=== PATIENT | female | born 1935 | race Caucasian/White ===

== ENCOUNTER 2017-09-28 11:15 | Emergency (ER) | payer MEDICARE, BC ==
--- NOTE | 2017-09-28 11:40 | ED ---
Extremity Problem HPI <Davie Taylor - Last Filed: 09/28/17 13:23> - General Source: patient, RN notes reviewed, old records reviewed Mode of arrival: wheelchair Limitations: no limitations <NabilCyndie - Last Filed: 09/28/17 21:47> - General Chief complaint: Extremity Problem,Nontraumatic Stated complaint: rt leg pain Time Seen by Provider: 09/28/17 11:24 - History of Present Illness Initial comments: This is a 1-year-old female presents emergency department today with chief complaint of right hip pain. Patient reports that she's been having increased pain over the past 4 days of ambulation. She reports no pain with passive range of motion. She denies any falls or trauma that she is aware of. Patient states that she's ever had any issues with her hips. Patient states that she has had no urinary symptoms. Denies any other symptoms including abdominal pain shortness of breath or chest pain. (Cyndie Ferrer) - Related Data Home Medications Medication Instructions Recorded Confirmed Albuterol Sulfate [Accuneb] 2.5 mg INHALATION TID 12/01/13 12/23/13 Albuterol Sulfate [Proair Hfa] 2 puff INHALATION TID 12/01/13 12/23/13 Arformoterol Tartrate [Brovana] 15 mcg INHALATION BID 12/01/13 12/23/13 Aspirin 325 mg PO DAILY 12/01/13 12/23/13 Carvedilol 25 mg PO BID 12/01/13 12/23/13 Cholecalciferol [Vitamin D3] 2,000 unit PO DAILY 12/01/13 12/23/13 Enalapril Maleate [Vasotec] 10 mg PO BID 12/01/13 12/23/13 Ibandronate Sodium [Boniva] 150 mg PO QMONTH 12/01/13 12/23/13 Insuln Asp Prt/Insulin Aspart 20 unit SQ AC-SUPPER 12/01/13 12/23/13 [NovoLOG MIX 70-30 VIAL] Insuln Asp Prt/Insulin Aspart 28 unit SQ AC-BRKFST 12/01/13 12/23/13 [NovoLOG MIX 70-30 VIAL] Isosorbide Mononitrate [Imdur] 30 mg PO DAILY 12/01/13 12/23/13 Lansoprazole [Prevacid] 30 mg PO DAILY 12/01/13 12/23/13 Nitroglycerin Sl Tabs [Nitrostat] 0.4 mg SUBLINGUAL Q5M PRN 12/01/13 12/23/13 Pravastatin Sodium [Pravachol] 80 mg PO HS 12/01/13 12/23/13 amLODIPine [Norvasc] 5 mg PO BID 12/01/13 12/23/13 hydrALAZINE HCL [Apresoline] 50 mg PO TID 12/01/13 12/23/13 Previous Rx's Medication Instructions Recorded Budesonide [Pulmicort] 1 mg INHALATION RT-BID #60 nebu 12/07/13 Montelukast [Singulair] 10 mg PO HS #30 tab 12/07/13 Acetaminophen-Codeine 300-30mg 1 tab PO Q4H PRN 3 Days #18 tablet 09/28/17 [Tylenol w/codeine #3] Ibuprofen 600 mg PO TID #20 tablet 09/28/17 Nitrofurantoin Monohyd/M-Cryst 100 mg PO Q12HR #14 cap 09/28/17 [Macrobid] Allergies Allergy/AdvReac Type Severity Reaction Status Date / Time No Known Allergies Allergy Verified 09/28/17 11:20 Review of Systems ROS Other: All systems not noted in ROS Statement are negative. <Davie Taylor - Last Filed: 09/28/17 13:23> ROS Other: All systems not noted in ROS Statement are negative. <Cyndie Ferrer - Last Filed: 09/28/17 21:47> ROS Statement: Those systems with pertinent positive or pertinent negative responses have been documented in the HPI. Past Medical History Past Medical History: COPD, Diabetes Mellitus, GERD/Reflux, Hyperlipidemia, Hypertension, Myocardial Infarction ([place]), Pneumonia Additional Past Medical History / Comment(s): ANEURYSM SPLENIC ARTERY,NONTOXIC MULTINODULAR GOITER PER MEDICAL HX FROM DR AGUILAR OFFICE,PSORISIS, POLYNEUROPATHY Last Myocardial Infarction Date:: 2005 History of Any Multi-Drug Resistant Organisms: None Reported Past Surgical History: Cholecystectomy, Heart Catheterization With Stent Past Anesthesia/Blood Transfusion Reactions: No Reported Reaction Date of Last Stent Placement:: 2005? Past Psychological History: No Psychological Hx Reported Smoking Status: Former smoker Past Alcohol Use History: None Reported Past Drug Use History: None Reported - Past Family History Father Family Medical History: COPD Additional Family Medical History / Comment(s): DAD IN HIS 60'S Mother Family Medical History: Cancer Additional Family Medical History / Comment(s): MOM IN HER EARLY 70'S <Cyndie Ferrer - Last Filed: 09/28/17 21:47> General Exam <Davie Taylor - Last Filed: 09/28/17 13:23> Limitations: no limitations General appearance: alert, in no apparent distress Head exam: Present: atraumatic, normocephalic, normal inspection Eye exam: Present: normal appearance, PERRL, EOMI. Absent: scleral icterus, conjunctival injection, periorbital swelling ENT exam: Present: normal exam, mucous membranes moist Neck exam: Present: normal inspection. Absent: tenderness, meningismus, lymphadenopathy Respiratory exam: Present: normal lung sounds bilaterally, other (Patient has some labored breathing on exertion. She reports this is chronic. No acute changes.). Absent: respiratory distress, wheezes, rales, rhonchi, stridor Cardiovascular Exam: Present: regular rate, normal rhythm, normal heart sounds. Absent: systolic murmur, diastolic murmur, rubs, gallop, clicks GI/Abdominal exam: Present: soft, normal bowel sounds. Absent: distended, tenderness, guarding, rebound, rigid Extremities exam: Present: normal inspection, full ROM, normal capillary refill. Absent: tenderness, pedal edema, joint swelling, calf tenderness Right Hip exam: Present: normal inspection, full ROM, tenderness (over IT band ) Upper Leg exam: Present: normal inspection, full ROM Knee exam: Present: normal inspection Back exam: Present: normal inspection Neurological exam: Present: alert, oriented X3, CN II-XII intact Psychiatric exam: Present: normal affect, normal mood Skin exam: Present: warm, dry, intact, normal color. Absent: rash <Cyndie Ferrer - Last Filed: 09/28/17 21:47> - General Exam Comments Initial Comments: 81-year-old female. Alert and oriented. No significant distress. (Cyndie Ferrer) Course <Davie Taylor - Last Filed: 09/28/17 13:23> <Cyndie Ferrer - Last Filed: 09/28/17 21:47> Vital Signs 09/28/17 09/28/17 11:19 13:31 Temperature 98.0 F 98.1 F Pulse Rate 75 71 Respiratory 20 16 Rate Blood Pressure 167/72 160/78 O2 Sat by Pulse 99 98 Oximetry - Reevaluation(s) Reevaluation #1: 09/28/17 13:23 I personally saw and examined the patient and reviewed and agree with the PAs findings including all diagnostic interpretations and treatment plans is written was otherwise stated I did discuss the findings with the patient family members she is in agreement that she does want to go home she'll follow-up with orthopedics. (Davie Taylor) Medical Decision Making <Davie Taylor - Last Filed: 09/28/17 13:23> - Radiology Data Radiology results: report reviewed <Cyndie Ferrer - Last Filed: 09/28/17 21:47> - Medical Decision Making PAtient is a 81 year old female with CC of right hip pain, worse with ambulation for 4 days. Patient has full ROM passively, pain with walking. Patient has no fall or trauma. Normal sensation and pulse of the right foot and leg. PAtient has tenderness over R hip and IT band. Patient urinalysis is evidence of UTI. Culture obtained. Will start on antibiotics. Xray of hip shows no fracutre, evidence of mild or moderate arthritic changes. Patient informed of results.Will DC with short course of pain medication. REturn parameters discussed. (Cyndie Ferrer) - Lab Data Lab Results 09/28/17 Range/Units 12:36 Urine Color Yellow Urine Appearance Cloudy H (Clear) Urine pH 5.5 (5.0-8.0) Ur Specific [place] 1.017 (1.001-1.035) Urine Protein Trace H (Negative) Urine Glucose (UA) 3+ H (Negative) Urine Ketones Negative (Negative) Urine Blood Negative (Negative) Urine Nitrite Positive H (Negative) Urine Bilirubin Negative (Negative) Urine Urobilinogen <2.0 (<2.0) mg/dL Ur Leukocyte Esterase Moderate H (Negative) Urine WBC 27 H (0-5) /hpf Ur Squamous Epith Cells 8 H (0-4) /hpf Urine Bacteria Occasional H (None) /hpf Urine Mucus Rare H (None) /hpf - Radiology Data No acute osseous lesion. Evidence of degenerative changes within the right hip. (Cyndie Ferrer) Disposition <Davie Taylor - Last Filed: 09/28/17 13:23> Is patient prescribed a controlled substance at d/c from ED?: Yes If prescribed controlled substance>3 days was MAPS reviewed?: Prescribed <3 Days If opioid is for acute pain is fill amount 7 days or less?: Yes If Rx opioid, was Start Talking consent form obtained?: Yes Time of Disposition: 13:13 <Cyndie Ferrer - Last Filed: 09/28/17 21:47> Clinical Impression: Arthritis of right hip, UTI (urinary tract infection) Disposition: HOME SELF-CARE Condition: Good Instructions: Arthritis (ED), Urinary Traction Infection in Older Adults (ED) Additional Instructions: Patient advised to follow-up with primary care physician. Take antibiotics and use the pain medicine and anti-inflammatory medicine as prescribed. Patient should return to the emergency department if any alarming signs or symptoms occur. Prescriptions: Acetaminophen-Codeine 300-30mg [Tylenol w/codeine #3] 1 tab PO Q4H PRN 3 Days # 18 tablet PRN Reason: Pain Ibuprofen 600 mg PO TID #20 tablet Nitrofurantoin Monohyd/M-Cryst [Macrobid] 100 mg PO Q12HR #14 cap Referrals: Dewayne Aguilar DO [Primary Care Provider] - 1-2 days Mark Siegel MD [Medical Doctor] - 1-2 days
--- NOTE | 2017-09-28 12:32 | XR ---
EXAMINATION TYPE: XR Hip RT and AP Pelvis , 3 VIEWS DATE OF EXAM ORDERED: 09/28/2017 HISTORY: Pain. COMPARISON: None. FINDINGS: Osseous structures about the pelvis are unremarkable. No fracture is seen. There are mild degenerative changes in the right hip. There is vascular calcification present. There are phleboliths within the pelvis. IMPRESSION: 1. NO ACUTE OSSEOUS LESION. 2. DEGENERATIVE CHANGE.
[2017-09-28 12:50] LABS: Appearance,Urine Cloudy (Clear); Bacteria,Urine Occasional /hpf; Bilirubin,Urine Negative (Negative); Blood,Urine Negative (Negative); Color,Urine Yellow; Glucose,Urine (UA) 3+ (Negative); Ketones,Urine Negative (Negative); Leukocyte Esterase,Urine Moderate (Negative); Mucus,Urine Rare /hpf; Nitrite,Urine Positive (Negative); PH, Urine 5.5 (5.0-8.0); Protein,Urine Trace (Negative); Specific Gravity,Urine 1.017 (1.001-1.035); Squamous Epithelial Cell,Urine 8 /hpf (0-4); Urobilinogen,Urine <2.0 mg/dL (<2.0); WBC,Urine 27 /hpf (0-5)
[2017-09-28] MEDS ORDERED: ACET/COD 300 MG/30 MG STARTER PACK 6 TAB BTL PO STA (13:13)
[2017-09-28] MEDS ORDERED: NITROFURANTOIN MONOHYD/M-CRYST 100 MG CAP PO STA (13:13)
[2017-09-28 13:32] VITALS: BP 160/78; PULSE 71; RESP 16; TEMP 98.1
== END 2017-09-28 13:31 | disposition home or self-care (01) ==
LOC: EC 11:15
DX: M16.11 Unilateral primary osteoarthritis, right hip (principal); N39.0 Urinary tract infection, site not specified; J44.9 Chronic obstructive pulmonary disease, unspecified; E11.42 Type 2 diabetes mellitus with diabetic polyneuropathy; K21.9 Gastro-esophageal reflux disease without esophagitis; E78.5 Hyperlipidemia, unspecified; I10 Essential (primary) hypertension; I25.2 Old myocardial infarction; Z95.5 Presence of coronary angioplasty implant and graft; Z87.891 Personal history of nicotine dependence; Z79.82 Long term (current) use of aspirin; Z79.4 Long term (current) use of insulin; Z79.899 Other long term (current) drug therapy
CPT/HCPCS: 73502; 81001; 99284

== ENCOUNTER 2017-09-29 14:35 | Inpatient (IN) | payer MEDICARE, BC ==
[2017-09-29] MEDS ORDERED: KETOROLAC 30 MG/ML 1 ML VIAL IVP STA (15:04)
--- NOTE | 2017-09-29 15:12 | ED ---
General Adult HPI - General Chief complaint: Recheck/Abnormal Lab/Rx Stated complaint: trouble walking Time Seen by Provider: 09/29/17 14:55 Source: patient, family, RN notes reviewed, old records reviewed Mode of arrival: wheelchair Limitations: no limitations - History of Present Illness Initial comments: This 82-year-old female with a history of multiple medical problems who was seen here yesterday with complaints of right-sided hip and lower quadrant abdominal pain who is back today with increased pain she states 9/10 severity she states it hurts she cannot describe it any further she states she is unable walk because of the pain at this time. She denies any focal deficits however. No nausea vomiting dysuria hematuria no other symptoms reported at this time. Per family member she is unable relate and able to care for herself. - Related Data Home Medications Medication Instructions Recorded Confirmed Albuterol Sulfate [Accuneb] 2.5 mg INHALATION TID 12/01/13 12/23/13 Albuterol Sulfate [Proair Hfa] 2 puff INHALATION TID 12/01/13 12/23/13 Arformoterol Tartrate [Brovana] 15 mcg INHALATION BID 12/01/13 12/23/13 Aspirin 325 mg PO DAILY 12/01/13 12/23/13 Carvedilol 25 mg PO BID 12/01/13 12/23/13 Cholecalciferol [Vitamin D3] 2,000 unit PO DAILY 12/01/13 12/23/13 Enalapril Maleate [Vasotec] 10 mg PO BID 12/01/13 12/23/13 Ibandronate Sodium [Boniva] 150 mg PO QMONTH 12/01/13 12/23/13 Insuln Asp Prt/Insulin Aspart 20 unit SQ AC-SUPPER 12/01/13 12/23/13 [NovoLOG MIX 70-30 VIAL] Insuln Asp Prt/Insulin Aspart 28 unit SQ AC-BRKFST 12/01/13 12/23/13 [NovoLOG MIX 70-30 VIAL] Isosorbide Mononitrate [Imdur] 30 mg PO DAILY 12/01/13 12/23/13 Lansoprazole [Prevacid] 30 mg PO DAILY 12/01/13 12/23/13 Nitroglycerin Sl Tabs [Nitrostat] 0.4 mg SUBLINGUAL Q5M PRN 12/01/13 12/23/13 Pravastatin Sodium [Pravachol] 80 mg PO HS 12/01/13 12/23/13 amLODIPine [Norvasc] 5 mg PO BID 12/01/13 12/23/13 hydrALAZINE HCL [Apresoline] 50 mg PO TID 12/01/13 12/23/13 Previous Rx's Medication Instructions Recorded Budesonide [Pulmicort] 1 mg INHALATION RT-BID #60 nebu 12/07/13 Montelukast [Singulair] 10 mg PO HS #30 tab 12/07/13 Acetaminophen-Codeine 300-30mg 1 tab PO Q4H PRN 3 Days #18 tablet 09/28/17 [Tylenol w/codeine #3] Ibuprofen 600 mg PO TID #20 tablet 09/28/17 Nitrofurantoin Monohyd/M-Cryst 100 mg PO Q12HR #14 cap 09/28/17 [Macrobid] Allergies Allergy/AdvReac Type Severity Reaction Status Date / Time No Known Allergies Allergy Verified 09/29/17 14:46 Review of Systems ROS Statement: Those systems with pertinent positive or pertinent negative responses have been documented in the HPI. ROS Other: All systems not noted in ROS Statement are negative. Past Medical History Past Medical History: COPD, Diabetes Mellitus, GERD/Reflux, Hyperlipidemia, Hypertension, Myocardial Infarction ([place]), Pneumonia Additional Past Medical History / Comment(s): ANEURYSM SPLENIC ARTERY,NONTOXIC MULTINODULAR GOITER PER MEDICAL HX FROM DR AGUILAR OFFICE,PSORISIS, POLYNEUROPATHY Last Myocardial Infarction Date:: 2005 History of Any Multi-Drug Resistant Organisms: None Reported Past Surgical History: Cholecystectomy, Heart Catheterization With Stent Past Anesthesia/Blood Transfusion Reactions: No Reported Reaction Date of Last Stent Placement:: 2005? Past Psychological History: No Psychological Hx Reported Smoking Status: Former smoker Past Alcohol Use History: None Reported Past Drug Use History: None Reported - Past Family History Father Family Medical History: COPD Additional Family Medical History / Comment(s): DAD IN HIS 60'S Mother Family Medical History: Cancer Additional Family Medical History / Comment(s): MOM IN HER EARLY 70'S General Exam - General Exam Comments Initial Comments: This is a well-developed well-nourished awake alert oriented 3 female Limitations: no limitations General appearance: alert, anxious, in distress Head exam: Present: atraumatic, normocephalic, normal inspection Eye exam: Present: normal appearance, PERRL, EOMI. Absent: scleral icterus, conjunctival injection, periorbital swelling ENT exam: Present: normal exam, mucous membranes moist Neck exam: Present: normal inspection. Absent: tenderness, meningismus, lymphadenopathy Respiratory exam: Present: normal lung sounds bilaterally. Absent: respiratory distress, wheezes, rales, rhonchi, stridor Cardiovascular Exam: Present: regular rate, normal rhythm, normal heart sounds. Absent: systolic murmur, diastolic murmur, rubs, gallop, clicks GI/Abdominal exam: Present: soft, normal bowel sounds, other (Obese abdomen). Absent: distended, tenderness, guarding, rebound, rigid Rectal exam: Present: deferred Extremities exam: Present: normal inspection, full ROM, normal capillary refill Back exam: Present: tenderness, other (Right SI tenderness palpation some mild right paraspinous tenderness palpation upper gluteal tenderness palpation.). Absent: full ROM, CVA tenderness (R), CVA tenderness (L) Neurological exam: Present: alert, oriented X3, CN II-XII intact Psychiatric exam: Present: normal affect, normal mood Skin exam: Present: warm, dry, intact, normal color. Absent: rash Course Vital Signs 09/29/17 14:46 Temperature 97.6 F Pulse Rate 68 Respiratory 18 Rate Blood Pressure 160/62 O2 Sat by Pulse 95 Oximetry EKG Findings - EKG Results: EKG: interpreted by ERMD, sinus rhythm (Sinus rhythm rate 66. Interval 150 to QRS 82 QT since QTC 412/431 st-t wave changes are seen.) Medical Decision Making - Medical Decision Making The patient was seen by Dr. Murrieta in the emergency department and will be admitted for inpatient evaluation of intractable back pain and failure to thrive additionally she had hypoglycemia renal insufficiency and mildly elevated troponin. - Lab Data Result diagrams: 09/29/17 15:30 09/29/17 15:30 Lab Results 09/29/17 09/29/17 09/29/17 Range/Units 15:27 15:30 15:30 WBC 11.4 H (3.8-10.6) k/uL RBC 4.38 (3.80-5.40) m/uL Hgb 11.9 (11.4-16.0) gm/dL Hct 37.8 (34.0-46.0) % MCV 86.2 (80.0-100.0) fL MCH 27.1 (25.0-35.0) pg MCHC 31.4 (31.0-37.0) g/dL RDW 14.5 (11.5-15.5) % Plt Count 231 (150-450) k/uL Neutrophils % 84 % Lymphocytes % 9 % Monocytes % 4 % Eosinophils % 2 % Basophils % 0 % Neutrophils # 9.6 H (1.3-7.7) k/uL Lymphocytes # 1.1 (1.0-4.8) k/uL Monocytes # 0.4 (0-1.0) k/uL Eosinophils # 0.2 (0-0.7) k/uL Basophils # 0.0 (0-0.2) k/uL Hypochromasia Slight Sodium (137-145) mmol/L Potassium (3.5-5.1) mmol/L Chloride (98-107) mmol/L Carbon Dioxide (22-30) mmol/L Anion Gap mmol/L BUN (7-17) mg/dL Creatinine (0.52-1.04) mg/dL Est GFR (CKD-EPI)AfAm (>60 ml/min/1.73 sqM) Est GFR (CKD-EPI)NonAf (>60 ml/min/1.73 sqM) Glucose (74-99) mg/dL POC Glucose (mg/dL) 46 L (75-99) mg/dL POC Glu Spindle Tester ID Watt, Yaneli Calcium (8.4-10.2) mg/dL Magnesium (1.6-2.3) mg/dL Total Bilirubin (0.2-1.3) mg/dL AST (14-36) U/L ALT (9-52) U/L Alkaline Phosphatase (38-126) U/L Total Creatine Kinase 124 (30-135) U/L CK-MB (CK-2) 2.4 (0.0-2.4) ng/mL CK-MB (CK-2) Rel Index 1.9 Troponin I 0.054 H* (0.000-0.034) ng/mL Total Protein (6.3-8.2) g/dL Albumin (3.5-5.0) g/dL Amylase (30-110) U/L Lipase (23-300) U/L 09/29/17 09/29/17 09/29/17 Range/Units 15:30 15:46 16:15 WBC (3.8-10.6) k/uL RBC (3.80-5.40) m/uL Hgb (11.4-16.0) gm/dL Hct (34.0-46.0) % MCV (80.0-100.0) fL MCH (25.0-35.0) pg MCHC (31.0-37.0) g/dL RDW (11.5-15.5) % Plt Count (150-450) k/uL Neutrophils % % Lymphocytes % % Monocytes % % Eosinophils % % Basophils % % Neutrophils # (1.3-7.7) k/uL Lymphocytes # (1.0-4.8) k/uL Monocytes # (0-1.0) k/uL Eosinophils # (0-0.7) k/uL Basophils # (0-0.2) k/uL Hypochromasia Sodium 141 (137-145) mmol/L Potassium 6.1 H (3.5-5.1) mmol/L Chloride 109 H (98-107) mmol/L Carbon Dioxide 21 L (22-30) mmol/L Anion Gap 11 mmol/L BUN 37 H (7-17) mg/dL Creatinine 1.26 H (0.52-1.04) mg/dL Est GFR (CKD-EPI)AfAm 46 (>60 ml/min/1.73 sqM) Est GFR (CKD-EPI)NonAf 40 (>60 ml/min/1.73 sqM) Glucose 42 L* (74-99) mg/dL POC Glucose (mg/dL) 47 L 154 H (75-99) mg/dL POC Glu Spindle Tester AUREA WattJorgeYaneli Yaneli Villarreal Calcium 8.9 (8.4-10.2) mg/dL Magnesium 1.8 (1.6-2.3) mg/dL Total Bilirubin 0.4 (0.2-1.3) mg/dL AST 27 (14-36) U/L ALT 25 (9-52) U/L Alkaline Phosphatase 48 (38-126) U/L Total Creatine Kinase (30-135) U/L CK-MB (CK-2) (0.0-2.4) ng/mL CK-MB (CK-2) Rel Index Troponin I (0.000-0.034) ng/mL Total Protein 6.6 (6.3-8.2) g/dL Albumin 4.1 (3.5-5.0) g/dL Amylase 73 (30-110) U/L Lipase 60 (23-300) U/L - Radiology Data Radiology results: image reviewed Disposition Clinical Impression: Intractable back pain, Hypoglycemia, Renal insufficiency syndrome, Elevated troponin, Failure to thrive Disposition: [facility] Condition: Stable Referrals: Dewayne Aguilar DO [Primary Care Provider] - 1-2 days
[2017-09-29 15:28] LABS: Glucose,Whole Blood 46 mg/dL (75-99)
[2017-09-29 15:41] LABS: Basophils % (A) 0 %; Eosinophils # (A) 0.2 k/uL (0-0.7); Eosinophils % (A) 2 %; HCT 37.8 % (34.0-46.0); HGB 11.9 gm/dL (11.4-16.0); Hypochromasia Slight; Lymphocytes # (A) 1.1 k/uL (1.0-4.8); Lymphocytes % (A) 9 %; MCH 27.1 pg (25.0-35.0); MCHC 31.4 g/dL (31.0-37.0); MCV 86.2 fL (80.0-100.0); Monocytes # (A) 0.4 k/uL (0-1.0); Monocytes % (A) 4 %; Neutrophils # (A) 9.6 k/uL (1.3-7.7); Neutrophils % (A) 84 %; Platelet Count 231 k/uL (150-450); RBC 4.38 m/uL (3.80-5.40); RDW 14.5 % (11.5-15.5); WBC 11.4 k/uL (3.8-10.6)
[2017-09-29] MEDS ORDERED: DEXTROSE 50%-WATER 50 ML SYRINGE IVP STA (15:48)
[2017-09-29 15:53] LABS: Albumin 4.1 g/dL (3.5-5.0); Calcium 8.9 mg/dL (8.4-10.2); Magnesium 1.8 mg/dL (1.6-2.3); Potassium 6.1 mmol/L (3.5-5.1); Total Bilirubin 0.4 mg/dL (0.2-1.3); Total Protein 6.6 g/dL (6.3-8.2)
[2017-09-29 15:58] LABS: Glucose,Whole Blood 47 mg/dL (75-99)
[2017-09-29 16:10] LABS: Creatine Kinase MB 2.4 ng/mL (0.0-2.4)
[2017-09-29 16:13] LABS: Troponin I 0.054 ng/mL (0.000-0.034)
[2017-09-29 16:19] LABS: Glucose,Whole Blood 154 mg/dL (75-99)
[2017-09-29] MEDS ORDERED: IOPAMIDOL-300 CONTRAST 30 ML VIAL (ORAL USE) PO PRN (16:21)
[2017-09-29] MEDS ORDERED: ALPRAZolam 0.25 MG TAB PO PRN (16:23)
[2017-09-29] MEDS ORDERED: NALOXONE 0.4 MG/ML 1 ML VIAL IV PRN (16:50)
[2017-09-29] MEDS ORDERED: fentaNYL (PF) 50 MCG/ML 2 ML AMP IVP STA (16:55)
[2017-09-29] MEDS ORDERED: NITROGLYCERIN SL TABS 0.4 MG TAB SUBLINGUAL PRN (16:58)
[2017-09-29] MEDS ORDERED: NON-FORMULARY DRUG (Ibandronate Sodium [Boniva] 150 MG) PO SCH (17:00)
--- NOTE | 2017-09-29 17:08 | XR ---
EXAMINATION TYPE: XR pelvis AP view DATE OF EXAM: 09/29/2017 CLINICAL HISTORY: Pelvic and right hip pain. TECHNIQUE: AP view of the pelvis is obtained. COMPARISON: 09/29/2017 radiographs. FINDINGS: Interval development of right femoral neck fracture with superior displacement and medial impaction. Remaining osseous structures are unchanged. Fluid was present within low pelvis. Limited evaluation o f bowel is unremarkable. IMPRESSION: Interval development of superiorly displaced and impacted right femoral neck fracture.
--- NOTE | 2017-09-29 17:09 | XR ---
EXAMINATION TYPE: XR lumbosacral spine min 4V DATE OF EXAM: 09/29/2017 CLINICAL HISTORY: Fall, low back pain TECHNIQUE: Frontal, lateral, and oblique images of the lumbar spine are obtained. COMPARISON: FINDINGS: There are 5 lumbar type vertebral bodies identified. Normal alignment. Multilevel disc spa ce height narrowing is present. Vertebral body heights are maintained. Multilevel facet hypertrophy a nd anterior osteophytosis is evident. Calcification is noted of the abdominal aorta. The oblique imag es appear within normal limits. The overlying soft tissue appears unremarkable. IMPRESSION: No acute fracture or dislocation is seen in the lumbar spine.
[2017-09-29] MEDS ORDERED: ONDANSETRON 4 MG/2 ML VIAL IVP STA (17:38)
[2017-09-29] MEDS: SODIUM CHLORIDE 0.9% 1,000 ML IV SCH (17:43)
--- NOTE | 2017-09-29 18:42 | HP ---
HISTORY AND PHYSICAL CHIEF COMPLAINTS: Difficulty walking and as well as hypoglycemia and right hip pain. HISTORY OF PRESENT ILLNESS: This 82-year-old woman with a past medical history of multiple medical problems including history of COPD, diabetes, GERD, hypertension, hyperlipidemia, history of myocardial infarction, history of splenic artery aneurysm, being followed by Dr. Aguilar in the outpatient setting, was complaining of right hip pain for the last couple of days. Patient unable to walk. The pain was radiating from the back to the hip according to her. The patient came to [facility] Emergency Room yesterday and patient was evaluated and discharged but because of lack of improvement, the patient came back and being admitted for further evaluation. Of note, the blood sugar was also found to be 41 and 36 at this time. There is no history of fever, rigors or chills. No history of headache, loss of consciousness, seizures. PAST MEDICAL HISTORY: COPD, diabetes, GERD, hypertension, hyperlipidemia, myocardial infarction, pneumonia. MEDICATIONS: Home medications are: 1. Apresoline 50 mg p.o. b.i.d. 2. Norvasc 5 mg p.o. b.i.d. 3. Pravachol 80 mg daily. 4. Nitrostat 0.4 mg sublingual p.r.n. 5. Macrobid 100 mg b.i.d. 6. Singular 10 mg q.h.s. 7. Prevacid 30 mg. 8. Imdur 30 mg. 9. NovoLog 28 units subcu breakfast, 10 units supper. 10.Ibuprofen 600 mg t.i.d. 11.Boniva 50 mg monthly. 12.Vasotec 10 mg p.o. b.i.d. 13.Vitamin D3 2000 daily. 14.Coreg 25 mg p.o. b.i.d. 15.Pulmicort 1 mg b.i.d. 16.Aspirin 320 mg daily. 17.Brovana 15 b.i.d. 18.ProAir 2 puffs t.i.d. 20.Tylenol #3 1 tablet q.4h p.r.n. ALLERGIES: None. FAMILY HISTORY: History of COPD in the family. SOCIAL HISTORY: Previous history of smoking. Occasional alcohol intake. REVIEW OF SYSTEMS: ENT: No diminished vision. No diminished hearing. CARDIOVASCULAR: No angina. RESPIRATORY: As mentioned earlier. GI: No nausea or vomiting. : No dysuria. CENTRAL NERVOUS SYSTEM: No numbness or weakness. ALLERGY/IMMUNOLOGY: No asthma or hayfever. MUSCULOSKELETAL as mentioned earlier. HEMATOLOGY/ONCOLOGY: No history of anemia. ENDOCRINE: As mentioned earlier. CONSTITUTIONAL: As mentioned earlier. DERMATOLOGY: Negative. RHEUMATOLOGY: Negative. PSYCHIATRIC: As mentioned earlier. PHYSICAL EXAMINATION: GENERAL: Alert, and oriented times three. VITAL SIGNS: Pulse 68, blood pressure 160/62, respiration 18, temperature 97.6, pulse ox 94% on room air. HEENT: Conjunctivae normal. Oral mucosa moist. NECK is no jugular venous distention. No carotid bruit. No lymph node enlargement. CARDIOVASCULAR: S1, S2 muffled. RESPIRATIONS: Breath sounds diminished in the bases. A few scattered rhonchi. No crackles. ABDOMEN: Soft. Minimal diffuse tenderness in the right lower quadrant. Movements of the right hip also painful. LEGS: No edema and no swelling. NERVOUS SYSTEM: Higher functions as mentioned earlier. Moves all four extremities. No focal motor or sensory deficits. LYMPHATICS: No lymph nodes palpable in the neck, axillae or groin. SKIN: No ulcer, rashes or bleeding. LABS: WBC 11.4, hemoglobin 11.9 potassium 6.1, creatinine 1.26, glucose 42 and 47, 46. ASSESSMENT: 1. Right hip pain and right lower quadrant abdominal pain for evaluation. 2. Severe hypoglycemia with diabetes type 2 uncontrolled. 3. Hyperkalemia. 4. Chronic kidney disease stage 3. 5. History of chronic obstructive pulmonary disease. 6. Diabetes mellitus type 2. 7. Gastroesophageal reflux disease. 8. Hypertension. 9. Hyperlipidemia. 10.History of myocardial infarction. 11.History of splenic artery aneurysm. 12.History of nontoxic multinodular goiter on medical treatment. 13.History of polyneuropathy. 14.History of cholecystectomy. 15.History of coronary artery disease/stent. 16.Remote history of nicotine dependence. RECOMMENDATION AND DISCUSSION: In this 82-year-old woman who presented with multiple complex medical issues, we will monitor the patient closely. Continue the current medications, management and symptomatic treatment. We will recommend to hold the insulin. Symptomatic treatment provided and monitor blood sugars closely. I would also recommend a CT scan of the abdomen and pelvis also. Orthopedic evaluation with Dr. West will also be obtained. Prognosis guarded because of multiple complex medical issues. Further recommendations to follow. A copy of dictation is being forwarded to Dr. Aguilar who is the primary care physician. See orders for details. MMODL / IJN: [id number] / ANASTASIA
[2017-09-29 19:13] LABS: Glucose,Whole Blood 64 mg/dL (75-99)
[2017-09-29 19:17] LABS: Glucose,Whole Blood 63 mg/dL (75-99)
--- NOTE | 2017-09-29 19:23 | CT ---
EXAMINATION TYPE: CT abdomen pelvis wo con DATE OF EXAM: 09/29/2017 HISTORY: Right groin pain. CT DLP: 1248.7 mGycm. Automated Exposure Control for Dose Reduction was Utilized. TECHNIQUE: CT scan of the abdomen and pelvis is performed without oral or IV contrast. COMPARISON: NONE FINDINGS: Within the limitations of a non-contrast study, the following observations are made. LUNG BASES: No significant abnormality is appreciated. LIVER/GB: No significant abnormality is appreciated. PANCREAS: No significant abnormality is seen. SPLEEN: No significant abnormality is seen. ADRENALS: Fat containing right adrenal lesion is evident. A 1.5 cm left adrenal lesion with Hounsfiel d units less than 10 most consistent with a benign adenoma. KIDNEYS: Kidneys are slightly atrophic but otherwise unremarkable. BOWEL: No significant abnormality is seen. Normal appendix. GENITAL ORGANS: No gross abnormality seen. LYMPH NODES: No greater than 1cm abdominal or pelvic lymph nodes are appreciated. OSSEOUS STRUCTURES: No significant abnormality is seen. Grade 1 anterolisthesis of L5 on S1. Comminut ed right femoral neck fracture is evident with superior migration and impaction. The femoral head rem ains in normal alignment with the acetabulum. No additional pelvic fractures are evident. The sacroil iac joints are unremarkable. OTHER: Diffuse calcification of the abdominal aorta. IMPRESSION: 1. Comminuted, displaced and impacted right femoral neck fracture as described above. 2. No additional acute findings.
[2017-09-29 19:44] LABS: Glucose,Whole Blood 70 mg/dL (75-99)
--- NOTE | 2017-09-29 19:53 | CT ---
EXAMINATION TYPE: CT hip RT wo con DATE OF EXAM: 09/29/2017 COMPARISON: CT abdomen and pelvis earlier the same day. HISTORY: Right groin pain. CT DLP: 1248.7 mGycm Automated exposure control for dose reduction was used. FINDINGS: Comminuted right femoral neck fracture is evident with superior displacement and impaction. The femor al head remains in normal alignment with the acetabulum. No additional pelvic fractures are evident. The sacroiliac joints are unremarkable. Further evaluation of the abdomen and pelvis is better described on the concurrently performed CT of pelvis of the same day. IMPRESSION: COMMINUTED, SUPERIORLY DISPLACED AND IMPACTED RIGHT FEMORAL NECK FRACTURE.
[2017-09-29] MEDS: hydrALAZINE HCL 50 MG TAB PO SCH (20:21)
[2017-09-29] MEDS: HEPARIN SODIUM,PORCINE 5,000 UNIT/ML 1 ML VIAL SQ SCH (20:21)
[2017-09-29] MEDS: IBUPROFEN 600 MG TAB PO SCH (20:21)
[2017-09-29] MEDS: amLODIPine 5 MG TAB PO SCH (20:21)
[2017-09-29] MEDS: MELATONIN 3 MG TABLET PO SCH (20:21)
[2017-09-29] MEDS: MONTELUKAST 10 MG TAB PO SCH (20:21)
[2017-09-29] MEDS: HYDROcodone/APAP 5-325MG 1 EACH TAB PO PRN (20:22)
[2017-09-29] MEDS: PRAVASTATIN SODIUM 80 MG TAB PO SCH (20:23)
[2017-09-29] MEDS: ALBUTEROL NEBULIZED 2.5 MG/3 ML INHALATION SCH (20:25)
[2017-09-29] MEDS: BUDESONIDE 1 MG/2 ML NEBU INHALATION SCH (20:25)
[2017-09-29] MEDS: FORMOTEROL FUMARATE 20 MCG/2 ML NEBU INHALATION SCH (20:36)
[2017-09-29 20:59] LABS: Glucose,Whole Blood 74 mg/dL (75-99)
[2017-09-29] MEDS ORDERED: NITROFURANTOIN MONOHYD/M-CRYST 100 MG CAP PO SCH (21:00)
[2017-09-29] MEDS: INSULN ASP PRT/INSULIN ASPART 100 UNIT/ML 10 ML VIAL SQ SCH (22:13)
[2017-09-29] MEDS: CARVEDILOL 12.5 MG TAB PO SCH (22:13)
[2017-09-30] MEDS: HYDROcodone/APAP 5-325MG 1 EACH TAB PO PRN (02:24)
[2017-09-30 04:17] LABS: Glucose,Whole Blood 125 mg/dL (75-99)
[2017-09-30 04:42] LABS: Appearance,Urine Clear (Clear); Bilirubin,Urine Negative (Negative); Blood,Urine Negative (Negative); Color,Urine Yellow; Glucose,Urine (UA) Negative (Negative); Ketones,Urine Negative (Negative); Leukocyte Esterase,Urine Negative (Negative); Nitrite,Urine Negative (Negative); Protein,Urine Trace (Negative); Specific Gravity,Urine 1.016 (1.001-1.035); Urobilinogen,Urine <2.0 mg/dL (<2.0)
[2017-09-30 05:49] LABS: Glucose,Whole Blood 119 mg/dL (75-99)
[2017-09-30] MEDS: INSULN ASP PRT/INSULIN ASPART 100 UNIT/ML 10 ML VIAL SQ SCH ×2 (06:38→18:10)
[2017-09-30] MEDS: PANTOPRAZOLE 40 MG TABLET PO SCH (06:40)
[2017-09-30] MEDS: CARVEDILOL 12.5 MG TAB PO SCH ×2 (06:40→17:43)
[2017-09-30] MEDS: SODIUM CHLORIDE 0.9% 1,000 ML IV SCH ×2 (06:46→09:42)
[2017-09-30 07:15] LABS: Basophils % (A) 0 %; Eosinophils # (A) 0.2 k/uL (0-0.7); Eosinophils % (A) 3 %; HCT 34.1 % (34.0-46.0); HGB 10.4 gm/dL (11.4-16.0); Hypochromasia Moderate; Lymphocytes # (A) 0.7 k/uL (1.0-4.8); Lymphocytes % (A) 10 %; MCH 27.2 pg (25.0-35.0); MCHC 30.6 g/dL (31.0-37.0); MCV 88.8 fL (80.0-100.0); Mean Platelet Volume 7.7; Monocytes # (A) 0.5 k/uL (0-1.0); Monocytes % (A) 6 %; Neutrophils # (A) 5.6 k/uL (1.3-7.7); Neutrophils % (A) 79 %; Platelet Count 181 k/uL (150-450); RBC 3.85 m/uL (3.80-5.40); RDW 14.3 % (11.5-15.5); WBC 7.1 k/uL (3.8-10.6)
[2017-09-30 07:24] LABS: Calcium 8.6 mg/dL (8.4-10.2)
[2017-09-30] MEDS ORDERED: HYDROmorphone 1 MG/ML 1 ML SYRINGE IVP PRN (07:52)
[2017-09-30] MEDS: HEPARIN SODIUM,PORCINE 5,000 UNIT/ML 1 ML VIAL SQ SCH ×2 (07:58→20:54)
[2017-09-30] MEDS: HYDROmorphone 1 MG/ML 1 ML SYRINGE IVP PRN ×3 (07:59→22:42)
[2017-09-30] MEDS: FORMOTEROL FUMARATE 20 MCG/2 ML NEBU INHALATION SCH ×2 (08:09→20:18)
[2017-09-30] MEDS: BUDESONIDE 1 MG/2 ML NEBU INHALATION SCH ×2 (08:09→20:18)
[2017-09-30] MEDS: ALBUTEROL NEBULIZED 2.5 MG/3 ML INHALATION SCH ×3 (08:09→20:18)
[2017-09-30] MEDS: ONDANSETRON 4 MG/2 ML VIAL IVP PRN (08:38)
[2017-09-30] MEDS ORDERED: NON-FORMULARY DRUG (Lansoprazole [Prevacid] 30 MG) PO SCH (09:00)
[2017-09-30] MEDS ORDERED: LISINOPRIL 20 MG TAB PO SCH (09:00)
--- NOTE | 2017-09-30 09:16 | P.CNOR ---
History of Present Illness - [facility] Consult date: 09/30/17 Requesting physician: Alexsander Murrieta Consult reason: fracture (Right comminuted superiorly displaced impacted right femoral neck fracture) History of present illness: Patient is a very pleasant 82-year-old female who is seen and examined at the bedside for further evaluation for a right hip pain. She started to experience some hip pain this past without injury. Her pain became debilitating on 09/28/2017, and she presented to the emergency department for further evaluation. Imaging was taken at that time it was negative for fracture. She was discharged home. She returned to the emergency department yesterday, 09/29/2017, after the pain became even more debilitating and she was unable to ambulate. She was seen and examined by Dr. Murrieta in the emergency department as well. Multiple imaging modalities were taking in the emergency department which showed evidence of superior displaced and impacted right femoral neck fracture. She was admitted to medicine with consultation placed with orthopedics. She is remain nonweightbearing and on bed rest. She did eat breakfast this morning and finished breakfast at approximate 7:40 AM. Patient states she does have a history of heart attack a couple years ago. At the time of her admission she did have slightly elevated troponin levels at 0.054 and 0.051. Consultation has been placed with cardiology for medical clearance. We are currently waiting for medical clearance by medicine. Patient states she does have COPD and is currently on a breathing treatment. Patient denies any other significant difficulties or injuries. She did not sustain an accident to her right hip. She also has some difficulty with hypoglycemia due to uncontrolled type 2 diabetes. Her glucose levels have been better controlled on hospital. Past Medical History Past Medical History: COPD, Diabetes Mellitus, GERD/Reflux, Hyperlipidemia, Hypertension, Myocardial Infarction (AR), Pneumonia Additional Past Medical History / Comment(s): aneurysm splenic artery, nontoxic multinodular goiter per medical history from Dr. Aguilar office, psoriasis, polyneuropathy Last Myocardial Infarction Date:: 2005 History of Any Multi-Drug Resistant Organisms: None Reported Past Surgical History: Cholecystectomy, Heart Catheterization With Stent Past Anesthesia/Blood Transfusion Reactions: No Reported Reaction Date of Last Stent Placement:: 2005? Past Psychological History: No Psychological Hx Reported Smoking Status: Former smoker Past Alcohol Use History: None Reported Additional Past Alcohol Use History / Comment(s): STARTED SMOKING AT AGE 15 SMOKED LESS THAN 1 PPD QUIT IN 2005, HAS AN RARE DRINK NO DRUG HX. Past Drug Use History: None Reported - Past Family History Father Family Medical History: COPD Additional Family Medical History / Comment(s): DAD IN HIS 60'S Mother Family Medical History: Cancer Additional Family Medical History / Comment(s): MOM IN HER EARLY 70'S Medications and Allergies Home Medications Medication Instructions Recorded Confirmed Type Carvedilol 25 mg PO BID 12/01/13 09/29/17 History Cholecalciferol [Vitamin D3] 2,000 unit PO DAILY 12/01/13 09/29/17 History Enalapril Maleate [Vasotec] 10 mg PO BID 12/01/13 09/29/17 History Ibandronate Sodium [Boniva] 150 mg PO QMONTH 12/01/13 09/29/17 History Insuln Asp Prt/Insulin Aspart 20 unit SQ AC-SUPPER 12/01/13 09/29/17 History [NovoLOG MIX 70-30 VIAL] Insuln Asp Prt/Insulin Aspart 28 unit SQ AC-BRKFST 12/01/13 09/29/17 History [NovoLOG MIX 70-30 VIAL] Isosorbide Mononitrate [Imdur] 30 mg PO DAILY 12/01/13 09/29/17 History Lansoprazole [Prevacid] 30 mg PO DAILY 12/01/13 09/29/17 History Nitroglycerin Sl Tabs [Nitrostat] 0.4 mg SUBLINGUAL Q5M PRN 12/01/13 09/29/17 History Pravastatin Sodium [Pravachol] 80 mg PO HS 12/01/13 09/29/17 History amLODIPine [Norvasc] 5 mg PO BID 12/01/13 09/29/17 History hydrALAZINE HCL [Apresoline] 50 mg PO TID 12/01/13 09/29/17 History Acetaminophen-Codeine 300-30mg 1 tab PO Q4H PRN 3 Days #18 tablet 09/28/1709/29 Rx [Tylenol w/codeine #3] Ibuprofen 600 mg PO TID #20 tablet 09/28/17 09/29/17 Rx Nitrofurantoin Monohyd/M-Cryst 100 mg PO Q12HR #14 cap 09/28/17 09/29/17 Rx [Macrobid] Albuterol Nebulized [Ventolin 2.5 mg INHALATION RT-Q4H PRN 09/29/17 09/29/17 History Nebulized] Aspirin EC [Ecotrin Low Dose] 81 mg PO DAILY 09/29/17 09/29/17 History Hydrochlorothiazide [Hydrodiuril] 25 mg PO DAILY 09/29/17 09/29/17 History Ipratropium Jennings [Atrovent Hfa] 2 puff INHALATION RT-QID PRN 09/29/17 History buPROPion HCL [Wellbutrin SR] 150 mg PO BID 09/29/17 09/29/17 History Allergies Allergy/AdvReac Type Severity Reaction Status Date / Time No Known Allergies Allergy Verified 09/29/17 17:25 Physical Examination Physical exam: Patient is awake, alert, and oriented 3 Vital signs stable Good chest excursion with deep inspiration and expiration; currently on breathing treatment Abdomen soft nontender Right lower extremity is shortened and internally rotated Pain with palpation of the right hip Significant pain with internal and external rotation of the right hip No pain with internal and external rotation of the left hip Neurovascularly intact bilateral lower extremities Dorsiflexion, plantarflexion, and extensor hallucis longus positive sustained bilaterally Calves are soft and supple; No signs or symptoms of DVT; No calf pain Results Pertinent studies: CT the right hip without contrast taken on 09/29/2017: Comminuted superiorly displaced and impacted right femoral neck fracture X-ray of the pelvis taken on 09/29/2017 and compared to x-rays taken on 2017: Interval development of superior displaced and impacted right femoral neck fracture CT of the abdomen and pelvis without contrast taken on 09/29/2017: Comminuted displaced and impacted right femoral neck fracture; no additional acute findings - Labs Labs: Abnormal Lab Results - Last 24 Hours (Table) 09/29/17 09/29/17 09/29/17 Range/Units 15:27 15:30 15:30 WBC 11.4 H (3.8-10.6) k/uL Hgb (11.4-16.0) gm/dL MCHC (31.0-37.0) g/dL Neutrophils # 9.6 H (1.3-7.7) k/uL Lymphocytes # (1.0-4.8) k/uL Potassium (3.5-5.1) mmol/L Chloride (98-107) mmol/L Carbon Dioxide (22-30) mmol/L BUN (7-17) mg/dL Creatinine (0.52-1.04) mg/dL Glucose (74-99) mg/dL POC Glucose (mg/dL) 46 L (75-99) mg/dL Troponin I 0.054 H* (0.000-0.034) ng/mL Urine Protein (Negative) 09/29/17 09/29/17 09/29/17 Range/Units 15:30 15:46 16:15 WBC (3.8-10.6) k/uL Hgb (11.4-16.0) gm/dL MCHC (31.0-37.0) g/dL Neutrophils # (1.3-7.7) k/uL Lymphocytes # (1.0-4.8) k/uL Potassium 6.1 H (3.5-5.1) mmol/L Chloride 109 H (98-107) mmol/L Carbon Dioxide 21 L (22-30) mmol/L BUN 37 H (7-17) mg/dL Creatinine 1.26 H (0.52-1.04) mg/dL Glucose 42 L* (74-99) mg/dL POC Glucose (mg/dL) 47 L 154 H (75-99) mg/dL Troponin I (0.000-0.034) ng/mL Urine Protein (Negative) 09/29/17 09/29/17 09/29/17 Range/Units 18:52 19:16 19:33 WBC (3.8-10.6) k/uL Hgb (11.4-16.0) gm/dL MCHC (31.0-37.0) g/dL Neutrophils # (1.3-7.7) k/uL Lymphocytes # (1.0-4.8) k/uL Potassium (3.5-5.1) mmol/L Chloride (98-107) mmol/L Carbon Dioxide (22-30) mmol/L BUN (7-17) mg/dL Creatinine (0.52-1.04) mg/dL Glucose (74-99) mg/dL POC Glucose (mg/dL) 64 L 63 L 70 L (75-99) mg/dL Troponin I (0.000-0.034) ng/mL Urine Protein (Negative) 09/29/17 09/30/17 09/30/17 Range/Units 20:57 03:57 04:20 WBC (3.8-10.6) k/uL Hgb (11.4-16.0) gm/dL MCHC (31.0-37.0) g/dL Neutrophils # (1.3-7.7) k/uL Lymphocytes # (1.0-4.8) k/uL Potassium (3.5-5.1) mmol/L Chloride (98-107) mmol/L Carbon Dioxide (22-30) mmol/L BUN (7-17) mg/dL Creatinine (0.52-1.04) mg/dL Glucose (74-99) mg/dL POC Glucose (mg/dL) 74 L 125 H (75-99) mg/dL Troponin I (0.000-0.034) ng/mL Urine Protein Trace H (Negative) 09/30/17 09/30/17 09/30/17 Range/Units 05:47 06:38 06:38 WBC (3.8-10.6) k/uL Hgb 10.4 L (11.4-16.0) gm/dL MCHC 30.6 L (31.0-37.0) g/dL Neutrophils # (1.3-7.7) k/uL Lymphocytes # 0.7 L (1.0-4.8) k/uL Potassium 6.0 H (3.5-5.1) mmol/L Chloride (98-107) mmol/L Carbon Dioxide (22-30) mmol/L BUN 39 H (7-17) mg/dL Creatinine 1.53 H (0.52-1.04) mg/dL Glucose 129 H (74-99) mg/dL POC Glucose (mg/dL) 119 H (75-99) mg/dL Troponin I (0.000-0.034) ng/mL Urine Protein (Negative) 09/30/17 Range/Units 06:38 WBC (3.8-10.6) k/uL Hgb (11.4-16.0) gm/dL MCHC (31.0-37.0) g/dL Neutrophils # (1.3-7.7) k/uL Lymphocytes # (1.0-4.8) k/uL Potassium (3.5-5.1) mmol/L Chloride (98-107) mmol/L Carbon Dioxide (22-30) mmol/L BUN (7-17) mg/dL Creatinine (0.52-1.04) mg/dL Glucose (74-99) mg/dL POC Glucose (mg/dL) (75-99) mg/dL Troponin I 0.051 H* (0.000-0.034) ng/mL Urine Protein (Negative) H & H 09/29/17 09/30/17 Range/Units 15:30 06:38 Hgb 11.9 10.4 L (11.4-16.0) gm/dL Hct 37.8 34.1 (34.0-46.0) % Result Diagrams: 09/30/17 06:38 09/30/17 06:38 Assessment and Plan Assessment: Assessment: Right comminuted superiorly displaced and impacted right femoral neck fracture Right hip pain Inability to ambulate History of previous heart attack with current elevated troponin levels Significant medical history including severe hypoglycemia with type 2 diabetes uncontrolled, chronic kidney disease stage III, COPD, and hyperkalemia (1) Displaced fracture of right femoral neck Current Visit: Yes Status: Acute Code(s): S72.001A - FRACTURE OF UNSP PART OF NECK OF RIGHT FEMUR, INIT SNOMED Code(s): 8197952 (2) Right hip pain Current Visit: Yes Status: Acute Code(s): M25.551 - PAIN IN RIGHT HIP SNOMED Code(s): 48131454 (3) Inability to ambulate due to hip Current Visit: Yes Status: Acute Code(s): R26.2 - DIFFICULTY IN WALKING, NOT ELSEWHERE CLASSIFIED SNOMED Code(s): 156130489 (4) Elevated troponin Current Visit: Yes Status: Acute Code(s): R74.8 - ABNORMAL LEVELS OF OTHER SERUM ENZYMES SNOMED Code(s): 364439014 Plan: Plan: 1. Patient has had worsening right hip pain since . Imaging did not show evidence of fracture on Saturday. After further exacerbation of right hip pain and inability to ambulate, she presented to the emergency department again yesterday, 09/29/2017, at which time she was found to have a comminuted superiorly displaced impacted right femoral neck fracture. She was admitted to medicine with consultation to orthopedic services for further treatment and evaluation. Given her fracture, the most definitive care is for her to undergo surgical intervention to give her the best opportunity to recovery from her fracture and for her to be able to ambulate on the right lower extremity. The proposed surgical intervention is an ORIF right hip hemiarthroplasty. We will currently plan for surgical intervention this afternoon, 09/30/2017. Patient ate breakfast this morning but is currently nothing by mouth status. Her currently waiting for clearance by medicine. Consultation has been placed for cardiology for clearance prior to surgical intervention. She is able to be cleared by both medicine and cardiology today we will plan for surgical interventions afternoon to be performed by Dr. Siegel. She will continue on bed rest. She will remain nonweightbearing on the right lower extremity. We will plan for placement of Wing catheter. Treatment has been discussed with her family as well. 2. Patient currently waiting for consultation with cardiology for medical clearance 3. We will continue follow patient closely Time with Patient: Less than 30
[2017-09-30] MEDS: IBUPROFEN 600 MG TAB PO SCH (09:40)
[2017-09-30] MEDS ORDERED: SODIUM POLYSTYRENE SULFONATE 30 GM/120 ML BOTTLE RECTAL STA (11:29)
[2017-09-30] MEDS ORDERED: DEXTROSE 50%-WATER 50 ML SYRINGE IVP STA ×2 (11:31→14:01)
[2017-09-30] MEDS ORDERED: INSULIN REGULAR 100 UNIT/ML VIAL IV ONE ×2 (11:31→14:00)
[2017-09-30] MEDS ORDERED: SODIUM BICARB 8.4% 50 ML SYR (1 MEQ/ML) IV ONE ×2 (11:31→14:00)
--- NOTE | 2017-09-30 11:47 | P.CRDCN ---
History of Present Illness Consult date: 09/30/17 Requesting physician: Alexsander Murrieta Reason for Consult (text): Surgical clearance Chief complaint: Right hip fracture History of present illness: This is an 82-year-old female who follows with Dr. Brennen Caputo in the office. She has a known history of hypertension, diabetes, hyperlipidemia, COPD with prior history of smoking, coronary artery disease with prior stenting of the proximal circumflex in 2005 subsequent to that she did undergo a cardiac catheterization in 2010 which revealed a 50% mid LAD, 50% proximal circumflex, 20% mid RCA. Last echo in the office was performed in November 2016 which revealed an ejection fraction of 50% with mild inferobasal hypokinesis EF, mild increase in velocity across the aortic valve without significant stenosis. Most recent Bessy scan was performed in November 2016 which revealed an anterior fixed defect probable soft tissue attenuation. Her home medications include Apresoline 50 mg 3 times a day, well. Trend 150 twice a day, Norvasc 5 twice a day, Pravachol 80 mg daily, Macrobid 100 mg twice a day, Prevacid 30 daily, Imdur 30 daily, ibuprofen 3 times a day, Boniva, Hydrea diarrheal 25 daily, Vasotec 10 twice a day, Coreg 25 mg by mouth twice a day, and a baby aspirin. According To the patient, she's been taking Aleve at home because she has been experiencing significant pain in her right hip and right leg. She denies having any fall that she recalls, she states that she may have ran into something but does not even remember doing that. Because of this pain she presented to the emergency room. X-ray of the lumbar sacral spine was performed on admission which did not reveal acute fracture or dislocation of the lumbar spine. Pelvis x-ray revealed interval development of superiorly displaced and impacted right femoral neck fracture. CT of the abdomen and pelvis revealed comminuted displaced and impacted right femoral neck fracture. Hip CT confirmed this also. EKG shows a normal sinus rhythm with no acute changes. Blood pressure on arrival 160/60, heart rate in the 60s to 70s, 95% on room air. Blood pressure this morning 136/62 with a heart rate in the 70s, 93% on 2 L of oxygen. White blood cell count 11.4 on admission, 7.1 this morning, hemoglobin 11.9, 10.4 this morning, platelet count 181. Sodium 138, potassium 6.0, BUN 39, creatinine 1.5, magnesium 1.8. Troponin 0.05, 0.05. At the time of my examination this morning, patient does complain of discomfort in her hip area, she denies any chest pain this morning, and states that she has not experienced any recent angina. Past Medical History Past Medical History: COPD, Diabetes Mellitus, GERD/Reflux, Hyperlipidemia, Hypertension, Myocardial Infarction (DE), Pneumonia Additional Past Medical History / Comment(s): aneurysm splenic artery, nontoxic multinodular goiter per medical history from Dr. Aguilar office, psoriasis, polyneuropathy Last Myocardial Infarction Date:: 2005 History of Any Multi-Drug Resistant Organisms: None Reported Past Surgical History: Cholecystectomy, Heart Catheterization With Stent Past Anesthesia/Blood Transfusion Reactions: No Reported Reaction Date of Last Stent Placement:: 2005? Past Psychological History: No Psychological Hx Reported Smoking Status: Former smoker Past Alcohol Use History: None Reported Additional Past Alcohol Use History / Comment(s): STARTED SMOKING AT AGE 15 SMOKED LESS THAN 1 PPD QUIT IN 2005, HAS AN RARE DRINK NO DRUG HX. Past Drug Use History: None Reported - Past Family History Father Family Medical History: COPD Additional Family Medical History / Comment(s): DAD IN HIS 60'S Mother Family Medical History: Cancer Additional Family Medical History / Comment(s): MOM IN HER EARLY 70'S Medications and Allergies Home Medications Medication Instructions Recorded Confirmed Type Carvedilol 25 mg PO BID 12/01/13 09/29/17 History Cholecalciferol [Vitamin D3] 2,000 unit PO DAILY 12/01/13 09/29/17 History Enalapril Maleate [Vasotec] 10 mg PO BID 12/01/13 09/29/17 History Ibandronate Sodium [Boniva] 150 mg PO QMONTH 12/01/13 09/29/17 History Insuln Asp Prt/Insulin Aspart 20 unit SQ AC-SUPPER 12/01/13 09/29/17 History [NovoLOG MIX 70-30 VIAL] Insuln Asp Prt/Insulin Aspart 28 unit SQ AC-BRKFST 12/01/13 09/29/17 History [NovoLOG MIX 70-30 VIAL] Isosorbide Mononitrate [Imdur] 30 mg PO DAILY 12/01/13 09/29/17 History Lansoprazole [Prevacid] 30 mg PO DAILY 12/01/13 09/29/17 History Nitroglycerin Sl Tabs [Nitrostat] 0.4 mg SUBLINGUAL Q5M PRN 12/01/13 09/29/17 History Pravastatin Sodium [Pravachol] 80 mg PO HS 12/01/13 09/29/17 History amLODIPine [Norvasc] 5 mg PO BID 12/01/13 09/29/17 History hydrALAZINE HCL [Apresoline] 50 mg PO TID 12/01/13 09/29/17 History Acetaminophen-Codeine 300-30mg 1 tab PO Q4H PRN 3 Days #18 tablet 09/28/1709/29 Rx [Tylenol w/codeine #3] Ibuprofen 600 mg PO TID #20 tablet 09/28/17 09/29/17 Rx Nitrofurantoin Monohyd/M-Cryst 100 mg PO Q12HR #14 cap 09/28/17 09/29/17 Rx [Macrobid] Albuterol Nebulized [Ventolin 2.5 mg INHALATION RT-Q4H PRN 09/29/17 09/29/17 History Nebulized] Aspirin EC [Ecotrin Low Dose] 81 mg PO DAILY 09/29/17 09/29/17 History Hydrochlorothiazide [Hydrodiuril] 25 mg PO DAILY 09/29/17 09/29/17 History Ipratropium [place] [Atrovent Hfa] 2 puff INHALATION RT-QID PRN 09/29/17 History buPROPion HCL [Wellbutrin SR] 150 mg PO BID 09/29/17 09/29/17 History Allergies Allergy/AdvReac Type Severity Reaction Status Date / Time No Known Allergies Allergy Verified 09/29/17 17:25 Physical Exam Vitals: Vital Signs Temp Pulse Pulse Resp BP BP Pulse Ox 09/30/17 08:23 72 09/30/17 08:22 72 09/30/17 08:13 68 09/30/17 08:00 97.6 F 68 16 137/62 93 L 09/30/17 03:53 67 18 145/50 98 09/30/17 00:00 75 18 132/75 98 09/29/17 20:41 73 09/29/17 20:37 73 09/29/17 20:28 72 09/29/17 20:00 97.1 F L 71 18 149/70 96 09/29/17 18:33 97.3 F L 71 18 151/66 97 09/29/17 17:27 97.1 F L 71 18 149/70 96 09/29/17 16:52 63 18 191/90 94 L 09/29/17 14:46 97.6 F 68 18 160/62 95 Intake and Output 09/29/17 09/30/17 09/30/17 22:59 06:59 14:59 Intake Total 450 Output Total 1100 Balance -650 Intake: Oral 450 Output: Urine 1100 Straight 550 Other: # Voids 1 Weight 99.7 kg 108.5 kg PHYSICAL EXAMINATION: GENERAL: 82-year-old female in no acute distress at the time of my examination. HEENT: Head is atraumatic, normocephalic. Pupils equal, round. Sclera anicteric. Conjunctiva are clear. Mucous membranes of the mouth are moist. Neck is supple. There is no elevated jugular venous pressure.No Carotid bruit is heard. HEART EXAMINATION: Heart S1 and S2 systolic ejection murmur is heard CHEST EXAMINATION: Lungs reveal decreased air exchange throughout. ABDOMEN: Obese, mildly distended , nontender. Bowel sounds are heard. No organomegaly noted. EXTREMITIES: 2+ peripheral pulses with no evidence of peripheral edema and no calf tenderness noted. Significant discomfort in the right hip and right leg area NEUROLOGIC patient is awake, alert and oriented X3. . Results 09/30/17 06:38 09/30/17 06:38 Cardiac Enzymes 09/29/17 09/29/17 09/30/17 Range/Units 15:30 15:30 06:38 AST 27 (14-36) U/L CK-MB (CK-2) 2.4 (0.0-2.4) ng/mL Troponin I 0.054 H* 0.051 H* (0.000-0.034) ng/mL CBC 09/29/17 09/30/17 Range/Units 15:30 06:38 WBC 11.4 H 7.1 (3.8-10.6) k/uL RBC 4.38 3.85 (3.80-5.40) m/uL Hgb 11.9 10.4 L (11.4-16.0) gm/dL Hct 37.8 34.1 (34.0-46.0) % Plt Count 231 181 (150-450) k/uL Comprehensive Metabolic Panel 09/29/17 09/30/17 Range/Units 15:30 06:38 Sodium 141 138 (137-145) mmol/L Potassium 6.1 H 6.0 H (3.5-5.1) mmol/L Chloride 109 H 107 (98-107) mmol/L Carbon Dioxide 21 L 26 (22-30) mmol/L BUN 37 H 39 H (7-17) mg/dL Creatinine 1.26 H 1.53 H (0.52-1.04) mg/dL Glucose 42 L* 129 H (74-99) mg/dL Calcium 8.9 8.6 (8.4-10.2) mg/dL AST 27 (14-36) U/L ALT 25 (9-52) U/L Alkaline Phosphatase 48 (38-126) U/L Total Protein 6.6 (6.3-8.2) g/dL Albumin 4.1 (3.5-5.0) g/dL Current Medications Generic Name Dose Route Start Last Admin Trade Name Freq PRN Reason Stop Dose Admin Hydrocodone Bitart/Acetaminophen 1 each 09/29/17 16:23 09/30/17 02:24 [place] 5-325 PO 1 each Q6HR PRN Administration moderate Pain Albuterol Sulfate 2.5 mg 09/29/17 20:00 09/30/17 08:09 Ventolin Nebulized INHALATION 2.5 mg RT-TID NUHA Administration Alprazolam 0.25 mg 09/29/17 16:23 Xanax PO TID PRN Anxiety Amlodipine Besylate 5 mg 09/29/17 21:00 09/29/17 20:21 Norvasc PO 5 mg BID NUHA Administration Budesonide 1 mg 09/29/17 20:00 09/30/17 08:09 Pulmicort INHALATION 1 mg RT-BID NUHA Administration Carvedilol 25 mg 09/29/17 17:30 09/30/17 06:40 Coreg PO 25 mg AC-BID NUHA Administration Formoterol Fumarate 20 mcg 09/29/17 20:00 09/30/17 08:09 Perforomist INHALATION 20 mcg RT-BID NUHA Administration Heparin Sodium (Porcine) 5,000 unit 09/29/17 21:00 09/30/17 07:58 Heparin SQ 5,000 unit Q12HR NUHA Administration Hydralazine HCl 50 mg 09/29/17 22:00 09/29/17 20:21 Apresoline PO 50 mg TID NUHA Administration Hydromorphone HCl 0.5 mg 09/30/17 07:52 Dilaudid IVP Q3HR PRN Pain Scale 1 to 5 Hydromorphone HCl 1 mg 09/30/17 07:52 09/30/17 07:59 Dilaudid IVP 1 mg Q3HR PRN Administration Pain Scale 6 to 10 Sodium Chloride 1,000 mls @ 80 mls/hr 09/29/17 17:00 09/30/17 09:42 Saline 0.9% IV 80 mls/hr .[id number] NUHA Administration Ibuprofen 600 mg 09/29/17 22:00 09/30/17 09:40 Motrin PO Not Given TID [facility] Insulin Aspart 28 unit 09/30/17 07:30 09/30/17 06:38 Novolog Mix 70-30 Vial SQ Not Given AC-BRKFST [facility] Insulin Aspart 20 unit 09/29/17 17:30 09/29/17 22:13 Novolog Mix 70-30 Vial SQ Not Given AC-SUPPER [facility] Iopamidol 30 ml 09/29/17 16:21 Isovue-300 30 Ml (For Oral Use) PO 09/30/17 16:[address] Scan Isosorbide Mononitrate 30 mg 09/30/17 09:00 Imdur PO DAILY [facility] Lisinopril 40 mg 09/30/17 09:00 Zestril PO DAILY [facility] Melatonin 3 mg 09/29/17 21:00 09/29/17 20:21 Melatonin PO 3 mg HS NUHA Administration Montelukast Sodium 10 mg 09/29/17 21:00 09/29/17 20:21 Singulair PO 10 mg HS NUHA Administration Naloxone HCl 0.2 mg 09/29/17 16:50 Narcan IV Q2M PRN Opioid Reversal Nitroglycerin 0.4 mg 09/29/17 16:58 Nitrostat SUBLINGUAL Q5M PRN Chest Pain Ondansetron HCl 4 mg 09/30/17 08:34 09/30/17 08:38 Zofran IVP 4 mg Q6HR PRN Administration Nausea And Vomiting Pantoprazole Sodium 40 mg 09/30/17 07:30 09/30/17 06:40 Protonix PO 40 mg AC-BRKFST NUHA Administration Pravastatin Sodium 80 mg 09/29/17 21:00 09/29/17 20:23 Pravachol PO Not Given HS NUHA Intake and Output 09/29/17 09/30/17 09/30/17 22:59 06:59 14:59 Intake Total 450 Output Total 1100 Balance -650 Intake: Oral 450 Output: Urine 1100 Straight 550 Other: # Voids 1 Weight 99.7 kg 108.5 kg 09/30/17 06:38 09/30/17 06:38 EKG Interpretations (text) EKG shows a normal sinus rhythm with no acute changes. Assessment and Plan Plan: Assessment and plan #1 right femoral fracture, scheduled for surgery at 3 PM today. #2 History of coronary artery disease with prior non-Q-wave DE in 2003, patient underwent circumflex stenting in 2005, cardiac catheterization performed in 2010 revealed 50% mid LAD, 50% proximal circumflex, 20% mid RCA, medical therapy advised at that time, patient did have a Lexiscan stress test performed in November of last year which was negative for any reversible ischemia. #3 diabetes #4 hypertension #5 hyperlipidemia #6 advanced COPD with home O2 use #7 abn troponin #8 hyperkalemia Plan Will obtain an echocardiogram with Doppler study. Patient has had no recent angina or chest discomfort according to her. Hold Vasotec. Repeat K+. Continue her current medications including Coreg. We will continue to follow. Further recommendations to follow. DNP note has been reviewed, I agree with a documented findings and plan of care. Patient was seen and examined.
[2017-09-30] MEDS: amLODIPine 5 MG TAB PO SCH ×2 (12:10→20:54)
[2017-09-30] MEDS: hydrALAZINE HCL 50 MG TAB PO SCH ×3 (12:10→20:55)
[2017-09-30] MEDS: ISOSORBIDE MONONITRATE ER 30 MG TAB.ER.24H PO SCH (12:10)
[2017-09-30] MEDS: DEXTROSE 5% IN WATER 1,000 ML IV SCH (12:10)
[2017-09-30 12:18] LABS: Glucose,Whole Blood 174 mg/dL (75-99)
--- NOTE | 2017-09-30 12:19 | P.PN ---
Progress Note - Text This is an addendum to the dictated cardiology consultation. The patient presents with a fracture of her the right femur she scheduled to undergo surgical intervention. She has a known history of CAD, followed by Dr. Caputo, has underwent stenting in 2005 and her repeat cardiac catheterization in 2010 showed moderate CAD. Her last MPI in November 2016 showed no evidence of ischemia. The patient has chronic dyspnea on exertion and she uses oxygen at night. She has a history of diabetes, hypertension and hyperlipidemia. She denies any chest pain or change in her breathing. She is unaware of the fracture happened. She has not fallen or remembers a clear injury. Her EKG shows no acute ST segment changes but she had minimal troponin elevation of unclear etiology. It could be related to hypoxia since she uses oxygen at night. There is no evidence to suggest acute coronary syndrome. Her renal functions are abnormal and could have been worse with the nonsteroidal. Her echocardiogram showed a normal systolic function. The patient has an increased risk for surgical intervention but no prohibitive risk. We will continue present therapy, reevaluate her potassium. Continues to beta elisabeth. Thank you for this consult we will follow with you.
[2017-09-30 12:20] LABS: Hemoglobin A1C 6.6 % (4.0-6.0)
[2017-09-30] MEDS ORDERED: SODIUM POLYSTYRENE SULFONATE 15 GM/60 ML BOTTLE PO STA (13:12)
[2017-09-30 14:36] LABS: Glucose,Whole Blood 190 mg/dL (75-99)
[2017-09-30] MEDS ORDERED: IPRATROPIUM 0.5 MG/2.5 ML NEBU INHALATION PRN (14:58)
--- NOTE | 2017-09-30 16:16 | PN ---
PROGRESS NOTE DATE OF SERVICE: 09/30/2017 This 82-year-old woman who was admitted with right hip pain and right lower quadrant abdominal pain had initially x-rays were negative, but subsequently patient had a CT scan of the hip and as well as abdomen which showed comminuted superiorly displaced impacted right femoral neck fracture. The orthopedic surgery evaluated the patient and planning surgery today. Of note the patient also had hypokalemic with a potassium 6 creatinine 1.53. Troponins were found to be 0.51. Cardiology evaluation is also sought and 2D echo showed normal ejection fraction. The patient is currently stable and insulin glucose regimen and Kayexalate has been given. The patient is being closely monitored. The lisinopril has been stopped. PAST MEDICAL HISTORY: Reviewed. REVIEW OF SYSTEM: Cardiac: As mentioned earlier. Respiratory as mentioned earlier. Gastrointestinal: As mentioned earlier. : No dysuria. Central nervous system: No numbness, weakness. CURRENT MEDICATIONS ARE: Reviewed and include: 1. Talmo 5 mg q.6h p.r.n. 2. Ventolin 2.5 t.i.d. 3. Xanax 0.25 t.i.d. 4. Norvasc 5 mg b.i.d. 5. Pulmicort 1 mg b.i.d. 6. Coreg 25 mg b.i.d. 7. Perforomist 20 mcg b.i.d. 8. Heparin 5000 subcu b.i.d. 9. Apresoline 50 mcg p.o. t.i.d. 10.Dilaudid 0.5 q.3h p.r.n. 11.NovoLog mix 70/30, 20 units subcu a.c. supper and 20 units subcu a.c. breakfast. 12.Imdur 30 mg p.o. daily. 13.Melatonin 3 mg q.h.s. 14.Singular 10 mg p.o. daily. 15.Narcan. 16.Zofran. 17.Protonix 40 mg daily. 18.Pravachol. PHYSICAL EXAM: Patient is alert, oriented x3. Pulse 67, blood pressure 140/62, respirations 16, temperature 98.1, pulse ox 94% on room air. HEENT is conjunctivae normal. Oral mucosa moist. Neck is no jugular venous distention. No carotid bruit. No lymph node enlargement. Cardiovascular is S1-S2, no S3, no S4. RESPIRATORY: Breath sounds diminished in the bases. Scattered rhonchi. No crackles. ABDOMEN: Soft, nontender. Legs status post right hip fracture. NERVOUS SYSTEM: Higher functions as mentioned earlier. Moves all four extremities. No focal motor or sensory deficits. Lymphatics: No lymph nodes palpable in the neck , axillae or groin. Skin: No ulcer, rash or bleeding. LAB STUDIES: WBC 7.2, hemoglobin 10.4, potassium 6, creatinine is 1.33. ASSESSMENT: 1. Right hip pain and comminuted superior displaced impacted right femoral neck fracture. 2. Severe hypoglycemia and diabetes mellitus type 2, uncontrolled on admission. 3. Hyperkalemia. 4. Troponin 0.051 indeterminate. 5. Chronic kidney disease stage 3. 6. History of chronic obstructive pulmonary disease. 7. Diabetes type 2. 8. Gastroesophageal reflux disease. 9. Hypertension. 10.Hyperlipidemia. 11.History of myocardial infarction. 12.History of splenic artery aneurysm. 13.History of nontoxic multinodular goiter on medical treatment. 14.History of polyneuropathy. 15.History of cholecystectomy. 16.History of coronary artery disease/stent. 17.Remote history of nicotine dependence. RECOMMENDATIONS AND DISCUSSION: Recommend to continue current medications, management and symptomatic treatment. Insulin, glucose regimen, specimen repeated. The patient is currently medically stable and cleared for surgery. Some extra risk because of the multiple complex medical issues as detailed below. Otherwise I would also recommend nephrology consultation also. Patient has been seen by Cardiology. We will closely followed with Orthopedic Surgery. Further recommendations to follow. MMODL / IJN: [id number] / ANASTASIA
--- NOTE | 2017-09-30 16:52 | ECHOF ---
Referral Reason:pre op eval MEASUREMENTS -------- HEIGHT: 154.9 cm WEIGHT: 108.4 kg BP: IVSd: 1.3 cm (0.6 - 1.1) LVIDd: 4.4 cm (3.9 - 5.3) LVPWd: 1.0 cm (0.6 - 1.1) IVSs: 2.4 cm LVIDs: 2.0 cm LVPWs: 1.9 cm Ao Diam: 2.9 cm (2.0 - 3.7) AV Cusp: 1.3 cm (1.5 - 2.6) LA Diam: 4.6 cm (2.7 - 3.8) MV EXCURSION: 14.837 mm (> 18.000) MV EF SLOPE: 145 mm/s (70 - 150) EPSS: 0.5 cm MV E Pérez: 0.77 m/s MV DecT: 260 ms MV A Pérez: 0.81 m/s MV E/A Ratio: 0.96 AV maxP.86 mmHg AV meanP.33 mmHg RAP: 5.00 mmHg RVSP: 30.33 mmHg FINDINGS -------- Sinus rhythm. This was a technically difficult study with suboptimal apical views. No Apicals due to skin tears. The left ventricular size is normal. There is moderate concentric left ventricular hypertrophy. O verall left ventricular systolic function is normal with, an EF between 55 - 60 %. The right ventricle is normal in size. The left atrium is normal in size. The right atrium is normal in size. Aortic valve is trileaflet and is mildly thickened. There is mild aortic stenosis present. Peak/m deyvi gradient across the Aortic Valve is 24.86mmHg / 13.33mmHg. The mitral valve leaflets are mildly thickened. Mild mitral regurgitation is present. Mild tricuspid regurgitation present. The right ventricular systolic pressure, as measured by Doppl er, is 30.33mmHg. Pulmonic valve appears structurally normal. The aortic root size is normal. Normal inferior vena cava with normal inspiratory collapse consistent with estimated right atrial pre ssure of 5 mmHg. The pericardium is normal. CONCLUSIONS -------- 1. Sinus rhythm. 2. This was a technically difficult study with suboptimal apical views. 3. No Apicals due to skin tears. 4. The left ventricular size is normal. 5. There is moderate concentric left ventricular hypertrophy. 6. Overall left ventricular systolic function is normal with, an EF between 55 - 60 %. 7. The right ventricle is normal in size. 8. The left atrium is normal in size. 9. The right atrium is normal in size. 10. Aortic valve is trileaflet and is mildly thickened. 11. There is mild aortic stenosis present. 12. Peak/mean gradient across the Aortic Valve is 24.86mmHg / 13.33mmHg. 13. The mitral valve leaflets are mildly thickened. 14. Mild mitral regurgitation is present. 15. Mild tricuspid regurgitation present. 16. The right ventricular systolic pressure, as measured by Doppler, is 30.33mmHg. 17. Pulmonic valve appears structurally normal. 18. The aortic root size is normal. 19. Normal inferior vena cava with normal inspiratory collapse consistent with estimated right atrial pressure of 5 mmHg. 20. The pericardium is normal. BUTTON PUNCHER: Rahel Trammell RDCS
[2017-09-30 17:12] LABS: Glucose,Whole Blood 151 mg/dL (75-99)
[2017-09-30 20:52] LABS: Glucose,Whole Blood 254 mg/dL (75-99)
[2017-09-30] MEDS: PRAVASTATIN SODIUM 80 MG TAB PO SCH (20:54)
[2017-09-30] MEDS: MELATONIN 3 MG TABLET PO SCH (20:55)
[2017-09-30] MEDS: MONTELUKAST 10 MG TAB PO SCH (20:55)
[2017-09-30] MEDS: INSULIN ASPART 100 UNIT/ML 1 ML 10 ML VIAL SQ SCH (22:43)
[2017-10-01] MEDS: DEXTROSE 5% IN WATER 1,000 ML IV SCH ×2 (02:00→13:24)
[2017-10-01] MEDS: HYDROmorphone 1 MG/ML 1 ML SYRINGE IVP PRN (04:15)
[2017-10-01 06:02] LABS: Glucose,Whole Blood 184 mg/dL (75-99)
[2017-10-01] MEDS: INSULN ASP PRT/INSULIN ASPART 100 UNIT/ML 10 ML VIAL SQ SCH ×2 (06:19→17:47)
[2017-10-01 06:31] LABS: Basophils % (A) 0 %; Eosinophils # (A) 0.2 k/uL (0-0.7); Eosinophils % (A) 3 %; HCT 31.2 % (34.0-46.0); HGB 9.4 gm/dL (11.4-16.0); Hypochromasia Moderate; Lymphocytes # (A) 0.8 k/uL (1.0-4.8); Lymphocytes % (A) 15 %; MCH 26.5 pg (25.0-35.0); MCHC 30.1 g/dL (31.0-37.0); Mean Platelet Volume 8.6; Monocytes # (A) 0.4 k/uL (0-1.0); Monocytes % (A) 7 %; Neutrophils # (A) 4.1 k/uL (1.3-7.7); Neutrophils % (A) 74 %; Platelet Count 144 k/uL (150-450); RBC 3.54 m/uL (3.80-5.40); RDW 14.5 % (11.5-15.5); WBC 5.6 k/uL (3.8-10.6)
[2017-10-01 07:03] LABS: Calcium 8.1 mg/dL (8.4-10.2); Potassium 5.2 mmol/L (3.5-5.1)
[2017-10-01] MEDS: FORMOTEROL FUMARATE 20 MCG/2 ML NEBU INHALATION SCH ×2 (07:07→20:23)
[2017-10-01] MEDS: ALBUTEROL NEBULIZED 2.5 MG/3 ML INHALATION SCH ×2 (07:07→13:23)
[2017-10-01] MEDS: BUDESONIDE 1 MG/2 ML NEBU INHALATION SCH ×2 (07:07→20:23)
[2017-10-01] MEDS ORDERED: INSULIN ASPART 100 UNIT/ML 1 ML 10 ML VIAL SQ SCH (07:30)
[2017-10-01] MEDS: SODIUM CHLORIDE 0.9% 1,000 ML IV SCH (08:28)
[2017-10-01] MEDS: INSULIN ASPART 100 UNIT/ML 1 ML 10 ML VIAL SQ SCH ×4 (08:28→22:56)
[2017-10-01] MEDS: HEPARIN SODIUM,PORCINE 5,000 UNIT/ML 1 ML VIAL SQ SCH ×2 (08:32→20:13)
[2017-10-01] MEDS: hydrALAZINE HCL 50 MG TAB PO SCH ×3 (08:33→22:56)
[2017-10-01] MEDS: PANTOPRAZOLE 40 MG TABLET PO SCH (08:33)
[2017-10-01] MEDS: amLODIPine 5 MG TAB PO SCH ×2 (08:33→20:13)
[2017-10-01] MEDS: CARVEDILOL 12.5 MG TAB PO SCH ×2 (08:33→17:46)
[2017-10-01] MEDS: ISOSORBIDE MONONITRATE ER 30 MG TAB.ER.24H PO SCH (08:33)
[2017-10-01] MEDS: HYDROcodone/APAP 5-325MG 1 EACH TAB PO PRN ×3 (08:36→22:56)
--- NOTE | 2017-10-01 09:32 | PN ---
PROGRESS NOTE Mrs. Thomas is an 82-year-old female who presented with a fracture of her right hip. She was scheduled to undergo surgery yesterday but was postponed because of elevation of her potassium. She is complaining of back and hip discomfort today. She denies any chest pain. Her breathing has been stable. No dizziness. No palpitation. No nausea. She underwent an echocardiogram with Doppler that revealed a preserved left ventricular size systolic function with mild aortic stenosis and mild mitral and tricuspid regurgitation. She continues to be at this time on amlodipine 5 mg twice a day, Coreg 25 mg twice a day, insulin, isosorbide mononitrate 30 mg daily, pravastatin 80 mg daily. PHYSICAL EXAMINATION: Blood pressure 128/60 with the heart rate in the 80s. LUNGS: Clear. HEART: Regular rate and rhythm, S1, S2. No S3 with systolic ejection murmur. No diastolic murmur. No rub. ABDOMEN: Soft, nontender. EXTREMITIES: No significant edema. LAB DATA: Lab data revealed BUN and creatinine 34 and 1.5. Potassium 5.2. Hemoglobin of 9.4. IMPRESSION: 1. Fracture of the right hip is scheduled for surgery. 2. Hyperkalemia, improved, probably worsened by the nonsteroidal and SOURAV inhibitor. 3. History of coronary artery disease. 4. History of chronic obstructive lung disease. 5. Hyperlipidemia. 6. Diabetes mellitus. RECOMMENDATION: From the cardiac standpoint, she is stable to proceed with surgical intervention as planned. We will continue to follow her renal function and adjust her antihypertensive regimen as needed. MMODL / IJN: [id number] /
[2017-10-01] MEDS ORDERED: FUROSEMIDE 10 MG/ML 2 ML VIAL ONE (09:36)
[2017-10-01] MEDS: FUROSEMIDE 10 MG/ML 2 ML VIAL IV ONE ×2 (09:40→09:43)
[2017-10-01] MEDS ORDERED: IV FLUID CONTINUATION 1,000 ML IV ONE (09:50)
--- NOTE | 2017-10-01 09:52 | P.NPCON ---
History of Present Illness - Reason for Consult acute renal failure, hyperkalemia - History of Present Illness Reason for consultation: Acute kidney injury and hyperkalemia History of present illness: Patient is a 82-year-old female seated in consultation for acute kidney injury and hyperkalemia. Patient's creatinine on admission was 1.26 and was up to 1.53 yesterday. It is 1.50 today. She was also noted to be hyperkalemic on admission with a potassium level of 6.1 which was medically treated. Potassium level is now stable near 5.2. Her blood sugar this morning was 179. She is currently maintained on D5W at 80 mL an hour. Patient presented to the hospital with abdominal and hip pain. She is noted to have a comminuted displaced and impacted right femoral neck fracture. She scheduled to go to the operating room today. Her echocardiogram was normal. She denies vomiting or diarrhea. She does admit to taking Aleve at night daily. She was also on lisinopril which has been discontinued. She has a long-standing history of insulin-dependent diabetes mellitus. She is a Wing catheter in place and has good urine output. Her blood pressures have been on the higher side. No fever or chills. She is not acidotic. Vital signs are stable. General: The patient appeared well nourished and normally developed. HEENT: Head exam is unremarkable. Neck is without jugular venous distension. LUNGS: Lungs are clear to auscultation and percussion. Breath sounds decreased. HEART: Rate and Rhythm are regular. First and second heart sounds normal. No murmurs, rubs or gallops. ABDOMEN: Abdominal exam reveals normal bowel sounds. Non-tender and non- distended. No evidence of peritonitis. EXTREMITITES: No clubbing, cyanosis, or edema. Past Medical History Past Medical History: COPD, Diabetes Mellitus, GERD/Reflux, Hyperlipidemia, Hypertension, Myocardial Infarction (NH), Pneumonia Additional Past Medical History / Comment(s): aneurysm splenic artery, nontoxic multinodular goiter per medical history from Dr. Aguilar office, psoriasis, polyneuropathy Last Myocardial Infarction Date:: 2005 History of Any Multi-Drug Resistant Organisms: None Reported Past Surgical History: Cholecystectomy, Heart Catheterization With Stent Past Anesthesia/Blood Transfusion Reactions: No Reported Reaction Date of Last Stent Placement:: 2005? Past Psychological History: No Psychological Hx Reported Smoking Status: Former smoker Past Alcohol Use History: None Reported Additional Past Alcohol Use History / Comment(s): STARTED SMOKING AT AGE 15 SMOKED LESS THAN 1 PPD QUIT IN 2005, HAS AN RARE DRINK NO DRUG HX. Past Drug Use History: None Reported - Past Family History Father Family Medical History: COPD Additional Family Medical History / Comment(s): DAD IN HIS 60'S Mother Family Medical History: Cancer Additional Family Medical History / Comment(s): MOM IN HER EARLY 70'S Medications and Allergies Home Medications Medication Instructions Recorded Confirmed Type Carvedilol 25 mg PO BID 12/01/13 09/29/17 History Cholecalciferol [Vitamin D3] 2,000 unit PO DAILY 12/01/13 09/29/17 History Enalapril Maleate [Vasotec] 10 mg PO BID 12/01/13 09/29/17 History Ibandronate Sodium [Boniva] 150 mg PO QMONTH 12/01/13 09/29/17 History Insuln Asp Prt/Insulin Aspart 20 unit SQ AC-SUPPER 12/01/13 09/29/17 History [NovoLOG MIX 70-30 VIAL] Insuln Asp Prt/Insulin Aspart 28 unit SQ AC-BRKFST 12/01/13 09/29/17 History [NovoLOG MIX 70-30 VIAL] Isosorbide Mononitrate [Imdur] 30 mg PO DAILY 12/01/13 09/29/17 History Lansoprazole [Prevacid] 30 mg PO DAILY 12/01/13 09/29/17 History Nitroglycerin Sl Tabs [Nitrostat] 0.4 mg SUBLINGUAL Q5M PRN 12/01/13 09/29/17 History Pravastatin Sodium [Pravachol] 80 mg PO HS 12/01/13 09/29/17 History amLODIPine [Norvasc] 5 mg PO BID 12/01/13 09/29/17 History hydrALAZINE HCL [Apresoline] 50 mg PO TID 12/01/13 09/29/17 History Acetaminophen-Codeine 300-30mg 1 tab PO Q4H PRN 3 Days #18 tablet 09/28/1709/29 Rx [Tylenol w/codeine #3] Ibuprofen 600 mg PO TID #20 tablet 09/28/17 09/29/17 Rx Nitrofurantoin Monohyd/M-Cryst 100 mg PO Q12HR #14 cap 09/28/17 09/29/17 Rx [Macrobid] Albuterol Nebulized [Ventolin 2.5 mg INHALATION RT-Q4H PRN 09/29/17 09/29/17 History Nebulized] Aspirin EC [Ecotrin Low Dose] 81 mg PO DAILY 09/29/17 09/29/17 History Hydrochlorothiazide [Hydrodiuril] 25 mg PO DAILY 09/29/17 09/29/17 History Ipratropium [place] [Atrovent Hfa] 2 puff INHALATION RT-QID PRN 09/29/17 History buPROPion HCL [Wellbutrin SR] 150 mg PO BID 09/29/17 09/29/17 History Allergies Allergy/AdvReac Type Severity Reaction Status Date / Time No Known Allergies Allergy Verified 09/29/17 17:25 Physical Exam Vitals: Vital Signs Temp Pulse Pulse Resp BP Pulse Ox 10/01/17 07:27 78 16 10/01/17 07:17 77 16 10/01/17 07:07 78 16 100 10/01/17 04:26 99.0 F 79 20 187/70 96 09/30/17 23:30 98.5 F 86 18 128/62 94 L 09/30/17 20:45 99.0 F 73 18 156/87 95 09/30/17 20:43 76 09/30/17 20:31 76 09/30/17 20:30 76 09/30/17 20:21 74 96 09/30/17 16:30 96.7 F L 63 16 138/57 96 09/30/17 13:27 76 09/30/17 13:23 68 09/30/17 13:14 98.1 F 67 16 143/61 94 L 09/30/17 12:00 98.1 F 67 16 143/61 94 L Intake and Output 09/30/17 10/01/17 10/01/17 22:59 06:59 14:59 Intake Total 80 Output Total 900 Balance 80 -900 Intake: Intake, IV Titration 80 Amount Dextrose 5% in Water 1, 80 000 ml @ 80 mls/hr IV . [id number] [facility] Rx#:[id number] Oral 0 Output: Urine 900 Other: Voiding Method Indwelling Catheter Indwelling Catheter Weight 103.5 kg Results - Lab Results Most recent lab results Calcium 8.1 mg/dL (8.4-10.2) L 10/01/17 05:50 Magnesium 1.8 mg/dL (1.6-2.3) 09/29/17 15:30 10/01/17 05:50 10/01/17 07:46 Assessment and Plan Plan: Assessment: 1. Nonoliguric acute kidney injury mostly prerenal secondary to nonsteroidals and SOURAV inhibitor. Creatinine peaked at 1.53 this admission and is 1.5 today. No evidence of hydronephrosis noted on CAT scan. 2. Chronic kidney disease stage III with baseline creatinine in the range of 1.1-1.4 since 2013. Etiology is diabetic kidney disease. She is noted to have trace proteinuria on urinalysis. 3. Insulin-dependent diabetes mellitus. 4. Hyperkalemia secondary to nonsteroidals and SOURAV inhibitor. Improved with medical management. Hyperglycemia also a contributor factor. 5. Hypertension with chronic disease. Blood pressures on the higher side. 6. Right femoral neck fracture scheduled for surgical repair today. Plan: 20 mg IV Lasix once now. Discontinue D5W as it will lead to hyponatremia. I will start her on D5 0.9 saline at 60 mL an hour for maintenance fluids. Tight blood sugar control. Avoid nephrotoxic agents. Low potassium diet. Repeat electrolytes in the morning. Cleared for orthopedic surgery from nephrology standpoint. Thank you for the consultation. I will continue to follow the patient with you during her hospital stay.
[2017-10-01] MEDS ORDERED: INSULIN ASPART 100 UNIT/ML 1 ML 10 ML VIAL SQ ONE (10:15)
[2017-10-01] MEDS: ONDANSETRON 4 MG/2 ML VIAL IVP PRN (10:17)
[2017-10-01 10:39] LABS: Glucose,Whole Blood 230 mg/dL (75-99)
[2017-10-01] MEDS ORDERED: MIDAZOLAM 2 MG/2 ML VIAL ONE (10:45)
[2017-10-01] MEDS ORDERED: diphenhydrAMINE 50 MG/ML 1 ML VIAL ONE (10:45)
[2017-10-01] MEDS ORDERED: fentaNYL (PF) 50 MCG/ML 2 ML AMP ONE (10:45)
[2017-10-01] MEDS ORDERED: ePHEDrine SULFATE/0.9% NACL/PF 50 MG/5 ML SYRINGE IV ONE (10:45)
[2017-10-01] MEDS ORDERED: ceFAZolin 3,000 MG in SODIUM CHLORIDE 0.9% IRRIGATIO 3,000 ML IRRIGATION ONE (11:24)
[2017-10-01] MEDS ORDERED: LACTATED RINGERS 1,000 ML IV ONE (11:28)
[2017-10-01] MEDS ORDERED: hydrOXYzine PAMOATE 25 MG CAP PO PRN (12:25)
[2017-10-01] MEDS ORDERED: TEMAZEPAM 15 MG CAP PO PRN (12:25)
[2017-10-01] MEDS ORDERED: HYDROcodone/APAP 5-325MG 1 EACH TAB PO PRN (12:28)
--- NOTE | 2017-10-01 12:59 | XR ---
EXAMINATION TYPE: XR Hip Limited RT DATE OF EXAM: 10/01/2017 COMPARISON: NONE HISTORY: Postop right hip TECHNIQUE: One view submitted. FINDINGS: There is a prosthetic hip in near anatomic alignment. There is soft tissue edema and emphysema. Vasc ular calcifications noted. IMPRESSION: 1. Postoperative change. Appears in near-anatomic alignment.
[2017-10-01] MEDS: DEXTROSE 5%-0.9% NACL 1,000 ML IV SCH (13:42)
--- NOTE | 2017-10-01 14:50 | PN ---
PROGRESS NOTE DATE OF SERVICE: 10/01/2017. This 82-year-old woman who was admitted with right hip fracture, underwent right hip hemiarthroplasty by Dr. Crawford. The possibility that patient has some minimal saturation at 84 pulse ox. There is no history of fever, rigors, chills. PAST MEDICAL HISTORY: Reviewed. REVIEW OF SYSTEMS: CARDIOVASCULAR: As mentioned. RESPIRATORY: As mentioned. GI: No nausea. : No dysuria. NERVOUS SYSTEM: As mentioned earlier. CURRENT MEDICATIONS: Reviewed and include: 1. [place] 5 mg q.8h p.r.n. 2. DuoNeb q.i.d. and p.r.n. 3. Xanax 0.5 t.i.d. 4. Norvasc 5 mg p.o. b.i.d. 5. Pulmicort 1 mg b.i.d. 6. Coreg 25 mg p.o. b.i.d. 7. Kefzol 2 g IV q.8h. 8. Perforomist. 9. Heparin 5000 subcu b.i.d. 10.Apresoline. 11.Insulin. 12.Atrovent. 13.Milk of Magnesia. 14.Narcan. 15.Protonix. 16.Senokot. 17.Restoril. PHYSICAL EXAMINATION: Alert and oriented x3. Pulse is 74, blood pressure 160/59, respiration 18, temperature normal. Pulse ox 84% on room air. HEENT: Conjunctivae normal. Oral mucosa moist. NECK: No jugular venous distention. No carotid bruit. No lymph node enlargement. CARDIOVASCULAR: S1, S2. RESPIRATORY: Breath sounds diminished in the bases. A few scattered rhonchi. No crackles. ABDOMEN: Soft, nontender, obese. LEGS: Status post right hip surgery. NERVOUS SYSTEM: No focal deficits. LABS: WBC 5.2, hemoglobin 9.4, sodium 130, potassium 3.2, creatinine is 1.5, glucose is 230. ASSESSMENT: 1. Right hip fracture status post hemiarthroplasty on the right. 2. Severe hypoglycemia, diabetes type 2, uncontrolled on admission. 3. Hypoxia, possibly secondary to atelectasis. 4. Hyperkalemia on admission. 5. Troponin 0.05 indeterminate. 6. Chronic kidney disease stage III. 7. History of chronic obstructive pulmonary disease. 8. Diabetes mellitus type 2. 9. Gastroesophageal reflux disease. 10.Hypertension. 11.Hyperlipidemia. 12.History of myocardial infarction. 13.History of splenic artery aneurysm. 14.History of nontoxic multinodular goiter on medical treatment. 15.History of polyneuropathy. 16.History of cholecystectomy. 17.History of coronary artery disease and stent. 18.Remote history of nicotine dependence. RECOMMENDATIONS AND DISCUSSION: I recommend to continue current management and symptomatic treatment. Recommend incentive spirometry. Adjust the bronchodilators otherwise ensure oxygen, incentive spirometry. Repeat labs. Multiple consultants are following the patient closely including Nephrology. Will closely followed with Orthopedic Surgery. DVT prophylaxis. PT, OT evaluation as well as ECF rehab. Further recommendations to follow. MMODL / IJN: [id number] /
[2017-10-01] MEDS: ceFAZolin IN SWFI 2 GM/20 ML SYRINGE IVP SCH ×2 (15:17→22:59)
[2017-10-01] MEDS: IPRATROPIUM-ALBUTEROL 3 ML NEB INHALATION SCH ×2 (15:47→20:25)
[2017-10-01 16:34] LABS: Glucose,Whole Blood 269 mg/dL (75-99)
[2017-10-01] MEDS: MONTELUKAST 10 MG TAB PO SCH (20:13)
[2017-10-01] MEDS: MELATONIN 3 MG TABLET PO SCH (20:13)
[2017-10-01] MEDS: PRAVASTATIN SODIUM 80 MG TAB PO SCH (20:13)
[2017-10-01] MEDS: SENNOSIDES-DOCUSATE SODIUM 1 EACH TAB PO SCH (20:13)
[2017-10-01 22:52] LABS: Glucose,Whole Blood 200 mg/dL (75-99)
[2017-10-02 00:36] LABS: Glucose,Whole Blood 126 mg/dL (75-99)
[2017-10-02 02:12] LABS: Glucose,Whole Blood 125 mg/dL (75-99)
[2017-10-02 06:00] LABS: Glucose,Whole Blood 198 mg/dL (75-99)
[2017-10-02] MEDS: CARVEDILOL 12.5 MG TAB PO SCH ×2 (06:33→17:50)
[2017-10-02] MEDS: PANTOPRAZOLE 40 MG TABLET PO SCH (06:33)
[2017-10-02] MEDS: DEXTROSE 5%-0.9% NACL 1,000 ML IV SCH (06:33)
[2017-10-02] MEDS: INSULIN ASPART 100 UNIT/ML 1 ML 10 ML VIAL SQ SCH ×4 (06:33→22:20)
[2017-10-02 06:54] LABS: Basophils % (A) 0 %; Eosinophils # (A) 0.1 k/uL (0-0.7); Eosinophils % (A) 1 %; HCT 28.7 % (34.0-46.0); HGB 8.7 gm/dL (11.4-16.0); Lymphocytes # (A) 0.6 k/uL (1.0-4.8); Lymphocytes % (A) 9 %; MCH 26.1 pg (25.0-35.0); MCHC 30.4 g/dL (31.0-37.0); Mean Platelet Volume 8.7; Monocytes # (A) 0.3 k/uL (0-1.0); Monocytes % (A) 5 %; Neutrophils # (A) 5.4 k/uL (1.3-7.7); Neutrophils % (A) 84 %; Platelet Count 130 k/uL (150-450); RBC 3.33 m/uL (3.80-5.40); RDW 14.5 % (11.5-15.5); WBC 6.4 k/uL (3.8-10.6)
[2017-10-02] MEDS: INSULN ASP PRT/INSULIN ASPART 100 UNIT/ML 10 ML VIAL SQ SCH ×2 (07:17→17:51)
[2017-10-02 07:31] LABS: Potassium 4.8 mmol/L (3.5-5.1)
--- NOTE | 2017-10-02 08:23 | P.PN ---
Subjective Progress Note Date: 10/02/17 Principal diagnosis: Right hip hemiarthroplasty This is an 82 year-old female post right hip hemiarthroplasty. This is post-op day 1. The patient was evaluated at the bedside today. The patient denies nausea, vomiting, abdominal pain, shortness of breath, and chest pain this morning. She states her pain is controlled at this time. The patient has not been up with physical therapy. Objective - Vital Signs Vital signs: Vital Signs Temp 98.9 F 10/02/17 07:37 Pulse 85 10/02/17 07:37 Resp 18 10/02/17 07:37 BP 141/67 10/02/17 07:37 Pulse Ox 94 L 10/02/17 07:37 Intake & Output 10/01/17 10/02/17 10/02/17 18:59 06:59 18:59 Intake Total 2591 420 Output Total 400 1300 Balance 2191 -880 Weight 103.5 kg 100.5 kg Intake: IV 1751 420 Dextrose 5%-0.9% NaCl 1, 420 000 ml @ 60 mls/hr IV . [id number] [facility] Rx#:[id number] Intake, IV Titration 600 Amount Dextrose 5% in Water 1, 240 000 ml @ 80 mls/hr IV . [id number] [facility] Rx#:[id number] Dextrose 5%-0.9% NaCl 1, 360 000 ml @ 60 mls/hr IV . [id number] [facility] Rx#:[id number] Oral 240 Output: Urine 250 1300 Uretheral (Wing) 900 Estimated Blood Loss 150 Other: Voiding Method Indwelling Catheter Indwelling Catheter - Exam The patient does not appear in acute distress. Alert and orientated x3. Dressing is clean dry and intact. Incision appears fine with no erythema or active drainage. Calf is soft and nontender. Good foot and ankle motion without difficulty. Sensation and circulatory status is intact. - Labs CBC & Chem 7: 10/02/17 06:34 10/02/17 06:34 Labs: Abnormal Lab Results - Last 24 Hours (Table) 10/01/17 10/01/17 10/01/17 Range/Units 07:46 10:01 16:26 RBC (3.80-5.40) m/uL Hgb (11.4-16.0) gm/dL Hct (34.0-46.0) % MCHC (31.0-37.0) g/dL Plt Count (150-450) k/uL Lymphocytes # (1.0-4.8) k/uL Sodium (137-145) mmol/L Potassium 5.2 H (3.5-5.1) mmol/L BUN (7-17) mg/dL Creatinine (0.52-1.04) mg/dL Glucose (74-99) mg/dL POC Glucose (mg/dL) 230 H 269 H (75-99) mg/dL Calcium (8.4-10.2) mg/dL 10/01/17 10/02/17 10/02/17 Range/Units 21:05 00:35 01:52 RBC (3.80-5.40) m/uL Hgb (11.4-16.0) gm/dL Hct (34.0-46.0) % MCHC (31.0-37.0) g/dL Plt Count (150-450) k/uL Lymphocytes # (1.0-4.8) k/uL Sodium (137-145) mmol/L Potassium (3.5-5.1) mmol/L BUN (7-17) mg/dL Creatinine (0.52-1.04) mg/dL Glucose (74-99) mg/dL POC Glucose (mg/dL) 200 H 126 H 125 H (75-99) mg/dL Calcium (8.4-10.2) mg/dL 10/02/17 10/02/17 10/02/17 Range/Units 05:58 06:34 06:34 RBC 3.33 L (3.80-5.40) m/uL Hgb 8.7 L (11.4-16.0) gm/dL Hct 28.7 L (34.0-46.0) % MCHC 30.4 L (31.0-37.0) g/dL Plt Count 130 L (150-450) k/uL Lymphocytes # 0.6 L (1.0-4.8) k/uL Sodium 135 L (137-145) mmol/L Potassium (3.5-5.1) mmol/L BUN 22 H (7-17) mg/dL Creatinine 1.17 H (0.52-1.04) mg/dL Glucose 170 H (74-99) mg/dL POC Glucose (mg/dL) 198 H (75-99) mg/dL Calcium 8.0 L (8.4-10.2) mg/dL Assessment and Plan (1) Status post hip hemiarthroplasty Current Visit: Yes Status: Acute Code(s): Z96.649 - PRESENCE OF UNSPECIFIED ARTIFICIAL HIP JOINT SNOMED Code(s): 564153894 (2) Displaced fracture of right femoral neck Current Visit: Yes Status: Acute Code(s): S72.001A - FRACTURE OF UNSP PART OF NECK OF RIGHT FEMUR, INIT SNOMED Code(s): 7610859 Plan: 1. Continue pain control 2. Anticoagulation per internal medicine 3. Start physical therapy and ambulation 4. Anticipate discharge to skilled rehab when orthopedically and medically stable
[2017-10-02] MEDS: ISOSORBIDE MONONITRATE ER 30 MG TAB.ER.24H PO SCH (08:52)
[2017-10-02] MEDS: amLODIPine 5 MG TAB PO SCH ×2 (08:52→22:20)
[2017-10-02] MEDS: hydrALAZINE HCL 50 MG TAB PO SCH ×3 (08:52→22:55)
[2017-10-02] MEDS: HEPARIN SODIUM,PORCINE 5,000 UNIT/ML 1 ML VIAL SQ SCH ×2 (08:52→20:57)
[2017-10-02] MEDS: FORMOTEROL FUMARATE 20 MCG/2 ML NEBU INHALATION SCH ×2 (08:59→20:08)
[2017-10-02] MEDS: IPRATROPIUM-ALBUTEROL 3 ML NEB INHALATION SCH ×4 (08:59→20:08)
[2017-10-02] MEDS: BUDESONIDE 1 MG/2 ML NEBU INHALATION SCH ×2 (08:59→20:08)
--- NOTE | 2017-10-02 10:42 | CDI ---
Last Revision, February 2017 Documentation Clarification Form Date: 10/02/2017 10:30:00 AM From: Keysha JonesDAVID, CCDS Admit Date: 09/29/2017 4:50:00 PM Patient Name: Keysha Thomas Visit Number: [id number] Discharge Date: ATTENTION: The Clinical Documentation Specialists (CDI) and [facility] Coding Staff appreciate your assistance in clarifying documentation. Please respond to the clarification below the line at the bottom and electronically sign. The CDI & [facility] Coding staff will review the response and follow-up if needed. Please note: Queries are made part of the Legal Health Record. If you have any questions, please contact the author of this message via ITS. Dr. Oj Goel: 82 yo female, admitted with a right femoral fracture, status post hemiarthroplasty. Per the Cardiology Consult on 09/30: "advanced COPD with home O2 use." Also known former smoker. History/Risk Factors: Advanced COPD, former smoker, CAD with stent, DM, Hypertension, Hyperlipidemia. Clinical Indicators: Vital signs: R 18, PO 95 RA, 94 2Lnc on admission Lung/Breathing assessment: SOB Treatment: O2 2-3Lnc, Incentive spirometry postop, INH: Performist, Pulmicort, Albuterol. Singulair. In your professional opinion, can you please clarify if the patient is also being treated for one of the following conditions? Chronic Respiratory Failure (ruled in or out) If ruled in: o Hypoxic o Hypercapnic Other Diagnosis, please specify Unable to determine Please continue to document in your progress notes and discharge summary in order to capture severity of illness and risk of mortality. Include clinical findings that support your diagnosis. MTDD
[2017-10-02 11:46] LABS: Glucose,Whole Blood 137 mg/dL (75-99)
--- NOTE | 2017-10-02 12:08 | P.PN ---
Subjective Patient is seen in follow-up for acute kidney injury on chronic kidney disease. Patient has chronic kidney disease stage III with baseline creatinine in the range of 1-1.4. Her creatinine today is down to 1.17. She underwent right hip hemiarthroplasty on October 01. Currently resting in bed. Denies chest pain or shortness of breath. She is nonoliguric. Vital signs are stable. General: The patient appeared well nourished and normally developed. HEENT: Head exam is unremarkable. Neck is without jugular venous distension. LUNGS: Lungs are clear to auscultation and percussion. Breath sounds decreased. HEART: Rate and Rhythm are regular. First and second heart sounds normal. No murmurs, rubs or gallops. ABDOMEN: Abdominal exam reveals normal bowel sounds. Non-tender and non- distended. No evidence of peritonitis. EXTREMITITES: No clubbing, cyanosis, or edema. Objective - Vital Signs Vital signs: Vital Signs Temp 98.5 F 10/02/17 12:00 Pulse 80 10/02/17 12:00 Resp 18 10/02/17 12:00 BP 133/59 10/02/17 12:00 Pulse Ox 93 L 10/02/17 12:00 Intake & Output 10/01/17 10/02/17 10/02/17 18:59 06:59 18:59 Intake Total 2591 420 360 Output Total 400 1300 Balance 2191 -880 360 Weight 103.5 kg 100.5 kg Intake: IV 1751 420 Dextrose 5%-0.9% NaCl 1, 420 000 ml @ 60 mls/hr IV . [id number] [facility] Rx#:[id number] Intake, IV Titration 600 Amount Dextrose 5% in Water 1, 240 000 ml @ 80 mls/hr IV . [id number] [facility] Rx#:[id number] Dextrose 5%-0.9% NaCl 1, 360 000 ml @ 60 mls/hr IV . [id number] [facility] Rx#:[id number] Oral 240 360 Output: Urine 250 1300 Uretheral (Wing) 900 Estimated Blood Loss 150 Other: Voiding Method Indwelling Catheter Indwelling Catheter - Labs CBC & Chem 7: 10/02/17 06:34 10/02/17 06:34 Labs: Abnormal Lab Results - Last 24 Hours (Table) 10/01/17 10/01/17 10/02/17 Range/Units 16:26 21:05 00:35 RBC (3.80-5.40) m/uL Hgb (11.4-16.0) gm/dL Hct (34.0-46.0) % MCHC (31.0-37.0) g/dL Plt Count (150-450) k/uL Lymphocytes # (1.0-4.8) k/uL Sodium (137-145) mmol/L BUN (7-17) mg/dL Creatinine (0.52-1.04) mg/dL Glucose (74-99) mg/dL POC Glucose (mg/dL) 269 H 200 H 126 H (75-99) mg/dL Calcium (8.4-10.2) mg/dL 10/02/17 10/02/17 10/02/17 Range/Units 01:52 05:58 06:34 RBC 3.33 L (3.80-5.40) m/uL Hgb 8.7 L (11.4-16.0) gm/dL Hct 28.7 L (34.0-46.0) % MCHC 30.4 L (31.0-37.0) g/dL Plt Count 130 L (150-450) k/uL Lymphocytes # 0.6 L (1.0-4.8) k/uL Sodium (137-145) mmol/L BUN (7-17) mg/dL Creatinine (0.52-1.04) mg/dL Glucose (74-99) mg/dL POC Glucose (mg/dL) 125 H 198 H (75-99) mg/dL Calcium (8.4-10.2) mg/dL 10/02/17 10/02/17 Range/Units 06:34 11:42 RBC (3.80-5.40) m/uL Hgb (11.4-16.0) gm/dL Hct (34.0-46.0) % MCHC (31.0-37.0) g/dL Plt Count (150-450) k/uL Lymphocytes # (1.0-4.8) k/uL Sodium 135 L (137-145) mmol/L BUN 22 H (7-17) mg/dL Creatinine 1.17 H (0.52-1.04) mg/dL Glucose 170 H (74-99) mg/dL POC Glucose (mg/dL) 137 H (75-99) mg/dL Calcium 8.0 L (8.4-10.2) mg/dL Assessment and Plan Plan: Assessment: 1. Nonoliguric acute kidney injury mostly prerenal secondary to nonsteroidals and SOURAV inhibitor. Creatinine peaked at 1.53 this admission and is 1.17 today. No evidence of hydronephrosis noted on CAT scan. Urinalysis reveals trace proteinuria. 2. Chronic kidney disease stage III with baseline creatinine in the range of 1.1-1.4 since 2013. Etiology is diabetic kidney disease. She is noted to have trace proteinuria on urinalysis. 3. Insulin-dependent diabetes mellitus. 4. Hyperkalemia secondary to nonsteroidals and SOURAV inhibitor. Improved with medical management. 5. Hypertension with chronic disease. Controlled. 6. Right femoral neck fracture status post right hip hemiarthroplasty on October 01. Plan: Hep-Lock IV fluids. Encouraged oral intake. Type blood sugar control. Avoid nephrotoxic agents. Repeat electrolytes in the morning.
--- NOTE | 2017-10-02 14:23 | XR ---
EXAMINATION TYPE: XR chest 1V portable DATE OF EXAM: 10/02/2017 COMPARISON: 01/05/2016 HISTORY: Shortness of breath TECHNIQUE: Single frontal view of the chest is obtained. FINDINGS: Interstitial pattern seen with cardiomegaly and atherosclerotic change aorta. Diffuse oste openia, arthropathy of the shoulders and degenerative change of the spine. Subsegmental linear change s at the left lung base. No evidence of pneumothorax. Biapical pleural thickening. IMPRESSION: 1. Interstitial pattern may been the basis of interstitial chronic lung disease. Mild superimposed pn eumonitis or congestion not excluded. Correlate clinically.
--- NOTE | 2017-10-02 14:26 | P.PN ---
Subjective Progress Note Date: 10/02/17 Progress note being dictated for Amando. This is an 82-year-old female status post right hip hemiarthroplasty, hypoxia, acute on chronic renal failure and multiple other medical issues. Echo reports preserved LV function. Patient reports wears oxygen at night at home. Patient had developed hypoxia, hyperkalemia, elevated troponins and transferred up to telemetry unit. Evaluated by cardiology with recommendations noted. Telemetry reporting sinus rhythm. Intermittent mild confusion, attempting to cut chicken with a spoon. Passing flatus, no bowel movement. Pain currently controlled. Denies headache, focal deficits, blurred vision. Denies chest pain, palpitations or increasing shortness of breath. Renal function improving, down to 1.17. Blood sugars better controlled. Objective - Vital Signs Vital signs: Vital Signs Temp 98.5 F 10/02/17 12:00 Pulse 89 10/02/17 13:54 Resp 16 10/02/17 13:54 BP 133/59 10/02/17 12:00 Pulse Ox 93 L 10/02/17 12:00 Intake & Output 10/01/17 10/02/17 10/02/17 18:59 06:59 18:59 Intake Total 2591 420 360 Output Total 400 1300 Balance 2191 -880 360 Weight 103.5 kg 100.5 kg Intake: IV 1751 420 Dextrose 5%-0.9% NaCl 1, 420 000 ml @ 60 mls/hr IV . [id number] [facility] Rx#:[id number] Intake, IV Titration 600 Amount Dextrose 5% in Water 1, 240 000 ml @ 80 mls/hr IV . [id number] [facility] Rx#:[id number] Dextrose 5%-0.9% NaCl 1, 360 000 ml @ 60 mls/hr IV . [id number] [facility] Rx#:[id number] Oral 240 360 Output: Urine 250 1300 Uretheral (Wing) 900 Estimated Blood Loss 150 Other: Voiding Method Indwelling Catheter Indwelling Catheter - Exam PHYSICAL EXAM: VITAL SIGNS: As above GENERAL: Sitting up in bed, no acute distress HEENT: Conjunctivae normal. eyes normal. Oral mucosa moist. NECK: No JVD. No thyroid enlargement. No LNs CARDIOVASCULAR: S1, S2 muffled. Positive systolic murmur RESPIRATION: Breath sounds diminished in the bases. Occasional scattered rhonchi, no crackles. ABDOMEN: Soft, nontender . No guarding. no masses palpable. Bowel sounds heard. LEGS: Status post right hip surgery PSYCHIATRY: Alert and oriented -3, mood and affect normal. NERVOUS SYSTEM: Cranial N 2-12 grossly normal. Diffuse weakness. No focal deficits. - Labs CBC & Chem 7: 10/02/17 06:34 10/02/17 06:34 Labs: Abnormal Lab Results - Last 24 Hours (Table) 10/01/17 10/01/17 10/02/17 Range/Units 16:26 21:05 00:35 RBC (3.80-5.40) m/uL Hgb (11.4-16.0) gm/dL Hct (34.0-46.0) % MCHC (31.0-37.0) g/dL Plt Count (150-450) k/uL Lymphocytes # (1.0-4.8) k/uL Sodium (137-145) mmol/L BUN (7-17) mg/dL Creatinine (0.52-1.04) mg/dL Glucose (74-99) mg/dL POC Glucose (mg/dL) 269 H 200 H 126 H (75-99) mg/dL Calcium (8.4-10.2) mg/dL 10/02/17 10/02/17 10/02/17 Range/Units 01:52 05:58 06:34 RBC 3.33 L (3.80-5.40) m/uL Hgb 8.7 L (11.4-16.0) gm/dL Hct 28.7 L (34.0-46.0) % MCHC 30.4 L (31.0-37.0) g/dL Plt Count 130 L (150-450) k/uL Lymphocytes # 0.6 L (1.0-4.8) k/uL Sodium (137-145) mmol/L BUN (7-17) mg/dL Creatinine (0.52-1.04) mg/dL Glucose (74-99) mg/dL POC Glucose (mg/dL) 125 H 198 H (75-99) mg/dL Calcium (8.4-10.2) mg/dL 10/02/17 10/02/17 Range/Units 06:34 11:42 RBC (3.80-5.40) m/uL Hgb (11.4-16.0) gm/dL Hct (34.0-46.0) % MCHC (31.0-37.0) g/dL Plt Count (150-450) k/uL Lymphocytes # (1.0-4.8) k/uL Sodium 135 L (137-145) mmol/L BUN 22 H (7-17) mg/dL Creatinine 1.17 H (0.52-1.04) mg/dL Glucose 170 H (74-99) mg/dL POC Glucose (mg/dL) 137 H (75-99) mg/dL Calcium 8.0 L (8.4-10.2) mg/dL Assessment and Plan Assessment: 1. Right hip fracture, status post right hip arthroplasty 2. Severe hypoglycemia, diabetes mellitus type 2, uncontrolled on admission 3. Acute on chronic hypoxic respiratory failure, possibly secondary to atelectasis, chest x-ray ordered. Patient states she wears oxygen at night at home. 4. Hyperkalemia on admission, secondary to NSAIDs and SOURAV inhibitor, normalized. 5. Troponin 0.05 indeterminate 6. Acute on chronic kidney disease, stage III. Acute renal failure, prerenal secondary to NSAIDs and SOURAV inhibitor which have been discontinued. 7. Hypertension Plan: Continue on current medication regime ,monitoring and symptomatic treatment. Chest x-ray ordered, regarding hypoxia. Patient presented with mild confusion, suspect related to pain medications. We'll change pain medications to Ultram.IV fluids have been discontinued. Close monitoring of renal function with repeat labs ordered for a.m. close monitoring of Accu- Cheks. [facility] with remote [facility]metry. The impression and plan of care has been dictated as directed. : I performed a history and examination of this patient, discussed the same with the dictator. I agree with the dictator's note ,documented as a scribe. Any additional findings or plans will be noted.
--- NOTE | 2017-10-02 15:08 | P.PN ---
Subjective Progress Note Date: 10/02/17 This is an 82-year-old female who follows with Dr. Brennen Caputo in the office. She has a known history of hypertension, diabetes, hyperlipidemia, COPD with prior history of smoking, coronary artery disease with prior stenting of the proximal circumflex in 2005 subsequent to that she did undergo a cardiac catheterization in 2010 which revealed a 50% mid LAD, 50% proximal circumflex, 20% mid RCA. Last echo in the office was performed in November 2016 which revealed an ejection fraction of 50% with mild inferobasal hypokinesis EF, mild increase in velocity across the aortic valve without significant stenosis. Most recent Bessy scan was performed in November 2016 which revealed an anterior fixed defect probable soft tissue attenuation. Her home medications include Apresoline 50 mg 3 times a day, well. Trend 150 twice a day, Norvasc 5 twice a day, Pravachol 80 mg daily, Macrobid 100 mg twice a day, Prevacid 30 daily, Imdur 30 daily, ibuprofen 3 times a day, Boniva, Hydrea diarrheal 25 daily, Vasotec 10 twice a day, Coreg 25 mg by mouth twice a day, and a baby aspirin. According To the patient, she's been taking Aleve at home because she has been experiencing significant pain in her right hip and right leg. She denies having any fall that she recalls, she states that she may have ran into something but does not even remember doing that. Because of this pain she presented to the emergency room. X-ray of the lumbar sacral spine was performed on admission which did not reveal acute fracture or dislocation of the lumbar spine. Pelvis x-ray revealed interval development of superiorly displaced and impacted right femoral neck fracture. CT of the abdomen and pelvis revealed comminuted displaced and impacted right femoral neck fracture. Hip CT confirmed this also. EKG shows a normal sinus rhythm with no acute changes. Blood pressure on arrival 160/60, heart rate in the 60s to 70s, 95% on room air. Blood pressure this morning 136/62 with a heart rate in the 70s, 93% on 2 L of oxygen. White blood cell count 11.4 on admission, 7.1 this morning, hemoglobin 11.9, 10.4 this morning, platelet count 181. Sodium 138, potassium 6.0, BUN 39, creatinine 1.5, magnesium 1.8. Troponin 0.05, 0.05. At the time of my examination this morning, patient does complain of discomfort in her hip area, she denies any chest pain this morning, and states that she has not experienced any recent angina. 10/02/2017 Patient underwent right hip hemiarthroplasty. Seen and examined, extremely sleepy this morning. More awake in the afternoon. Pain is under adequate control. At pressure 132/60 with a heart rate in the 80s, 93% on 2 L of oxygen. White blood cell count 6.4, hemoglobin 8.7, platelet count 1:30. Sodium 135, potassium 4.8, BUN 22, creatinine 1.1. Echo cardiac gram with Doppler study was performed which revealed a normal left ventricular systolic function. Objective - Vital Signs Vital signs: Vital Signs Temp 98.5 F 10/02/17 12:00 Pulse 89 10/02/17 13:54 Resp 16 10/02/17 13:54 BP 133/59 10/02/17 12:00 Pulse Ox 93 L 10/02/17 12:00 Intake & Output 10/01/17 10/02/17 10/02/17 18:59 06:59 18:59 Intake Total 2591 420 900 Output Total 400 1300 Balance 2191 -880 900 Weight 103.5 kg 100.5 kg Intake: IV 1751 420 300 Dextrose 5%-0.9% NaCl 1, 420 300 000 ml @ 60 mls/hr IV . [id number] [facility] Rx#:[id number] Intake, IV Titration 600 Amount Dextrose 5% in Water 1, 240 000 ml @ 80 mls/hr IV . [id number] [facility] Rx#:[id number] Dextrose 5%-0.9% NaCl 1, 360 000 ml @ 60 mls/hr IV . [id number] [facility] Rx#:[id number] Oral 240 600 Output: Urine 250 1300 Uretheral (Wing) 900 Estimated Blood Loss 150 Other: Voiding Method Indwelling Catheter Indwelling Catheter - Exam PHYSICAL EXAMINATION: GENERAL: 82-year-old female in no acute distress at the time of my examination. HEENT: Head is atraumatic, normocephalic. Pupils equal, round. Sclera anicteric. Conjunctiva are clear. Mucous membranes of the mouth are moist. Neck is supple. There is no elevated jugular venous pressure.No Carotid bruit is heard. HEART EXAMINATION: Heart S1 and S2 systolic ejection murmur is heard CHEST EXAMINATION: Lungs reveal decreased air exchange throughout. ABDOMEN: Obese, mildly distended , nontender. Bowel sounds are heard. No organomegaly noted. EXTREMITIES: 2+ peripheral pulses with no evidence of peripheral edema and no calf tenderness noted. Significant discomfort in the right hip and right leg area NEUROLOGIC patient is awake, alert and oriented X3. . - Labs CBC & Chem 7: 10/02/17 06:34 10/02/17 06:34 Labs: Abnormal Lab Results - Last 24 Hours (Table) 10/01/17 10/01/17 10/02/17 Range/Units 16:26 21:05 00:35 RBC (3.80-5.40) m/uL Hgb (11.4-16.0) gm/dL Hct (34.0-46.0) % MCHC (31.0-37.0) g/dL Plt Count (150-450) k/uL Lymphocytes # (1.0-4.8) k/uL Sodium (137-145) mmol/L BUN (7-17) mg/dL Creatinine (0.52-1.04) mg/dL Glucose (74-99) mg/dL POC Glucose (mg/dL) 269 H 200 H 126 H (75-99) mg/dL Calcium (8.4-10.2) mg/dL 10/02/17 10/02/17 10/02/17 Range/Units 01:52 05:58 06:34 RBC 3.33 L (3.80-5.40) m/uL Hgb 8.7 L (11.4-16.0) gm/dL Hct 28.7 L (34.0-46.0) % MCHC 30.4 L (31.0-37.0) g/dL Plt Count 130 L (150-450) k/uL Lymphocytes # 0.6 L (1.0-4.8) k/uL Sodium (137-145) mmol/L BUN (7-17) mg/dL Creatinine (0.52-1.04) mg/dL Glucose (74-99) mg/dL POC Glucose (mg/dL) 125 H 198 H (75-99) mg/dL Calcium (8.4-10.2) mg/dL 10/02/17 10/02/17 Range/Units 06:34 11:42 RBC (3.80-5.40) m/uL Hgb (11.4-16.0) gm/dL Hct (34.0-46.0) % MCHC (31.0-37.0) g/dL Plt Count (150-450) k/uL Lymphocytes # (1.0-4.8) k/uL Sodium 135 L (137-145) mmol/L BUN 22 H (7-17) mg/dL Creatinine 1.17 H (0.52-1.04) mg/dL Glucose 170 H (74-99) mg/dL POC Glucose (mg/dL) 137 H (75-99) mg/dL Calcium 8.0 L (8.4-10.2) mg/dL Assessment and Plan Plan: Assessment and plan #1 right femoral fracture, scheduled for surgery at 3 PM today. #2 History of coronary artery disease with prior non-Q-wave WI in 2003, patient underwent circumflex stenting in 2005, cardiac catheterization performed in 2010 revealed 50% mid LAD, 50% proximal circumflex, 20% mid RCA, medical therapy advised at that time, patient did have a Lexiscan stress test performed in November of last year which was negative for any reversible ischemia. #3 diabetes #4 hypertension #5 hyperlipidemia #6 advanced COPD with home O2 use #7 abn troponin #8 hyperkalemia Plan Echocardiogram with Doppler study reveals normal left ventricular systolic function. Patient is hemodynamically stable. From cardiology's perspective, we 'll continue patient on her current medications. She may be transferred to the medical surgical unit from our perspective. DNP note has been reviewed, I agree with a documented findings and plan of care. Patient was seen and examined.
--- NOTE | 2017-10-02 16:00 | OP ---
OPERATIVE REPORT DATE OF SERVICE: 10/01/2017 SURGEON: Maury Crawford Do DIVISION SUPERINTENDENT: Kallie Anthony NP PREOPERATIVE DIAGNOSIS:: Comminuted femoral neck fracture of the right hip. POSTOPERATIVE DIAGNOSIS:: Comminuted femoral neck fracture of the right hip. OPERATION:: Right femoral head replacement arthroplasty. PROCEDURE: The patient is taken to the operative suite and placed in supine position. General inhalation anesthesia performed by the department of anesthesiology along with spinal anesthesia. She was placed in left lateral recumbent position, appropriately secured and padded on the operative table. A Betadine prep was carried out over the right hip and leg and sterile drapes were applied in the usual manner. A lateral incision was developed over the trochanter and extended distal and proximal for further surgical exposure. Subcutaneous tissue was incised and longitudinal incision is developed. A posterior cut is developed into the tensor fascia for further exposure. The gluteus medius is dissected along its attachment to the trochanter. With the leg slightly externally rotated, capsule was identified and excised anteriorly. A bone screw was utilized in securing the head and removing it in its entirety. Femoral head was measured 44 mm was in diameter. The proximal trochanter has been prepared by box chisel and shaped with a bone saw. A intramedullary guide was utilized in preparing the canal. Trochanteric reamer was utilized and prepared. The canal of the femur. Leg was elevated, broaching was utilized in preparation for further insertion of a proximally and remaining femoral neck is shaped with a shelving planer. The trial neck with a 0.75 trial femoral head and then placed into the trial femoral head and the hip was reduced. Excellent stability is present at this time. The trial components were selected for final components. With the provisionary components removed, the area was irrigated copiously with Pulsavac and antibiotic solution. The preparation then performed and components initiated and the size 12 Press-Fit stem is inserted into position now and impacted into cortical arc. The 0.75 stem placed into the femoral endo head and secured and impacted down to the femoral stem. The hip was reduced and examined for stability noted. The leg was then abducted and the gluteus medius was approximated along the vastus lateralis with closure #3 Vicryl. The tensor fascia jay was then reapproximated with the anterior and posterior and approximated with #3 Vicryl suture in running fashion. The tensor fascia jay was reinforced with #2 Quill suture in running fashion. The subcutaneous tissue was approximated from deep to superficial with 3-0 Vicryl suture. The skin was approximated with skin clips. Betadine, Adaptic and sterile pressure dressing was applied. Hip flexion and abduction with pillow splint and transferred to recovery room in satisfactory postop condition. GROSS PATHOLOGY: Comminuted superior neck fracture of the right femur. ESTIMATED BLOOD LOSS: 200 mL. The fracture was discussed with the family. The family and patient is well aware of this procedure and femoral head replacement in regards to the comminution of superior neck portion of the fracture. The family also noted comprehensive underlying treatment and will proceed with significant head replacement. They are aware of the risks of dislocation as well as other complications can occur with this procedure. MMODL / IJN: [id number] / MTDD
[2017-10-02 16:50] LABS: Glucose,Whole Blood 251 mg/dL (75-99)
[2017-10-02 18:09] LABS: Iron Saturation 4.19 (12.00-45.00)
[2017-10-02] MEDS: MONTELUKAST 10 MG TAB PO SCH (20:57)
[2017-10-02] MEDS: SENNOSIDES-DOCUSATE SODIUM 1 EACH TAB PO SCH (20:57)
[2017-10-02] MEDS: MELATONIN 3 MG TABLET PO SCH (20:57)
[2017-10-02 20:59] LABS: Glucose,Whole Blood 188 mg/dL (75-99)
[2017-10-02] MEDS: PRAVASTATIN SODIUM 80 MG TAB PO SCH (22:56)
[2017-10-02] MEDS: IPRATROPIUM-ALBUTEROL 3 ML NEB INHALATION PRN (23:42)
[2017-10-03] MEDS: ACETAMINOPHEN TAB 325 MG TAB PO PRN ×2 (01:13→21:12)
[2017-10-03] MEDS: cefTRIAXone IN SWFI 1,000 MG/10 ML SYRINGE IVP SCH (01:22)
[2017-10-03] MEDS: IPRATROPIUM-ALBUTEROL 3 ML NEB INHALATION PRN (04:46)
[2017-10-03 06:45] LABS: Glucose,Whole Blood 117 mg/dL (75-99)
[2017-10-03 07:00] LABS: Basophils % (A) 0 %; Eosinophils # (A) 0.1 k/uL (0-0.7); Eosinophils % (A) 2 %; HCT 25.6 % (34.0-46.0); HGB 7.9 gm/dL (11.4-16.0); Lymphocytes # (A) 0.8 k/uL (1.0-4.8); Lymphocytes % (A) 10 %; MCH 26.3 pg (25.0-35.0); MCV 84.9 fL (80.0-100.0); Mean Platelet Volume 8.1; Monocytes # (A) 0.4 k/uL (0-1.0); Monocytes % (A) 6 %; Neutrophils # (A) 5.9 k/uL (1.3-7.7); Neutrophils % (A) 80 %; Platelet Count 142 k/uL (150-450); RBC 3.01 m/uL (3.80-5.40); RDW 14.7 % (11.5-15.5); WBC 7.4 k/uL (3.8-10.6)
[2017-10-03 07:12] LABS: Calcium 7.9 mg/dL (8.4-10.2); Potassium 4.1 mmol/L (3.5-5.1)
[2017-10-03] MEDS: CARVEDILOL 12.5 MG TAB PO SCH ×2 (08:04→17:34)
[2017-10-03] MEDS: PANTOPRAZOLE 40 MG TABLET PO SCH (08:04)
[2017-10-03] MEDS: amLODIPine 5 MG TAB PO SCH ×2 (08:04→21:12)
[2017-10-03] MEDS: HEPARIN SODIUM,PORCINE 5,000 UNIT/ML 1 ML VIAL SQ SCH ×2 (08:04→21:11)
[2017-10-03] MEDS: hydrALAZINE HCL 50 MG TAB PO SCH ×3 (08:05→22:32)
[2017-10-03] MEDS: ISOSORBIDE MONONITRATE ER 30 MG TAB.ER.24H PO SCH (08:05)
[2017-10-03] MEDS: INSULIN ASPART 100 UNIT/ML 1 ML 10 ML VIAL SQ SCH ×4 (08:09→22:04)
[2017-10-03] MEDS: INSULN ASP PRT/INSULIN ASPART 100 UNIT/ML 10 ML VIAL SQ SCH ×2 (08:10→17:54)
--- NOTE | 2017-10-03 08:56 | P.PN ---
Subjective Progress Note Date: 10/03/17 Principal diagnosis: Right hip hemiarthroplasty This is an 82 year-old female post right hip hemiarthroplasty. This is post-op day 2. The patient was evaluated at the bedside today. The patient denies nausea, vomiting, abdominal pain, shortness of breath, and chest pain this morning. She states her pain is controlled at this time. The patient has been up with physical therapy and is a max assist. Objective - Vital Signs Vital signs: Vital Signs Temp 98.1 F 10/03/17 08:14 Pulse 96 10/03/17 08:14 Resp 20 10/03/17 08:14 BP 145/75 10/03/17 08:14 Pulse Ox 96 10/03/17 00:20 Intake & Output 10/02/17 10/03/17 10/03/17 18:59 06:59 18:59 Intake Total 1140 480 Output Total 850 Balance 1140 -370 Weight 104 kg Intake: IV 300 480 Dextrose 5%-0.9% NaCl 1, 300 480 000 ml @ 60 mls/hr IV . [id number] [facility] Rx#:[id number] Oral 840 Output: Urine 850 Other: Voiding Method Indwelling Catheter Indwelling Catheter Indwelling Catheter # Voids 1 - Exam The patient does not appear in acute distress. Alert and orientated x3. Dressing is clean dry and intact. Incision appears fine with no erythema or active drainage. Calf is soft and nontender. Good foot and ankle motion without difficulty. Sensation and circulatory status is intact. - Labs CBC & Chem 7: 10/03/17 06:22 10/03/17 06:22 Labs: Abnormal Lab Results - Last 24 Hours (Table) 10/02/17 10/02/17 10/02/17 Range/Units 06:34 11:42 16:22 RBC (3.80-5.40) m/uL Hgb (11.4-16.0) gm/dL Hct (34.0-46.0) % Plt Count (150-450) k/uL Lymphocytes # (1.0-4.8) k/uL Sodium (137-145) mmol/L BUN (7-17) mg/dL Creatinine (0.52-1.04) mg/dL Glucose (74-99) mg/dL POC Glucose (mg/dL) 137 H 251 H (75-99) mg/dL Calcium (8.4-10.2) mg/dL Iron 9 L (50-170) ug/dL TIBC 215 L (228-460) ug/dL Iron Saturation 4.19 L (12.00-45.00) 10/02/17 10/03/17 10/03/17 Range/Units 20:57 06:22 06:22 RBC 3.01 L (3.80-5.40) m/uL Hgb 7.9 L (11.4-16.0) gm/dL Hct 25.6 L (34.0-46.0) % Plt Count 142 L (150-450) k/uL Lymphocytes # 0.8 L (1.0-4.8) k/uL Sodium 135 L (137-145) mmol/L BUN 25 H (7-17) mg/dL Creatinine 1.22 H (0.52-1.04) mg/dL Glucose 102 H (74-99) mg/dL POC Glucose (mg/dL) 188 H (75-99) mg/dL Calcium 7.9 L (8.4-10.2) mg/dL Iron (50-170) ug/dL TIBC (228-460) ug/dL Iron Saturation (12.00-45.00) 10/03/17 Range/Units 06:42 RBC (3.80-5.40) m/uL Hgb (11.4-16.0) gm/dL Hct (34.0-46.0) % Plt Count (150-450) k/uL Lymphocytes # (1.0-4.8) k/uL Sodium (137-145) mmol/L BUN (7-17) mg/dL Creatinine (0.52-1.04) mg/dL Glucose (74-99) mg/dL POC Glucose (mg/dL) 117 H (75-99) mg/dL Calcium (8.4-10.2) mg/dL Iron (50-170) ug/dL TIBC (228-460) ug/dL Iron Saturation (12.00-45.00) Assessment and Plan (1) Status post hip hemiarthroplasty Current Visit: Yes Status: Acute Code(s): Z96.649 - PRESENCE OF UNSPECIFIED ARTIFICIAL HIP JOINT SNOMED Code(s): 746247410 (2) Displaced fracture of right femoral neck Current Visit: Yes Status: Acute Code(s): S72.001A - FRACTURE OF UNSP PART OF NECK OF RIGHT FEMUR, INIT SNOMED Code(s): 3236518 Plan: 1. Continue pain control 2. Anticoagulation per internal medicine 3. Continue physical therapy and ambulation 4. Anticipate discharge to skilled rehab in the next 1-2 days if medically stable.
[2017-10-03] MEDS: IPRATROPIUM-ALBUTEROL 3 ML NEB INHALATION SCH ×4 (09:13→21:15)
[2017-10-03] MEDS: BUDESONIDE 1 MG/2 ML NEBU INHALATION SCH ×2 (09:13→21:16)
[2017-10-03] MEDS: FORMOTEROL FUMARATE 20 MCG/2 ML NEBU INHALATION SCH ×2 (09:13→21:15)
--- NOTE | 2017-10-03 09:33 | P.PN ---
Subjective Patient is seen in follow-up for acute kidney injury on chronic kidney disease. Patient has chronic kidney disease stage III with baseline creatinine in the range of 1-1.4. Her creatinine today is relatively stable at 1.2 to. She underwent right hip hemiarthroplasty on October 01. Currently sitting up in chair. Denies chest pain or shortness of breath. She is nonoliguric. Vital signs are stable. General: The patient appeared well nourished and normally developed. HEENT: Head exam is unremarkable. Neck is without jugular venous distension. LUNGS: Lungs are clear to auscultation and percussion. Breath sounds decreased. HEART: Rate and Rhythm are regular. First and second heart sounds normal. No murmurs, rubs or gallops. ABDOMEN: Abdominal exam reveals normal bowel sounds. Non-tender and non- distended. No evidence of peritonitis. EXTREMITITES: No clubbing, cyanosis, or edema. Objective - Vital Signs Vital signs: Vital Signs Temp 98.1 F 10/03/17 08:14 Pulse 80 10/03/17 09:13 Resp 20 10/03/17 08:14 BP 145/75 10/03/17 08:14 Pulse Ox 96 10/03/17 00:20 Intake & Output 10/02/17 10/03/17 10/03/17 18:59 06:59 18:59 Intake Total 1140 480 Output Total 850 Balance 1140 -370 Weight 104 kg Intake: IV 300 480 Dextrose 5%-0.9% NaCl 1, 300 480 000 ml @ 60 mls/hr IV . [id number] [facility] Rx#:[id number] Oral 840 Output: Urine 850 Other: Voiding Method Indwelling Catheter Indwelling Catheter Indwelling Catheter # Voids 1 - Labs CBC & Chem 7: 10/03/17 06:22 10/03/17 06:22 Labs: Abnormal Lab Results - Last 24 Hours (Table) 10/02/17 10/02/17 10/02/17 Range/Units 06:34 11:42 16:22 RBC (3.80-5.40) m/uL Hgb (11.4-16.0) gm/dL Hct (34.0-46.0) % Plt Count (150-450) k/uL Lymphocytes # (1.0-4.8) k/uL Sodium (137-145) mmol/L BUN (7-17) mg/dL Creatinine (0.52-1.04) mg/dL Glucose (74-99) mg/dL POC Glucose (mg/dL) 137 H 251 H (75-99) mg/dL Calcium (8.4-10.2) mg/dL Iron 9 L (50-170) ug/dL TIBC 215 L (228-460) ug/dL Iron Saturation 4.19 L (12.00-45.00) 10/02/17 10/03/17 10/03/17 Range/Units 20:57 06:22 06:22 RBC 3.01 L (3.80-5.40) m/uL Hgb 7.9 L (11.4-16.0) gm/dL Hct 25.6 L (34.0-46.0) % Plt Count 142 L (150-450) k/uL Lymphocytes # 0.8 L (1.0-4.8) k/uL Sodium 135 L (137-145) mmol/L BUN 25 H (7-17) mg/dL Creatinine 1.22 H (0.52-1.04) mg/dL Glucose 102 H (74-99) mg/dL POC Glucose (mg/dL) 188 H (75-99) mg/dL Calcium 7.9 L (8.4-10.2) mg/dL Iron (50-170) ug/dL TIBC (228-460) ug/dL Iron Saturation (12.00-45.00) 10/03/17 Range/Units 06:42 RBC (3.80-5.40) m/uL Hgb (11.4-16.0) gm/dL Hct (34.0-46.0) % Plt Count (150-450) k/uL Lymphocytes # (1.0-4.8) k/uL Sodium (137-145) mmol/L BUN (7-17) mg/dL Creatinine (0.52-1.04) mg/dL Glucose (74-99) mg/dL POC Glucose (mg/dL) 117 H (75-99) mg/dL Calcium (8.4-10.2) mg/dL Iron (50-170) ug/dL TIBC (228-460) ug/dL Iron Saturation (12.00-45.00) Assessment and Plan Plan: Assessment: 1. Nonoliguric acute kidney injury mostly prerenal secondary to nonsteroidals and SOURAV inhibitor. Creatinine peaked at 1.53 this admission and is relatively stable at 1.2 to today. No evidence of hydronephrosis noted on CAT scan. Urinalysis reveals trace proteinuria. 2. Chronic kidney disease stage III with baseline creatinine in the range of 1.1-1.4 since 2014. Etiology is diabetic kidney disease. She is noted to have trace proteinuria on urinalysis. 3. Insulin-dependent diabetes mellitus. 4. Hyperkalemia secondary to nonsteroidals and SOURAV inhibitor. Improved with medical management. 5. Hypertension with chronic disease. Controlled. 6. Right femoral neck fracture status post right hip hemiarthroplasty on October 01. 7. Anemia. Severe iron deficiency noted. Plan: Remains off all IV fluids. Encouraged oral intake. Avoid nephrotoxic agents. Ferrlecit 125 mg IV daily for 2 days. First dose today. Repeat electrolytes in the morning. Plans for rehab upon discharge.
[2017-10-03] MEDS: SODIUM FERRIC GLUCONAT-SUCROSE 125 MG in SODIUM CHLORIDE 0.9% 100 ML IVPB SCH (10:19)
[2017-10-03 11:48] LABS: Glucose,Whole Blood 257 mg/dL (75-99)
--- NOTE | 2017-10-03 11:56 | P.CNPUL ---
History of Present Illness Consult date: 10/03/17 Reason for consult: COPD History of present illness: 82-year-old female patient who follows up with Dr. Grijalva on outpatient basis. I' m covering for Dr. Grijalva during this current hospitalization. The patient is known to have COPD and she utilizes a albuterol solution at home on an as- needed basis. She also wears oxygen at night during sleep at 2 L/m nasal cannula. No other maintenance inhalers. She is an ex-smoker. She was involved in a pneumonia back in 2013 and xanthomonas was cultured from her lungs. No recurrent exacerbations of her COPD or pneumonia since. A previous CAT scan of the chest did not reveal any interstitial lung disease. The patient is also known to have coronary artery disease with prior stenting of the circumflex vessel in 2005 and subsequent cardiac catheterization 2010 revealing 50% LAD lesion 50% circumflex lesion proximally and 20% mid RCA lesion. Her ejection fraction is around 50% without any significant valvular heart disease. The patient presented to the hospital because of difficulty in ambulation and walking. CAT scan of the abdomen and pelvis was done and showed comminuted displaced fracture of the right femoral neck and CAT scan of the hip confirmed the finding. Based on that the patient underwent an ORIF and currently she is postop. She is on 2 L of oxygen by nasal cannula. She is slightly bronchospastic and wheezy on today's evaluation she is using DuoNeb nebulized treatments around the clock. No signs of any fluid overload. The chest x-ray that was done on 10/02/2017 showed smaller lung volumes. Minimal pulmonary vessel congestion was seen and there is no airspace disease or pneumonias noted. The patient's white cell count is at 7.4. The patient's hemoglobin is 7.9. Renal function was impaired and the creatinine is improving and his creatinine is down to 1.2. Note that the patient presented to the hospital with a baseline creatinine of 1.2. Her highest creatinine was at 1.5. Review of Systems Constitutional: Reports fatigue, Reports weakness, Reports weight gain Eyes: denies blurred vision, denies bulging eye, denies decreased vision Ears: deny: decreased hearing, ear discharge, earache, tinnitus Ears, nose, mouth and throat: Reports as per HPI Cardiovascular: Reports dyspnea on exertion Respiratory: Reports dyspnea Gastrointestinal: Denies abdominal pain, Denies diarrhea, Denies nausea, Denies vomiting Genitourinary: Denies dysuria, Denies hematuria Musculoskeletal: Reports gait dysfunction, Denies myalgias Musculoskeletal: absent: ankle pain, ankle stiffness, ankle swelling Integumentary: Denies pruritus, Denies rash Neurological: Reports gait dysfunction Psychiatric: Denies anxiety, Denies depression Endocrine: Denies fatigue, Denies weight change Past Medical History Past Medical History: COPD, Diabetes Mellitus, GERD/Reflux, Hyperlipidemia, Hypertension, Myocardial Infarction ([place]), Pneumonia Additional Past Medical History / Comment(s): aneurysm splenic artery, nontoxic multinodular goiter per medical history from Dr. Aguilar office, psoriasis, polyneuropathy Last Myocardial Infarction Date:: 2005 History of Any Multi-Drug Resistant Organisms: None Reported Past Surgical History: Cholecystectomy, Heart Catheterization With Stent Past Anesthesia/Blood Transfusion Reactions: No Reported Reaction Date of Last Stent Placement:: 2005? Past Psychological History: No Psychological Hx Reported Smoking Status: Former smoker Past Alcohol Use History: None Reported Additional Past Alcohol Use History / Comment(s): STARTED SMOKING AT AGE 15 SMOKED LESS THAN 1 PPD QUIT IN 2005, HAS AN RARE DRINK NO DRUG HX. Past Drug Use History: None Reported - Past Family History Father Family Medical History: COPD Additional Family Medical History / Comment(s): DAD IN HIS 60'S Mother Family Medical History: Cancer Additional Family Medical History / Comment(s): MOM IN HER EARLY 70'S Medications and Allergies Home Medications Medication Instructions Recorded Confirmed Type Carvedilol 25 mg PO BID 12/01/13 09/29/17 History Cholecalciferol [Vitamin D3] 2,000 unit PO DAILY 12/01/13 09/29/17 History Enalapril Maleate [Vasotec] 10 mg PO BID 12/01/13 09/29/17 History Ibandronate Sodium [Boniva] 150 mg PO QMONTH 12/01/13 09/29/17 History Insuln Asp Prt/Insulin Aspart 20 unit SQ AC-SUPPER 12/01/13 09/29/17 History [NovoLOG MIX 70-30 VIAL] Insuln Asp Prt/Insulin Aspart 28 unit SQ AC-BRKFST 12/01/13 09/29/17 History [NovoLOG MIX 70-30 VIAL] Isosorbide Mononitrate [Imdur] 30 mg PO DAILY 12/01/13 09/29/17 History Lansoprazole [Prevacid] 30 mg PO DAILY 12/01/13 09/29/17 History Nitroglycerin Sl Tabs [Nitrostat] 0.4 mg SUBLINGUAL Q5M PRN 12/01/13 09/29/17 History Pravastatin Sodium [Pravachol] 80 mg PO HS 12/01/13 09/29/17 History amLODIPine [Norvasc] 5 mg PO BID 12/01/13 09/29/17 History hydrALAZINE HCL [Apresoline] 50 mg PO TID 12/01/13 09/29/17 History Acetaminophen-Codeine 300-30mg 1 tab PO Q4H PRN 3 Days #18 tablet 09/28/1709/29 Rx [Tylenol w/codeine #3] Ibuprofen 600 mg PO TID #20 tablet 09/28/17 09/29/17 Rx Nitrofurantoin Monohyd/M-Cryst 100 mg PO Q12HR #14 cap 09/28/17 09/29/17 Rx [Macrobid] Albuterol Nebulized [Ventolin 2.5 mg INHALATION RT-Q4H PRN 09/29/17 09/29/17 History Nebulized] Aspirin EC [Ecotrin Low Dose] 81 mg PO DAILY 09/29/17 09/29/17 History Hydrochlorothiazide [Hydrodiuril] 25 mg PO DAILY 09/29/17 09/29/17 History Ipratropium [place] [Atrovent Hfa] 2 puff INHALATION RT-QID PRN 09/29/17 History buPROPion HCL [Wellbutrin SR] 150 mg PO BID 09/29/17 09/29/17 History Allergies Allergy/AdvReac Type Severity Reaction Status Date / Time No Known Allergies Allergy Verified 09/29/17 17:25 Physical Exam Vitals: Vital Signs Temp Pulse Pulse Pulse Resp BP Pulse Ox 10/03/17 09:34 84 10/03/17 09:24 80 10/03/17 09:23 80 10/03/17 09:13 80 10/03/17 08:14 98.1 F 93 96 20 145/75 10/03/17 05:34 98.8 F 10/03/17 04:54 88 10/03/17 04:46 80 10/03/17 00:20 98.7 F 94 17 129/67 96 10/02/17 23:51 88 10/02/17 23:42 84 10/02/17 23:13 102.0 F H 94 20 146/62 96 10/02/17 21:40 98.0 F 10/02/17 21:07 22 10/02/17 20:51 99.9 F H 92 20 139/72 93 L 10/02/17 20:29 90 10/02/17 20:17 88 10/02/17 20:08 90 10/02/17 16:00 98.6 F 94 18 173/74 94 L 10/02/17 15:41 80 16 10/02/17 15:34 95 10/02/17 15:33 78 16 10/02/17 13:54 89 16 10/02/17 13:46 75 16 10/02/17 12:00 98.5 F 80 18 133/59 93 L Intake and Output 10/02/17 10/03/17 10/03/17 22:59 06:59 14:59 Intake Total 720 Output Total 850 Balance 720 -850 Intake: IV 480 Dextrose 5%-0.9% NaCl 1, 480 000 ml @ 60 mls/hr IV . [id number] [facility] Rx#:[id number] Oral 240 Output: Urine 850 Other: Voiding Method Indwelling Catheter Indwelling Catheter Indwelling Catheter # Voids 1 Weight 104 kg Gen. appearance the patient is calm comfortable likely distress. Head exam was generally normal. There was no scleral icterus or corneal arcus. Mucous membranes were moist. Neck was supple and without jugular venous distension, thyromegaly, or carotid bruits. Carotids were easily palpable bilaterally. There was no adenopathy. Lungs sounds are diminished and there is some few scattered expiratory wheezes heard throughout the lung [place] bilaterally. Few crackles can be appreciated also in the lung bases. Cardiac exam revealed the PMI to be normally situated and sized. The rhythm was regular and no extrasystoles were noted during several minutes of auscultation. The first and second heart sounds were normal and physiologic splitting of the second heart sound was noted. There were no murmurs, rubs, clicks, or gallops. Abdominal exam revealed normal bowel sounds. The abdomen was soft, non-tender, and without masses, organomegaly, or appreciable enlargement of the abdominal aorta. Examination of the extremities revealed easily palpable radial, femoral and pedal pulses. There was no cyanosis, clubbing or edema. The patient is post right hip surgery and surgical wound site is dry clean and intact. Examination of the skin revealed no evidence of significant rashes, suspicious appearing nevi or other concerning lesions. Psychiatric to the patient is awake and alert and appropriate mood and affect Neurologically the patient is alert and oriented 3 without any focal neurological deficit and the patient has diffused motor weakness. Results - Laboratory Findings CBC and BMP: 10/03/17 06:22 10/03/17 06:22 Abnormal lab findings: Abnormal Labs 09/29/17 09/29/17 09/29/17 15:27 15:30 15:30 WBC RBC Hgb Hct MCHC Plt Count Neutrophils # Lymphocytes # Sodium Potassium Chloride Carbon Dioxide BUN Creatinine Glucose POC Glucose (mg/dL) 46 L Hemoglobin A1c 6.6 H Calcium Iron TIBC Iron Saturation Troponin I 0.054 H* Urine Protein 09/29/17 09/29/17 09/29/17 15:30 15:30 15:46 WBC 11.4 H RBC Hgb Hct MCHC Plt Count Neutrophils # 9.6 H Lymphocytes # Sodium Potassium 6.1 H Chloride 109 H Carbon Dioxide 21 L BUN 37 H Creatinine 1.26 H Glucose 42 L* POC Glucose (mg/dL) 47 L Hemoglobin A1c Calcium Iron TIBC Iron Saturation Troponin I Urine Protein 09/29/17 09/29/17 09/29/17 16:15 18:52 19:16 WBC RBC Hgb Hct MCHC Plt Count Neutrophils # Lymphocytes # Sodium Potassium Chloride Carbon Dioxide BUN Creatinine Glucose POC Glucose (mg/dL) 154 H 64 L 63 L Hemoglobin A1c Calcium Iron TIBC Iron Saturation Troponin I Urine Protein 09/29/17 09/29/17 09/30/17 19:33 20:57 03:57 WBC RBC Hgb Hct MCHC Plt Count Neutrophils # Lymphocytes # Sodium Potassium Chloride Carbon Dioxide BUN Creatinine Glucose POC Glucose (mg/dL) 70 L 74 L 125 H Hemoglobin A1c Calcium Iron TIBC Iron Saturation Troponin I Urine Protein 09/30/17 09/30/17 09/30/17 04:20 05:47 06:38 WBC RBC Hgb 10.4 L Hct MCHC 30.6 L Plt Count Neutrophils # Lymphocytes # 0.7 L Sodium Potassium Chloride Carbon Dioxide BUN Creatinine Glucose POC Glucose (mg/dL) 119 H Hemoglobin A1c Calcium Iron TIBC Iron Saturation Troponin I Urine Protein Trace H 09/30/17 09/30/17 09/30/17 06:38 06:38 12:14 WBC RBC Hgb Hct MCHC Plt Count Neutrophils # Lymphocytes # Sodium Potassium 6.0 H Chloride Carbon Dioxide BUN 39 H Creatinine 1.53 H Glucose 129 H POC Glucose (mg/dL) 174 H Hemoglobin A1c Calcium Iron TIBC Iron Saturation Troponin I 0.051 H* Urine Protein 09/30/17 09/30/17 09/30/17 13:16 14:35 17:06 WBC RBC Hgb Hct MCHC Plt Count Neutrophils # Lymphocytes # Sodium Potassium 5.8 H Chloride Carbon Dioxide BUN Creatinine Glucose POC Glucose (mg/dL) 190 H 151 H Hemoglobin A1c Calcium Iron TIBC Iron Saturation Troponin I Urine Protein 09/30/17 10/01/17 10/01/17 20:51 05:50 05:50 WBC RBC 3.54 L Hgb 9.4 L Hct 31.2 L MCHC 30.1 L Plt Count 144 L Neutrophils # Lymphocytes # 0.8 L Sodium 135 L Potassium 5.2 H Chloride Carbon Dioxide BUN 34 H Creatinine 1.50 H Glucose 179 H POC Glucose (mg/dL) 254 H Hemoglobin A1c Calcium 8.1 L Iron TIBC Iron Saturation Troponin I Urine Protein 10/01/17 10/01/17 10/01/17 06:00 07:46 10:01 WBC RBC Hgb Hct MCHC Plt Count Neutrophils # Lymphocytes # Sodium Potassium 5.2 H Chloride Carbon Dioxide BUN Creatinine Glucose POC Glucose (mg/dL) 184 H 230 H Hemoglobin A1c Calcium Iron TIBC Iron Saturation Troponin I Urine Protein 10/01/17 10/01/17 10/02/17 16:26 21:05 00:35 WBC RBC Hgb Hct MCHC Plt Count Neutrophils # Lymphocytes # Sodium Potassium Chloride Carbon Dioxide BUN Creatinine Glucose POC Glucose (mg/dL) 269 H 200 H 126 H Hemoglobin A1c Calcium Iron TIBC Iron Saturation Troponin I Urine Protein 10/02/17 10/02/17 10/02/17 01:52 05:58 06:34 WBC RBC 3.33 L Hgb 8.7 L Hct 28.7 L MCHC 30.4 L Plt Count 130 L Neutrophils # Lymphocytes # 0.6 L Sodium Potassium Chloride Carbon Dioxide BUN Creatinine Glucose POC Glucose (mg/dL) 125 H 198 H Hemoglobin A1c Calcium Iron TIBC Iron Saturation Troponin I Urine Protein 10/02/17 10/02/17 10/02/17 06:34 06:34 11:42 WBC RBC Hgb Hct MCHC Plt Count Neutrophils # Lymphocytes # Sodium 135 L Potassium Chloride Carbon Dioxide BUN 22 H Creatinine 1.17 H Glucose 170 H POC Glucose (mg/dL) 137 H Hemoglobin A1c Calcium 8.0 L Iron 9 L TIBC 215 L Iron Saturation 4.19 L Troponin I Urine Protein 10/02/17 10/02/17 10/03/17 16:22 20:57 06:22 WBC RBC 3.01 L Hgb 7.9 L Hct 25.6 L MCHC Plt Count 142 L Neutrophils # Lymphocytes # 0.8 L Sodium Potassium Chloride Carbon Dioxide BUN Creatinine Glucose POC Glucose (mg/dL) 251 H 188 H Hemoglobin A1c Calcium Iron TIBC Iron Saturation Troponin I Urine Protein 10/03/17 10/03/17 10/03/17 06:22 06:42 11:46 WBC RBC Hgb Hct MCHC Plt Count Neutrophils # Lymphocytes # Sodium 135 L Potassium Chloride Carbon Dioxide BUN 25 H Creatinine 1.22 H Glucose 102 H POC Glucose (mg/dL) 117 H 257 H Hemoglobin A1c Calcium 7.9 L Iron TIBC Iron Saturation Troponin I Urine Protein - Diagnostic Findings Chest x-ray: image reviewed Assessment and Plan Plan: Assessment 1 right hip/femoral neck fracture and the patient is status post right hip arthroplasty. The patient was found to have a comminuted femoral neck fracture. Surgery was done on 10/01/2017 and the patient is postop day #2 2 COPD currently inactive and stable. 3 chronic hypoxic respiratory failure currently on 2 L about 2 by nasal cannula 4 coronary artery disease details discussed above 5 diabetes mellitus 6 hypertension 7 hyperlipidemia 8 previous history of smoking. 9 acute kidney injury improving and the creatinine is down to 1.2 10 anemia with a drop in hemoglobin down to 7.9. Patient presented initially to the hospital with a hemoglobin of 11.9. We'll continue monitoring the hemoglobin counts as the patient does not show any signs of hematoma or external bleeding. Plan Overall pulmonary status is stable. No evidence of interstitial lung disease. She has COPD. She follows up with Dr. Grijalva on outpatient basis. Continue oxygen therapy at 2 L to maintain a saturation above 90%. Put the patient on DuoNeb the right she minutes 4 times a day [id number]. Incentive spirometer. Monitor hemoglobin. DVT prophylaxis with subcu heparin. IV iron. Blood sugar control. Pain control. We'll see the patient on as-needed basis. 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
[2017-10-03] MEDS ORDERED: FUROSEMIDE 10 MG/ML 4 ML VIAL IV STA (14:59)
[2017-10-03] MEDS ORDERED: VANCOMYCIN IV PER PHARMACY 1 EACH MISC MISCELLANE PRN (16:57)
--- NOTE | 2017-10-03 17:15 | P.PN ---
Subjective Progress Note Date: 10/03/17 Progress note being dictated for Amando. This is an 82-year-old female status post right hip hemiarthroplasty, hypoxia, acute on chronic renal failure and multiple other medical issues. Echo reports preserved LV function. Patient reports wears oxygen at night at home. Patient had developed hypoxia, hyperkalemia, elevated troponins and transferred up to telemetry unit. Evaluated by cardiology with recommendations noted. Telemetry reporting sinus rhythm. Intermittent mild confusion, attempting to cut chicken with a spoon. Passing flatus, no bowel movement. Pain currently controlled. Denies headache, focal deficits, blurred vision. Denies chest pain, palpitations or increasing shortness of breath. Renal function improving, down to 1.17. Blood sugars better controlled. 10/03/2017 mild respiratory distress during the evening, respiratory rate 22-24 , desatted to high 80s, low 90s on 2 L nasal cannula. Currently maintaining O2 sats in the mid 90s on 3 L nasal cannula. T-max 102 , pancultured .UA and blood cultures pending .chest x-ray reporting interstitial pattern, possible interstitial chronic lung disease, mild superimposed pneumonitis/congestion. Maintained on nebulized bronchodilators. Evaluated by pulmonary with recommendations noted. Currently short of breath at rest and with conversing. Creatinine 1.22. Hemoglobin trending down, currently 7.9. Objective - Vital Signs Vital signs: Vital Signs Temp 98.1 F 10/03/17 14:44 Pulse 84 10/03/17 15:25 Resp 18 10/03/17 14:44 BP 126/61 10/03/17 14:44 Pulse Ox 95 10/03/17 14:44 Intake & Output 10/02/17 10/03/17 10/03/17 18:59 06:59 18:59 Intake Total 1140 480 100 Output Total 850 1400 Balance 1140 -370 -1300 Weight 104 kg Intake: IV 300 480 Dextrose 5%-0.9% NaCl 1, 300 480 000 ml @ 60 mls/hr IV . [id number] [facility] Rx#:[id number] Intake, IV Titration 100 Amount Sodium Ferric Gluconat- 100 Sucrose 125 mg In Sodium Chloride 0.9% 100 ml @ 100 mls/hr IVPB DAILY [facility] Rx#:[id number] Oral 840 Output: Urine 850 1400 Uretheral (Wing) 1200 Other: Voiding Method Indwelling Catheter Indwelling Catheter Indwelling Catheter # Voids 1 - Exam PHYSICAL EXAM: VITAL SIGNS: As above GENERAL: Sitting up in bed, respiratory effort increased HEENT: Conjunctivae normal. eyes normal. Oral mucosa moist. NECK: Unable to assess JVD. No thyroid enlargement. No LNs CARDIOVASCULAR: S1, S2 muffled. Positive systolic murmur RESPIRATION: Breath sounds diminished in the bases. Occasional scattered rhonchi, fine bibasilar crackles, occasional fine expiratory wheeze. ABDOMEN: Soft, nontender . No guarding. no masses palpable. Bowel sounds heard. LEGS: Status post right hip surgery PSYCHIATRY: Alert and oriented -3, mood and affect normal. NERVOUS SYSTEM: Cranial N 2-12 grossly normal. Diffuse weakness. No focal deficits. - Labs CBC & Chem 7: 10/03/17 06:22 10/03/17 06:22 Labs: Abnormal Lab Results - Last 24 Hours (Table) 10/02/17 10/02/17 10/02/17 Range/Units 06:34 16:22 20:57 RBC (3.80-5.40) m/uL Hgb (11.4-16.0) gm/dL Hct (34.0-46.0) % Plt Count (150-450) k/uL Lymphocytes # (1.0-4.8) k/uL Sodium (137-145) mmol/L BUN (7-17) mg/dL Creatinine (0.52-1.04) mg/dL Glucose (74-99) mg/dL POC Glucose (mg/dL) 251 H 188 H (75-99) mg/dL Calcium (8.4-10.2) mg/dL Iron 9 L (50-170) ug/dL TIBC 215 L (228-460) ug/dL Iron Saturation 4.19 L (12.00-45.00) 10/03/17 10/03/17 10/03/17 Range/Units 06:22 06:22 06:42 RBC 3.01 L (3.80-5.40) m/uL Hgb 7.9 L (11.4-16.0) gm/dL Hct 25.6 L (34.0-46.0) % Plt Count 142 L (150-450) k/uL Lymphocytes # 0.8 L (1.0-4.8) k/uL Sodium 135 L (137-145) mmol/L BUN 25 H (7-17) mg/dL Creatinine 1.22 H (0.52-1.04) mg/dL Glucose 102 H (74-99) mg/dL POC Glucose (mg/dL) 117 H (75-99) mg/dL Calcium 7.9 L (8.4-10.2) mg/dL Iron (50-170) ug/dL TIBC (228-460) ug/dL Iron Saturation (12.00-45.00) 10/03/17 Range/Units 11:46 RBC (3.80-5.40) m/uL Hgb (11.4-16.0) gm/dL Hct (34.0-46.0) % Plt Count (150-450) k/uL Lymphocytes # (1.0-4.8) k/uL Sodium (137-145) mmol/L BUN (7-17) mg/dL Creatinine (0.52-1.04) mg/dL Glucose (74-99) mg/dL POC Glucose (mg/dL) 257 H (75-99) mg/dL Calcium (8.4-10.2) mg/dL Iron (50-170) ug/dL TIBC (228-460) ug/dL Iron Saturation (12.00-45.00) Microbiology - Last 24 Hours (Table) 10/03/17 01:50 Urine Culture - Preliminary Urine,Catheterized Assessment and Plan Assessment: 1. Right hip fracture, status post right hip arthroplasty 2. Severe hypoglycemia, diabetes mellitus type 2, uncontrolled on admission 3. Acute on chronic hypoxic respiratory failure, possibly secondary to atelectasis, possible pneumonitis, possible pulmonary edema. Patient states she wears oxygen at night at home. 4. Hyperkalemia on admission, secondary to NSAIDs and SOURAV inhibitor, normalized. 5. Troponin 0.05 indeterminate 6. Acute on chronic kidney disease, stage III. Acute renal failure, prerenal secondary to NSAIDs and SOURAV inhibitor which have been discontinued. 7. Hypertension 8. Anemia, postop. Plan: Continue on current medication regime ,monitoring and symptomatic treatment. Lasix 40 IV push 1 stat, lactic acid ordered. cx pending.Aggressive pulmonary toileting with incentive spirometer reinforced. Close monitoring of hemoglobin and renal function with repeat labs ordered for a.m. The impression and plan of care has been dictated as directed. : I performed a history and examination of this patient, discussed the same with the dictator. I agree with the dictator's note ,documented as a scribe. Any additional findings or plans will be noted.
[2017-10-03] MEDS ORDERED: VANCOMYCIN 1,750 MG in SODIUM CHLORIDE 0.9% 500 ML IVPB ONE ×3 (17:30→21:45)
[2017-10-03 17:33] LABS: Appearance,Urine Clear (Clear); Bilirubin,Urine Negative (Negative); Blood,Urine Negative (Negative); Color,Urine Light Yellow; Glucose,Urine (UA) Trace (Negative); Ketones,Urine Negative (Negative); Leukocyte Esterase,Urine Negative (Negative); Nitrite,Urine Negative (Negative); Protein,Urine Negative (Negative); Specific Gravity,Urine 1.005 (1.001-1.035); Urobilinogen,Urine <2.0 mg/dL (<2.0)
[2017-10-03] MEDS: PIPERACILLIN-TAZOBACTAM 3.375 GM in DEXTROSE/WATER 1 50ML.BAG IVPB SCH (17:34)
[2017-10-03 17:35] LABS: Glucose,Whole Blood 328 mg/dL (75-99)
[2017-10-03] MEDS: PRAVASTATIN SODIUM 80 MG TAB PO SCH (21:12)
[2017-10-03] MEDS: MELATONIN 3 MG TABLET PO SCH (21:13)
[2017-10-03] MEDS: SENNOSIDES-DOCUSATE SODIUM 1 EACH TAB PO SCH (21:14)
[2017-10-03] MEDS: MONTELUKAST 10 MG TAB PO SCH (21:14)
[2017-10-03 21:57] LABS: Glucose,Whole Blood 182 mg/dL (75-99)
[2017-10-03] MEDS ORDERED: VANCOMYCIN 1,750 MG in SODIUM CHLORIDE 0.9% 500 ML IVPB SCH (22:00)
[2017-10-04] MEDS: cefTRIAXone IN SWFI 1,000 MG/10 ML SYRINGE IVP SCH (01:25)
[2017-10-04] MEDS: PIPERACILLIN-TAZOBACTAM 3.375 GM in DEXTROSE/WATER 1 50ML.BAG IVPB SCH ×3 (01:36→10:36)
[2017-10-04] MEDS: ONDANSETRON 4 MG/2 ML VIAL IVP PRN (03:00)
[2017-10-04 07:04] LABS: Glucose,Whole Blood 203 mg/dL (75-99)
[2017-10-04 07:06] LABS: Basophils % (A) 0 %; Eosinophils % (A) 0 %; HCT 28.6 % (34.0-46.0); HGB 8.9 gm/dL (11.4-16.0); Lymphocytes # (A) 0.5 k/uL (1.0-4.8); Lymphocytes % (A) 6 %; MCH 26.7 pg (25.0-35.0); MCHC 31.2 g/dL (31.0-37.0); MCV 85.7 fL (80.0-100.0); Mean Platelet Volume 7.9; Monocytes # (A) 0.4 k/uL (0-1.0); Monocytes % (A) 5 %; Neutrophils # (A) 6.6 k/uL (1.3-7.7); Neutrophils % (A) 87 %; Platelet Count 161 k/uL (150-450); RBC 3.33 m/uL (3.80-5.40); RDW 14.6 % (11.5-15.5); WBC 7.6 k/uL (3.8-10.6)
[2017-10-04 07:19] LABS: Calcium 7.9 mg/dL (8.4-10.2); Potassium 4.2 mmol/L (3.5-5.1)
[2017-10-04] MEDS: CARVEDILOL 12.5 MG TAB PO SCH ×2 (07:52→17:32)
[2017-10-04] MEDS: INSULIN ASPART 100 UNIT/ML 1 ML 10 ML VIAL SQ SCH ×4 (07:52→21:28)
[2017-10-04] MEDS: PANTOPRAZOLE 40 MG TABLET PO SCH (07:53)
[2017-10-04] MEDS: INSULN ASP PRT/INSULIN ASPART 100 UNIT/ML 10 ML VIAL SQ SCH ×2 (07:53→17:33)
[2017-10-04] MEDS: FORMOTEROL FUMARATE 20 MCG/2 ML NEBU INHALATION SCH ×2 (08:53→20:07)
[2017-10-04] MEDS: BUDESONIDE 1 MG/2 ML NEBU INHALATION SCH ×2 (08:53→20:08)
[2017-10-04] MEDS: IPRATROPIUM-ALBUTEROL 3 ML NEB INHALATION SCH ×4 (08:54→20:07)
--- NOTE | 2017-10-04 09:03 | P.CONS ---
History of Present Illness - Reason for Consult Consult date: 10/04/17 Temperature - History of Present Illness This is an 82-year-old female patient who came into the hospital with difficulty ambulating and found to have a comminuted displaced fracture of the right femoral neck and went for ORIF on October [address] Crawford. On October 02 she on recorded temperature of 102 and otherwise has been afebrile since admission. Initial WBC 11.4 on 09/29 and has an within normal limits since. She was given a dose of IV Lasix on October 03. She was seen by Dr. Ross and as well with no signs of acute heart failure or COPD exacerbation. Yesterday, Wing catheter was replaced because she was incontinent of urine and received Lasix. He has had 2 urinalysis done that show trace protein and otherwise clear and no signs of infection. Patient had one episode of vomiting yesterday and has been constipated and this has been resolved as of yesterday. She denies any nausea or vomiting at this time and no abdominal pain. She denies any worsening shortness of breath and has a chronic cough and is on home O2 for chronic hypoxic respiratory failure secondary to COPD. Patient denies feeling feverish or chilled. Patient is found to have blistering on the upper inner thighs and posterior right thigh and around the wound on the right hip. Orthopedics has noted slight increase in drainage from the wound from yesterday. She has been seen and treated by nephrology for acute kidney injury with hyperkalemia currently with a normal potassium and creatinine of 1.35. She received iron infusion for hemoglobin of 7.9. Patient was also seen by cardiology for surgical clearance. Patient has some mild memory difficulties which apparently is her baseline. Patient has 2 blood cultures showing no growth after 24 hours in the urine culture in progress. Review of Systems All systems: negative Constitutional: Denies anorexia, Denies chills, Denies fatigue, Denies fever, Denies lethargy, Denies malaise, Denies poor appetite, Denies sweats Eyes: denies blurred vision, denies pain Ears, nose, mouth and throat: Denies dental pain, Denies headache, Denies mouth pain, Denies sore throat Cardiovascular: Reports dyspnea on exertion, Reports shortness of breath, Denies chest pain, Denies edema, Denies leg edema, Denies lightheadedness, Denies syncope Respiratory: Reports cough, Reports dyspnea, Reports home oxygen, Reports wheezing, Denies pain on inspiration Gastrointestinal: Reports nausea, Reports vomiting, Denies abdominal pain, Denies constipation, Denies diarrhea Genitourinary: Denies dysuria, Denies hematuria Musculoskeletal: Denies myalgias Musculoskeletal: right: knee pain Integumentary: Reports boils, Reports wounds, Denies pruritus, Denies rash Neurological: Denies numbness, Denies weakness Psychiatric: Denies anxiety, Denies depression Endocrine: Denies fatigue, Denies weight change Past Medical History Past Medical History: COPD, Diabetes Mellitus, GERD/Reflux, Hyperlipidemia, Hypertension, Myocardial Infarction (DC), Pneumonia Additional Past Medical History / Comment(s): aneurysm splenic artery, nontoxic multinodular goiter per medical history from Dr. Aguilar office, psoriasis, polyneuropathy Last Myocardial Infarction Date:: 2005 History of Any Multi-Drug Resistant Organisms: None Reported Past Surgical History: Cholecystectomy, Heart Catheterization With Stent Past Anesthesia/Blood Transfusion Reactions: No Reported Reaction Date of Last Stent Placement:: 2005? Past Psychological History: No Psychological Hx Reported Smoking Status: Former smoker Past Alcohol Use History: None Reported Additional Past Alcohol Use History / Comment(s): STARTED SMOKING AT AGE 15 SMOKED LESS THAN 1 PPD QUIT IN 2005, HAS AN RARE DRINK NO DRUG HX. patient has been living alone with family members nearby and assist as needed. Past Drug Use History: None Reported - Past Family History Father Family Medical History: COPD Additional Family Medical History / Comment(s): DAD IN HIS 60'S Mother Family Medical History: Cancer Additional Family Medical History / Comment(s): MOM IN HER EARLY 70'S Medications and Allergies Home Medications Medication Instructions Recorded Confirmed Type Carvedilol 25 mg PO BID 12/01/13 09/29/17 History Cholecalciferol [Vitamin D3] 2,000 unit PO DAILY 12/01/13 09/29/17 History Enalapril Maleate [Vasotec] 10 mg PO BID 12/01/13 09/29/17 History Ibandronate Sodium [Boniva] 150 mg PO QMONTH 12/01/13 09/29/17 History Insuln Asp Prt/Insulin Aspart 20 unit SQ AC-SUPPER 12/01/13 09/29/17 History [NovoLOG MIX 70-30 VIAL] Insuln Asp Prt/Insulin Aspart 28 unit SQ AC-BRKFST 12/01/13 09/29/17 History [NovoLOG MIX 70-30 VIAL] Isosorbide Mononitrate [Imdur] 30 mg PO DAILY 12/01/13 09/29/17 History Lansoprazole [Prevacid] 30 mg PO DAILY 12/01/13 09/29/17 History Nitroglycerin Sl Tabs [Nitrostat] 0.4 mg SUBLINGUAL Q5M PRN 12/01/13 09/29/17 History Pravastatin Sodium [Pravachol] 80 mg PO HS 12/01/13 09/29/17 History amLODIPine [Norvasc] 5 mg PO BID 12/01/13 09/29/17 History hydrALAZINE HCL [Apresoline] 50 mg PO TID 12/01/13 09/29/17 History Acetaminophen-Codeine 300-30mg 1 tab PO Q4H PRN 3 Days #18 tablet 09/28/1709/29 Rx [Tylenol w/codeine #3] Ibuprofen 600 mg PO TID #20 tablet 09/28/17 09/29/17 Rx Nitrofurantoin Monohyd/M-Cryst 100 mg PO Q12HR #14 cap 09/28/17 09/29/17 Rx [Macrobid] Albuterol Nebulized [Ventolin 2.5 mg INHALATION RT-Q4H PRN 09/29/17 09/29/17 History Nebulized] Aspirin EC [Ecotrin Low Dose] 81 mg PO DAILY 09/29/17 09/29/17 History Hydrochlorothiazide [Hydrodiuril] 25 mg PO DAILY 09/29/17 09/29/17 History Ipratropium [place] [Atrovent Hfa] 2 puff INHALATION RT-QID PRN 09/29/17 History buPROPion HCL [Wellbutrin SR] 150 mg PO BID 09/29/17 09/29/17 History Allergies Allergy/AdvReac Type Severity Reaction Status Date / Time No Known Allergies Allergy Verified 09/29/17 17:25 Physical Exam Vitals: Vital Signs Temp Pulse Pulse Pulse Resp BP Pulse Ox 10/04/17 00:32 98.7 F 87 20 143/76 96 10/03/17 21:32 82 10/03/17 21:26 82 10/03/17 21:19 80 10/03/17 21:00 99.3 F 95 24 145/74 93 L 10/03/17 15:25 84 10/03/17 15:14 80 10/03/17 14:44 98.1 F 97 18 126/61 95 10/03/17 12:08 77 10/03/17 11:59 76 10/03/17 09:34 84 10/03/17 09:24 80 10/03/17 09:23 80 10/03/17 09:13 80 Intake and Output 10/03/17 10/04/17 10/04/17 22:59 06:59 14:59 Intake Total 360 Output Total 800 1650 Balance -800 -1650 360 Intake: Oral 360 Output: Urine 800 1650 Uretheral (Wing) 600 Other: Voiding Method Indwelling Catheter Indwelling Catheter Weight 113 kg Gen: This is an 82-year-old morbidly obese female. She is sitting up in bed and noted to have mild accessory muscle usage with wheezing. HEENT: Head is atraumatic, normocephalic. Pupils equal, round. Sclerae is anicteric. NECK: Supple. No JVD. No lymphadenopathy. No thyromegaly. LUNGS: Good inspiratory and expiratory wheezing. Mild intercostal retractions. HEART: Regular rate and rhythm. Systolic murmur. ABDOMEN: Morbidly obese. Soft. Bowel sounds are present. No masses. No tenderness. Wing catheter draining clear patric urine. EXTREMITIES: Trace right pedal edema. Dorsalis pedis is +2 bilaterally. Surgical wound to the right hip have edges well approximated. No significant erythema. There is blistering noted at the proximal wound and into the left buttocks upper posterior thigh and bilateral inner thighs. NEUROLOGICAL: Patient is awake, alert and oriented x3. Cranial nerves 2 through 12 are grossly intact. Results Results: Laboratory Results WBC 7.6 k/uL (3.8-10.6) 10/04/17 06:36 RBC 3.33 m/uL (3.80-5.40) L 10/04/17 06:36 Hgb 8.9 gm/dL (11.4-16.0) L 10/04/17 06:36 Hct 28.6 % (34.0-46.0) L 10/04/17 06:36 MCV 85.7 fL (80.0-100.0) 10/04/17 06:36 MCH 26.7 pg (25.0-35.0) 10/04/17 06:36 MCHC 31.2 g/dL (31.0-37.0) 10/04/17 06:36 RDW 14.6 % (11.5-15.5) 10/04/17 06:36 Plt Count 161 k/uL (150-450) 10/04/17 06:36 Neutrophils % 87 % 10/04/17 06:36 Lymphocytes % 6 % 10/04/17 06:36 Monocytes % 5 % 10/04/17 06:36 Eosinophils % 0 % 10/04/17 06:36 Basophils % 0 % 10/04/17 06:36 Neutrophils # 6.6 k/uL (1.3-7.7) 10/04/17 06:36 Lymphocytes # 0.5 k/uL (1.0-4.8) L 10/04/17 06:36 Monocytes # 0.4 k/uL (0-1.0) 10/04/17 06:36 Eosinophils # 0.0 k/uL (0-0.7) 10/04/17 06:36 Basophils # 0.0 k/uL (0-0.2) 10/04/17 06:36 Hypochromasia Moderate 10/01/17 05:50 Sodium 138 mmol/L (137-145) 10/04/17 06:36 Potassium 4.2 mmol/L (3.5-5.1) 10/04/17 06:36 Chloride 100 mmol/L (98-107) 10/04/17 06:36 Carbon Dioxide 29 mmol/L (22-30) 10/04/17 06:36 Anion Gap 9 mmol/L 10/04/17 06:36 BUN 32 mg/dL (7-17) H 10/04/17 06:36 Creatinine 1.35 mg/dL (0.52-1.04) H 10/04/17 06:36 Est GFR (CKD-EPI)AfAm 42 (>60 ml/min/1.73 sqM) 10/04/17 06:36 Est GFR (CKD-EPI)NonAf 37 (>60 ml/min/1.73 sqM) 10/04/17 06:36 Glucose 195 mg/dL (74-99) H 10/04/17 06:36 POC Glucose (mg/dL) 203 mg/dL (75-99) H 10/04/17 06:54 POC Glu Office Automation Clerk ID Rahel Drew 10/04/17 06:[address] Glu mg/dL 143 09/29/17 15:30 Hemoglobin A1c 6.6 % (4.0-6.0) H 09/29/17 15:30 Plasma Lactic Acid Satinder 0.9 mmol/L (0.7-2.0) 10/03/17 16:35 Calcium 7.9 mg/dL (8.4-10.2) L 10/04/17 06:36 Magnesium 1.8 mg/dL (1.6-2.3) 09/29/17 15:30 Iron 9 ug/dL (50-170) L 10/02/17 06:34 TIBC 215 ug/dL (228-460) L 10/02/17 06:34 Iron Saturation 4.19 (12.00-45.00) L 10/02/17 06:34 Ferritin 153.8 ng/mL (10.0-291.0) 10/02/17 06:34 Total Bilirubin 0.4 mg/dL (0.2-1.3) 09/29/17 15:30 AST 27 U/L (14-36) 09/29/17 15:30 ALT 25 U/L (9-52) 09/29/17 15:30 Alkaline Phosphatase 48 U/L (38-126) 09/29/17 15:30 Total Creatine Kinase 124 U/L (30-135) 09/29/17 15:30 CK-MB (CK-2) 2.4 ng/mL (0.0-2.4) 09/29/17 15:30 CK-MB (CK-2) Rel Index 1.9 09/29/17 15:30 Troponin I 0.051 ng/mL (0.000-0.034) H* 09/30/17 06:38 NT-Pro-B Natriuret Pep 2930 pg/mL 10/03/17 06:22 Total Protein 6.6 g/dL (6.3-8.2) 09/29/17 15:30 Albumin 4.1 g/dL (3.5-5.0) 09/29/17 15:30 Amylase 73 U/L (30-110) 09/29/17 15:30 Lipase 60 U/L (23-300) 09/29/17 15:30 Urine Color Light Yellow 10/03/17 17:20 Urine Appearance Clear (Clear) 10/03/17 17:20 Urine pH 5.0 (5.0-8.0) 10/03/17 17:20 Ur Specific Golden 1.005 (1.001-1.035) 10/03/17 17:20 Urine Protein Negative (Negative) 10/03/17 17:20 Urine Glucose (UA) Trace (Negative) H 10/03/17 17:20 Urine Ketones Negative (Negative) 10/03/17 17:20 Urine Blood Negative (Negative) 10/03/17 17:20 Urine Nitrite Negative (Negative) 10/03/17 17:20 Urine Bilirubin Negative (Negative) 10/03/17 17:20 Urine Urobilinogen <2.0 mg/dL (<2.0) 10/03/17 17:20 Ur Leukocyte Esterase Negative (Negative) 10/03/17 17:20 Blood Type O Positive 10/01/17 10:00 Blood Type Recheck No 10/01/17 10:00 Antibody Screen NEGATIVE 10/01/17 10:00 Spec Expiration Date 10/04/2017229910/01/17 10:00 CBC & Chem 7: 10/04/17 06:36 10/04/17 06:36 Labs: Abnormal Lab Results - Last 24 Hours (Table) 10/03/17 10/03/17 10/03/17 Range/Units 11:46 17:20 17:33 RBC (3.80-5.40) m/uL Hgb (11.4-16.0) gm/dL Hct (34.0-46.0) % Lymphocytes # (1.0-4.8) k/uL BUN (7-17) mg/dL Creatinine (0.52-1.04) mg/dL Glucose (74-99) mg/dL POC Glucose (mg/dL) 257 H 328 H (75-99) mg/dL Calcium (8.4-10.2) mg/dL Urine Glucose (UA) Trace H (Negative) 10/03/17 10/04/17 10/04/17 Range/Units 21:55 06:36 06:36 RBC 3.33 L (3.80-5.40) m/uL Hgb 8.9 L (11.4-16.0) gm/dL Hct 28.6 L (34.0-46.0) % Lymphocytes # 0.5 L (1.0-4.8) k/uL BUN 32 H (7-17) mg/dL Creatinine 1.35 H (0.52-1.04) mg/dL Glucose 195 H (74-99) mg/dL POC Glucose (mg/dL) 182 H (75-99) mg/dL Calcium 7.9 L (8.4-10.2) mg/dL Urine Glucose (UA) (Negative) 10/04/17 Range/Units 06:54 RBC (3.80-5.40) m/uL Hgb (11.4-16.0) gm/dL Hct (34.0-46.0) % Lymphocytes # (1.0-4.8) k/uL BUN (7-17) mg/dL Creatinine (0.52-1.04) mg/dL Glucose (74-99) mg/dL POC Glucose (mg/dL) 203 H (75-99) mg/dL Calcium (8.4-10.2) mg/dL Urine Glucose (UA) (Negative) Microbiology - Last 24 Hours (Table) 10/02/17 23:59 Blood Culture - Preliminary Blood No Growth after 24 hours 10/03/17 00:22 Blood Culture - Preliminary Blood No Growth after 24 hours 10/03/17 01:50 Urine Culture - Preliminary Urine,Catheterized Assessment and Plan Plan: This is an 82-year-old female found to have a comminuted displaced fracture of the right femoral neck status post ORIF on October 02. She did have one documented fever on October 02. There is concern for wound blistering and triamcinolone cream ordered twice daily. Patient is currently on Rocephin, Zosyn and vancomycin which will be discontinued as there are no signs of infection. Blood cultures are showing no growth. There is no sign of urinary tract infection or pneumonia. Continue supportive care. Further recommendations as patient progresses. The above dictated assessment and findings were discussed with Dr. Andrade. The impression and plan of care have been directed as dictated. Halle Mauro nurse practitioner acting as scribe for Dr. Andrade.
--- NOTE | 2017-10-04 09:11 | P.PN ---
Subjective Progress Note Date: 10/04/17 Principal diagnosis: Right hip hemiarthroplasty This is an 82 year-old female post right hip hemiarthroplasty. This is post-op day 3. The patient was evaluated at the bedside today. The patient denies nausea, vomiting, abdominal pain, shortness of breath, and chest pain this morning. She states her pain is controlled at this time. The patient has been up with physical therapy and is a max assist. The patient did develop fevers yesterday evening and Dr. Andrade was consulted for further evaluation. She has remained afebrile overnight and this morning. The source of the fevers are unknown at this time. Objective - Vital Signs Vital signs: Vital Signs Temp 98.7 F 10/04/17 00:32 Pulse 87 10/04/17 09:10 Resp 20 10/04/17 00:32 BP 143/76 10/04/17 00:32 Pulse Ox 97 10/04/17 08:54 Intake & Output 10/03/17 10/04/17 10/04/17 18:59 06:59 18:59 Intake Total 100 360 Output Total 1400 1650 Balance -1300 -1650 360 Weight 113 kg Intake: Intake, IV Titration 100 Amount Sodium Ferric Gluconat- 100 Sucrose 125 mg In Sodium Chloride 0.9% 100 ml @ 100 mls/hr IVPB DAILY [facility] Rx#:[id number] Oral 360 Output: Urine 1400 1650 Uretheral (Wing) 1200 Other: Voiding Method Indwelling Catheter Indwelling Catheter - Exam The patient does not appear in acute distress. Alert and orientated x3. Dressing is intact. It appears to be an increase in serosanguineous drainage from the incision. Incision appears fine with no erythema or active drainage. There are blisters on the posterior thigh and medial thigh possibly due to a reaction to the tape. Calf is soft and nontender. Good foot and ankle motion without difficulty. Sensation and circulatory status is intact. - Labs CBC & Chem 7: 10/04/17 06:36 10/04/17 06:36 Labs: Abnormal Lab Results - Last 24 Hours (Table) 10/03/17 10/03/17 10/03/17 Range/Units 11:46 17:20 17:33 RBC (3.80-5.40) m/uL Hgb (11.4-16.0) gm/dL Hct (34.0-46.0) % Lymphocytes # (1.0-4.8) k/uL BUN (7-17) mg/dL Creatinine (0.52-1.04) mg/dL Glucose (74-99) mg/dL POC Glucose (mg/dL) 257 H 328 H (75-99) mg/dL Calcium (8.4-10.2) mg/dL Urine Glucose (UA) Trace H (Negative) 10/03/17 10/04/17 10/04/17 Range/Units 21:55 06:36 06:36 RBC 3.33 L (3.80-5.40) m/uL Hgb 8.9 L (11.4-16.0) gm/dL Hct 28.6 L (34.0-46.0) % Lymphocytes # 0.5 L (1.0-4.8) k/uL BUN 32 H (7-17) mg/dL Creatinine 1.35 H (0.52-1.04) mg/dL Glucose 195 H (74-99) mg/dL POC Glucose (mg/dL) 182 H (75-99) mg/dL Calcium 7.9 L (8.4-10.2) mg/dL Urine Glucose (UA) (Negative) 10/04/17 Range/Units 06:54 RBC (3.80-5.40) m/uL Hgb (11.4-16.0) gm/dL Hct (34.0-46.0) % Lymphocytes # (1.0-4.8) k/uL BUN (7-17) mg/dL Creatinine (0.52-1.04) mg/dL Glucose (74-99) mg/dL POC Glucose (mg/dL) 203 H (75-99) mg/dL Calcium (8.4-10.2) mg/dL Urine Glucose (UA) (Negative) Microbiology - Last 24 Hours (Table) 10/02/17 23:59 Blood Culture - Preliminary Blood No Growth after 24 hours 10/03/17 00:22 Blood Culture - Preliminary Blood No Growth after 24 hours 10/03/17 01:50 Urine Culture - Preliminary Urine,Catheterized Assessment and Plan (1) Status post hip hemiarthroplasty Current Visit: Yes Status: Acute Code(s): Z96.649 - PRESENCE OF UNSPECIFIED ARTIFICIAL HIP JOINT SNOMED Code(s): 336155473 (2) Displaced fracture of right femoral neck Current Visit: Yes Status: Acute Code(s): S72.001A - FRACTURE OF UNSP PART OF NECK OF RIGHT FEMUR, INIT SNOMED Code(s): 5443994 Plan: 1. Continue pain control 2. Anticoagulation per internal medicine 3. Continue physical therapy and ambulation 4. Continue to follow with internal medicine and infectious disease regarding the fevers. 5. Anticipate discharge to skilled rehab likely early next week
[2017-10-04] MEDS: SODIUM FERRIC GLUCONAT-SUCROSE 125 MG in SODIUM CHLORIDE 0.9% 100 ML IVPB SCH (09:23)
[2017-10-04] MEDS: ISOSORBIDE MONONITRATE ER 30 MG TAB.ER.24H PO SCH (09:23)
[2017-10-04] MEDS: HEPARIN SODIUM,PORCINE 5,000 UNIT/ML 1 ML VIAL SQ SCH ×2 (09:23→21:27)
[2017-10-04] MEDS: amLODIPine 5 MG TAB PO SCH ×2 (09:23→21:27)
[2017-10-04] MEDS: hydrALAZINE HCL 50 MG TAB PO SCH ×3 (09:23→23:02)
[2017-10-04 11:43] LABS: Glucose,Whole Blood 155 mg/dL (75-99)
[2017-10-04] MEDS: TRIAMCINOLONE 0.1% CREAM 80 GM TUBE TOPICAL SCH ×2 (12:16→21:28)
--- NOTE | 2017-10-04 13:48 | P.CON ---
Consult Note - . Consult date: 10/04/17 Assessment/Plan:: This is an 82-year-old female patient who came into the hospital with difficulty ambulating and found to have a comminuted displaced fracture of the right femoral neck and went for ORIF on October [address] Crawford. On October 02 she on recorded temperature of 102 and otherwise has been afebrile since admission. Initial WBC 11.4 on 09/29 and has an within normal limits since. She was given a dose of IV Lasix on October 03. She was seen by Dr. Ross and as well with no signs of acute heart failure or COPD exacerbation. Yesterday, Wing catheter was replaced because she was incontinent of urine and received Lasix. He has had 2 urinalysis done that show trace protein and otherwise clear and no signs of infection. Patient had one episode of vomiting yesterday and has been constipated and this has been resolved as of yesterday. She denies any nausea or vomiting at this time and no abdominal pain. She denies any worsening shortness of breath and has a chronic cough and is on home O2 for chronic hypoxic respiratory failure secondary to COPD. Patient denies feeling feverish or chilled. Patient is found to have blistering on the upper inner thighs and posterior right thigh and around the wound on the right hip. Orthopedics has noted slight increase in drainage from the wound from yesterday. She has been seen and treated by nephrology for acute kidney injury with hyperkalemia currently with a normal potassium and creatinine of 1.35. She received iron infusion for hemoglobin of 7.9. Patient was also seen by cardiology for surgical clearance. Patient has some mild memory difficulties which apparently is her baseline. Patient has 2 blood cultures showing no growth after 24 hours in the urine culture in progress. Please see the consult note as dictated by nurse practitioner Aquiles Halle Mauro. Pleasant elderly woman who relates that she suffered a fall in her home many months ago. Since that time she's been doing relatively well and does not recall any new acute trauma before the sudden onset of the severe pain to her right hip and then the inability to bear weight. Is noted she was on evidence of the fracture and is now been taken the operating room for the ORIF. She's now developed the multiple clear blisters on the skin. She's not having fevers chills rigors or sweats. It appears that the blisters are a cutaneous reaction possibly from the skin prep that is utilizes an antiseptic and possibly from adhesives utilized for the time of surgery. It this and we've asked nursing staff to gently remove topical chemical that's been left on her skin. Topical steroid is to be placed on the blister areas. A wound culture is been obtained. The patient was placed on multiple antibiotics that are all discontinued at this time and that this area does not appear to be infected. It appears to be more of a contact phenomenon. If culture does direct we then could consider some further antibiotic therapy with strongly doubt any infection at this time. I agree with the evaluation, assessment and plan as dictated by nurse practitioner Mrs. Halle Mauro.
--- NOTE | 2017-10-04 14:25 | XR ---
EXAMINATION TYPE: XR chest 1V DATE OF EXAM: 10/04/2017 COMPARISON: 10/02/2017 HISTORY: Shortness of breath TECHNIQUE: Single frontal view of the chest is obtained. FINDINGS: Subsegmental changes at the left lung base. Coarsened interstitium is stable. Mild cardiom egaly. Hypertrophic and degenerative change of the spine with scoliotic curvature. Atherosclerotic ch kd of aorta. No pneumothorax. Arthropathy of the shoulders. IMPRESSION: 1. Interstitial pattern appears improved suggestive of reducing interstitial process such as venous c ongestion or pneumonitis. 2. Left basilar subsegmental changes are seen which are stable may been the basis of atelectasis or e richy infiltrate.
[2017-10-04] MEDS ORDERED: FUROSEMIDE 10 MG/ML 4 ML VIAL IV STA (14:40)
--- NOTE | 2017-10-04 14:40 | P.PN ---
Subjective 82-year-old female status post right hip hemiarthroplasty, hypoxia, acute on chronic renal failure and multiple other medical issues. Echo reports preserved LV function. Patient reports wears oxygen at night at home. Patient had developed hypoxia, hyperkalemia, elevated troponins and transferred up to telemetry unit. Evaluated by cardiology with recommendations noted. Telemetry reporting sinus rhythm. Intermittent mild confusion, attempting to cut chicken with a spoon. Passing flatus, no bowel movement. Pain currently controlled. Denies headache, focal deficits, blurred vision. Denies chest pain, palpitations or increasing shortness of breath. Renal function improving, down to 1.17. Blood sugars better controlled. 10/03/2017 mild respiratory distress during the evening, respiratory rate 22-24 , desatted to high 80s, low 90s on 2 L nasal cannula. Currently maintaining O2 sats in the mid 90s on 3 L nasal cannula. T-max 102 , pancultured .UA and blood cultures pending .chest x-ray reporting interstitial pattern, possible interstitial chronic lung disease, mild superimposed pneumonitis/congestion. Maintained on nebulized bronchodilators. Evaluated by pulmonary with recommendations noted. Currently short of breath at rest and with conversing. Creatinine 1.22. Hemoglobin trending down, currently 7.9. 10/04/2017 Patient respiratory status improved compared to yesterday patient is much less short of breath today, I consulted infectious disease because of fever no other source of infection is evident but does have blisters near the buttock and thigh area because of which infectious disease continued on Rocephin other antibiotics were discontinued is no other significant source of infection was evident. Patient's chest x-ray findings did improve after Lasix. I'll consult Dr. Durant equals her case hardener. On exam patient has significant expiratory wheezes patient will be started on oral steroid. Objective - Vital Signs Vital signs: Vital Signs Temp 98.7 F 10/04/17 07:45 Pulse 82 10/04/17 12:13 Resp 16 10/04/17 07:45 BP 156/84 10/04/17 07:45 Pulse Ox 97 10/04/17 08:54 Intake & Output 10/03/17 10/04/17 10/04/17 18:59 06:59 18:59 Intake Total 100 760 Output Total 1400 1650 350 Balance -1300 -1650 410 Weight 113 kg Intake: Intake, IV Titration 100 100 Amount Sodium Ferric Gluconat- 100 100 Sucrose 125 mg In Sodium Chloride 0.9% 100 ml @ 100 mls/hr IVPB DAILY [facility] Rx#:[id number] Oral 660 Output: Urine 1400 1650 350 Uretheral (Wing) 1200 350 Other: Voiding Method Indwelling Catheter Indwelling Catheter Indwelling Catheter - Exam PHYSICAL EXAMINATION: GENERAL: The patient is alert and oriented x3, still appears to be in mild respiratory distress. Well developed, well nourished. HEENT: Pupils are round and equally reacting to light. EOMI. No scleral icterus. No conjunctival pallor. Normocephalic, atraumatic. No pharyngeal erythema. No thyromegaly. CARDIOVASCULAR: S1 and S2 present. No murmurs, rubs, or gallops. PULMONARY: Significant expiratory wheezing ABDOMEN: Soft, nontender, nondistended, normoactive bowel sounds. No palpable organomegaly. MUSCULOSKELETAL: No joint swelling or deformity. EXTREMITIES: No cyanosis, clubbing, or pedal edema. NEUROLOGICAL: Gross neurological examination did not reveal any focal deficits. SKIN: No rashes. Blisters as mentioned above - Labs CBC & Chem 7: 10/04/17 06:36 10/04/17 06:36 Labs: Abnormal Lab Results - Last 24 Hours (Table) 10/03/17 10/03/17 10/03/17 Range/Units 17:20 17:33 21:55 RBC (3.80-5.40) m/uL Hgb (11.4-16.0) gm/dL Hct (34.0-46.0) % Lymphocytes # (1.0-4.8) k/uL BUN (7-17) mg/dL Creatinine (0.52-1.04) mg/dL Glucose (74-99) mg/dL POC Glucose (mg/dL) 328 H 182 H (75-99) mg/dL Calcium (8.4-10.2) mg/dL Urine Glucose (UA) Trace H (Negative) 10/04/17 10/04/17 10/04/17 Range/Units 06:36 06:36 06:54 RBC 3.33 L (3.80-5.40) m/uL Hgb 8.9 L (11.4-16.0) gm/dL Hct 28.6 L (34.0-46.0) % Lymphocytes # 0.5 L (1.0-4.8) k/uL BUN 32 H (7-17) mg/dL Creatinine 1.35 H (0.52-1.04) mg/dL Glucose 195 H (74-99) mg/dL POC Glucose (mg/dL) 203 H (75-99) mg/dL Calcium 7.9 L (8.4-10.2) mg/dL Urine Glucose (UA) (Negative) 10/04/17 Range/Units 11:40 RBC (3.80-5.40) m/uL Hgb (11.4-16.0) gm/dL Hct (34.0-46.0) % Lymphocytes # (1.0-4.8) k/uL BUN (7-17) mg/dL Creatinine (0.52-1.04) mg/dL Glucose (74-99) mg/dL POC Glucose (mg/dL) 155 H (75-99) mg/dL Calcium (8.4-10.2) mg/dL Urine Glucose (UA) (Negative) Microbiology - Last 24 Hours (Table) 10/03/17 01:50 Urine Culture - Final Urine,Catheterized 10/02/17 23:59 Blood Culture - Preliminary Blood No Growth after 24 hours 10/03/17 00:22 Blood Culture - Preliminary Blood No Growth after 24 hours Assessment and Plan Plan: -Acute hypoxemia hypoxic respiratory failure: Etiology is unclear improved with IV Lasix had normal ejection fraction patient will also be treated for COPD exacerbation probably has multifactorial shortness of breath. Pulmonary was consulted as mentioned above -Fever no clear source of infection except for blistering for which patient is on Rocephin to treat skin organisms -Right hip fracture status post hip arthroplasty -Chronic kidney disease stage III hold off on and this aids SOURAV inhibitors. -Hypertension -. Anemia, stable hemoglobin now
[2017-10-04] MEDS: predniSONE 20 MG TAB PO SCH (14:47)
[2017-10-04 16:53] LABS: Glucose,Whole Blood 127 mg/dL (75-99)
--- NOTE | 2017-10-04 18:44 | PN ---
PROGRESS NOTE Patient is seen for followup for acute kidney injury. Serum creatinine had peaked to about 1.5 mg/dL on 10/01. Since then it has it did go down to 1.2 and today it is at 1.35. Patient has an indwelling Wing catheter. 24-hour urine output was about 3 L. Overall, patient states she is doing fairly well. She is status post right hip hemiarthroplasty. Patient has had fever. She was volume overloaded and received a dose of Lasix. Currently patient is receiving IV iron. EXAMINATION: Blood pressure is 154/64, heart rate 78 per minute. She is afebrile. HEART: S1, S2. LUNGS: Decreased breath sounds at bases. Abdomen is soft, obese. Lower extremities show edema 2+ bilaterally. WHEELCHAIR VAN DRIVER is grossly intact. LAB: Show sodium 138, potassium 4.2, BUN 32, serum creatinine 1.3. Hemoglobin 8.9 g/dL. ASSESSMENT: 1. Acute kidney injury, acute tubular necrosis, currently nonoliguric with indwelling Wing catheters. Serum creatinine is slightly higher than yesterday. Will continue to maintain off of IV fluids. The patient did receive 1 dose of Lasix this morning. We will continue to monitor the volume status. She is not significantly short of breath currently. 2. Hyperkalemia associated with acute kidney injury, nonsteroidal anti-inflammatory drugs and angiotensin-converting enzyme inhibitors, currently improved. 3. Right femoral neck fracture, status post right hip hemiarthroplasty on October 01. 4. Anemia with severe iron deficiency, receiving IV iron. 5. 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 PLAN: Encourage increased oral intake, particularly protein. Continue to avoid nephrotoxic agents. Repeat labs in a.m. MMODL / IJN: [id number] /
[2017-10-04 20:50] LABS: Glucose,Whole Blood 99 mg/dL (75-99)
[2017-10-04] MEDS: SENNOSIDES-DOCUSATE SODIUM 1 EACH TAB PO SCH (21:27)
[2017-10-04] MEDS: MONTELUKAST 10 MG TAB PO SCH (21:28)
[2017-10-04] MEDS: PRAVASTATIN SODIUM 80 MG TAB PO SCH (21:28)
[2017-10-04] MEDS: MELATONIN 3 MG TABLET PO SCH (21:28)
[2017-10-04] MEDS ORDERED: VANCOMYCIN 1,750 MG in SODIUM CHLORIDE 0.9% 500 ML IVPB ONE (22:00)
[2017-10-05 07:01] LABS: Glucose,Whole Blood 220 mg/dL (75-99)
[2017-10-05] MEDS: IPRATROPIUM-ALBUTEROL 3 ML NEB INHALATION SCH ×4 (08:15→20:51)
[2017-10-05] MEDS: BUDESONIDE 1 MG/2 ML NEBU INHALATION SCH ×2 (08:15→20:51)
[2017-10-05] MEDS: FORMOTEROL FUMARATE 20 MCG/2 ML NEBU INHALATION SCH ×2 (08:15→20:51)
[2017-10-05] MEDS: HEPARIN SODIUM,PORCINE 5,000 UNIT/ML 1 ML VIAL SQ SCH ×2 (09:02→20:46)
[2017-10-05] MEDS: ISOSORBIDE MONONITRATE ER 30 MG TAB.ER.24H PO SCH (09:03)
[2017-10-05] MEDS: CARVEDILOL 12.5 MG TAB PO SCH ×2 (09:03→17:10)
[2017-10-05] MEDS: amLODIPine 5 MG TAB PO SCH ×2 (09:03→20:46)
[2017-10-05] MEDS: PANTOPRAZOLE 40 MG TABLET PO SCH (09:03)
[2017-10-05] MEDS: predniSONE 20 MG TAB PO SCH (09:03)
[2017-10-05] MEDS: hydrALAZINE HCL 50 MG TAB PO SCH ×3 (09:03→20:46)
[2017-10-05] MEDS: INSULN ASP PRT/INSULIN ASPART 100 UNIT/ML 10 ML VIAL SQ SCH ×2 (09:04→17:11)
[2017-10-05] MEDS: INSULIN ASPART 100 UNIT/ML 1 ML 10 ML VIAL SQ SCH ×4 (09:04→20:46)
--- NOTE | 2017-10-05 09:10 | P.PN ---
Subjective Progress Note Date: 10/05/17 This is an 82-year-old female who is status post right hip hemiarthroplasty. This is postoperative day #4. The patient is seen and evaluated at bedside today. Patient states that her pain is under control and she has been up and out of the bed with physical therapy. Patient denies any new complaints today. Patient has remained afebrile. Patient denies any fever/chills, numbness, weakness, tingling, abdominal pain, shortness of breath or chest pain. Objective - Vital Signs Vital signs: Vital Signs Temp 98.3 F 10/05/17 00:58 Pulse 88 10/05/17 08:35 Resp 16 10/05/17 00:58 BP 150/79 10/05/17 00:58 Pulse Ox 93 L 10/05/17 00:58 Intake & Output 10/04/17 10/05/17 10/05/17 18:59 06:59 18:59 Intake Total 760 700 180 Output Total 850 1125 Balance -90 -425 180 Intake: Intake, IV Titration 100 Amount Sodium Ferric Gluconat- 100 Sucrose 125 mg In Sodium Chloride 0.9% 100 ml @ 100 mls/hr IVPB DAILY [facility] Rx#:[id number] Oral 660 700 180 Output: Urine 850 1125 Uretheral (Wing) 350 Other: Voiding Method Indwelling Catheter Indwelling Catheter - Exam Vital signs are stable. Patient is in no acute distress and is alert and oriented 3. Calf is soft and nontender to palpation. Dressing is clean, dry, and intact. Patient has full foot and ankle motion without pain or difficulty. Neurovascular status and circulatory status are intact. - Labs CBC & Chem 7: 10/04/17 06:36 10/04/17 06:36 Labs: Abnormal Lab Results - Last 24 Hours (Table) 10/04/17 10/04/17 10/05/17 Range/Units 11:40 16:43 06:58 POC Glucose (mg/dL) 155 H 127 H 220 H (75-99) mg/dL Microbiology - Last 24 Hours (Table) 10/02/17 23:59 Blood Culture - Preliminary Blood No Growth after 48 hours 10/03/17 00:22 Blood Culture - Preliminary Blood No Growth after 48 hours 10/04/17 10:14 Gram Stain - Preliminary Leg - Right Wound Culture - Preliminary 10/03/17 01:50 Urine Culture - Final Urine,Catheterized Assessment and Plan (1) Displaced fracture of right femoral neck Current Visit: Yes Status: Acute Code(s): S72.001A - FRACTURE OF UNSP PART OF NECK OF RIGHT FEMUR, INIT SNOMED Code(s): 7887804 (2) Status post hip hemiarthroplasty Current Visit: Yes Status: Acute Code(s): Z96.649 - PRESENCE OF UNSPECIFIED ARTIFICIAL HIP JOINT SNOMED Code(s): 893627284 Plan: Continue routine postop care. Continue hip precautions with abductor pillow. Continue antocoagulation. Weightbearing as tolerated with a walker Daily dressing changes. Preliminary wound cultures are negative. Patient is afebrile and well- appearing. Likely discharge to rehab Saturday.
[2017-10-05] MEDS: SODIUM FERRIC GLUCONAT-SUCROSE 125 MG in SODIUM CHLORIDE 0.9% 100 ML IVPB SCH (09:20)
[2017-10-05] MEDS: TRIAMCINOLONE 0.1% CREAM 80 GM TUBE TOPICAL SCH ×2 (09:21→20:48)
[2017-10-05 11:40] LABS: Glucose,Whole Blood 230 mg/dL (75-99)
[2017-10-05 12:26] LABS: Calcium 7.8 mg/dL (8.4-10.2)
--- NOTE | 2017-10-05 13:15 | PN ---
PROGRESS NOTE DATE OF SERVICE: October 05, 2017. She has been hemodynamically stable. She complains of mild shortness of breath. She has no chest pain. On physical examination, respiratory rate is 16, pulse rate of 78, temperature 97.7, blood pressure 149/69, O2 saturation on 2.5 L by nasal cannula is 97%. HEENT is unremarkable. Chest reveals occasional wheeze. Cardiovascular system is S1, S2. Abdomen is soft. There is no pedal edema. LABS: Reviewed. MEDICATIONS: Medications were reviewed. IMPRESSION: At this time: 1. Displaced fracture of the right femoral neck, status post right hip hemiarthroplasty. 2. Occasional wheeze, which may be due to atelectatic change. 3. Hypertension. 4. Bronchospasm. Continue bronchodilators, Singulair, prednisone, start to taper this. GI and DVT prophylaxis. Increase her activity level. MMODL / IJN: [id number] /
--- NOTE | 2017-10-05 13:31 | P.PN ---
Subjective 82-year-old female status post right hip hemiarthroplasty, hypoxia, acute on chronic renal failure and multiple other medical issues. Echo reports preserved LV function. Patient reports wears oxygen at night at home. Patient had developed hypoxia, hyperkalemia, elevated troponins and transferred up to telemetry unit. Evaluated by cardiology with recommendations noted. Telemetry reporting sinus rhythm. Intermittent mild confusion, attempting to cut chicken with a spoon. Passing flatus, no bowel movement. Pain currently controlled. Denies headache, focal deficits, blurred vision. Denies chest pain, palpitations or increasing shortness of breath. Renal function improving, down to 1.17. Blood sugars better controlled. 10/03/2017 mild respiratory distress during the evening, respiratory rate 22-24 , desatted to high 80s, low 90s on 2 L nasal cannula. Currently maintaining O2 sats in the mid 90s on 3 L nasal cannula. T-max 102 , pancultured .UA and blood cultures pending .chest x-ray reporting interstitial pattern, possible interstitial chronic lung disease, mild superimposed pneumonitis/congestion. Maintained on nebulized bronchodilators. Evaluated by pulmonary with recommendations noted. Currently short of breath at rest and with conversing. Creatinine 1.22. Hemoglobin trending down, currently 7.9. 10/04/2017 Patient respiratory status improved compared to yesterday patient is much less short of breath today, I consulted infectious disease because of fever no other source of infection is evident but does have blisters near the buttock and thigh area because of which infectious disease continued on Rocephin other antibiotics were discontinued is no other significant source of infection was evident. Patient's chest x-ray findings did improve after Lasix. I'll consult Dr. Durant equals her junior graphic designer. On exam patient has significant expiratory wheezes patient will be started on oral steroid. 10/05/2017 Patient's respiratory status significantly improved with IV Lasix. Nephrology is following the patient. Patient has significant improvement in her wheezing as well although still wheezing patient will be continued on oral steroid. Objective - Vital Signs Vital signs: Vital Signs Temp 97.7 F 10/05/17 08:00 Pulse 84 10/05/17 12:08 Resp 16 10/05/17 08:00 BP 148/69 10/05/17 08:00 Pulse Ox 97 10/05/17 08:00 Intake & Output 10/04/17 10/05/17 10/05/17 18:59 06:59 18:59 Intake Total 760 700 180 Output Total 850 1125 Balance -90 -425 180 Intake: Intake, IV Titration 100 Amount Sodium Ferric Gluconat- 100 Sucrose 125 mg In Sodium Chloride 0.9% 100 ml @ 100 mls/hr IVPB DAILY [facility] Rx#:[id number] Oral 660 700 180 Output: Urine 850 1125 Uretheral (Wing) 350 Other: Voiding Method Indwelling Catheter Indwelling Catheter Indwelling Catheter - Exam PHYSICAL EXAMINATION: GENERAL: The patient is alert and oriented x3, still appears to be in mild respiratory distress. Well developed, well nourished. HEENT: Pupils are round and equally reacting to light. EOMI. No scleral icterus. No conjunctival pallor. Normocephalic, atraumatic. No pharyngeal erythema. No thyromegaly. CARDIOVASCULAR: S1 and S2 present. No murmurs, rubs, or gallops. PULMONARY: Significant expiratory wheezing ABDOMEN: Soft, nontender, nondistended, normoactive bowel sounds. No palpable organomegaly. MUSCULOSKELETAL: No joint swelling or deformity. EXTREMITIES: No cyanosis, clubbing, or pedal edema. NEUROLOGICAL: Gross neurological examination did not reveal any focal deficits. SKIN: No rashes. Blisters as mentioned above - Labs CBC & Chem 7: 10/04/17 06:36 10/05/17 11:39 Labs: Abnormal Lab Results - Last 24 Hours (Table) 10/04/17 10/05/17 10/05/17 Range/Units 16:43 06:58 11:28 Chloride (98-107) mmol/L Carbon Dioxide (22-30) mmol/L BUN (7-17) mg/dL Creatinine (0.52-1.04) mg/dL Glucose (74-99) mg/dL POC Glucose (mg/dL) 127 H 220 H 230 H (75-99) mg/dL Calcium (8.4-10.2) mg/dL 10/05/17 Range/Units 11:39 Chloride 97 L (98-107) mmol/L Carbon Dioxide 33 H (22-30) mmol/L BUN 44 H (7-17) mg/dL Creatinine 1.40 H (0.52-1.04) mg/dL Glucose 221 H (74-99) mg/dL POC Glucose (mg/dL) (75-99) mg/dL Calcium 7.8 L (8.4-10.2) mg/dL Microbiology - Last 24 Hours (Table) 10/04/17 10:14 Gram Stain - Preliminary Leg - Right Wound Culture - Preliminary 10/02/17 23:59 Blood Culture - Preliminary Blood No Growth after 48 hours 10/03/17 00:22 Blood Culture - Preliminary Blood No Growth after 48 hours 10/03/17 01:50 Urine Culture - Final Urine,Catheterized Assessment and Plan Plan: -Acute hypoxemia hypoxic respiratory failure: Probably a combination of heart failure exacerbation chronic diastolic dysfunction with acute exacerbation along with COPD exacerbation improved with Lasix leave the decision of her diuretics to nephrology. We'll repeat developed lites today and tomorrow. Patient will be continued on systemic steroids and pulmonary will evaluate the patient as well -Fever no clear source of infection except for blistering for which patient is on Rocephin to treat skin organisms, patient is afebrile for more than 48 hours -Right hip fracture status post hip arthroplasty -Chronic kidney disease stage III hold off on and this aids SOURAV inhibitors. -Hypertension -. Anemia, stable hemoglobin now
[2017-10-05] MEDS: ONDANSETRON 4 MG/2 ML VIAL IVP PRN (15:36)
[2017-10-05 16:54] LABS: Glucose,Whole Blood 127 mg/dL (75-99)
[2017-10-05] MEDS: traMADol 50 MG TAB PO PRN (17:13)
[2017-10-05 20:22] LABS: Glucose,Whole Blood 221 mg/dL (75-99)
[2017-10-05] MEDS: MELATONIN 3 MG TABLET PO SCH (20:46)
[2017-10-05] MEDS: MONTELUKAST 10 MG TAB PO SCH (20:46)
[2017-10-05] MEDS: SENNOSIDES-DOCUSATE SODIUM 1 EACH TAB PO SCH (20:46)
[2017-10-05] MEDS: PRAVASTATIN SODIUM 80 MG TAB PO SCH (20:51)
--- NOTE | 2017-10-05 23:03 | PN ---
PROGRESS NOTE Patient was seen this morning for followup for acute kidney injury. Patient states she feels well. She denies any significant complaints. The patient states she feels better than yesterday. She has an indwelling Wing catheter and has had good urine output, 24 hour urine output was about 3 L. EXAMINATION: Blood pressure is 177/96. This morning her blood pressure was 148/69. HEART: S1, S2. LUNGS: Bilateral breath sounds are heard. Abdomen is soft, nontender. Lower extremities show edema 1+ bilaterally. FIXED INCOME DIRECTOR is grossly intact. LABS: Show sodium 137, potassium 4.0, BUN 44, serum creatinine 1.4. ASSESSMENT: 1. Acute kidney injury, currently nonoliguric. Serum creatinine is a little bit higher at 1.4, previously it was at 1.22 days ago. The patient's urine output is good. We will continue to maintain her without Lasix for now. Patient is not on any IV fluids. 2. Iron deficiency, maintained on IV iron. 3. Hypertension. Blood pressure is high at this time; however, this morning her blood pressure was controlled. She is maintained on Norvasc and Coreg along with hydralazine. If her blood pressure remains elevated, we can increase the hydralazine. 4. Status post right hip hemiarthroplasty. 5. Chronic kidney disease, stage 3, secondary to diabetic kidney disease with baseline creatinine about 1.1-1.4. PLAN: No changes from Nephrology standpoint. Continue to encourage increased oral intake. MMODL / IJN: [id number] /
[2017-10-06] MEDS: traMADol 50 MG TAB PO PRN (02:53)
[2017-10-06] MEDS: IPRATROPIUM-ALBUTEROL 3 ML NEB INHALATION PRN (02:59)
[2017-10-06] MEDS ORDERED: FUROSEMIDE 10 MG/ML 4 ML VIAL IV STA (04:32)
[2017-10-06] MEDS: ONDANSETRON 4 MG/2 ML VIAL IVP PRN (05:50)
[2017-10-06 07:01] LABS: Glucose,Whole Blood 190 mg/dL (75-99)
--- NOTE | 2017-10-06 07:01 | XR ---
EXAMINATION TYPE: XR chest 1V portable DATE OF EXAM: 10/06/2017 COMPARISON: 10/04/2017 HISTORY: Short of breath TECHNIQUE: Single frontal view of the chest is obtained. FINDINGS: There is some infiltrate in the left lower lung field. There is no heart failure. I see no definite pleural effusion. There are chest leads. IMPRESSION: Infiltrate in the left lower lung field is unchanged compared to last exam. No heart cinthia lure seen. There is probably some stable pleural reaction at the lateral right lung base.
--- NOTE | 2017-10-06 07:03 | XR ---
EXAMINATION TYPE: XR abdomen 1V DATE OF EXAM: 10/06/2017 COMPARISON: NONE HISTORY: Nausea and vomiting TECHNIQUE: 2 views. FINDINGS: There is a dilated gas-filled stomach. There is air and fecal material down to the rectum. I see no sign of pneumoperitoneum. There is right hip prosthesis. There are no pathologic calcifications over the kidneys. IMPRESSION: Dilated stomach consistent with gastroparesis. No free air. Pleural reaction noted at bot h lung bases with infiltrate in the lateral left lower lobe.
[2017-10-06 07:17] LABS: Basophils % (A) 0 %; Eosinophils # (A) 0.1 k/uL (0-0.7); Eosinophils % (A) 2 %; HCT 31.5 % (34.0-46.0); HGB 9.7 gm/dL (11.4-16.0); Hypochromasia Slight; Lymphocytes # (A) 0.5 k/uL (1.0-4.8); Lymphocytes % (A) 6 %; MCH 26.8 pg (25.0-35.0); MCV 86.4 fL (80.0-100.0); Mean Platelet Volume 7.5; Monocytes # (A) 0.3 k/uL (0-1.0); Monocytes % (A) 3 %; Neutrophils # (A) 7.7 k/uL (1.3-7.7); Neutrophils % (A) 87 %; Platelet Count 290 k/uL (150-450); RBC 3.64 m/uL (3.80-5.40); RDW 14.4 % (11.5-15.5); WBC 8.8 k/uL (3.8-10.6)
[2017-10-06 07:34] LABS: Calcium 8.2 mg/dL (8.4-10.2)
[2017-10-06 07:51] LABS: Potassium 4.4 mmol/L (3.5-5.1)
[2017-10-06] MEDS: BUDESONIDE 1 MG/2 ML NEBU INHALATION SCH ×2 (08:26→19:41)
[2017-10-06] MEDS: FORMOTEROL FUMARATE 20 MCG/2 ML NEBU INHALATION SCH ×2 (08:26→19:41)
[2017-10-06] MEDS: IPRATROPIUM-ALBUTEROL 3 ML NEB INHALATION SCH ×4 (08:26→19:41)
[2017-10-06] MEDS: predniSONE 20 MG TAB PO SCH (09:00)
[2017-10-06] MEDS: CARVEDILOL 12.5 MG TAB PO SCH ×2 (09:00→17:32)
[2017-10-06] MEDS: INSULN ASP PRT/INSULIN ASPART 100 UNIT/ML 10 ML VIAL SQ SCH ×2 (09:00→18:37)
[2017-10-06] MEDS: hydrALAZINE HCL 50 MG TAB PO SCH ×3 (09:00→23:07)
[2017-10-06] MEDS: ISOSORBIDE MONONITRATE ER 30 MG TAB.ER.24H PO SCH (09:00)
[2017-10-06] MEDS: HEPARIN SODIUM,PORCINE 5,000 UNIT/ML 1 ML VIAL SQ SCH ×2 (09:01→21:02)
[2017-10-06] MEDS: amLODIPine 5 MG TAB PO SCH ×2 (09:01→21:02)
[2017-10-06] MEDS: PANTOPRAZOLE 40 MG/10 ML VIAL IVP SCH (09:01)
--- NOTE | 2017-10-06 09:48 | P.PN ---
Subjective Progress Note Date: 10/06/17 This is an 82-year-old female who is status post right hip hemiarthroplasty. This is postoperative day #6. The patient is seen and evaluated at bedside today. Patient states that her pain is under control and she has been up and out of the bed with physical therapy. Patient denies any new complaints today. Patient denies any fever/chills, numbness, weakness, tingling, abdominal pain, shortness of breath or chest pain. Objective - Vital Signs Vital signs: Vital Signs Temp 98.1 F 10/06/17 00:53 Pulse 96 10/06/17 08:47 Resp 22 10/06/17 04:37 BP 174/86 10/06/17 04:37 Pulse Ox 90 L 10/06/17 04:37 Intake & Output 10/05/17 10/06/17 10/06/17 18:59 06:59 18:59 Intake Total 917 300 0 Output Total 2650 Balance 917 -2350 0 Intake: Intake, IV Titration 100 Amount Sodium Ferric Gluconat- 100 Sucrose 125 mg In Sodium Chloride 0.9% 100 ml @ 100 mls/hr IVPB DAILY [facility] Rx#:[id number] Oral 817 300 0 Output: Urine 1450 Uretheral (Wing) 1450 Emesis 1200 Other: Voiding Method Indwelling Catheter Indwelling Catheter - Exam Vital signs are stable. Patient is in no acute distress and is alert and oriented 3. Calf is soft and nontender to palpation. Dressing is clean, dry, and intact. Patient has full foot and ankle motion without pain or difficulty. Neurovascular status and circulatory status are intact. - Labs CBC & Chem 7: 10/06/17 07:08 10/06/17 07:08 Labs: Abnormal Lab Results - Last 24 Hours (Table) 10/05/17 10/05/17 10/05/17 Range/Units 11:28 11:39 16:52 RBC (3.80-5.40) m/uL Hgb (11.4-16.0) gm/dL Hct (34.0-46.0) % Lymphocytes # (1.0-4.8) k/uL Chloride 97 L (98-107) mmol/L Carbon Dioxide 33 H (22-30) mmol/L BUN 44 H (7-17) mg/dL Creatinine 1.40 H (0.52-1.04) mg/dL Glucose 221 H (74-99) mg/dL POC Glucose (mg/dL) 230 H 127 H (75-99) mg/dL Calcium 7.8 L (8.4-10.2) mg/dL 10/05/17 10/06/17 10/06/17 Range/Units 20:10 06:58 07:08 RBC (3.80-5.40) m/uL Hgb (11.4-16.0) gm/dL Hct (34.0-46.0) % Lymphocytes # (1.0-4.8) k/uL Chloride (98-107) mmol/L Carbon Dioxide 33 H (22-30) mmol/L BUN 41 H (7-17) mg/dL Creatinine 1.08 H (0.52-1.04) mg/dL Glucose 168 H (74-99) mg/dL POC Glucose (mg/dL) 221 H 190 H (75-99) mg/dL Calcium 8.2 L (8.4-10.2) mg/dL 10/06/17 Range/Units 07:08 RBC 3.64 L (3.80-5.40) m/uL Hgb 9.7 L (11.4-16.0) gm/dL Hct 31.5 L (34.0-46.0) % Lymphocytes # 0.5 L (1.0-4.8) k/uL Chloride (98-107) mmol/L Carbon Dioxide (22-30) mmol/L BUN (7-17) mg/dL Creatinine (0.52-1.04) mg/dL Glucose (74-99) mg/dL POC Glucose (mg/dL) (75-99) mg/dL Calcium (8.4-10.2) mg/dL Microbiology - Last 24 Hours (Table) 10/02/17 23:59 Blood Culture - Preliminary Blood No Growth after 72 hours 10/03/17 00:22 Blood Culture - Preliminary Blood No Growth after 72 hours 10/04/17 10:14 Gram Stain - Preliminary Leg - Right Wound Culture - Preliminary Assessment and Plan (1) Displaced fracture of right femoral neck Current Visit: Yes Status: Acute Code(s): S72.001A - FRACTURE OF UNSP PART OF NECK OF RIGHT FEMUR, INIT SNOMED Code(s): 6695394 (2) Status post hip hemiarthroplasty Current Visit: Yes Status: Acute Code(s): Z96.649 - PRESENCE OF UNSPECIFIED ARTIFICIAL HIP JOINT SNOMED Code(s): 580447022 Plan: Continue routine postop care. Continue hip precautions with abductor pillow. Continue antocoagulation. Weightbearing as tolerated with a walker. Daily dressing changes. Preliminary wound cultures are negative. Patient is afebrile and well- appearing. Appreciate input from medicine. Likely discharge to rehab when medically able.
[2017-10-06] MEDS ORDERED: FUROSEMIDE 10 MG/ML 2 ML VIAL IV STA (10:20)
[2017-10-06] MEDS: SODIUM FERRIC GLUCONAT-SUCROSE 125 MG in SODIUM CHLORIDE 0.9% 100 ML IVPB SCH (10:21)
[2017-10-06] MEDS: INSULIN ASPART 100 UNIT/ML 1 ML 10 ML VIAL SQ SCH ×4 (10:57→21:04)
[2017-10-06] MEDS: BISACODYL 10 MG SUPP RECTAL SCH (11:11)
[2017-10-06] MEDS: MAGNESIUM HYDROXIDE 2,400 MG/10 ML CUP PO PRN (11:25)
[2017-10-06 11:34] LABS: Glucose,Whole Blood 155 mg/dL (75-99)
--- NOTE | 2017-10-06 12:38 | P.PN ---
Subjective 82-year-old female status post right hip hemiarthroplasty, hypoxia, acute on chronic renal failure and multiple other medical issues. Echo reports preserved LV function. Patient reports wears oxygen at night at home. Patient had developed hypoxia, hyperkalemia, elevated troponins and transferred up to telemetry unit. Evaluated by cardiology with recommendations noted. Telemetry reporting sinus rhythm. Intermittent mild confusion, attempting to cut chicken with a spoon. Passing flatus, no bowel movement. Pain currently controlled. Denies headache, focal deficits, blurred vision. Denies chest pain, palpitations or increasing shortness of breath. Renal function improving, down to 1.17. Blood sugars better controlled. 10/03/2017 mild respiratory distress during the evening, respiratory rate 22-24 , desatted to high 80s, low 90s on 2 L nasal cannula. Currently maintaining O2 sats in the mid 90s on 3 L nasal cannula. T-max 102 , pancultured .UA and blood cultures pending .chest x-ray reporting interstitial pattern, possible interstitial chronic lung disease, mild superimposed pneumonitis/congestion. Maintained on nebulized bronchodilators. Evaluated by pulmonary with recommendations noted. Currently short of breath at rest and with conversing. Creatinine 1.22. Hemoglobin trending down, currently 7.9. 10/04/2017 Patient respiratory status improved compared to yesterday patient is much less short of breath today, I consulted infectious disease because of fever no other source of infection is evident but does have blisters near the buttock and thigh area because of which infectious disease continued on Rocephin other antibiotics were discontinued is no other significant source of infection was evident. Patient's chest x-ray findings did improve after Lasix. 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 On exam patient has significant expiratory wheezes patient will be started on oral steroid. 10/05/2017 Patient's respiratory status significantly improved with IV Lasix. Nephrology is following the patient. Patient has significant improvement in her wheezing as well although still wheezing patient will be continued on oral steroid. 10/06/2017 Patient respiratory status improved patient creatinine improved. Patient is quite a bit constipated with the distended abdomen patient had nausea vomiting yesterday which improved now will use bowel regimen she doesn't improve will use Dulcolax suppository if she doesn't move her bowel patient will need an WI at that time discussed with the nursing staff patient respiratory status improved quite a bit her wheezing improved quite a bit. - Constitutional: Denied any fatigue denied any fever. Cardio vascular: denied any chest pain, palpitations Gastrointestinal as mentioned above Pulmonary: Denied any shortness of breath cough Neurologic denied any new focal deficits Objective - Vital Signs Vital signs: Vital Signs Temp 97.8 F 10/06/17 08:00 Pulse 92 10/06/17 11:46 Resp 16 10/06/17 08:00 BP 147/62 10/06/17 08:00 Pulse Ox 95 10/06/17 08:00 Intake & Output 10/05/17 10/06/17 10/06/17 18:59 06:59 18:59 Intake Total 917 300 0 Output Total 2650 1000 Balance 917 -2350 -1000 Intake: Intake, IV Titration 100 Amount Sodium Ferric Gluconat- 100 Sucrose 125 mg In Sodium Chloride 0.9% 100 ml @ 100 mls/hr IVPB DAILY ON LICENSE OF [facility] Rx#:[id number] Oral 817 300 0 Output: Urine 1450 1000 Uretheral (Wing) 1450 Emesis 1200 Other: Voiding Method Indwelling Catheter Indwelling Catheter - Exam PHYSICAL EXAMINATION: GENERAL: The patient is alert and oriented x3, still appears to be in mild respiratory distress. Well developed, well nourished. HEENT: Pupils are round and equally reacting to light. EOMI. No scleral icterus. No conjunctival pallor. Normocephalic, atraumatic. No pharyngeal erythema. No thyromegaly. CARDIOVASCULAR: S1 and S2 present. No murmurs, rubs, or gallops. PULMONARY: Significant expiratory wheezing ABDOMEN: Distended tympanic MUSCULOSKELETAL: No joint swelling or deformity. EXTREMITIES: No cyanosis, clubbing, or pedal edema. NEUROLOGICAL: Gross neurological examination did not reveal any focal deficits. SKIN: No rashes. Blisters as mentioned above - Labs CBC & Chem 7: 10/06/17 07:08 10/06/17 07:08 Labs: Abnormal Lab Results - Last 24 Hours (Table) 10/05/17 10/05/17 10/06/17 Range/Units 16:52 20:10 06:58 RBC (3.80-5.40) m/uL Hgb (11.4-16.0) gm/dL Hct (34.0-46.0) % Lymphocytes # (1.0-4.8) k/uL Carbon Dioxide (22-30) mmol/L BUN (7-17) mg/dL Creatinine (0.52-1.04) mg/dL Glucose (74-99) mg/dL POC Glucose (mg/dL) 127 H 221 H 190 H (75-99) mg/dL Calcium (8.4-10.2) mg/dL 10/06/17 10/06/17 10/06/17 Range/Units 07:08 07:08 11:28 RBC 3.64 L (3.80-5.40) m/uL Hgb 9.7 L (11.4-16.0) gm/dL Hct 31.5 L (34.0-46.0) % Lymphocytes # 0.5 L (1.0-4.8) k/uL Carbon Dioxide 33 H (22-30) mmol/L BUN 41 H (7-17) mg/dL Creatinine 1.08 H (0.52-1.04) mg/dL Glucose 168 H (74-99) mg/dL POC Glucose (mg/dL) 155 H (75-99) mg/dL Calcium 8.2 L (8.4-10.2) mg/dL Microbiology - Last 24 Hours (Table) 10/02/17 23:59 Blood Culture - Preliminary Blood No Growth after 72 hours 10/03/17 00:22 Blood Culture - Preliminary Blood No Growth after 72 hours 10/04/17 10:14 Gram Stain - Preliminary Leg - Right Wound Culture - Preliminary Assessment and Plan Plan: -Acute hypoxemia hypoxic respiratory failure: Probably a combination of heart failure exacerbation chronic diastolic dysfunction with acute exacerbation along with COPD exacerbation improved with Lasix leave the decision of her diuretics to nephrology. A she is on oral steroids with improvement in her respiratory status. Patient's creatinine did improve with diuretic therapy patient may have chronic diastolic dysfunction with acute exacerbation. -Acute renal failure: Prerenal azotemia secondary to possibly heart failure improved with diuretic therapy -Severe constipation and abdominal distention: Secondary to opiates further management as mentioned above -Fever no clear source of infection except for blistering for which patient is on Rocephin to treat skin organisms, patient is afebrile presently -Right hip fracture status post hip arthroplasty -Chronic kidney disease stage 2 hold off on and this aids SOURAV inhibitors. -Hypertension -. Anemia, stable hemoglobin now
[2017-10-06] MEDS: TRIAMCINOLONE 0.1% CREAM 80 GM TUBE TOPICAL SCH ×2 (12:53→21:15)
--- NOTE | 2017-10-06 15:01 | PN ---
PROGRESS NOTE Patient is seen for followup for acute kidney injury. She is currently lying in bed. The patient had a lot of vomiting yesterday. She states she is feeling slightly better. She continues with indwelling Wing catheter with good urine output of about 2.6 L over 24 hours. A lot of stool was noted on an abdominal x-ray. PHYSICAL EXAMINATION: Blood pressure was 144/82, heart rate 77 per minute. Patient is afebrile. Examination of the heart S1, S2. Examination of the lungs bilateral breath sounds are heard. Decreased breath sounds at bases. Abdomen is soft, distended, nontender. Examination of lower extremity shows edema 1+ bilaterally. LABS: Sodium 138, potassium 4.4, BUN 41, serum creatinine 1.0, hemoglobin 9.7 g/dL. ASSESSMENT: 1. Acute kidney injury, acute tubular necrosis, currently improved. 2. Mild hypervolemia. Will give 1 dose of IV Lasix. 3. Constipation. 4. Status post right hip hemiarthroplasty. PLAN: Lasix IV x1. Repeat labs in a.m. MMODL / IJN: [id number] /
--- NOTE | 2017-10-06 15:07 | P.PN ---
Subjective Progress Note Date: 10/06/17 Principal diagnosis: Left lower lobe pneumonia, acute exacerbation of CHF likely acute on chronic diastolic heart failure, right-sided hip fracture, severe COPD, chronic hypoxic respiratory failure 10/06/2017, patient seen and evaluated examined today she is still short of breath has intermittent wheezing, patient did receive 40 mg of IV furosemide and number almost a liter urine output was noted, patient again received 20 mg of Lasix this morning. Chest x-ray performed earlier today reviewed and compared with the prior x-ray noted to have left lower lobe infiltrate along with interstitial edema and a small right sided pleural effusion cannot be excluded, urine culture is negative blood culture 2 both negative wound culture results are pending so far no growth has been isolated, white cell count is normal patient remains afebrile, BUN/creatinine is slightly up but overall remains in stable range some evidence of prerenal azotemia has been noted. 82-year-old female status post right hip hemiarthroplasty, hypoxia, acute on chronic renal failure and multiple other medical issues. Echo reports preserved LV function. Patient reports wears oxygen at night at home. Patient had developed hypoxia, hyperkalemia, elevated troponins and transferred up to telemetry unit. Evaluated by cardiology with recommendations noted. Telemetry reporting sinus rhythm. Intermittent mild confusion, attempting to cut chicken with a spoon. Passing flatus, no bowel movement. Pain currently controlled. Denies headache, focal deficits, blurred vision. Denies chest pain, palpitations or increasing shortness of breath. Renal function improving, down to 1.17. Blood sugars better controlled. Objective - Vital Signs Vital signs: Vital Signs Temp 97.9 F 10/06/17 14:10 Pulse 77 10/06/17 14:10 Resp 16 10/06/17 14:10 BP 144/82 10/06/17 14:10 Pulse Ox 94 L 10/06/17 14:10 Intake & Output 10/05/17 10/06/17 10/06/17 18:59 06:59 18:59 Intake Total 917 300 0 Output Total 2650 1000 Balance 917 -2350 -1000 Intake: Intake, IV Titration 100 Amount Sodium Ferric Gluconat- 100 Sucrose 125 mg In Sodium Chloride 0.9% 100 ml @ 100 mls/hr IVPB DAILY [facility] Rx#:[id number] Oral 817 300 0 Output: Urine 1450 1000 Uretheral (Wing) 1450 Emesis 1200 Other: Voiding Method Indwelling Catheter Indwelling Catheter - Exam PHYSICAL EXAMINATION: GENERAL: The patient is alert and oriented x3, still appears to be in mild respiratory distress. Well developed, well nourished. HEENT: Pupils are round and equally reacting to light. EOMI. No scleral icterus. No conjunctival pallor. Normocephalic, atraumatic. No pharyngeal erythema. No thyromegaly. CARDIOVASCULAR: S1 and S2 present. No murmurs, rubs, or gallops. PULMONARY: Significant expiratory wheezing, bilateral basal crackles ABDOMEN: Distended tympanic MUSCULOSKELETAL: No joint swelling or deformity. EXTREMITIES: No cyanosis, clubbing, trace bilateral pedal edema. NEUROLOGICAL: Gross neurological examination did not reveal any focal deficits. SKIN: No rashes. Blisters as mentioned above - Labs CBC & Chem 7: 10/06/17 07:08 10/06/17 07:08 Labs: Abnormal Lab Results - Last 24 Hours (Table) 10/05/17 10/05/17 10/06/17 Range/Units 16:52 20:10 06:58 RBC (3.80-5.40) m/uL Hgb (11.4-16.0) gm/dL Hct (34.0-46.0) % Lymphocytes # (1.0-4.8) k/uL Carbon Dioxide (22-30) mmol/L BUN (7-17) mg/dL Creatinine (0.52-1.04) mg/dL Glucose (74-99) mg/dL POC Glucose (mg/dL) 127 H 221 H 190 H (75-99) mg/dL Calcium (8.4-10.2) mg/dL 10/06/17 10/06/17 10/06/17 Range/Units 07:08 07:08 11:28 RBC 3.64 L (3.80-5.40) m/uL Hgb 9.7 L (11.4-16.0) gm/dL Hct 31.5 L (34.0-46.0) % Lymphocytes # 0.5 L (1.0-4.8) k/uL Carbon Dioxide 33 H (22-30) mmol/L BUN 41 H (7-17) mg/dL Creatinine 1.08 H (0.52-1.04) mg/dL Glucose 168 H (74-99) mg/dL POC Glucose (mg/dL) 155 H (75-99) mg/dL Calcium 8.2 L (8.4-10.2) mg/dL Microbiology - Last 24 Hours (Table) 10/02/17 23:59 Blood Culture - Preliminary Blood No Growth after 72 hours 10/03/17 00:22 Blood Culture - Preliminary Blood No Growth after 72 hours Assessment and Plan Assessment: Left lower lobe subsegmental atelectasis without pneumonia Acute diastolic heart failure related to volume and fluid overload Acute on chronic hypoxic respirator failure multifactorial related to baseline COPD as well as component of fluid overload Chronic kidney disease stage II will monitor observe renal functions closely with IV furosemide Right hip fracture status post the total hip arthroplasty Morbid obesity Plan: Agree with gentle diuresis Deep breathing exercise incentive spirometry Monitor patient off of antibiotics Monitor renal functions closely Increase activity as tolerated If patient remains stable can be moved out to extended care facility for more definitive intervention like physical therapy and rehab We'll continue to follow this patient outpatient setting Time with Patient: Greater than 30
[2017-10-06 17:18] LABS: Glucose,Whole Blood 58 mg/dL (75-99)
[2017-10-06 17:48] LABS: Glucose,Whole Blood 67 mg/dL (75-99)
[2017-10-06 17:56] LABS: Glucose,Whole Blood 77 mg/dL (75-99)
[2017-10-06 20:53] LABS: Glucose,Whole Blood 252 mg/dL (75-99)
[2017-10-06] MEDS: SENNOSIDES-DOCUSATE SODIUM 1 EACH TAB PO SCH (21:03)
[2017-10-06] MEDS: PRAVASTATIN SODIUM 80 MG TAB PO SCH (21:03)
[2017-10-06] MEDS: MONTELUKAST 10 MG TAB PO SCH (21:03)
[2017-10-06] MEDS: MELATONIN 3 MG TABLET PO SCH (21:14)
[2017-10-07] MEDS: ONDANSETRON 4 MG/2 ML VIAL IVP PRN (05:50)
[2017-10-07 07:22] LABS: Glucose,Whole Blood 219 mg/dL (75-99)
[2017-10-07] MEDS: FORMOTEROL FUMARATE 20 MCG/2 ML NEBU INHALATION SCH ×2 (07:41→20:58)
[2017-10-07] MEDS: IPRATROPIUM-ALBUTEROL 3 ML NEB INHALATION SCH ×4 (07:41→20:58)
[2017-10-07] MEDS: BUDESONIDE 1 MG/2 ML NEBU INHALATION SCH ×2 (07:42→20:58)
[2017-10-07] MEDS: INSULIN ASPART 100 UNIT/ML 1 ML 10 ML VIAL SQ SCH ×4 (07:44→21:43)
[2017-10-07] MEDS: CARVEDILOL 12.5 MG TAB PO SCH ×2 (07:44→17:15)
[2017-10-07] MEDS: MAGNESIUM HYDROXIDE 2,400 MG/10 ML CUP PO PRN (07:44)
[2017-10-07] MEDS: INSULN ASP PRT/INSULIN ASPART 100 UNIT/ML 10 ML VIAL SQ SCH ×2 (07:44→17:15)
[2017-10-07 07:48] LABS: HCT 31.3 % (34.0-46.0); HGB 9.9 gm/dL (11.4-16.0); Hypochromasia Slight; MCH 27.1 pg (25.0-35.0); MCHC 31.8 g/dL (31.0-37.0); MCV 85.3 fL (80.0-100.0); Mean Platelet Volume 7.2; Platelet Count 301 k/uL (150-450); RBC 3.67 m/uL (3.80-5.40); RDW 14.3 % (11.5-15.5); WBC 9.2 k/uL (3.8-10.6)
[2017-10-07 08:01] LABS: Calcium 8.1 mg/dL (8.4-10.2); Potassium 4.6 mmol/L (3.5-5.1)
[2017-10-07] MEDS: ISOSORBIDE MONONITRATE ER 30 MG TAB.ER.24H PO SCH (09:38)
[2017-10-07] MEDS: PANTOPRAZOLE 40 MG/10 ML VIAL IVP SCH (09:38)
[2017-10-07] MEDS: predniSONE 20 MG TAB PO SCH (09:38)
[2017-10-07] MEDS: hydrALAZINE HCL 50 MG TAB PO SCH ×3 (09:38→21:42)
[2017-10-07] MEDS: HEPARIN SODIUM,PORCINE 5,000 UNIT/ML 1 ML VIAL SQ SCH ×2 (09:38→21:42)
[2017-10-07] MEDS: BISACODYL 10 MG SUPP RECTAL SCH (09:38)
[2017-10-07] MEDS: amLODIPine 5 MG TAB PO SCH ×2 (09:38→21:42)
--- NOTE | 2017-10-07 09:41 | P.PN ---
Subjective Progress Note Date: 10/07/17 Principal diagnosis: Right hip hemiarthroplasty This is an 82 year-old female post right hip hemiarthroplasty. This is post-op day 6. The patient was evaluated at the bedside today. The patient complains of nausea, abdominal pain, shortness of breath, and chest pain this morning. She needs to have a bowel movement and has been given multiple stool softeners and enemas. She states her pain is controlled at this time. The patient has been up with physical therapy and is a max assist. She has remained afebrile. Objective - Vital Signs Vital signs: Vital Signs Temp 98.6 F 10/07/17 07:15 Pulse 80 10/07/17 08:01 Resp 18 10/07/17 07:52 BP 169/66 10/07/17 07:15 Pulse Ox 96 10/07/17 07:42 Intake & Output 10/06/17 10/07/17 10/07/17 18:59 06:59 18:59 Intake Total 250 Output Total 1000 Balance -750 Weight 108.4 kg Intake: Oral 250 Output: Urine 1000 Other: Voiding Method Indwelling Catheter Indwelling Catheter # Voids 900 450 # Bowel Movements 1 - Exam The patient does not appear in acute distress. Alert and orientated x3. Dressing is intact. It appears to be some serosanguineous drainage from the distal end of the incision. Incision appears fine with no erythema or active drainage. There are blisters on the posterior thigh and medial thigh possibly due to a reaction to the tape. Calf is soft and nontender. Good foot and ankle motion without difficulty. Sensation and circulatory status is intact. - Labs CBC & Chem 7: 10/07/17 06:59 10/07/17 06:59 Labs: Abnormal Lab Results - Last 24 Hours (Table) 10/06/17 10/06/17 10/06/17 Range/Units 11:28 17:14 17:38 RBC (3.80-5.40) m/uL Hgb (11.4-16.0) gm/dL Hct (34.0-46.0) % Sodium (137-145) mmol/L Chloride (98-107) mmol/L Carbon Dioxide (22-30) mmol/L BUN (7-17) mg/dL Creatinine (0.52-1.04) mg/dL Glucose (74-99) mg/dL POC Glucose (mg/dL) 155 H 58 L 67 L (75-99) mg/dL Calcium (8.4-10.2) mg/dL 10/06/17 10/07/17 10/07/17 Range/Units 20:51 06:46 06:59 RBC 3.67 L (3.80-5.40) m/uL Hgb 9.9 L (11.4-16.0) gm/dL Hct 31.3 L (34.0-46.0) % Sodium (137-145) mmol/L Chloride (98-107) mmol/L Carbon Dioxide (22-30) mmol/L BUN (7-17) mg/dL Creatinine (0.52-1.04) mg/dL Glucose (74-99) mg/dL POC Glucose (mg/dL) 252 H 219 H (75-99) mg/dL Calcium (8.4-10.2) mg/dL 10/07/17 Range/Units 06:59 RBC (3.80-5.40) m/uL Hgb (11.4-16.0) gm/dL Hct (34.0-46.0) % Sodium 135 L (137-145) mmol/L Chloride 90 L (98-107) mmol/L Carbon Dioxide 35 H (22-30) mmol/L BUN 45 H (7-17) mg/dL Creatinine 1.13 H (0.52-1.04) mg/dL Glucose 219 H (74-99) mg/dL POC Glucose (mg/dL) (75-99) mg/dL Calcium 8.1 L (8.4-10.2) mg/dL Microbiology - Last 24 Hours (Table) 10/02/17 23:59 Blood Culture - Preliminary Blood No Growth after 96 hours 10/03/17 00:22 Blood Culture - Preliminary Blood No Growth after 96 hours 10/04/17 10:14 Gram Stain - Final Leg - Right Wound Culture - Final Assessment and Plan (1) Status post hip hemiarthroplasty Current Visit: Yes Status: Acute Code(s): Z96.649 - PRESENCE OF UNSPECIFIED ARTIFICIAL HIP JOINT SNOMED Code(s): 865608052 (2) Displaced fracture of right femoral neck Current Visit: Yes Status: Acute Code(s): S72.001A - FRACTURE OF UNSP PART OF NECK OF RIGHT FEMUR, INIT SNOMED Code(s): 6328138 Plan: 1. Continue pain control 2. Anticoagulation per internal medicine 3. Continue physical therapy and ambulation 4. Continue to follow with internal medicine regarding the shortness of breath and constipation. 5. Anticipate discharge to skilled rehab in the next 1-2 days depending on her medical course.
[2017-10-07] MEDS ORDERED: LACTULOSE 20 GM/30 ML CUP PO PRN (09:49)
[2017-10-07] MEDS: TRIAMCINOLONE 0.1% CREAM 80 GM TUBE TOPICAL SCH ×2 (09:50→21:42)
[2017-10-07 11:16] LABS: Glucose,Whole Blood 218 mg/dL (75-99)
--- NOTE | 2017-10-07 12:14 | PN ---
PROGRESS NOTE DATE OF SERVICE: 10/07/2017 This 82-year-old woman who was admitted with right hip hemiarthroplasty, also had acute hypoxic hypercarbic respiratory failure. Patient has renal failure and multiple other medical issues. Patient also complains of constipation also. The most recent chest x- ray done yesterday showed some bilateral infiltrates, left more than the right. PT, OT is also evaluating the patient for possible rehab as well. The patient also has severe hypoglycemia during the admission also. The patient is being closely monitored at this time. PAST MEDICAL HISTORY: Reviewed. REVIEW OF SYSTEMS: CARDIOVASCULAR: As mentioned. RESPIRATORY: As mentioned earlier. GI: As mentioned. : No dysuria. NERVOUS SYSTEM: No numbness or weakness. CURRENT MEDICATIONS: Reviewed and include: 1. Tylenol 650 q.6h p.r.n. 2. DuoNeb q.i.d. and p.r.n. 3. Norvasc 5 mg b.i.d. 4. Dulcolax 10 mg p.r.n. 5. Pulmicort 1 mg b.i.d. 6. Coreg 25 mg p.o. b.i.d. 7. Perforomist b.i.d. 8. Heparin 5000 subcu b.i.d. 9. Apresoline 1 mg daily. 10.Novolin 70/30 20 units and 18 units. 11.NovoLog scale. 12.Imdur 30 mg daily. 13.Cephulac 30 mg q.4. 14.Milk of Magnesia. 15.Melatonin 3 mg q.h.s. 16.Singulair 10 mg q.h.s. 17.Narcan p.r.n. 18.Nitrostat. 19.Zofran. 20.Protonix. 21.Pravachol. 22.Prednisone. 23.Ultram. 24.Kenalog. PHYSICAL EXAM: The patient is alert, oriented x3. Pulse 80, blood pressure 166/66, respirations 16, temperature 98.2, pulse ox 91% on 3 L. HEENT: Conjunctivae normal. Oral mucosa moist. NECK: No jugular venous distention. No carotid bruit. No lymph node enlargement. CARDIOVASCULAR: S1, S2. No S3, no S4. RESPIRATORY: Breath sounds diminished in the bases. Bilateral scattered rhonchi and crackles. Expiratory wheezing also present. ABDOMEN: Soft, obese, mild diffuse discomfort on palpation. No guarding. No rigidity. No mass palpable. LEGS: No edema. NERVOUS SYSTEM: No focal deficits. LABS: WBC 9, hemoglobin 10.9, sodium 135, creatinine 1.3, glucose is 219. ASSESSMENT: 1. Status post hemiarthroplasty for right hip fracture. 2. Acute hypoxic respiratory failure, possibly combination of congestive heart failure acute exacerbation with acute on chronic diastolic dysfunction, as well as chronic obstructive pulmonary disease acute exacerbation. 3. Acute renal failure. 4. Severe constipation and abdomen distention. 5. Chronic kidney disease stage III. 6. Hypertension. 7. Hypoglycemia with uncontrolled diabetes type 2. 8. Hyperkalemia on admission. 9. Troponin 0.05 indeterminate. 10.History of chronic obstructive pulmonary disease. 11.Gastroesophageal reflux disease. 12.Hypertension. 13.Hyperlipidemia. 14.History of myocardial infarction. 15.History of splenic artery aneurysm. 16.History of nontoxic multinodular goiter, medical treatment. 17.History of polyneuropathy. 18.History of cholecystectomy. 19.Constipation. 20.History of coronary artery disease, stent. 21.Remote history of nicotine dependence. RECOMMENDATION AND DISCUSSION: I recommend to continue current medications, continue to monitor. Symptomatic treatment. Otherwise, we will follow the patient closely with multiple consultants. Continue the bronchodilators. Monitor fluid and electrolyte balance closely. Guarded prognosis because of multiple complex medical issues. Further recommendations to follow. MMKATEL / RAKANN: [id number] /
[2017-10-07 16:58] LABS: Glucose,Whole Blood 214 mg/dL (75-99)
--- NOTE | 2017-10-07 18:57 | P.PN ---
Subjective Progress Note Date: 10/07/17 Principal diagnosis: Left lower lobe pneumonia, acute exacerbation of CHF likely acute on chronic diastolic heart failure, right-sided hip fracture, severe COPD, chronic hypoxic respiratory failure 10/07/2017, patient seen eval reexamined during the rounds clinically patient has been doing well still short of breath on activity and exertion is still congested patient has been diuresing very well no obvious distress present patient is being treated with gentle diuresis as well as broad-spectrum antibiotics. The wound culture and urine culture as well as blood culture all of them has been negative Ammann last chest x-ray performed revealed left lower lobe infiltrate overall not much change some pleural reaction on the right base cannot be excluded, and labs reviewed medications reviewed 10/06/2017, patient seen and evaluated examined today she is still short of breath has intermittent wheezing, patient did receive 40 mg of IV furosemide and number almost a liter urine output was noted, patient again received 20 mg of Lasix this morning. Chest x-ray performed earlier today reviewed and compared with the prior x-ray noted to have left lower lobe infiltrate along with interstitial edema and a small right sided pleural effusion cannot be excluded, urine culture is negative blood culture 2 both negative wound culture results are pending so far no growth has been isolated, white cell count is normal patient remains afebrile, BUN/creatinine is slightly up but overall remains in stable range some evidence of prerenal azotemia has been noted. 82-year-old female status post right hip hemiarthroplasty, hypoxia, acute on chronic renal failure and multiple other medical issues. Echo reports preserved LV function. Patient reports wears oxygen at night at home. Patient had developed hypoxia, hyperkalemia, elevated troponins and transferred up to telemetry unit. Evaluated by cardiology with recommendations noted. Telemetry reporting sinus rhythm. Intermittent mild confusion, attempting to cut chicken with a spoon. Passing flatus, no bowel movement. Pain currently controlled. Denies headache, focal deficits, blurred vision. Denies chest pain, palpitations or increasing shortness of breath. Renal function improving, down to 1.17. Blood sugars better controlled. Objective - Vital Signs Vital signs: Vital Signs Temp 98 F 10/07/17 14:07 Pulse 65 10/07/17 14:07 Resp 16 10/07/17 14:07 BP 118/50 10/07/17 14:07 Pulse Ox 97 10/07/17 14:07 Intake & Output 10/06/17 10/07/17 10/07/17 18:59 06:59 18:59 Intake Total 250 300 Output Total 1000 800 Balance -750 -500 Weight 108.4 kg 108.4 kg Intake: Oral 250 300 Output: Urine 1000 800 Other: Voiding Method Indwelling Catheter Indwelling Catheter Indwelling Catheter # Voids 900 450 # Bowel Movements 1 - Exam PHYSICAL EXAMINATION: GENERAL: The patient is alert and oriented x3, still appears to be in mild respiratory distress. Well developed, well nourished. HEENT: Pupils are round and equally reacting to light. EOMI. No scleral icterus. No conjunctival pallor. Normocephalic, atraumatic. No pharyngeal erythema. No thyromegaly. CARDIOVASCULAR: S1 and S2 present. No murmurs, rubs, or gallops. PULMONARY: Significant expiratory wheezing, bilateral basal crackles, however overall exam improved compared to yesterday ABDOMEN: Distended tympanic MUSCULOSKELETAL: No joint swelling or deformity. EXTREMITIES: No cyanosis, clubbing, trace bilateral pedal edema. NEUROLOGICAL: Gross neurological examination did not reveal any focal deficits. SKIN: No rashes. Blisters as mentioned above - Labs CBC & Chem 7: 10/07/17 06:59 10/07/17 06:59 Labs: Abnormal Lab Results - Last 24 Hours (Table) 10/06/17 10/07/17 10/07/17 Range/Units 20:51 06:46 06:59 RBC 3.67 L (3.80-5.40) m/uL Hgb 9.9 L (11.4-16.0) gm/dL Hct 31.3 L (34.0-46.0) % Sodium (137-145) mmol/L Chloride (98-107) mmol/L Carbon Dioxide (22-30) mmol/L BUN (7-17) mg/dL Creatinine (0.52-1.04) mg/dL Glucose (74-99) mg/dL POC Glucose (mg/dL) 252 H 219 H (75-99) mg/dL Calcium (8.4-10.2) mg/dL 10/07/17 10/07/17 10/07/17 Range/Units 06:59 11:13 16:46 RBC (3.80-5.40) m/uL Hgb (11.4-16.0) gm/dL Hct (34.0-46.0) % Sodium 135 L (137-145) mmol/L Chloride 90 L (98-107) mmol/L Carbon Dioxide 35 H (22-30) mmol/L BUN 45 H (7-17) mg/dL Creatinine 1.13 H (0.52-1.04) mg/dL Glucose 219 H (74-99) mg/dL POC Glucose (mg/dL) 218 H 214 H (75-99) mg/dL Calcium 8.1 L (8.4-10.2) mg/dL Microbiology - Last 24 Hours (Table) 10/02/17 23:59 Blood Culture - Preliminary Blood No Growth after 96 hours 10/03/17 00:22 Blood Culture - Preliminary Blood No Growth after 96 hours 10/04/17 10:14 Gram Stain - Final Leg - Right Wound Culture - Final Assessment and Plan Assessment: Left lower lobe subsegmental atelectasis doubt pneumonia as white cell count has been normal patient remains afebrile Acute diastolic heart failure related to volume and fluid overload Acute on chronic hypoxic respirator failure multifactorial related to baseline COPD as well as component of fluid overload Chronic kidney disease stage II will monitor observe renal functions closely with IV furosemide Right hip fracture status post the total hip arthroplasty Morbid obesity Plan: Agree with gentle diuresis Deep breathing exercise incentive spirometry Monitor patient off of antibiotics Monitor renal functions closely Increase activity as tolerated If patient remains stable can be moved out to extended care facility for more definitive intervention like physical therapy and rehab We'll continue to follow this patient outpatient setting DVT prophylaxis as per orthopedics protocol Time with Patient: Greater than 30
--- NOTE | 2017-10-07 20:11 | P.PN ---
Subjective Progress Note Date: 10/07/17 This is an 82-year-old female patient who came into the hospital with difficulty ambulating and found to have a comminuted displaced fracture of the right femoral neck and went for ORIF on October [address] Crawford. On October 02 she on recorded temperature of 102 and otherwise has been afebrile since admission. Initial WBC 11.4 on 09/29 and has an within normal limits since. She was given a dose of IV Lasix on October 03. She was seen by Dr. Ross and as well with no signs of acute heart failure or COPD exacerbation. Yesterday, Wing catheter was replaced because she was incontinent of urine and received Lasix. He has had 2 urinalysis done that show trace protein and otherwise clear and no signs of infection. Patient had one episode of vomiting yesterday and has been constipated and this has been resolved as of yesterday. She denies any nausea or vomiting at this time and no abdominal pain. She denies any worsening shortness of breath and has a chronic cough and is on home O2 for chronic hypoxic respiratory failure secondary to COPD. Patient denies feeling feverish or chilled. Patient is found to have blistering on the upper inner thighs and posterior right thigh and around the wound on the right hip. Orthopedics has noted slight increase in drainage from the wound from yesterday. She has been seen and treated by nephrology for acute kidney injury with hyperkalemia currently with a normal potassium and creatinine of 1.35. She received iron infusion for hemoglobin of 7.9. Patient was also seen by cardiology for surgical clearance. Patient has some mild memory difficulties which apparently is her baseline. Patient has 2 blood cultures showing no growth after 24 hours in the urine culture in progress. 10/07/2017 reveals a patient is feeling somewhat better. She is unaware of any discomfort that she have the blisters on her legs. Denies fevers or chills but is still very weak she's a 2 person assist. Objective - Vital Signs Vital signs: Vital Signs Temp 98 F 10/07/17 14:07 Pulse 65 10/07/17 14:07 Resp 16 10/07/17 14:07 BP 118/50 10/07/17 14:07 Pulse Ox 97 10/07/17 14:07 Intake & Output 10/07/17 10/07/17 10/08/17 06:59 18:59 06:59 Intake Total 300 Output Total 800 Balance -500 Weight 108.4 kg 108.4 kg Intake: Oral 300 Output: Urine 800 Other: Voiding Method Indwelling Catheter Indwelling Catheter # Voids 450 # Bowel Movements 1 - Exam Gen: This is an 82-year-old morbidly obese female. She is sitting up in bed and noted to have mild accessory muscle usage with wheezing. HEENT: Head is atraumatic, normocephalic. Pupils equal, round. Sclerae is anicteric. NECK: Supple. No JVD. No lymphadenopathy. No thyromegaly. LUNGS: Good inspiratory and expiratory wheezing. Mild intercostal retractions. HEART: Regular rate and rhythm. Systolic murmur. ABDOMEN: Morbidly obese. Soft. Bowel sounds are present. No masses. No tenderness. Wing catheter draining clear patric urine. EXTREMITIES: Trace right pedal edema. Dorsalis pedis is +2 bilaterally. Surgical wound to the right hip have edges well approximated. No significant erythema. The blisters to the right leg and left leg have all generally healed over with no severe erythema or drainage. They're not tender. NEUROLOGICAL: Patient is awake, alert and oriented x3 - Labs CBC & Chem 7: 10/07/17 06:59 10/07/17 06:59 Labs: Abnormal Lab Results - Last 24 Hours (Table) 10/06/17 10/07/17 10/07/17 Range/Units 20:51 06:46 06:59 RBC 3.67 L (3.80-5.40) m/uL Hgb 9.9 L (11.4-16.0) gm/dL Hct 31.3 L (34.0-46.0) % Sodium (137-145) mmol/L Chloride (98-107) mmol/L Carbon Dioxide (22-30) mmol/L BUN (7-17) mg/dL Creatinine (0.52-1.04) mg/dL Glucose (74-99) mg/dL POC Glucose (mg/dL) 252 H 219 H (75-99) mg/dL Calcium (8.4-10.2) mg/dL 10/07/17 10/07/17 10/07/17 Range/Units 06:59 11:13 16:46 RBC (3.80-5.40) m/uL Hgb (11.4-16.0) gm/dL Hct (34.0-46.0) % Sodium 135 L (137-145) mmol/L Chloride 90 L (98-107) mmol/L Carbon Dioxide 35 H (22-30) mmol/L BUN 45 H (7-17) mg/dL Creatinine 1.13 H (0.52-1.04) mg/dL Glucose 219 H (74-99) mg/dL POC Glucose (mg/dL) 218 H 214 H (75-99) mg/dL Calcium 8.1 L (8.4-10.2) mg/dL Microbiology - Last 24 Hours (Table) 10/02/17 23:59 Blood Culture - Preliminary Blood No Growth after 96 hours 10/03/17 00:22 Blood Culture - Preliminary Blood No Growth after 96 hours Laboratory Results WBC 9.2 k/uL (3.8-10.6) 10/07/17 06:59 RBC 3.67 m/uL (3.80-5.40) L 10/07/17 06:59 Hgb 9.9 gm/dL (11.4-16.0) L 10/07/17 06:59 Hct 31.3 % (34.0-46.0) L 10/07/17 06:59 MCV 85.3 fL (80.0-100.0) 10/07/17 06:59 MCH 27.1 pg (25.0-35.0) 10/07/17 06:59 MCHC 31.8 g/dL (31.0-37.0) 10/07/17 06:59 RDW 14.3 % (11.5-15.5) 10/07/17 06:59 Plt Count 301 k/uL (150-450) 10/07/17 06:59 Neutrophils % 87 % 10/06/17 07:08 Lymphocytes % 6 % 10/06/17 07:08 Monocytes % 3 % 10/06/17 07:08 Eosinophils % 2 % 10/06/17 07:08 Basophils % 0 % 10/06/17 07:08 Neutrophils # 7.7 k/uL (1.3-7.7) 10/06/17 07:08 Lymphocytes # 0.5 k/uL (1.0-4.8) L 10/06/17 07:08 Monocytes # 0.3 k/uL (0-1.0) 10/06/17 07:08 Eosinophils # 0.1 k/uL (0-0.7) 10/06/17 07:08 Basophils # 0.0 k/uL (0-0.2) 10/06/17 07:08 Hypochromasia Slight 10/07/17 06:59 Sodium 135 mmol/L (137-145) L 10/07/17 06:59 Potassium 4.6 mmol/L (3.5-5.1) 10/07/17 06:59 Chloride 90 mmol/L (98-107) L 10/07/17 06:59 Carbon Dioxide 35 mmol/L (22-30) H 10/07/17 06:59 Anion Gap 10 mmol/L 10/07/17 06:59 BUN 45 mg/dL (7-17) H 10/07/17 06:59 Creatinine 1.13 mg/dL (0.52-1.04) H 10/07/17 06:59 Est GFR (CKD-EPI)AfAm 52 (>60 ml/min/1.73 sqM) 10/07/17 06:59 Est GFR (CKD-EPI)NonAf 46 (>60 ml/min/1.73 sqM) 10/07/17 06:59 Glucose 219 mg/dL (74-99) H 10/07/17 06:59 POC Glucose (mg/dL) 214 mg/dL (75-99) H 10/07/17 16:46 POC Glu Medicaid Analyst ID 10/07/17 16:[address] Glu mg/dL 143 09/29/17 15:30 Hemoglobin A1c 6.6 % (4.0-6.0) H 09/29/17 15:30 Plasma Lactic Acid [place] 0.9 mmol/L (0.7-2.0) 10/03/17 16:35 Calcium 8.1 mg/dL (8.4-10.2) L 10/07/17 06:59 Magnesium 2.0 mg/dL (1.6-2.3) 10/06/17 07:08 Iron 9 ug/dL (50-170) L 10/02/17 06:34 TIBC 215 ug/dL (228-460) L 10/02/17 06:34 Iron Saturation 4.19 (12.00-45.00) L 10/02/17 06:34 Ferritin 153.8 ng/mL (10.0-291.0) 10/02/17 06:34 Total Bilirubin 0.4 mg/dL (0.2-1.3) 09/29/17 15:30 AST 27 U/L (14-36) 09/29/17 15:30 ALT 25 U/L (9-52) 09/29/17 15:30 Alkaline Phosphatase 48 U/L (38-126) 09/29/17 15:30 Total Creatine Kinase 124 U/L (30-135) 09/29/17 15:30 CK-MB (CK-2) 2.4 ng/mL (0.0-2.4) 09/29/17 15:30 CK-MB (CK-2) Rel Index 1.9 09/29/17 15:30 Troponin I 0.051 ng/mL (0.000-0.034) H* 09/30/17 06:38 NT-Pro-B Natriuret Pep 2930 pg/mL 10/03/17 06:22 Total Protein 6.6 g/dL (6.3-8.2) 09/29/17 15:30 Albumin 4.1 g/dL (3.5-5.0) 09/29/17 15:30 Amylase 73 U/L (30-110) 09/29/17 15:30 Lipase 60 U/L (23-300) 09/29/17 15:30 Urine Color Light Yellow 10/03/17 17:20 Urine Appearance Clear (Clear) 10/03/17 17:20 Urine pH 5.0 (5.0-8.0) 10/03/17 17:20 Ur Specific [place] 1.005 (1.001-1.035) 10/03/17 17:20 Urine Protein Negative (Negative) 10/03/17 17:20 Urine Glucose (UA) Trace (Negative) H 10/03/17 17:20 Urine Ketones Negative (Negative) 10/03/17 17:20 Urine Blood Negative (Negative) 10/03/17 17:20 Urine Nitrite Negative (Negative) 10/03/17 17:20 Urine Bilirubin Negative (Negative) 10/03/17 17:20 Urine Urobilinogen <2.0 mg/dL (<2.0) 10/03/17 17:20 Ur Leukocyte Esterase Negative (Negative) 10/03/17 17:20 Random Vancomycin 6.2 ug/mL 10/05/17 11:39 Blood Type O Positive 10/01/17 10:00 Blood Type Recheck No 10/01/17 10:00 Antibody Screen NEGATIVE 10/01/17 10:00 Spec Expiration Date 10/04/2017 - 2300 10/01/17 10:00 Microbiology 10/02/17 23:59 Blood Blood Culture - Preliminary No Growth after 96 hours 10/03/17 00:22 Blood Blood Culture - Preliminary No Growth after 96 hours 10/04/17 10:14 Leg - Right Gram Stain - Final 10/04/17 10:14 Leg - Right Wound Culture - Final 10/03/17 01:50 Urine,Catheterized Urine Culture - Final Assessment and Plan (1) Displaced fracture of right femoral neck Current Visit: Yes Status: Acute Code(s): S72.001A - FRACTURE OF UNSP PART OF NECK OF RIGHT FEMUR, INIT SNOMED Code(s): 6958914 (2) Blister of leg without infection Narrative/Plan: 82-year-old female as noted presents to Hospital because of the fracture to her right leg is continued to have great difficulties with her recovery. She is a 2 person assist due to the pain and inability to utilize the right leg. Fortunately the significant blistering that occurred to her right leg and a bit to the left leg has now almost completely resolved. The blisters have unroofed and there is healing tissue. The rest of any erythema crepitance or fluctuance they're nontender. The patient is completely unaware of the blisters. This appears have been in contact process possibly from a combination of tape and the skin preparation for surgery. No further blisters have occurred in the old blisters have completely healed. They're not infected required no antibiotic therapy and just good local skin care. Lesions are seen and the staff is working on a rehab plan. Current Visit: Yes Status: Acute Code(s): S80.829A - BLISTER (NONTHERMAL), UNSPECIFIED LOWER LEG, INIT ENCNTR SNOMED Code(s): 93626772
[2017-10-07 20:47] LABS: Glucose,Whole Blood 286 mg/dL (75-99)
[2017-10-07] MEDS: SENNOSIDES-DOCUSATE SODIUM 1 EACH TAB PO SCH (21:36)
[2017-10-07] MEDS: PRAVASTATIN SODIUM 80 MG TAB PO SCH (21:42)
[2017-10-07] MEDS: MONTELUKAST 10 MG TAB PO SCH (21:42)
[2017-10-07] MEDS: MELATONIN 3 MG TABLET PO SCH (21:42)
[2017-10-08 06:51] LABS: Glucose,Whole Blood 120 mg/dL (75-99)
[2017-10-08 07:10] LABS: Basophils % (A) 0 %; Eosinophils % (A) 0 %; HGB 9.7 gm/dL (11.4-16.0); Lymphocytes % (A) 12 %; MCH 26.6 pg (25.0-35.0); MCHC 31.4 g/dL (31.0-37.0); MCV 84.7 fL (80.0-100.0); Mean Platelet Volume 7.5; Monocytes # (A) 0.4 k/uL (0-1.0); Monocytes % (A) 5 %; Neutrophils # (A) 7.1 k/uL (1.3-7.7); Neutrophils % (A) 82 %; Platelet Count 306 k/uL (150-450); RBC 3.66 m/uL (3.80-5.40); RDW 14.4 % (11.5-15.5); WBC 8.8 k/uL (3.8-10.6)
[2017-10-08 07:27] LABS: Calcium 8.3 mg/dL (8.4-10.2); Potassium 4.3 mmol/L (3.5-5.1)
[2017-10-08] MEDS: CARVEDILOL 12.5 MG TAB PO SCH ×2 (07:41→17:59)
[2017-10-08] MEDS: INSULN ASP PRT/INSULIN ASPART 100 UNIT/ML 10 ML VIAL SQ SCH ×2 (07:41→17:59)
[2017-10-08] MEDS: INSULIN ASPART 100 UNIT/ML 1 ML 10 ML VIAL SQ SCH ×4 (07:42→20:53)
[2017-10-08] MEDS: IPRATROPIUM-ALBUTEROL 3 ML NEB INHALATION SCH ×4 (08:44→19:48)
[2017-10-08] MEDS: BUDESONIDE 1 MG/2 ML NEBU INHALATION SCH ×2 (08:44→19:47)
[2017-10-08] MEDS: FORMOTEROL FUMARATE 20 MCG/2 ML NEBU INHALATION SCH ×2 (08:44→20:02)
[2017-10-08] MEDS: ISOSORBIDE MONONITRATE ER 30 MG TAB.ER.24H PO SCH (09:17)
[2017-10-08] MEDS: amLODIPine 5 MG TAB PO SCH ×2 (09:17→20:53)
[2017-10-08] MEDS: hydrALAZINE HCL 50 MG TAB PO SCH ×3 (09:17→20:53)
[2017-10-08] MEDS: HEPARIN SODIUM,PORCINE 5,000 UNIT/ML 1 ML VIAL SQ SCH ×2 (09:17→20:53)
[2017-10-08] MEDS: PANTOPRAZOLE 40 MG/10 ML VIAL IVP SCH (09:18)
[2017-10-08] MEDS: BISACODYL 10 MG SUPP RECTAL SCH (09:18)
[2017-10-08] MEDS: predniSONE 20 MG TAB PO SCH (09:18)
[2017-10-08] MEDS: TRIAMCINOLONE 0.1% CREAM 80 GM TUBE TOPICAL SCH ×2 (09:18→23:34)
--- NOTE | 2017-10-08 10:54 | P.PN ---
Subjective Progress Note Date: 10/08/17 Principal diagnosis: Right hip hemiarthroplasty This is an 82 year-old female post right hip hemiarthroplasty. This is post-op day 7. The patient was evaluated in the recliner chair at the bedside today. The patient denies nausea, abdominal pain, shortness of breath, and chest pain this morning. She did have 2 large bowel movement yesterday and states she feels much better today. She states her pain is controlled at this time. The patient has been up with physical therapy and is a max assist. She has remained afebrile. Objective - Vital Signs Vital signs: Vital Signs Temp 97.9 F 10/08/17 01:00 Pulse 80 10/08/17 09:09 Resp 16 10/08/17 04:00 BP 144/68 10/08/17 01:00 Pulse Ox 94 L 10/08/17 01:00 Intake & Output 10/07/17 10/08/17 10/08/17 18:59 06:59 18:59 Intake Total 300 300 Output Total 800 600 Balance -500 -300 Weight 108.4 kg 99.5 kg Intake: Oral 300 300 Output: Urine 800 600 Other: Voiding Method Indwelling Catheter Indwelling Catheter Indwelling Catheter # Bowel Movements 1 - Exam The patient does not appear in acute distress. Alert and orientated x3. Dressing is intact. It appears to be some serosanguineous drainage from the distal end of the incision. Incision appears fine with no erythema or active drainage. There are healing blisters on the posterior thigh and medial thigh possibly due to a reaction to the tape. Calf is soft and nontender. Good foot and ankle motion without difficulty. Sensation and circulatory status is intact. - Labs CBC & Chem 7: 10/08/17 06:31 10/08/17 06:31 Labs: Abnormal Lab Results - Last 24 Hours (Table) 10/07/17 10/07/17 10/07/17 Range/Units 11:13 16:46 20:45 RBC (3.80-5.40) m/uL Hgb (11.4-16.0) gm/dL Hct (34.0-46.0) % Sodium (137-145) mmol/L Chloride (98-107) mmol/L Carbon Dioxide (22-30) mmol/L BUN (7-17) mg/dL Creatinine (0.52-1.04) mg/dL Glucose (74-99) mg/dL POC Glucose (mg/dL) 218 H 214 H 286 H (75-99) mg/dL Calcium (8.4-10.2) mg/dL 10/08/17 10/08/17 10/08/17 Range/Units 06:31 06:31 06:49 RBC 3.66 L (3.80-5.40) m/uL Hgb 9.7 L (11.4-16.0) gm/dL Hct 31.0 L (34.0-46.0) % Sodium 134 L (137-145) mmol/L Chloride 92 L (98-107) mmol/L Carbon Dioxide 33 H (22-30) mmol/L BUN 51 H (7-17) mg/dL Creatinine 1.29 H (0.52-1.04) mg/dL Glucose 100 H (74-99) mg/dL POC Glucose (mg/dL) 120 H (75-99) mg/dL Calcium 8.3 L (8.4-10.2) mg/dL Microbiology - Last 24 Hours (Table) 10/02/17 23:59 Blood Culture - Preliminary Blood No Growth after 120 hours 10/03/17 00:22 Blood Culture - Preliminary Blood No Growth after 120 hours Assessment and Plan (1) Status post hip hemiarthroplasty Current Visit: Yes Status: Acute Code(s): Z96.649 - PRESENCE OF UNSPECIFIED ARTIFICIAL HIP JOINT SNOMED Code(s): 520420707 (2) Displaced fracture of right femoral neck Current Visit: Yes Status: Acute Code(s): S72.001A - FRACTURE OF UNSP PART OF NECK OF RIGHT FEMUR, INIT SNOMED Code(s): 8622940 Plan: 1. Continue pain control 2. Anticoagulation per internal medicine 3. Continue physical therapy and ambulation 4. Continue to follow with internal medicine regarding her multiple medical issues. 5. Anticipate discharge to skilled rehab tomorrow depending on her medical course.
[2017-10-08 11:03] LABS: Glucose,Whole Blood 131 mg/dL (75-99)
--- NOTE | 2017-10-08 12:48 | PN ---
PROGRESS NOTE DATE OF SERVICE: 10/08/2017 This 82-year-old woman who was admitted after right hip hemiarthroplasty, also had multiple other medical problems including respiratory problems. The patient is slated to go to ECF rehab. No chest pain or palpitation. No fever. PHYSICAL EXAMINATION: On exam, alert and oriented x3. The pulse is 67, blood pressure 144/68, respirations 16, temperature 97.9, pulse ox 94% on 2 L. HEENT: Conjunctivae normal. Oral mucosa moist. NECK: No jugular venous distention. No carotid bruit. No lymph node enlargement. CARDIOVASCULAR: S1 and S2 muffled. RESPIRATORY: Bilateral scattered rhonchi and expiratory wheezing. ABDOMEN: Soft, nontender. No mass palpable. LEGS: Status post hip arthroplasty NERVOUS SYSTEM: No focal deficits. LABS: WBC 8.8, hemoglobin 9.7. Sodium 134. Creatinine is 1.29. ASSESSMENT: 1. Status post right hip fracture and hemiarthroplasty. 2. Acute hypoxic respiratory failure, possibly combination of congestive heart failure acute exacerbation, acute on chronic diastolic dysfunction as well as chronic obstructive pulmonary disease acute exacerbation. 3. Acute renal failure. 4. Severe constipation, abdominal distention. 5. Chronic kidney disease stage III. 6. Hypertension. 7. Hypoglycemia with uncontrolled diabetes mellitus type 2. 8. Hyperkalemia, on admission. 9. Troponin 0.05 indeterminate. 10.History of chronic obstructive pulmonary disease. 11.Gastroesophageal reflux disease. 12.Hypertension. 13.Hyperlipidemia. 14.History of myocardial infarction. 15.History of splenic artery aneurysm. 16.History of nontoxic multinodular goiter, medical treatment. 17.History of polyneuropathy. 18.History of cholecystectomy. 19.History of constipation. 20.History of coronary artery disease, stent. 21.Remote history of nicotine dependence. RECOMMENDATIONS AND DISCUSSION: Continue current medications and symptomatic treatment. Otherwise optimize the bronchodilator treatment. Continue the rest of medications including cardiac medications. PT, OT evaluation, possible ECF rehab. Prognosis guarded because of multiple complex medical issues. Further recommendations to follow. MMODL / IJN: [id number] /
[2017-10-08] MEDS: methylPREDNISolone SOD SUCCI 40 MG/ML 1 ML VIAL IV SCH ×2 (17:00→23:44)
[2017-10-08 17:40] LABS: Glucose,Whole Blood 388 mg/dL (75-99)
--- NOTE | 2017-10-08 19:31 | P.PN ---
Subjective Progress Note Date: 10/08/17 Principal diagnosis: Left lower lobe pneumonia, acute exacerbation of CHF likely acute on chronic diastolic heart failure, right-sided hip fracture, severe COPD, chronic hypoxic respiratory failure 10/08/2017, patient seen eval examined during the rounds clinically overall remains stable but slightly more short of breath today audible wheezing are present she does have cough congestion and dry and nonproductive will DC the oral prednisone start patient on IV Solu-Medrol 10/07/2017, patient seen eval reexamined during the rounds clinically patient has been doing well still short of breath on activity and exertion is still congested patient has been diuresing very well no obvious distress present patient is being treated with gentle diuresis as well as broad-spectrum antibiotics. The wound culture and urine culture as well as blood culture all of them has been negative Ammann last chest x-ray performed revealed left lower lobe infiltrate overall not much change some pleural reaction on the right base cannot be excluded, and labs reviewed medications reviewed 10/06/2017, patient seen and evaluated examined today she is still short of breath has intermittent wheezing, patient did receive 40 mg of IV furosemide and number almost a liter urine output was noted, patient again received 20 mg of Lasix this morning. Chest x-ray performed earlier today reviewed and compared with the prior x-ray noted to have left lower lobe infiltrate along with interstitial edema and a small right sided pleural effusion cannot be excluded, urine culture is negative blood culture 2 both negative wound culture results are pending so far no growth has been isolated, white cell count is normal patient remains afebrile, BUN/creatinine is slightly up but overall remains in stable range some evidence of prerenal azotemia has been noted. 82-year-old female status post right hip hemiarthroplasty, hypoxia, acute on chronic renal failure and multiple other medical issues. Echo reports preserved LV function. Patient reports wears oxygen at night at home. Patient had developed hypoxia, hyperkalemia, elevated troponins and transferred up to telemetry unit. Evaluated by cardiology with recommendations noted. Telemetry reporting sinus rhythm. Intermittent mild confusion, attempting to cut chicken with a spoon. Passing flatus, no bowel movement. Pain currently controlled. Denies headache, focal deficits, blurred vision. Denies chest pain, palpitations or increasing shortness of breath. Renal function improving, down to 1.17. Blood sugars better controlled. Objective - Vital Signs Vital signs: Vital Signs Temp 98.4 F 10/08/17 14:52 Pulse 82 10/08/17 16:31 Resp 16 10/08/17 14:52 BP 116/66 10/08/17 14:52 Pulse Ox 91 L 10/08/17 14:52 Intake & Output 10/08/17 10/08/17 10/09/17 06:59 18:59 06:59 Intake Total 300 300 Output Total 600 Balance -300 300 Weight 99.5 kg Intake: Oral 300 300 Output: Urine 600 Other: Voiding Method Indwelling Catheter Indwelling Catheter # Bowel Movements 1 - Exam PHYSICAL EXAMINATION: GENERAL: The patient is alert and oriented x3, still appears to be in mild respiratory distress. Well developed, well nourished. HEENT: Pupils are round and equally reacting to light. EOMI. No scleral icterus. No conjunctival pallor. Normocephalic, atraumatic. No pharyngeal erythema. No thyromegaly. CARDIOVASCULAR: S1 and S2 present. No murmurs, rubs, or gallops. PULMONARY: Significant expiratory wheezing, bilateral basal crackles, overall slightly worse in progress compared to yesterday ABDOMEN: Distended tympanic MUSCULOSKELETAL: No joint swelling or deformity. EXTREMITIES: No cyanosis, clubbing, trace bilateral pedal edema. NEUROLOGICAL: Gross neurological examination did not reveal any focal deficits. SKIN: No rashes. Blisters as mentioned above - Labs CBC & Chem 7: 10/08/17 06:31 10/08/17 06:31 Labs: Abnormal Lab Results - Last 24 Hours (Table) 10/07/17 10/08/17 10/08/17 Range/Units 20:45 06:31 06:31 RBC 3.66 L (3.80-5.40) m/uL Hgb 9.7 L (11.4-16.0) gm/dL Hct 31.0 L (34.0-46.0) % Sodium 134 L (137-145) mmol/L Chloride 92 L (98-107) mmol/L Carbon Dioxide 33 H (22-30) mmol/L BUN 51 H (7-17) mg/dL Creatinine 1.29 H (0.52-1.04) mg/dL Glucose 100 H (74-99) mg/dL POC Glucose (mg/dL) 286 H (75-99) mg/dL Calcium 8.3 L (8.4-10.2) mg/dL 10/08/17 10/08/17 10/08/17 Range/Units 06:49 11:02 17:38 RBC (3.80-5.40) m/uL Hgb (11.4-16.0) gm/dL Hct (34.0-46.0) % Sodium (137-145) mmol/L Chloride (98-107) mmol/L Carbon Dioxide (22-30) mmol/L BUN (7-17) mg/dL Creatinine (0.52-1.04) mg/dL Glucose (74-99) mg/dL POC Glucose (mg/dL) 120 H 131 H 388 H (75-99) mg/dL Calcium (8.4-10.2) mg/dL Microbiology - Last 24 Hours (Table) 10/02/17 23:59 Blood Culture - Preliminary Blood No Growth after 120 hours 10/03/17 00:22 Blood Culture - Preliminary Blood No Growth after 120 hours Assessment and Plan Assessment: Acute COPD exacerbation Left lower lobe subsegmental atelectasis doubt pneumonia as white cell count has been normal patient remains afebrile Acute diastolic heart failure related to volume and fluid overload Acute on chronic hypoxic respirator failure multifactorial related to baseline COPD as well as component of fluid overload Chronic kidney disease stage II will monitor observe renal functions closely with IV furosemide Right hip fracture status post the total hip arthroplasty Morbid obesity Plan: We'll DC the oral prednisone start patient on IV Solu-Medrol Agree with gentle diuresis Deep breathing exercise incentive spirometry Monitor patient off of antibiotics Monitor renal functions closely Increase activity as tolerated If patient remains stable can be moved out to extended care facility for more definitive intervention like physical therapy and rehab We'll continue to follow this patient outpatient setting DVT prophylaxis as per orthopedics protocol Time with Patient: Greater than 30
[2017-10-08 20:42] LABS: Glucose,Whole Blood 251 mg/dL (75-99)
[2017-10-08] MEDS: MELATONIN 3 MG TABLET PO SCH (20:53)
[2017-10-08] MEDS: MONTELUKAST 10 MG TAB PO SCH (20:53)
[2017-10-08] MEDS: PRAVASTATIN SODIUM 80 MG TAB PO SCH (20:54)
[2017-10-08] MEDS: SENNOSIDES-DOCUSATE SODIUM 1 EACH TAB PO SCH (20:54)
--- NOTE | 2017-10-08 23:12 | PN ---
PROGRESS NOTE Patient is seen for followup for acute kidney injury. Her renal function is improved. Creatinine was down to 1.08. She continues to have good urine output. The patient has an indwelling Wing catheter. Blood pressure is holding with systolic at about 116 mmHg. HEART: S1, S2. LUNGS: Bilateral breath sounds are heard. Abdomen is soft, obese, nontender, distended. Lower extremities show edema 1+ bilaterally. LABS: Labs show sodium 134, potassium 4.3, serum creatinine 1.29. Hemoglobin 9.7 g/dL. ASSESSMENT: 1. Acute kidney injury, nonoliguric, currently improving. Serum creatinine is at 1.29. The patient has an indwelling Wing catheter. She is not on any nephrotoxic agents. She is encouraged to maintain good oral intake. I will avoid any IV fluids. 2. Hypertension, currently controlled. 3. Status post right hip hemiarthroplasty. 4. Status post congestive heart failure exacerbation, currently improved. PLAN: Continue to avoid nephrotoxic agents. Encourage increased oral intake. MMODL / IJN: [id number] /
[2017-10-09 06:52] LABS: Glucose,Whole Blood 211 mg/dL (75-99)
[2017-10-09] MEDS: ONDANSETRON 4 MG/2 ML VIAL IVP PRN (07:08)
[2017-10-09 07:14] LABS: Basophils % (A) 0 %; Eosinophils % (A) 0 %; HCT 33.2 % (34.0-46.0); HGB 10.6 gm/dL (11.4-16.0); Lymphocytes # (A) 0.7 k/uL (1.0-4.8); Lymphocytes % (A) 6 %; MCH 27.1 pg (25.0-35.0); MCHC 31.9 g/dL (31.0-37.0); MCV 84.9 fL (80.0-100.0); Mean Platelet Volume 7.8; Monocytes # (A) 0.3 k/uL (0-1.0); Monocytes % (A) 2 %; Neutrophils # (A) 10.4 k/uL (1.3-7.7); Neutrophils % (A) 91 %; Platelet Count 355 k/uL (150-450); RDW 14.7 % (11.5-15.5); WBC 11.4 k/uL (3.8-10.6)
[2017-10-09 07:28] LABS: Calcium 8.8 mg/dL (8.4-10.2); Potassium 4.8 mmol/L (3.5-5.1)
[2017-10-09] MEDS: BUDESONIDE 1 MG/2 ML NEBU INHALATION SCH ×2 (08:12→19:33)
[2017-10-09] MEDS: FORMOTEROL FUMARATE 20 MCG/2 ML NEBU INHALATION SCH ×2 (08:12→19:33)
[2017-10-09] MEDS: IPRATROPIUM-ALBUTEROL 3 ML NEB INHALATION SCH ×4 (08:12→19:33)
--- NOTE | 2017-10-09 08:59 | P.PN ---
Subjective Progress Note Date: 10/09/17 Principal diagnosis: Right hip hemiarthroplasty This is an 82 year-old female post right hip hemiarthroplasty. This is post-op day 8. The patient was evaluated in the recliner chair at the bedside today. The patient denies nausea, abdominal pain, shortness of breath, and chest pain this morning. She states her pain is controlled at this time. The patient has been up with physical therapy and is a max assist. She has remained afebrile. Objective - Vital Signs Vital signs: Vital Signs Temp 98.4 F 10/09/17 07:15 Pulse 82 10/09/17 08:38 Resp 18 10/09/17 07:15 BP 168/67 10/09/17 07:15 Pulse Ox 94 L 10/09/17 07:15 Intake & Output 10/08/17 10/09/17 10/09/17 18:59 06:59 18:59 Intake Total 300 Output Total 1000 Balance 300 -1000 Weight 99.5 kg Intake: Oral 300 Output: Urine 1000 Other: Voiding Method Indwelling Catheter Indwelling Catheter Indwelling Catheter - Exam The patient does not appear in acute distress. Alert and orientated x3. Dressing is intact. It appears to be some serosanguineous drainage from the distal end of the incision. Incision appears fine with no erythema or active drainage. There are healing blisters on the posterior thigh and medial thigh possibly due to a reaction to the tape. Calf is soft and nontender. Good foot and ankle motion without difficulty. Sensation and circulatory status is intact. - Labs CBC & Chem 7: 10/09/17 06:25 10/09/17 06:25 Labs: Abnormal Lab Results - Last 24 Hours (Table) 10/08/17 10/08/17 10/08/17 Range/Units 11:02 17:38 20:35 WBC (3.8-10.6) k/uL Hgb (11.4-16.0) gm/dL Hct (34.0-46.0) % Neutrophils # (1.3-7.7) k/uL Lymphocytes # (1.0-4.8) k/uL Sodium (137-145) mmol/L Chloride (98-107) mmol/L Carbon Dioxide (22-30) mmol/L BUN (7-17) mg/dL Creatinine (0.52-1.04) mg/dL Glucose (74-99) mg/dL POC Glucose (mg/dL) 131 H 388 H 251 H (75-99) mg/dL 10/09/17 10/09/17 10/09/17 Range/Units 06:25 06:25 06:50 WBC 11.4 H (3.8-10.6) k/uL Hgb 10.6 L (11.4-16.0) gm/dL Hct 33.2 L (34.0-46.0) % Neutrophils # 10.4 H (1.3-7.7) k/uL Lymphocytes # 0.7 L (1.0-4.8) k/uL Sodium 136 L (137-145) mmol/L Chloride 93 L (98-107) mmol/L Carbon Dioxide 37 H (22-30) mmol/L BUN 47 H (7-17) mg/dL Creatinine 1.28 H (0.52-1.04) mg/dL Glucose 181 H (74-99) mg/dL POC Glucose (mg/dL) 211 H (75-99) mg/dL Microbiology - Last 24 Hours (Table) 10/02/17 23:59 Blood Culture - Final Blood No Growth after 144 hours 10/03/17 00:22 Blood Culture - Final Blood No Growth after 144 hours Assessment and Plan (1) Status post hip hemiarthroplasty Current Visit: Yes Status: Acute Code(s): Z96.649 - PRESENCE OF UNSPECIFIED ARTIFICIAL HIP JOINT SNOMED Code(s): 032749125 (2) Displaced fracture of right femoral neck Current Visit: Yes Status: Acute Code(s): S72.001A - FRACTURE OF UNSP PART OF NECK OF RIGHT FEMUR, INIT SNOMED Code(s): 8040546 Plan: 1. Continue pain control 2. Anticoagulation per internal medicine 3. Continue physical therapy and ambulation 4. Continue to follow with internal medicine regarding her multiple medical issues. 5. Anticipate discharge to skilled rehab today depending on her medical course.
[2017-10-09] MEDS: hydrALAZINE HCL 50 MG TAB PO SCH ×3 (09:36→20:58)
[2017-10-09] MEDS: CARVEDILOL 12.5 MG TAB PO SCH ×2 (09:36→19:16)
[2017-10-09] MEDS: amLODIPine 5 MG TAB PO SCH ×2 (09:36→20:58)
[2017-10-09] MEDS: ISOSORBIDE MONONITRATE ER 30 MG TAB.ER.24H PO SCH (09:37)
[2017-10-09] MEDS: methylPREDNISolone SOD SUCCI 40 MG/ML 1 ML VIAL IV SCH (09:37)
[2017-10-09] MEDS: HEPARIN SODIUM,PORCINE 5,000 UNIT/ML 1 ML VIAL SQ SCH ×2 (09:37→20:57)
[2017-10-09] MEDS: PANTOPRAZOLE 40 MG/10 ML VIAL IVP SCH (09:37)
[2017-10-09] MEDS: INSULN ASP PRT/INSULIN ASPART 100 UNIT/ML 10 ML VIAL SQ SCH ×2 (09:38→19:17)
[2017-10-09] MEDS: INSULIN ASPART 100 UNIT/ML 1 ML 10 ML VIAL SQ SCH ×4 (09:38→20:54)
[2017-10-09] MEDS: TRIAMCINOLONE 0.1% CREAM 80 GM TUBE TOPICAL SCH ×2 (09:56→20:59)
[2017-10-09 11:44] LABS: Glucose,Whole Blood 142 mg/dL (75-99)
--- NOTE | 2017-10-09 12:31 | PN ---
PROGRESS NOTE DATE OF SERVICE: 10/09/2017 This 82-year-old woman who was admitted after right hip fracture hemiarthroplasty, also had respiratory difficulty. The patient is not feeling well today. No chest pain or palpitation. No fever. PHYSICAL EXAM: On exam, alert and oriented x3. Pulse 82, blood pressure 168/67, respiration 18, temperature 98.4, pulse ox 94% on 3 L. HEENT: Conjunctivae normal. Oral mucosa moist. NECK: No jugular venous distention. No carotid bruit. No lymph node enlargement. CARDIOVASCULAR: S1 and S2 muffled. RESPIRATORY: Bilateral scattered rhonchi and crackles. ABDOMEN: Soft. LEGS: Status post surgery. NERVOUS SYSTEM: No focal deficits. LABS: WBC 11.4. Creatinine is 1.28. ASSESSMENT: 1. Status post right hip fracture and hemiarthroplasty. 2. Acute hypoxic respiratory failure, possibly combination of congestive heart failure acute exacerbation with acute on chronic diastolic dysfunction, as well as chronic obstructive pulmonary disease acute exacerbation. 3. Acute renal failure. 4. Severe constipation. Abdomen distention improving. 5. Chronic kidney disease stage III. 6. Hypertension. 7. Hypoglycemia with uncontrolled diabetes mellitus type 2. 8. Hyperkalemia on admission, improved. 9. Troponin 0.05 indeterminate. 10.History of chronic obstructive pulmonary disease. 11.Gastroesophageal reflux disease. 12.Hypertension. 13.Hyperlipidemia. 14.History of myocardial infarction. 15.History of splenic artery aneurysm. 16.History of nontoxic multinodular goiter, medical treatment. 17.History of polyneuropathy. 18.History of cholecystectomy. 19.History of constipation. 20.History of coronary artery disease, stent. 21.Remote history of nicotine dependence. RECOMMENDATIONS AND DISCUSSION: Recommend to continue current medications and symptomatic treatment. Otherwise at this time I recommend to continue with current medication, continue with symptomatic treatment. Add proton pump inhibitors. I will also recommend urine culture and blood culture. Repeat labs also tomorrow. MMODL / IJN: [id number] /
[2017-10-09] MEDS: BISACODYL 10 MG SUPP RECTAL SCH (12:32)
[2017-10-09 13:49] LABS: Appearance,Urine Clear (Clear); Bacteria,Urine Rare /hpf; Bilirubin,Urine Negative (Negative); Blood,Urine Moderate (Negative); Color,Urine Yellow; Glucose,Urine (UA) Negative (Negative); Ketones,Urine Negative (Negative); Leukocyte Esterase,Urine Large (Negative); Mucus,Urine Rare /hpf; Nitrite,Urine Negative (Negative); Protein,Urine Trace (Negative); RBC,Urine 22 /hpf (0-5); Specific Gravity,Urine 1.014 (1.001-1.035); Urobilinogen,Urine <2.0 mg/dL (<2.0); WBC,Urine 17 /hpf (0-5)
--- NOTE | 2017-10-09 15:17 | P.PN ---
Subjective Progress Note Date: 10/09/17 Principal diagnosis: Left lower lobe pneumonia, acute exacerbation of CHF likely acute on chronic diastolic heart failure, right-sided hip fracture, severe COPD, chronic hypoxic respiratory failure 10/09/2017, patient seen eval examined during the rounds clinically patient has been doing well awake and alert breathing comfortably cuff congestion or shortness of breath has significantly improved with IV steroids however she is complaining of mild anxiety likely related to steroid 10/08/2017, patient seen eval examined during the rounds clinically overall remains stable but slightly more short of breath today audible wheezing are present she does have cough congestion and dry and nonproductive will DC the oral prednisone start patient on IV Solu-Medrol 10/07/2017, patient seen eval reexamined during the rounds clinically patient has been doing well still short of breath on activity and exertion is still congested patient has been diuresing very well no obvious distress present patient is being treated with gentle diuresis as well as broad-spectrum antibiotics. The wound culture and urine culture as well as blood culture all of them has been negative Ammann last chest x-ray performed revealed left lower lobe infiltrate overall not much change some pleural reaction on the right base cannot be excluded, and labs reviewed medications reviewed 10/06/2017, patient seen and evaluated examined today she is still short of breath has intermittent wheezing, patient did receive 40 mg of IV furosemide and number almost a liter urine output was noted, patient again received 20 mg of Lasix this morning. Chest x-ray performed earlier today reviewed and compared with the prior x-ray noted to have left lower lobe infiltrate along with interstitial edema and a small right sided pleural effusion cannot be excluded, urine culture is negative blood culture 2 both negative wound culture results are pending so far no growth has been isolated, white cell count is normal patient remains afebrile, BUN/creatinine is slightly up but overall remains in stable range some evidence of prerenal azotemia has been noted. 82-year-old female status post right hip hemiarthroplasty, hypoxia, acute on chronic renal failure and multiple other medical issues. Echo reports preserved LV function. Patient reports wears oxygen at night at home. Patient had developed hypoxia, hyperkalemia, elevated troponins and transferred up to telemetry unit. Evaluated by cardiology with recommendations noted. Telemetry reporting sinus rhythm. Intermittent mild confusion, attempting to cut chicken with a spoon. Passing flatus, no bowel movement. Pain currently controlled. Denies headache, focal deficits, blurred vision. Denies chest pain, palpitations or increasing shortness of breath. Renal function improving, down to 1.17. Blood sugars better controlled. Objective - Vital Signs Vital signs: Vital Signs Temp 98.4 F 10/09/17 07:15 Pulse 82 10/09/17 08:38 Resp 18 10/09/17 07:15 BP 168/67 10/09/17 07:15 Pulse Ox 94 L 10/09/17 07:15 Intake & Output 10/08/17 10/09/17 10/09/17 18:59 06:59 18:59 Intake Total 300 100 Output Total 1000 650 Balance 300 -1000 -550 Weight 99.5 kg Intake: Oral 300 100 Output: Urine 1000 650 Other: Voiding Method Indwelling Catheter Indwelling Catheter Indwelling Catheter - Exam PHYSICAL EXAMINATION: GENERAL: The patient is alert and oriented x3, still appears to be in mild respiratory distress. Well developed, well nourished. HEENT: Pupils are round and equally reacting to light. EOMI. No scleral icterus. No conjunctival pallor. Normocephalic, atraumatic. No pharyngeal erythema. No thyromegaly. CARDIOVASCULAR: S1 and S2 present. No murmurs, rubs, or gallops. PULMONARY: Significant expiratory wheezing, bilateral basal crackles, overall slightly improved compared to yesterday ABDOMEN: Distended tympanic MUSCULOSKELETAL: No joint swelling or deformity. EXTREMITIES: No cyanosis, clubbing, trace bilateral pedal edema. NEUROLOGICAL: Gross neurological examination did not reveal any focal deficits. SKIN: No rashes. Blisters as mentioned above - Labs CBC & Chem 7: 10/09/17 06:25 10/09/17 06:25 Labs: Abnormal Lab Results - Last 24 Hours (Table) 10/08/17 10/08/17 10/09/17 Range/Units 17:38 20:35 06:25 WBC 11.4 H (3.8-10.6) k/uL Hgb 10.6 L (11.4-16.0) gm/dL Hct 33.2 L (34.0-46.0) % Neutrophils # 10.4 H (1.3-7.7) k/uL Lymphocytes # 0.7 L (1.0-4.8) k/uL Sodium (137-145) mmol/L Chloride (98-107) mmol/L Carbon Dioxide (22-30) mmol/L BUN (7-17) mg/dL Creatinine (0.52-1.04) mg/dL Glucose (74-99) mg/dL POC Glucose (mg/dL) 388 H 251 H (75-99) mg/dL Urine Protein (Negative) Urine Blood (Negative) Ur Leukocyte Esterase (Negative) Urine RBC (0-5) /hpf Urine WBC (0-5) /hpf Urine Bacteria (None) /hpf Urine Mucus (None) /hpf 10/09/17 10/09/17 10/09/17 Range/Units 06:25 06:50 11:42 WBC (3.8-10.6) k/uL Hgb (11.4-16.0) gm/dL Hct (34.0-46.0) % Neutrophils # (1.3-7.7) k/uL Lymphocytes # (1.0-4.8) k/uL Sodium 136 L (137-145) mmol/L Chloride 93 L (98-107) mmol/L Carbon Dioxide 37 H (22-30) mmol/L BUN 47 H (7-17) mg/dL Creatinine 1.28 H (0.52-1.04) mg/dL Glucose 181 H (74-99) mg/dL POC Glucose (mg/dL) 211 H 142 H (75-99) mg/dL Urine Protein (Negative) Urine Blood (Negative) Ur Leukocyte Esterase (Negative) Urine RBC (0-5) /hpf Urine WBC (0-5) /hpf Urine Bacteria (None) /hpf Urine Mucus (None) /hpf 10/09/17 Range/Units 13:25 WBC (3.8-10.6) k/uL Hgb (11.4-16.0) gm/dL Hct (34.0-46.0) % Neutrophils # (1.3-7.7) k/uL Lymphocytes # (1.0-4.8) k/uL Sodium (137-145) mmol/L Chloride (98-107) mmol/L Carbon Dioxide (22-30) mmol/L BUN (7-17) mg/dL Creatinine (0.52-1.04) mg/dL Glucose (74-99) mg/dL POC Glucose (mg/dL) (75-99) mg/dL Urine Protein Trace H (Negative) Urine Blood Moderate H (Negative) Ur Leukocyte Esterase Large H (Negative) Urine RBC 22 H (0-5) /hpf Urine WBC 17 H (0-5) /hpf Urine Bacteria Rare H (None) /hpf Urine Mucus Rare H (None) /hpf Microbiology - Last 24 Hours (Table) 10/02/17 23:59 Blood Culture - Final Blood No Growth after 144 hours 10/03/17 00:22 Blood Culture - Final Blood No Growth after 144 hours Assessment and Plan Assessment: Acute COPD exacerbation Left lower lobe subsegmental atelectasis doubt pneumonia as white cell count has been normal patient remains afebrile Acute diastolic heart failure related to volume and fluid overload Acute on chronic hypoxic respirator failure multifactorial related to baseline COPD as well as component of fluid overload Chronic kidney disease stage II will monitor observe renal functions closely with IV furosemide Right hip fracture status post the total hip arthroplasty Morbid obesity Plan: We'll DC the IV Solu-Medrol and start patient on oral prednisone Agree with gentle diuresis Deep breathing exercise incentive spirometry Monitor patient off of antibiotics Monitor renal functions closely Increase activity as tolerated If patient remains stable can be moved out to extended care facility for more definitive intervention like physical therapy and rehab We'll continue to follow this patient outpatient setting DVT prophylaxis as per orthopedics protocol Time with Patient: Greater than 30
[2017-10-09 17:02] LABS: Glucose,Whole Blood 158 mg/dL (75-99)
[2017-10-09] MEDS: methylPREDNISolone 4 MG TAB TAPER PO SCH (19:24)
[2017-10-09 19:42] LABS: Glucose,Whole Blood 196 mg/dL (75-99)
[2017-10-09] MEDS: MELATONIN 3 MG TABLET PO SCH (20:57)
[2017-10-09] MEDS: SENNOSIDES-DOCUSATE SODIUM 1 EACH TAB PO SCH (20:58)
[2017-10-09] MEDS: MONTELUKAST 10 MG TAB PO SCH (20:58)
[2017-10-09] MEDS: PRAVASTATIN SODIUM 80 MG TAB PO SCH (20:59)
[2017-10-09 23:35] LABS: Glucose,Whole Blood 38 mg/dL (75-99)
[2017-10-10 00:05] LABS: Glucose,Whole Blood 34 mg/dL (75-99)
[2017-10-10] MEDS ORDERED: DEXTROSE 50%-WATER 50 ML SYRINGE IVP STA (00:15)
[2017-10-10] MEDS ORDERED: DEXTROSE 50%-WATER 50 ML SYRINGE IVP ONE (00:19)
[2017-10-10 00:27] LABS: Glucose,Whole Blood 34 mg/dL (75-99)
[2017-10-10 00:27] LABS: Glucose,Whole Blood 133 mg/dL (75-99)
[2017-10-10 01:14] LABS: Glucose,Whole Blood 140 mg/dL (75-99)
[2017-10-10 02:26] LABS: Glucose,Whole Blood 115 mg/dL (75-99)
[2017-10-10 03:44] LABS: Glucose,Whole Blood 126 mg/dL (75-99)
[2017-10-10 04:51] LABS: Glucose,Whole Blood 117 mg/dL (75-99)
[2017-10-10 06:45] LABS: Basophils % (A) 0 %; Eosinophils # (A) 0.2 k/uL (0-0.7); Eosinophils % (A) 2 %; HGB 10.4 gm/dL (11.4-16.0); Lymphocytes % (A) 9 %; MCH 27.2 pg (25.0-35.0); MCHC 31.5 g/dL (31.0-37.0); MCV 86.4 fL (80.0-100.0); Mean Platelet Volume 7.2; Monocytes # (A) 0.6 k/uL (0-1.0); Monocytes % (A) 5 %; Neutrophils # (A) 9.1 k/uL (1.3-7.7); Neutrophils % (A) 84 %; Platelet Count 361 k/uL (150-450); RBC 3.83 m/uL (3.80-5.40); RDW 14.9 % (11.5-15.5); WBC 10.8 k/uL (3.8-10.6)
[2017-10-10 06:52] LABS: Calcium 8.5 mg/dL (8.4-10.2); Potassium 4.2 mmol/L (3.5-5.1)
[2017-10-10 07:02] LABS: Glucose,Whole Blood 125 mg/dL (75-99)
[2017-10-10] MEDS: BUDESONIDE 1 MG/2 ML NEBU INHALATION SCH (08:18)
[2017-10-10] MEDS: FORMOTEROL FUMARATE 20 MCG/2 ML NEBU INHALATION SCH (08:18)
[2017-10-10] MEDS: IPRATROPIUM-ALBUTEROL 3 ML NEB INHALATION SCH ×3 (08:18→15:20)
--- NOTE | 2017-10-10 09:06 | P.PN ---
Subjective Progress Note Date: 10/10/17 Principal diagnosis: Right hip hemiarthroplasty This is an 82 year-old female post right hip hemiarthroplasty. This is post-op day 9. The patient was evaluated in the recliner chair at the bedside today. The patient denies nausea, abdominal pain, shortness of breath, and chest pain this morning. She states her pain is controlled at this time. The patient has been up with physical therapy and is a max assist. She has remained afebrile. Her glucose did drop last night to the 30s but now her glucose is stable. Objective - Vital Signs Vital signs: Vital Signs Temp 97.8 F 10/10/17 07:10 Pulse 96 10/10/17 08:36 Resp 18 10/10/17 07:10 BP 159/79 10/10/17 07:10 Pulse Ox 87 L 10/10/17 08:21 Intake & Output 10/09/17 10/10/17 10/10/17 18:59 06:59 18:59 Intake Total 100 780 0 Output Total 650 680 Balance -550 100 0 Weight 111.5 kg Intake: Oral 100 780 0 Output: Urine 650 680 Other: Voiding Method Indwelling Catheter Indwelling Catheter # Voids 1 # Bowel Movements 1 1 - Exam The patient does not appear in acute distress. Alert and orientated x3. Dressing is intact. It appears to be some serosanguineous drainage from the distal end of the incision. Incision appears fine with no erythema or active drainage. There are healing blisters on the posterior thigh and medial thigh possibly due to a reaction to the tape. Calf is soft and nontender. Good foot and ankle motion without difficulty. Sensation and circulatory status is intact. - Labs CBC & Chem 7: 10/10/17 06:05 10/10/17 06:05 Labs: Abnormal Lab Results - Last 24 Hours (Table) 10/09/17 10/09/17 10/09/17 Range/Units 11:42 13:25 17:00 WBC (3.8-10.6) k/uL Hgb (11.4-16.0) gm/dL Hct (34.0-46.0) % Neutrophils # (1.3-7.7) k/uL Chloride (98-107) mmol/L Carbon Dioxide (22-30) mmol/L BUN (7-17) mg/dL Creatinine (0.52-1.04) mg/dL Glucose (74-99) mg/dL POC Glucose (mg/dL) 142 H 158 H (75-99) mg/dL Urine Protein Trace H (Negative) Urine Blood Moderate H (Negative) Ur Leukocyte Esterase Large H (Negative) Urine RBC 22 H (0-5) /hpf Urine WBC 17 H (0-5) /hpf Urine Bacteria Rare H (None) /hpf Urine Mucus Rare H (None) /hpf 10/09/17 10/09/17 10/10/17 Range/Units 19:39 23:33 00:02 WBC (3.8-10.6) k/uL Hgb (11.4-16.0) gm/dL Hct (34.0-46.0) % Neutrophils # (1.3-7.7) k/uL Chloride (98-107) mmol/L Carbon Dioxide (22-30) mmol/L BUN (7-17) mg/dL Creatinine (0.52-1.04) mg/dL Glucose (74-99) mg/dL POC Glucose (mg/dL) 196 H 38 L 34 L (75-99) mg/dL Urine Protein (Negative) Urine Blood (Negative) Ur Leukocyte Esterase (Negative) Urine RBC (0-5) /hpf Urine WBC (0-5) /hpf Urine Bacteria (None) /hpf Urine Mucus (None) /hpf 10/10/17 10/10/17 10/10/17 Range/Units 00:13 00:25 00:27 WBC (3.8-10.6) k/uL Hgb (11.4-16.0) gm/dL Hct (34.0-46.0) % Neutrophils # (1.3-7.7) k/uL Chloride (98-107) mmol/L Carbon Dioxide (22-30) mmol/L BUN (7-17) mg/dL Creatinine (0.52-1.04) mg/dL Glucose 123 H (74-99) mg/dL POC Glucose (mg/dL) 34 L 133 H (75-99) mg/dL Urine Protein (Negative) Urine Blood (Negative) Ur Leukocyte Esterase (Negative) Urine RBC (0-5) /hpf Urine WBC (0-5) /hpf Urine Bacteria (None) /hpf Urine Mucus (None) /hpf 10/10/17 10/10/17 10/10/17 Range/Units 01:02 02:14 03:41 WBC (3.8-10.6) k/uL Hgb (11.4-16.0) gm/dL Hct (34.0-46.0) % Neutrophils # (1.3-7.7) k/uL Chloride (98-107) mmol/L Carbon Dioxide (22-30) mmol/L BUN (7-17) mg/dL Creatinine (0.52-1.04) mg/dL Glucose (74-99) mg/dL POC Glucose (mg/dL) 140 H 115 H 126 H (75-99) mg/dL Urine Protein (Negative) Urine Blood (Negative) Ur Leukocyte Esterase (Negative) Urine RBC (0-5) /hpf Urine WBC (0-5) /hpf Urine Bacteria (None) /hpf Urine Mucus (None) /hpf 10/10/17 10/10/17 10/10/17 Range/Units 04:49 06:05 06:05 WBC 10.8 H (3.8-10.6) k/uL Hgb 10.4 L (11.4-16.0) gm/dL Hct 33.0 L (34.0-46.0) % Neutrophils # 9.1 H (1.3-7.7) k/uL Chloride 97 L (98-107) mmol/L Carbon Dioxide 37 H (22-30) mmol/L BUN 44 H (7-17) mg/dL Creatinine 1.22 H (0.52-1.04) mg/dL Glucose 111 H (74-99) mg/dL POC Glucose (mg/dL) 117 H (75-99) mg/dL Urine Protein (Negative) Urine Blood (Negative) Ur Leukocyte Esterase (Negative) Urine RBC (0-5) /hpf Urine WBC (0-5) /hpf Urine Bacteria (None) /hpf Urine Mucus (None) /hpf 10/10/17 Range/Units 06:55 WBC (3.8-10.6) k/uL Hgb (11.4-16.0) gm/dL Hct (34.0-46.0) % Neutrophils # (1.3-7.7) k/uL Chloride (98-107) mmol/L Carbon Dioxide (22-30) mmol/L BUN (7-17) mg/dL Creatinine (0.52-1.04) mg/dL Glucose (74-99) mg/dL POC Glucose (mg/dL) 125 H (75-99) mg/dL Urine Protein (Negative) Urine Blood (Negative) Ur Leukocyte Esterase (Negative) Urine RBC (0-5) /hpf Urine WBC (0-5) /hpf Urine Bacteria (None) /hpf Urine Mucus (None) /hpf Assessment and Plan (1) Status post hip hemiarthroplasty Current Visit: Yes Status: Acute Code(s): Z96.649 - PRESENCE OF UNSPECIFIED ARTIFICIAL HIP JOINT SNOMED Code(s): 959148301 (2) Displaced fracture of right femoral neck Current Visit: Yes Status: Acute Code(s): S72.001A - FRACTURE OF UNSP PART OF NECK OF RIGHT FEMUR, INIT SNOMED Code(s): 5838268 Plan: 1. Continue pain control 2. Anticoagulation per internal medicine 3. Continue physical therapy and ambulation 4. Continue to follow with internal medicine regarding her multiple medical issues. 5. Anticipate discharge to skilled rehab today depending on her medical course.
[2017-10-10] MEDS: hydrALAZINE HCL 50 MG TAB PO SCH ×2 (09:07→15:57)
[2017-10-10] MEDS: HEPARIN SODIUM,PORCINE 5,000 UNIT/ML 1 ML VIAL SQ SCH (09:08)
[2017-10-10] MEDS: amLODIPine 5 MG TAB PO SCH (09:08)
[2017-10-10] MEDS: ISOSORBIDE MONONITRATE ER 30 MG TAB.ER.24H PO SCH (09:08)
[2017-10-10] MEDS: CARVEDILOL 12.5 MG TAB PO SCH ×2 (09:08→17:00)
[2017-10-10] MEDS: PANTOPRAZOLE 40 MG/10 ML VIAL IVP SCH (09:08)
[2017-10-10] MEDS: BISACODYL 10 MG SUPP RECTAL SCH (09:09)
[2017-10-10] MEDS: TRIAMCINOLONE 0.1% CREAM 80 GM TUBE TOPICAL SCH (09:19)
[2017-10-10] MEDS: INSULIN ASPART 100 UNIT/ML 1 ML 10 ML VIAL SQ SCH ×3 (10:04→17:23)
[2017-10-10] MEDS: methylPREDNISolone 4 MG TAB TAPER PO SCH (10:10)
[2017-10-10] MEDS: INSULN ASP PRT/INSULIN ASPART 100 UNIT/ML 10 ML VIAL SQ SCH (10:10)
[2017-10-10 11:21] LABS: Glucose,Whole Blood 304 mg/dL (75-99)
[2017-10-10 11:39] VITALS: BMI 46.4
--- NOTE | 2017-10-10 11:56 | P.DS ---
Providers Date of admission: 09/29/17 16:50 Expected date of discharge: 10/10/17 Attending physician: Alexsander Murrieta Consults: 09/29/17 16:22 Consult Physician Routine Consulting Provider: Mark Siegel Consult Reason/Comments: rt hip pain Do you want consulting provider notified?: Yes 09/30/17 08:49 Consult Physician Urgent Consulting Provider: Bijan Harris Consult Reason/Comments: Surgical clearance; right hip fracture Do you want consulting provider notified?: Yes 09/30/17 14:58 Consult Physician Routine Consulting Provider: Rick Martin Consult Reason/Comments: high k Do you want consulting provider notified?: Yes 10/02/17 23:29 Consult Physician Routine Consulting Provider: Angel Grijalva Consult Reason/Comments: COPD Do you want consulting provider notified?: Yes, Notify in am 10/03/17 17:05 Consult Physician Routine Consulting Provider: Antonio Andrade Consult Reason/Comments: Temp Do you want consulting provider notified?: Yes Primary care physician: Dewayne Aguilar Hospital Course: Final Diagnoses: -Status post right hip fracture and arthroplasty -Acute hypoxemia hypoxic respiratory failure, possibly a combination of heart failure exacerbation chronic diastolic dysfunction with acute exacerbation along with acute COPD exacerbation. -Acute renal failure: Prerenal azotemia secondary to possibly heart failure improved with diuretic therapy -Severe constipation and abdominal distention: Secondary to opiates, improving -Chronic kidney disease stage 2 -Hypertension -. Anemia, stable hemoglobin -Hypoglycemia with uncontrolled Diabetes mellitus type 2, improving -Troponin 0.05 indeterminate Hospital course: This is an 82-year-old female admitted with right hip fracture , status post hemiarthroplasty, acute CHF and COPD exacerbation, acute renal failure, constipation and multiple other medical issues. Evaluated/treated by orthopedic surgery, infectious disease, nephrology, pulmonary and cardiology. Significant clinical improvement. Cleared by all consults for discharge. Patient is being discharged to [facility] in a stable condition with guarded prognosis. EXAMINATION: GENERAL: The patient is alert and oriented x3, no acute distress CARDIOVASCULAR: S1 and S2 present. No murmurs, rubs, or gallops. PULMONARY: Bilateral scattered ABDOMEN: Soft, nontender, positive bowel sounds EXTREMITIES: Status post surgery NEUROLOGICAL: Gross neurological examination did not reveal any focal deficits. The impression and plan of care has been dictated as directed. : I performed a history and examination of this patient, discussed the same with the dictator. I agree with the dictator's note ,documented as a scribe. Any additional findings or plans will be noted. Time taken: 35 minutes Patient Condition at Discharge: Stable Plan - Discharge Summary Discharge Rx Participant: No New Discharge Prescriptions: New Sennosides-Docusate Sodium [Senokot-S] 2 tab PO DAILY #30 tablet traMADol HCl [Ultram] 50 - 100 mg PO Q4-6H PRN #84 tab PRN Reason: Pain Acetaminophen Tab [Tylenol] 650 mg PO Q6HR PRN tab PRN Reason: Fever And/ Or Pain Bisacodyl [Dulcolax] 10 mg RECTAL DAILY supp Insuln Asp Prt/Insulin Aspart [NovoLOG MIX 70-30 VIAL] 18 unit SQ AC-SUPPER vial Ipratropium-Albuterol Nebulize [Duoneb 0.5 mg-3 mg/3 ml Soln] 3 ml INHALATION RT-QID ampul.neb Lactulose [Cephulac] 30 gm PO Q4HR PRN ml PRN Reason: Constipation methylPREDNISolone Dose Pack [Medrol Dose Pack] 24 mg PO DAILY tab Montelukast [Singulair] 10 mg PO HS tab Triamcinolone 0.1% Cream [Kenalog 0.1% Cream] 1 applic TOPICAL BID applic INSULIN LISPRO (HumaLOG) [humaLOG] 0 unit SQ ACHS #1 vial Continue Cholecalciferol [Vitamin D3] 2,000 unit PO DAILY Insuln Asp Prt/Insulin Aspart [NovoLOG MIX 70-30 VIAL] 28 unit SQ AC-BRKFST Pravastatin Sodium [Pravachol] 80 mg PO HS Nitroglycerin Sl Tabs [Nitrostat] 0.4 mg SUBLINGUAL Q5M PRN PRN Reason: Chest Pain Lansoprazole [Prevacid] 30 mg PO DAILY Isosorbide Mononitrate [Imdur] 30 mg PO DAILY hydrALAZINE HCL [Apresoline] 50 mg PO TID Carvedilol 25 mg PO BID Ibandronate Sodium [Boniva] 150 mg PO QMONTH amLODIPine [Norvasc] 5 mg PO BID Albuterol Nebulized [Ventolin Nebulized] 2.5 mg INHALATION RT-Q4H PRN PRN Reason: Shortness Of Breath Discontinued Insuln Asp Prt/Insulin Aspart [NovoLOG MIX 70-30 VIAL] 20 unit SQ AC-SUPPER Enalapril Maleate [Vasotec] 10 mg PO BID Acetaminophen-Codeine 300-30mg [Tylenol w/codeine #3] 1 tab PO Q4H PRN 3 Days #18 tablet PRN Reason: Pain Ibuprofen 600 mg PO TID #20 tablet Nitrofurantoin Monohyd/M-Cryst [Macrobid] 100 mg PO Q12HR #14 cap Ipratropium [place] [Atrovent Hfa] 2 puff INHALATION RT-QID PRN PRN Reason: Shortness Of Breath buPROPion HCL [Wellbutrin SR] 150 mg PO BID Hydrochlorothiazide [Hydrodiuril] 25 mg PO DAILY Aspirin EC [Ecotrin Low Dose] 81 mg PO DAILY Discharge Medication List Carvedilol 25 mg PO BID 12/01/13 [History] Cholecalciferol [Vitamin D3] 2,000 unit PO DAILY 12/01/13 [History] Ibandronate Sodium [Boniva] 150 mg PO QMONTH 12/01/13 [History] Insuln Asp Prt/Insulin Aspart [NovoLOG MIX 70-30 VIAL] 28 unit SQ AC-BRKFST [History] Isosorbide Mononitrate [Imdur] 30 mg PO DAILY 12/01/13 [History] Lansoprazole [Prevacid] 30 mg PO DAILY 12/01/13 [History] Nitroglycerin Sl Tabs [Nitrostat] 0.4 mg SUBLINGUAL Q5M PRN 12/01/13 [History] Pravastatin Sodium [Pravachol] 80 mg PO HS 12/01/13 [History] amLODIPine [Norvasc] 5 mg PO BID 12/01/13 [History] hydrALAZINE HCL [Apresoline] 50 mg PO TID 12/01/13 [History] Albuterol Nebulized [Ventolin Nebulized] 2.5 mg INHALATION RT-Q4H PRN 09/29/17 [ History] Sennosides-Docusate Sodium [Senokot-S] 2 tab PO DAILY #30 tablet 10/08/17 [Rx] traMADol HCl [Ultram] 50 - 100 mg PO Q4-6H PRN #84 tab 10/08/17 [Rx] Acetaminophen Tab [Tylenol] 650 mg PO Q6HR PRN tab 10/10/17 [Rx] Bisacodyl [Dulcolax] 10 mg RECTAL DAILY supp 10/10/17 [Rx] INSULIN LISPRO (HumaLOG) [humaLOG] 0 unit SQ ACHS #1 vial 10/10/17 [Rx] Insuln Asp Prt/Insulin Aspart [NovoLOG MIX 70-30 VIAL] 18 unit SQ AC-SUPPER vial 10/10/17 [Rx] Ipratropium-Albuterol Nebulize [Duoneb 0.5 mg-3 mg/3 ml Soln] 3 ml INHALATION RT -QID ampul.neb 10/10/17 [Rx] Lactulose [Cephulac] 30 gm PO Q4HR PRN ml 10/10/17 [Rx] Montelukast [Singulair] 10 mg PO HS tab 10/10/17 [Rx] Triamcinolone 0.1% Cream [Kenalog 0.1% Cream] 1 applic TOPICAL BID applic 10/10 [Rx] methylPREDNISolone Dose Pack [Medrol Dose Pack] 24 mg PO DAILY tab 10/10/17 [Rx ] Follow up Appointment(s)/Referral(s): [facility] [Provider Group] - 10/16/17 2:00 pm Andre Skinner MD [REFERRING] - 3 Days (while at [facility]) Maury Crawford DO [Doctor of Osteopathic Medicine] - 11/07/17 10:30 am Angel Grijalva MD [STAFF PHYSICIAN] - 10/18/17 11:15 am (At the [facility] office) Rick Martin DO [STAFF PHYSICIAN] - 1 Week (Office will call patient with follow-up appt.) Dewayne Aguilar DO [Primary Care Provider] - 1 Week (after dc from [facility]) Ambulatory/Diagnostic Orders: Miscellaneous Radiology Order [RAD.AMB] Time Frame: 3 Weeks, Location: None Selected Patient Instructions/Handouts: Hypoglycemia in a Person with Diabetes (DC), Anterior Hip Replacement (DC) Activity/Diet/Wound Care/Special Instructions: Felch Medi Toe-touch weightbearing with a walker Follow Hip precautions Use Abductor pillow as instructed May shower if no drainage from incision Keep incision clean and dry Call [facility] [phone] with questions or concerns CBC,bmp in 3 days Discharge Disposition: TRANSFER TO SNF/ECF
[2017-10-10 14:37] VITALS: BP 142/55; RESP 16; TEMP 98.8
[2017-10-10 15:33] VITALS: PULSE 80
[2017-10-10 17:04] LABS: Glucose,Whole Blood 258 mg/dL (75-99)
[2017-10-10] MEDS ORDERED: INSULN ASP PRT/INSULIN ASPART 100 UNIT/ML 10 ML VIAL SQ SCH (17:30)
--- NOTE | 2017-10-10 18:34 | P.PN ---
Subjective Progress Note Date: 10/10/17 Principal diagnosis: Left lower lobe pneumonia, acute exacerbation of CHF likely acute on chronic diastolic heart failure, right-sided hip fracture, severe COPD, chronic hypoxic respiratory failure 10/10/2017, patient seen eval examined during the rounds clinically patient has been doing well awake and alert breathing comfortably no obvious distress present hemodynamic status stable, patient is being planned for possible transfer extended care facility later on today would recommend to continue supplemental oxygen breathing treatment deep breathing sense incentive spirometry patient can finish Medrol Dosepak 10/09/2017, patient seen eval examined during the rounds clinically patient has been doing well awake and alert breathing comfortably cuff congestion or shortness of breath has significantly improved with IV steroids however she is complaining of mild anxiety likely related to steroid 10/08/2017, patient seen eval examined during the rounds clinically overall remains stable but slightly more short of breath today audible wheezing are present she does have cough congestion and dry and nonproductive will DC the oral prednisone start patient on IV Solu-Medrol 10/07/2017, patient seen eval reexamined during the rounds clinically patient has been doing well still short of breath on activity and exertion is still congested patient has been diuresing very well no obvious distress present patient is being treated with gentle diuresis as well as broad-spectrum antibiotics. The wound culture and urine culture as well as blood culture all of them has been negative Ammann last chest x-ray performed revealed left lower lobe infiltrate overall not much change some pleural reaction on the right base cannot be excluded, and labs reviewed medications reviewed 10/06/2017, patient seen and evaluated examined today she is still short of breath has intermittent wheezing, patient did receive 40 mg of IV furosemide and number almost a liter urine output was noted, patient again received 20 mg of Lasix this morning. Chest x-ray performed earlier today reviewed and compared with the prior x-ray noted to have left lower lobe infiltrate along with interstitial edema and a small right sided pleural effusion cannot be excluded, urine culture is negative blood culture 2 both negative wound culture results are pending so far no growth has been isolated, white cell count is normal patient remains afebrile, BUN/creatinine is slightly up but overall remains in stable range some evidence of prerenal azotemia has been noted. 82-year-old female status post right hip hemiarthroplasty, hypoxia, acute on chronic renal failure and multiple other medical issues. Echo reports preserved LV function. Patient reports wears oxygen at night at home. Patient had developed hypoxia, hyperkalemia, elevated troponins and transferred up to telemetry unit. Evaluated by cardiology with recommendations noted. Telemetry reporting sinus rhythm. Intermittent mild confusion, attempting to cut chicken with a spoon. Passing flatus, no bowel movement. Pain currently controlled. Denies headache, focal deficits, blurred vision. Denies chest pain, palpitations or increasing shortness of breath. Renal function improving, down to 1.17. Blood sugars better controlled. Objective - Vital Signs Vital signs: Vital Signs Temp 98.8 F 10/10/17 14:30 Pulse 80 10/10/17 15:33 Resp 16 10/10/17 14:30 BP 142/55 10/10/17 14:30 Pulse Ox 93 L 10/10/17 14:30 Intake & Output 10/09/17 10/10/17 10/10/17 18:59 06:59 18:59 Intake Total 100 780 690 Output Total 650 680 450 Balance -550 100 240 Weight 111.5 kg 111.5 kg Intake: Oral 100 780 690 Output: Urine 650 680 450 Uretheral (Wing) 450 Other: Voiding Method Indwelling Catheter Indwelling Catheter Indwelling Catheter # Voids 1 # Bowel Movements 1 1 - Exam PHYSICAL EXAMINATION: GENERAL: The patient is alert and oriented x3, still appears to be in mild respiratory distress. Well developed, well nourished. HEENT: Pupils are round and equally reacting to light. EOMI. No scleral icterus. No conjunctival pallor. Normocephalic, atraumatic. No pharyngeal erythema. No thyromegaly. CARDIOVASCULAR: S1 and S2 present. No murmurs, rubs, or gallops. PULMONARY: Significant expiratory wheezing, bilateral basal crackles, overall slightly improved compared to yesterday ABDOMEN: Distended tympanic MUSCULOSKELETAL: No joint swelling or deformity. EXTREMITIES: No cyanosis, clubbing, trace bilateral pedal edema. NEUROLOGICAL: Gross neurological examination did not reveal any focal deficits. SKIN: No rashes. Blisters as mentioned above - Labs CBC & Chem 7: 10/10/17 06:05 10/10/17 06:05 Labs: Abnormal Lab Results - Last 24 Hours (Table) 10/09/17 10/09/17 10/10/17 Range/Units 19:39 23:33 00:02 WBC (3.8-10.6) k/uL Hgb (11.4-16.0) gm/dL Hct (34.0-46.0) % Neutrophils # (1.3-7.7) k/uL Chloride (98-107) mmol/L Carbon Dioxide (22-30) mmol/L BUN (7-17) mg/dL Creatinine (0.52-1.04) mg/dL Glucose (74-99) mg/dL POC Glucose (mg/dL) 196 H 38 L 34 L (75-99) mg/dL 10/10/17 10/10/17 10/10/17 Range/Units 00:13 00:25 00:27 WBC (3.8-10.6) k/uL Hgb (11.4-16.0) gm/dL Hct (34.0-46.0) % Neutrophils # (1.3-7.7) k/uL Chloride (98-107) mmol/L Carbon Dioxide (22-30) mmol/L BUN (7-17) mg/dL Creatinine (0.52-1.04) mg/dL Glucose 123 H (74-99) mg/dL POC Glucose (mg/dL) 34 L 133 H (75-99) mg/dL 10/10/17 10/10/17 10/10/17 Range/Units 01:02 02:14 03:41 WBC (3.8-10.6) k/uL Hgb (11.4-16.0) gm/dL Hct (34.0-46.0) % Neutrophils # (1.3-7.7) k/uL Chloride (98-107) mmol/L Carbon Dioxide (22-30) mmol/L BUN (7-17) mg/dL Creatinine (0.52-1.04) mg/dL Glucose (74-99) mg/dL POC Glucose (mg/dL) 140 H 115 H 126 H (75-99) mg/dL 10/10/17 10/10/17 10/10/17 Range/Units 04:49 06:05 06:05 WBC 10.8 H (3.8-10.6) k/uL Hgb 10.4 L (11.4-16.0) gm/dL Hct 33.0 L (34.0-46.0) % Neutrophils # 9.1 H (1.3-7.7) k/uL Chloride 97 L (98-107) mmol/L Carbon Dioxide 37 H (22-30) mmol/L BUN 44 H (7-17) mg/dL Creatinine 1.22 H (0.52-1.04) mg/dL Glucose 111 H (74-99) mg/dL POC Glucose (mg/dL) 117 H (75-99) mg/dL 10/10/17 10/10/17 10/10/17 Range/Units 06:55 11:13 17:01 WBC (3.8-10.6) k/uL Hgb (11.4-16.0) gm/dL Hct (34.0-46.0) % Neutrophils # (1.3-7.7) k/uL Chloride (98-107) mmol/L Carbon Dioxide (22-30) mmol/L BUN (7-17) mg/dL Creatinine (0.52-1.04) mg/dL Glucose (74-99) mg/dL POC Glucose (mg/dL) 125 H 304 H 258 H (75-99) mg/dL Microbiology - Last 24 Hours (Table) 10/09/17 12:08 Blood Culture - Preliminary Blood No Growth after 24 hours Assessment and Plan Assessment: Acute COPD exacerbation Left lower lobe subsegmental atelectasis doubt pneumonia as white cell count has been normal patient remains afebrile Acute diastolic heart failure related to volume and fluid overload Acute on chronic hypoxic respirator failure multifactorial related to baseline COPD as well as component of fluid overload Chronic kidney disease stage II will monitor observe renal functions closely with IV furosemide Right hip fracture status post the total hip arthroplasty Morbid obesity Plan: Patient can finish tapering steroids at ECF Agree with gentle diuresis Deep breathing exercise incentive spirometry Monitor patient off of antibiotics Monitor renal functions closely Increase activity as tolerated If patient remains stable can be moved out to extended care facility for more definitive intervention like physical therapy and rehab We'll continue to follow this patient outpatient setting DVT prophylaxis as per orthopedics protocol Time with Patient: Greater than 30
--- NOTE | 2017-10-10 18:35 | PN ---
PROGRESS NOTE The patient is seen for followup for acute kidney injury. Renal function has improved significantly. The patient is off of IV fluids. She received Lasix on and off but recently has not received any diuretics. She will be most likely discharged today. PHYSICAL EXAMINATION: Blood pressure was 142/55, heart rate 74 per minute. She is afebrile. Examination of the heart: S1, S2. Examination of the lungs: Bilateral breath sounds are heard. Abdomen is soft, distended, nontender. Examination lower extremity shows improved edema. OUTDOOR STUDIES PROFESSOR exam is grossly intact. LAB: Show serum creatinine 1.2 today. Sodium 138, potassium 4.2, CO2 is 37. Hemoglobin 10.4 g/dL. ASSESSMENT: 1. Acute kidney injury, nonoliguric, mostly acute tubular necrosis, currently improved. 2. Volume overload, status post few doses of Lasix, currently improved. 3. Status post right hip hemiarthroplasty. 4. Left lower lobe atelectasis. 5. Fluid overload currently improved. 6. Acute on top of chronic congestive heart failure mainly diastolic, currently stable with no clinical evidence of heart failure. PLAN: Patient can be discharged from nephrology standpoint. Monitor for use of diuretics as outpatient depending on her volume status. MMODL / IJN: [id number] /
== END 2017-10-10 17:30 | DRG 469 ==
LOC: EC 14:35 → 6SEL 16:50 → 3SUR 10-02 20:51
PROVIDERS: ADMIT Hospitalist; ATTEND Hospitalist
PROC: 0SRR01A Replacement of Right Hip Joint, Femoral Surface with Metal Synthetic Substitute, Uncemented, Open Approach (ICD-10-PCS; principal; 2017-10-01 11:15)
DX: S72.001A Fracture of unspecified part of neck of right femur, initial encounter for closed fracture (principal); N17.0 Acute kidney failure with tubular necrosis; J96.21 Acute and chronic respiratory failure with hypoxia; I50.33 Acute on chronic diastolic (congestive) heart failure; Z68.42 Body mass index [BMI] 45.0-49.9, adult; J98.11 Atelectasis; J44.1 Chronic obstructive pulmonary disease with (acute) exacerbation; I13.0 Hypertensive heart and chronic kidney disease with heart failure and stage 1 through stage 4 chronic kidney disease, or unspecified chronic kidney disease; E11.22 Type 2 diabetes mellitus with diabetic chronic kidney disease; E11.42 Type 2 diabetes mellitus with diabetic polyneuropathy; E11.649 Type 2 diabetes mellitus with hypoglycemia without coma; E66.01 Morbid (severe) obesity due to excess calories; E87.5 Hyperkalemia; N18.3 Chronic kidney disease, stage 3 (moderate); I08.1 Rheumatic disorders of both mitral and tricuspid valves; R62.7 Adult failure to thrive; S80.829A Blister (nonthermal), unspecified lower leg, initial encounter; R32 Unspecified urinary incontinence; K59.00 Constipation, unspecified; I25.10 Atherosclerotic heart disease of native coronary artery without angina pectoris; D50.9 Iron deficiency anemia, unspecified; E04.2 Nontoxic multinodular goiter; E78.5 Hyperlipidemia, unspecified; I25.2 Old myocardial infarction; L40.9 Psoriasis, unspecified; T39.395A Adverse effect of other nonsteroidal anti-inflammatory drugs [NSAID], initial encounter; T46.4X5A Adverse effect of angiotensin-converting-enzyme inhibitors, initial encounter; K21.9 Gastro-esophageal reflux disease without esophagitis; Z99.81 Dependence on supplemental oxygen; Z71.3 Dietary counseling and surveillance; Z79.82 Long term (current) use of aspirin; Z79.4 Long term (current) use of insulin; Z79.1 Long term (current) use of non-steroidal anti-inflammatories (NSAID); Z79.899 Other long term (current) drug therapy; Z87.01 Personal history of pneumonia (recurrent); Z86.79 Personal history of other diseases of the circulatory system; Z87.891 Personal history of nicotine dependence; Z90.49 Acquired absence of other specified parts of digestive tract; Z95.5 Presence of coronary angioplasty implant and graft; Z82.5 Family history of asthma and other chronic lower respiratory diseases; Z80.9 Family history of malignant neoplasm, unspecified; F41.9 Anxiety disorder, unspecified; T38.0X5A Adverse effect of glucocorticoids and synthetic analogues, initial encounter; R26.2 Difficulty in walking, not elsewhere classified
CPT/HCPCS: 36415; 71045; 72110; 72170; 73501; 73502; 74018; 74176; 80048; 80053; 80202; 81001; 81003; 82150; 82550; 82553; 82728; 82947; 83036; 83540; 83550; 83605; 83690; 83735; 83880; 84132; 84484; 85025; 85027; 86850; 86900; 86901; 87040; 87070; 87086; 87205; 88305; 88311; 93005; 93306; 94640; 94760; 96374; 96375; 99284; 99285

== ENCOUNTER 2017-12-21 00:37 | Inpatient (IN) | payer MEDICARE, BC ==
[2017-12-21] MEDS ORDERED: IPRATROPIUM-ALBUTEROL 3 ML NEB INHALATION STA (00:45)
[2017-12-21] MEDS ORDERED: FUROSEMIDE 10 MG/ML 4 ML VIAL IV STA ×2 (00:45→18:37)
[2017-12-21] MEDS ORDERED: methylPREDNISolone SOD SUCCI 125 MG/2 ML VIAL IV STA (00:45)
--- NOTE | 2017-12-21 00:46 | ED ---
SOB HPI - General Stated Complaint: MAXIMO Time Seen by Provider: 12/21/17 00:45 - History of Present Illness Initial Comments: Keysha is an 82-year-old female with extensive past medical history presents the ED today in acute respiratory distress. Per EMS they were contacted by the patient's daughter reported the patient had an increased work of breathing. Patient has history of COPD and CHF. On initial evaluation the patient has 2 word dyspnea and is only able to answer yes no questions. Patient denies chest pain, palpitations, nausea, vomiting. Patient reports shortness of breath with minimal improvement with breathing treatments at home. Patient reports she has never been on BiPAP before. son arrived at bedside. She reports that she has been checking on her mom recently. She states that this evening her mom seemed to be having more trouble breathing and then became very sleepy but had increased work of breathing so she called 911 for evaluation. Her mother did have hip surgery approximately 6 weeks ago but has been participating in physical therapy begrudgingly. - Related Data Home Medications Medication Instructions Recorded Confirmed Carvedilol 25 mg PO BID 12/01/13 09/29/17 Cholecalciferol [Vitamin D3] 2,000 unit PO DAILY 12/01/13 09/29/17 Ibandronate Sodium [Boniva] 150 mg PO QMONTH 12/01/13 09/29/17 Insuln Asp Prt/Insulin Aspart 28 unit SQ AC-BRKFST 12/01/13 09/29/17 [NovoLOG MIX 70-30 VIAL] Isosorbide Mononitrate [Imdur] 30 mg PO DAILY 12/01/13 09/29/17 Lansoprazole [Prevacid] 30 mg PO DAILY 12/01/13 09/29/17 Nitroglycerin Sl Tabs [Nitrostat] 0.4 mg SUBLINGUAL Q5M PRN 12/01/13 09/29/17 Pravastatin Sodium [Pravachol] 80 mg PO HS 12/01/13 09/29/17 amLODIPine [Norvasc] 5 mg PO BID 12/01/13 09/29/17 hydrALAZINE HCL [Apresoline] 50 mg PO TID 12/01/13 09/29/17 Albuterol Nebulized [Ventolin 2.5 mg INHALATION RT-Q4H PRN 09/29/17 09/29/17 Nebulized] Previous Rx's Medication Instructions Recorded Sennosides-Docusate Sodium 2 tab PO DAILY #30 tablet 10/08/17 [Senokot-S] traMADol HCl [Ultram] 50 - 100 mg PO Q4-6H PRN #84 tab 10/08/17 Acetaminophen Tab [Tylenol] 650 mg PO Q6HR PRN tab 10/10/17 Bisacodyl [Dulcolax] 10 mg RECTAL DAILY supp 10/10/17 INSULIN LISPRO (HumaLOG) [humaLOG] 0 unit SQ ACHS #1 vial 10/10/17 Insuln Asp Prt/Insulin Aspart 18 unit SQ AC-SUPPER vial 10/10/17 [NovoLOG MIX 70-30 VIAL] Ipratropium-Albuterol Nebulize 3 ml INHALATION RT-QID ampul.neb 10/10/17 [Duoneb 0.5 mg-3 mg/3 ml Soln] Lactulose [Cephulac] 30 gm PO Q4HR PRN ml 10/10/17 Montelukast [Singulair] 10 mg PO HS tab 10/10/17 Triamcinolone 0.1% Cream [Kenalog 1 applic TOPICAL BID applic 10/10/17 0.1% Cream] methylPREDNISolone Dose Pack 24 mg PO DAILY tab 10/10/17 [Medrol Dose Pack] Allergies Allergy/AdvReac Type Severity Reaction Status Date / Time No Known Allergies Allergy Verified 09/29/17 17:25 Review of Systems ROS Statement: Those systems with pertinent positive or pertinent negative responses have been documented in the HPI. ROS Other: All systems not noted in ROS Statement are negative. Past Medical History Past Medical History: COPD, Diabetes Mellitus, GERD/Reflux, Hyperlipidemia, Hypertension, Myocardial Infarction ([place]), Pneumonia Additional Past Medical History / Comment(s): aneurysm splenic artery, nontoxic multinodular goiter per medical history from Dr. Aguilar office, psoriasis, polyneuropathy Last Myocardial Infarction Date:: 2005 History of Any Multi-Drug Resistant Organisms: None Reported Past Surgical History: Cholecystectomy, Heart Catheterization With Stent Past Anesthesia/Blood Transfusion Reactions: No Reported Reaction Date of Last Stent Placement:: 2005? Past Psychological History: No Psychological Hx Reported Smoking Status: Former smoker Past Alcohol Use History: None Reported Additional Past Alcohol Use History / Comment(s): STARTED SMOKING AT AGE 15 SMOKED LESS THAN 1 PPD QUIT IN 2005, HAS AN RARE DRINK NO DRUG HX. patient has been living alone with family members nearby and assist as needed. Past Drug Use History: None Reported - Past Family History Father Family Medical History: COPD Additional Family Medical History / Comment(s): DAD IN HIS 60'S Mother Family Medical History: Cancer Additional Family Medical History / Comment(s): MOM IN HER EARLY 70'S General Exam - General Exam Comments Initial Comments: Physical Exam GENERAL: Chronically ill-appearing obese female in respiratory distress HENT: Normocephalic, Atraumatic. EYES: PERRL, EOMI PULMONARY: Tachypneic, expiratory wheezing in all lung [place], crackles at the bases CARDIOVASCULAR: There is a regular rate and rhythm without any murmurs gallops or rubs. ABDOMEN: Soft and nontender with normal bowel sounds. SKIN: Skin changes on the bilateral lower [place] is consistent with chronic venous stasis : Deferred NEUROLOGIC: Patient is alert and oriented x3. Moving all extremities spontaneously MUSCULOSKELETAL: Normal extremities with adequate strength and full range of motion. No lower extremity swelling or edema. No calf tenderness. 2+ pitting edema of the bilateral lower extremities PSYCHIATRIC: Normal psychiatric evaluation. Limitations: no limitations Course Vital Signs 12/21/17 12/21/17 12/21/17 00:49 00:56 01:04 Pulse Rate 73 79 69 Respiratory 30 H 28 H 29 H Rate Blood Pressure 168/86 O2 Sat by Pulse 98 95 Oximetry 12/21/17 12/21/17 12/21/17 01:06 01:28 02:00 Pulse Rate 80 56 L Respiratory 22 30 H 15 Rate Blood Pressure 142/92 O2 Sat by Pulse 96 Oximetry 12/21/17 03:00 Pulse Rate 55 L Respiratory 17 Rate Blood Pressure 162/68 O2 Sat by Pulse 96 Oximetry Medical Decision Making - Medical Decision Making The patient was seen and evaluated immediately upon arrival to the emergency department. Patient is noted to be tachypneic and in moderate respiratory distress. Patient's oxygen saturation is in the mid 90s but she is on 8 L via nasal cannula. Patient has received one DuoNeb and 125 of Solu-Medrol in route to the hospital. Single view Chest x-ray suggestive of CHF, there is questionable pneumonia, however the patient does not have any productive cough, fevers, sputum production, leukocytosis or any other concerning symptoms for pneumonia Patient's tachypnea and work of breathing improved significantly with BiPAP At this time I suspect the patient's symptoms are multifactorial relating to COPD exacerbation as well as CHF exacerbation, will treat with Lasix for CHF, DuoNeb's or in the clock for COPD, oral steroids for COPD. And continue BiPAP throughout the night. We'll admit the patient to our selective unit for BiPAP use and consult pulmonology for evaluation. This plan was discussed with the patient and her family members at bedside. Patient and daughter are agreeable to this. When I discussed CODE STATUS the patient stated that she would not want to be resuscitated. She would not consent to CPR or intubation. She wouldn't consent to IV medications and BiPAP. She states that if her breathing worsens or her heart were to stop she would want to be made comfortable and not have resuscitative measures. Admission orders placed At the time of admission patient's work of breathing had improved significantly , she is tolerating the BiPAP well, oxygen saturations had improved as had her tachypnea. - Lab Data Result diagrams: 12/21/17 00:55 12/21/17 00:55 Lab Results 12/21/17 12/21/17 12/21/17 Range/Units 00:55 00:55 00:55 WBC 8.5 (3.8-10.6) k/uL RBC 3.49 L (3.80-5.40) m/uL Hgb 9.3 L (11.4-16.0) gm/dL Hct 31.8 L (34.0-46.0) % MCV 91.0 (80.0-100.0) fL MCH 26.5 (25.0-35.0) pg MCHC 29.1 L (31.0-37.0) g/dL RDW 16.1 H (11.5-15.5) % Plt Count 248 (150-450) k/uL Neutrophils % 84 % Lymphocytes % 12 % Monocytes % 3 % Eosinophils % 0 % Basophils % 0 % Neutrophils # 7.1 (1.3-7.7) k/uL Lymphocytes # 1.0 (1.0-4.8) k/uL Monocytes # 0.3 (0-1.0) k/uL Eosinophils # 0.0 (0-0.7) k/uL Basophils # 0.0 (0-0.2) k/uL Hypochromasia Marked Anisocytosis Slight PT (9.0-12.0) sec INR (<1.2) APTT (22.0-30.0) sec VBG pH (7.31-7.41) VBG pCO2 (37-51) mmHg VBG HCO3 (24-28) mmol/L Sodium 141 (137-145) mmol/L Potassium 5.4 H (3.5-5.1) mmol/L Chloride 103 (98-107) mmol/L Carbon Dioxide 32 H (22-30) mmol/L Anion Gap 6 mmol/L BUN 43 H (7-17) mg/dL Creatinine 1.00 (0.52-1.04) mg/dL Est GFR (CKD-EPI)AfAm 61 (>60 ml/min/1.73 sqM) Est GFR (CKD-EPI)NonAf 53 (>60 ml/min/1.73 sqM) Glucose 167 H (74-99) mg/dL Calcium 9.6 (8.4-10.2) mg/dL Magnesium 2.1 (1.6-2.3) mg/dL Total Bilirubin 0.3 (0.2-1.3) mg/dL AST 17 (14-36) U/L ALT 30 (9-52) U/L Alkaline Phosphatase 57 (38-126) U/L Total Creatine Kinase 43 (30-135) U/L CK-MB (CK-2) 2.8 H (0.0-2.4) ng/mL CK-MB (CK-2) Rel Index 6.5 Troponin I 0.016 (0.000-0.034) ng/mL NT-Pro-B Natriuret Pep pg/mL Total Protein 6.6 (6.3-8.2) g/dL Albumin 3.6 (3.5-5.0) g/dL 12/21/17 12/21/17 12/21/17 Range/Units 00:55 00:55 01:25 WBC (3.8-10.6) k/uL RBC (3.80-5.40) m/uL Hgb (11.4-16.0) gm/dL Hct (34.0-46.0) % MCV (80.0-100.0) fL MCH (25.0-35.0) pg MCHC (31.0-37.0) g/dL RDW (11.5-15.5) % Plt Count (150-450) k/uL Neutrophils % % Lymphocytes % % Monocytes % % Eosinophils % % Basophils % % Neutrophils # (1.3-7.7) k/uL Lymphocytes # (1.0-4.8) k/uL Monocytes # (0-1.0) k/uL Eosinophils # (0-0.7) k/uL Basophils # (0-0.2) k/uL Hypochromasia Anisocytosis PT 10.1 (9.0-12.0) sec INR 1.0 (<1.2) APTT 22.7 (22.0-30.0) sec VBG pH 7.40 (7.31-7.41) VBG pCO2 49 (37-51) mmHg VBG HCO3 30 H (24-28) mmol/L Sodium (137-145) mmol/L Potassium (3.5-5.1) mmol/L Chloride (98-107) mmol/L Carbon Dioxide (22-30) mmol/L Anion Gap mmol/L BUN (7-17) mg/dL Creatinine (0.52-1.04) mg/dL Est GFR (CKD-EPI)AfAm (>60 ml/min/1.73 sqM) Est GFR (CKD-EPI)NonAf (>60 ml/min/1.73 sqM) Glucose (74-99) mg/dL Calcium (8.4-10.2) mg/dL Magnesium (1.6-2.3) mg/dL Total Bilirubin (0.2-1.3) mg/dL AST (14-36) U/L ALT (9-52) U/L Alkaline Phosphatase (38-126) U/L Total Creatine Kinase (30-135) U/L CK-MB (CK-2) (0.0-2.4) ng/mL CK-MB (CK-2) Rel Index Troponin I (0.000-0.034) ng/mL NT-Pro-B Natriuret Pep 2770 pg/mL Total Protein (6.3-8.2) g/dL Albumin (3.5-5.0) g/dL - EKG Data EKG Comments: EKG obtained at 12:44 AM, rate is 77, rhythm is sinus with PVCs. There is significant respiratory artifact, normal intervals, KS 164, QRS 84, QTC is 436. There is no obvious ST elevations or depressions. I will repeat this EKG when the patient's respiratory distress improves. Repeat EKG obtained when the patient's breathing improved at 12:58 AM. Rate is 72, rhythm is sinus, there still are frequent PVCs. Normal intervals, KS 150, QRS 88, QTC 424. There are no acute ST elevations or depressions no evidence of acute ischemia or infarction. Critical Care Time Critical Care Time: Yes Total Critical Care Time: 30 Critical Care Time: Critical Care Critical care time was exclusive of separately billable procedures and treating other patients and teaching time. Critical care was necessary to treat or prevent imminent or life-threatening deterioration. Critical care was time spent personally by me on the following activities: development of treatment plan with patient or surrogate, discussions with consultants, discussions with primary provider, evaluation of patient's response to treatment, examination of patient, obtaining history from patient or surrogate, ordering and performing treatments and interventions, ordering and review of laboratory studies, ordering and review of radiographic studies, pulse oximetry, re-evaluation of patient's condition and review of old charts. Disposition Clinical Impression: Congestive heart failure, Acute pulmonary edema, Acute respiratory failure, Acute exacerbation of chronic obstructive airways disease Disposition: ADMITTED IP TO THIS HOSP Condition: Serious Is patient prescribed a controlled substance at d/c from ED?: No
--- NOTE | 2017-12-21 01:06 | XR ---
EXAMINATION TYPE: XR chest 1V portable DATE OF EXAM: 12/21/2017 COMPARISON: 10/06/2017 HISTORY: Difficulty breathing TECHNIQUE: Single frontal view of the chest is obtained. FINDINGS: There is some pulmonary edema. Heart is probably enlarged. There are chest leads. There is infiltrate in the right lower lobe. IMPRESSION: New pulmonary edema compared to last exam and consistent with acute heart failure. Right lower lobe pneumonia is possible. There is clearing of some infiltrate in the left lower lobe compar ed to old exam.
[2017-12-21 01:16] LABS: Anisocytosis Slight; Basophils % (A) 0 %; Eosinophils % (A) 0 %; HCT 31.8 % (34.0-46.0); HGB 9.3 gm/dL (11.4-16.0); Hypochromasia Marked; Lymphocytes % (A) 12 %; MCH 26.5 pg (25.0-35.0); MCHC 29.1 g/dL (31.0-37.0); Mean Platelet Volume 7.7; Monocytes # (A) 0.3 k/uL (0-1.0); Monocytes % (A) 3 %; Neutrophils # (A) 7.1 k/uL (1.3-7.7); Neutrophils % (A) 84 %; Platelet Count 248 k/uL (150-450); RBC 3.49 m/uL (3.80-5.40); RDW 16.1 % (11.5-15.5); WBC 8.5 k/uL (3.8-10.6)
[2017-12-21 01:21] LABS: Partial Thromboplastin Time 22.7 sec (22.0-30.0); Prothrombin Time 10.1 sec (9.0-12.0)
[2017-12-21 01:24] LABS: Albumin 3.6 g/dL (3.5-5.0); Calcium 9.6 mg/dL (8.4-10.2); Magnesium 2.1 mg/dL (1.6-2.3); Potassium 5.4 mmol/L (3.5-5.1); Total Bilirubin 0.3 mg/dL (0.2-1.3); Total Protein 6.6 g/dL (6.3-8.2)
[2017-12-21 01:40] LABS: VBG PH 7.4 (7.31-7.41)
[2017-12-21 02:02] LABS: Creatine Kinase MB 2.8 ng/mL (0.0-2.4); Troponin I 0.016 ng/mL (0.000-0.034)
[2017-12-21] MEDS ORDERED: ALPRAZolam 0.25 MG TAB PO STA ×3 (06:34→18:40)
[2017-12-21] MEDS: FUROSEMIDE 10 MG/ML 4 ML VIAL IV SCH ×3 (07:22→22:22)
[2017-12-21] MEDS: IPRATROPIUM-ALBUTEROL 3 ML NEB INHALATION PRN ×4 (07:28→19:07)
--- NOTE | 2017-12-21 07:44 | XR ---
EXAMINATION TYPE: XR chest 1V portable DATE OF EXAM: 12/21/2017 HISTORY: possible aspiration. REFERENCE: Previous study dated 12/21/2017. FINDINGS: The heart is enlarged. There is vascular congestion and pulmonary edema. This has worsened. There are small, bilateral effusions. IMPRESSION: WORSENING CHANGES OF CONGESTIVE HEART FAILURE.
[2017-12-21] MEDS: amLODIPine 5 MG TAB PO SCH ×2 (07:52→22:22)
[2017-12-21] MEDS: hydrALAZINE HCL 50 MG TAB PO SCH ×3 (07:52→22:21)
[2017-12-21] MEDS ORDERED: BUDESONIDE 0.5 MG/2 ML NEBU INHALATION SCH (08:00)
[2017-12-21 08:04] LABS: Glucose,Whole Blood 234 mg/dL (75-99)
[2017-12-21] MEDS ORDERED: ASPIRIN 325 MG TAB PO ONE (08:56)
--- NOTE | 2017-12-21 10:16 | P.CRDCN ---
History of Present Illness Consult date: 12/21/17 Chief complaint: Shortness of breath History of present illness: This is an 82-year-old female patient who sees Dr. LEONARDA Caputo in the office as an outpatient with a past medical history significant for coronary artery disease and prior coronary revascularization, congestive heart failure secondary to diastolic dysfunction, chronic obstructive pulmonary disease, the patient is on oxygen at night, as well as hypertension and dyslipidemia presented to the emergency room complaining of shortness of breath. The patient was in her usual state of health until yesterday when she started experiencing started experiencing a worsening dyspnea. Beside that she did have chest discomfort and very mild over the left side of the chest. The family noticed bilateral lower extremities edema. No dizziness or lightheadedness. And no syncope. The patient was brought to the emergency room where she was diagnosed was congestive heart failure and she was admitted for further evaluation. The patient stated that she was compliant with her diet as well as with her medication and she has been following a low-salt diet. The chest x-ray showed findings consistent with CHF. The BMP was elevated. The EKG showed sinus rhythm with diffuse nonspecific changes. The patient underwent an echocardiogram in September 2017 and that revealed normal LV function with evidence of hypertensive heart disease and mild aortic stenosis. On physical examination, the patient does have severe bilateral lower extremities edema, bilateral expiratory wheezing, and a systolic murmur at the right upper sternal border. Beside that she looks in mild respiratory distress. The patient was started on Lasix IV which we will continue. Continue monitor her kidney function and electrolytes. She is hypertensive and tachycardic and in view of her COPD I will start the patient on calcium channel elisabeth with Cardizem. We'll continue following up with her. Past Medical History Past Medical History: COPD, Diabetes Mellitus, GERD/Reflux, Hyperlipidemia, Hypertension, Myocardial Infarction ([place]), Pneumonia Additional Past Medical History / Comment(s): aneurysm splenic artery, nontoxic multinodular goiter per medical history from Dr. Aguilar office, psoriasis, polyneuropathy Last Myocardial Infarction Date:: 2005 History of Any Multi-Drug Resistant Organisms: None Reported Past Surgical History: Cholecystectomy, Heart Catheterization With Stent Past Anesthesia/Blood Transfusion Reactions: No Reported Reaction Date of Last Stent Placement:: 2005? Past Psychological History: No Psychological Hx Reported Smoking Status: Former smoker Past Alcohol Use History: None Reported Additional Past Alcohol Use History / Comment(s): STARTED SMOKING AT AGE 15 SMOKED LESS THAN 1 PPD QUIT IN 2005, HAS AN RARE DRINK NO DRUG HX. patient has been living alone with family members nearby and assist as needed. Past Drug Use History: None Reported - Past Family History Father Family Medical History: COPD Additional Family Medical History / Comment(s): DAD IN HIS 60'S Mother Family Medical History: Cancer Additional Family Medical History / Comment(s): MOM IN HER EARLY 70'S Medications and Allergies Home Medications Medication Instructions Recorded Confirmed Type Carvedilol 25 mg PO BID 12/01/13 12/21/17 History Cholecalciferol [Vitamin D3] 2,000 unit PO DAILY 12/01/13 12/21/17 History Ibandronate Sodium [Boniva] 150 mg PO QMONTH 12/01/13 12/21/17 History Insuln Asp Prt/Insulin Aspart 28 unit SQ AC-BRKFST 12/01/13 12/21/17 History [NovoLOG MIX 70-30 VIAL] Isosorbide Mononitrate [Imdur] 30 mg PO DAILY 12/01/13 12/21/17 History Lansoprazole [Prevacid] 30 mg PO DAILY 12/01/13 12/21/17 History Nitroglycerin Sl Tabs [Nitrostat] 0.4 mg SUBLINGUAL Q5M PRN 12/01/13 12/21/17 History Pravastatin Sodium [Pravachol] 80 mg PO HS 12/01/13 12/21/17 History amLODIPine [Norvasc] 5 mg PO BID 12/01/13 12/21/17 History hydrALAZINE HCL [Apresoline] 50 mg PO TID 12/01/13 12/21/17 History Albuterol Nebulized [Ventolin 2.5 mg INHALATION RT-Q4H PRN 09/29/17 12/21/17 History Nebulized] Sennosides-Docusate Sodium 2 tab PO DAILY #30 tablet 10/08/17 12/21/17 Rx [Senokot-S] traMADol HCl [Ultram] 50 - 100 mg PO Q4-6H PRN #84 tab 10/08/17 12/21/17 Rx Acetaminophen Tab [Tylenol] 650 mg PO Q6HR PRN tab 10/10/17 12/21/17 Rx Bisacodyl [Dulcolax] 10 mg RECTAL DAILY supp 10/10/17 12/21/17 Rx INSULIN LISPRO (HumaLOG) [humaLOG] 0 unit SQ ACHS #1 vial 10/10/17 12/21/17 Rx Insuln Asp Prt/Insulin Aspart 18 unit SQ AC-SUPPER vial 10/10/17 12/21/17 Rx [NovoLOG MIX 70-30 VIAL] Ipratropium-Albuterol Nebulize 3 ml INHALATION RT-QID ampul.neb 10/10/17 Rx [Duoneb 0.5 mg-3 mg/3 ml Soln] Lactulose [Cephulac] 30 gm PO Q4HR PRN ml 10/10/17 12/21/17 Rx Montelukast [Singulair] 10 mg PO HS tab 10/10/17 12/21/17 Rx Triamcinolone 0.1% Cream [Kenalog 1 applic TOPICAL BID applic 10/10/17 Rx 0.1% Cream] methylPREDNISolone Dose Pack 24 mg PO DAILY tab 10/10/17 12/21/17 Rx [Medrol Dose Pack] Allergies Allergy/AdvReac Type Severity Reaction Status Date / Time No Known Allergies Allergy Verified 09/29/17 17:25 Physical Exam Vitals: Vital Signs Temp Pulse Pulse Resp BP BP Pulse Ox 12/21/17 08:00 96.8 F L 101 H 24 188/81 98 12/21/17 07:51 94 12/21/17 07:29 82 12/21/17 04:00 70 20 137/62 97 12/21/17 03:00 55 L 17 162/68 96 12/21/17 02:46 82 97 12/21/17 02:00 56 L 15 142/92 96 12/21/17 01:28 30 H 12/21/17 01:06 80 22 12/21/17 01:04 69 29 H 95 12/21/17 00:56 79 28 H 12/21/17 00:49 73 30 H 168/86 98 Intake and Output 12/20/17 12/21/17 12/21/17 22:59 06:59 14:59 Intake Total 50 130 Output Total 200 Balance -150 130 Intake: Amount of Fluid Infused ( 50 ml) Oral 130 Output: Urine 200 Other: Voiding Method Incontinent Bedpan Diaper Incontinent # Voids 2 Weight 110.3 kg - Constitutional General appearance: mild distress - Respiratory Respiratory: bilateral: wheezing - Cardiovascular Rhythm: regular Heart sounds: normal: S1, S2 Abnormal Heart Sounds: systolic murmur Results 12/21/17 00:55 12/21/17 00:55 Cardiac Enzymes 12/21/17 12/21/17 12/21/17 Range/Units 00:55 00:55 06:38 AST 17 (14-36) U/L CK-MB (CK-2) 2.8 H (0.0-2.4) ng/mL Troponin I 0.016 0.022 (0.000-0.034) ng/mL Coagulation 12/21/17 Range/Units 00:55 PT 10.1 (9.0-12.0) sec APTT 22.7 (22.0-30.0) sec CBC 12/21/17 Range/Units 00:55 WBC 8.5 (3.8-10.6) k/uL RBC 3.49 L (3.80-5.40) m/uL Hgb 9.3 L (11.4-16.0) gm/dL Hct 31.8 L (34.0-46.0) % Plt Count 248 (150-450) k/uL Comprehensive Metabolic Panel 12/21/17 Range/Units 00:55 Sodium 141 (137-145) mmol/L Potassium 5.4 H (3.5-5.1) mmol/L Chloride 103 (98-107) mmol/L Carbon Dioxide 32 H (22-30) mmol/L BUN 43 H (7-17) mg/dL Creatinine 1.00 (0.52-1.04) mg/dL Glucose 167 H (74-99) mg/dL Calcium 9.6 (8.4-10.2) mg/dL AST 17 (14-36) U/L ALT 30 (9-52) U/L Alkaline Phosphatase 57 (38-126) U/L Total Protein 6.6 (6.3-8.2) g/dL Albumin 3.6 (3.5-5.0) g/dL Current Medications Generic Name Dose Route Start Last Admin Trade Name Freq PRN Reason Stop Dose Admin Albuterol/Ipratropium 3 ml 12/21/17 06:33 12/21/17 07:28 Duoneb 0.5 Mg-3 Mg/3 Ml Soln INHALATION 3 ml RT-Q4H PRN Administration Shortness Of Breath Or Wheezing Amlodipine Besylate 5 mg 12/21/17 09:00 12/21/17 07:52 Norvasc PO 5 mg BID NUHA Administration Aspirin 325 mg 12/22/17 09:00 Aspirin PO DAILY NUHA Budesonide 0.5 mg 12/21/17 08:00 12/21/17 07:28 Pulmicort INHALATION 0.5 mg RT-BID NUHA Administration Furosemide 40 mg 12/21/17 08:00 12/21/17 07:22 Lasix IV 40 mg Q8HR NUHA Administration Hydralazine HCl 50 mg 12/21/17 09:00 12/21/17 07:52 Apresoline PO 50 mg TID NUHA Administration Intake and Output 12/20/17 12/21/17 12/21/17 22:59 06:59 14:59 Intake Total 50 130 Output Total 200 Balance -150 130 Intake: Amount of Fluid Infused ( 50 ml) Oral 130 Output: Urine 200 Other: Voiding Method Incontinent Bedpan Diaper Incontinent # Voids 2 Weight 110.3 kg 12/21/17 00:55 12/21/17 00:55 Assessment and Plan Assessment: Assessment #1 acute hypoxic respiratory failure of multi-factorial related to COPD exacerbation as well as CHF exacerbation #2 acute exacerbation of diastolic congestive heart failure #3 acute exacerbation of chronic obstructive pulmonary disease #4 uncontrolled hypertension #5 sinus tachycardia #6 coronary artery disease Plan #1 continue the Lasix IV and continue monitor the kidney function and electrolytes #2 recent echocardiogram revealed normal LV function with mild aortic stenosis #3 start the patient on Cardizem for the heart rate and blood pressure control #4 acute coronary syndrome was ruled out #5 follow-up with the patient Thank you for allowing us participate in her care
[2017-12-21 11:56] LABS: Glucose,Whole Blood 301 mg/dL (75-99)
--- NOTE | 2017-12-21 12:49 | P.HPIM ---
History of Present Illness H&P Date: 12/21/17 Chief Complaint: Shortness of breath 82-year-old female patient who sees Dr. LEONARDA Caputo in the office as an outpatient with a past medical history significant for coronary artery disease and prior coronary revascularization, congestive heart failure secondary to diastolic dysfunction, chronic obstructive pulmonary disease, the patient is on oxygen at night, as well as hypertension and dyslipidemia presented to the emergency room complaining of shortness of breath. The patient was in her usual state of health until yesterday when she started experiencing started experiencing a worsening dyspnea. Beside that she did have chest discomfort and very mild over the left side of the chest. The family noticed bilateral lower extremities edema. No dizziness or lightheadedness. And no syncope. The patient was brought to the emergency room where she was diagnosed was congestive heart failure and she was admitted for further evaluation. The patient stated that she was compliant with her diet as well as with her medication and she has been following a low-salt diet. The chest x-ray showed findings consistent with CHF. The BMP was elevated. The EKG showed sinus rhythm with diffuse nonspecific changes. The patient underwent an echocardiogram in September 2017 and that revealed normal LV function with evidence of hypertensive heart disease and mild aortic stenosis. On physical examination, the patient does have severe bilateral lower extremities edema, bilateral expiratory wheezing, and a systolic murmur at the right upper sternal border. Beside that she looks in mild respiratory distress. The patient was started on Lasix IV which we will continue. Continue monitor her kidney function and electrolytes. She is hypertensive and tachycardic and in view of her COPD I will start the patient on calcium channel elisabeth with Cardizem. We'll continue following up with her. Review of Systems Constitutional: Reports fatigue, Reports weakness Eyes: denies blurred vision, denies diplopia Ears, nose, mouth and throat: Reports headache, Reports nasal congestion Cardiovascular: Reports edema, Reports lightheadedness, Reports shortness of breath Respiratory: Reports congestion Gastrointestinal: Denies abdominal pain, Denies nausea, Denies vomiting Genitourinary: Denies difficulty voiding, Denies dysuria, Denies hematuria Musculoskeletal: Denies arm numbness/tingling Integumentary: Reports depigmentation Neurological: Denies aphasia, Denies balance difficulties, Denies confusion, Denies double vision, Denies weakness Endocrine: Denies cold intolerance, Denies excessive sweating, Denies excessive thirst, Denies heat intolerance Hematologic/Lymphatic: Denies easy bleeding, Denies easy bruising Allergic/Immunologic: Denies allergic rhinitis, Denies angioedema Past Medical History Past Medical History: COPD, Diabetes Mellitus, GERD/Reflux, Hyperlipidemia, Hypertension, Myocardial Infarction ([place]), Pneumonia Additional Past Medical History / Comment(s): aneurysm splenic artery, nontoxic multinodular goiter per medical history from Dr. Aguilar office, psoriasis, polyneuropathy Last Myocardial Infarction Date:: 2005 History of Any Multi-Drug Resistant Organisms: None Reported Past Surgical History: Cholecystectomy, Heart Catheterization With Stent Past Anesthesia/Blood Transfusion Reactions: No Reported Reaction Date of Last Stent Placement:: 2005? Past Psychological History: No Psychological Hx Reported Smoking Status: Former smoker Past Alcohol Use History: None Reported Additional Past Alcohol Use History / Comment(s): STARTED SMOKING AT AGE 15 SMOKED LESS THAN 1 PPD QUIT IN 2005, HAS AN RARE DRINK NO DRUG HX. patient has been living alone with family members nearby and assist as needed. Past Drug Use History: None Reported - Past Family History Father Family Medical History: COPD Additional Family Medical History / Comment(s): DAD IN HIS 60'S Mother Family Medical History: Cancer Additional Family Medical History / Comment(s): MOM IN HER EARLY 70'S Medications and Allergies Home Medications Medication Instructions Recorded Confirmed Type Carvedilol 25 mg PO BID 12/01/13 12/21/17 History Ibandronate Sodium [Boniva] 150 mg PO QMONTH 12/01/13 12/21/17 History Insuln Asp Prt/Insulin Aspart 28 unit SQ AC-BRKFST 12/01/13 12/21/17 History [NovoLOG MIX 70-30 VIAL] Isosorbide Mononitrate [Imdur] 30 mg PO DAILY 12/01/13 12/21/17 History Lansoprazole [Prevacid] 30 mg PO DAILY 12/01/13 12/21/17 History Nitroglycerin Sl Tabs [Nitrostat] 0.4 mg SUBLINGUAL Q5M PRN 12/01/13 12/21/17 History Pravastatin Sodium [Pravachol] 80 mg PO HS 12/01/13 12/21/17 History amLODIPine [Norvasc] 5 mg PO BID 12/01/13 12/21/17 History hydrALAZINE HCL [Apresoline] 50 mg PO TID 12/01/13 12/21/17 History Betamethasone Dipropionate 1 applic TOPICAL BID 12/21/17 12/21/17 History [Betamethasone Dipropionate 0.05%] Enalapril [Vasotec] 10 mg PO BID 12/21/17 12/21/17 History Furosemide [Lasix] 20 mg PO DAILY 12/21/17 12/21/17 History Hydrochlorothiazide [Hydrodiuril] 25 mg PO DAILY 12/21/17 12/21/17 History Insuln Asp Prt/Insulin Aspart 20 unit SQ AC-SUPPER 12/21/17 12/21/17 History [NovoLOG MIX 70-30 VIAL] Ipratropium [place] [Atrovent Hfa] 2 puff INHALATION RT-QID PRN 12/21/17 History Mupirocin Calcium 2% Cream 1 applic TOPICAL BID 12/21/17 12/21/17 History [Bactroban 2% Cream] buPROPion HCL [Wellbutrin SR] 150 mg PO BID 12/21/17 12/21/17 History rOPINIRole HCL [Requip] 0.5 mg PO DAILY 12/21/17 12/21/17 History Allergies Allergy/AdvReac Type Severity Reaction Status Date / Time No Known Allergies Allergy Verified 09/29/17 17:25 Physical Exam Vitals: Vital Signs Temp Pulse Pulse Resp BP BP Pulse Ox 12/21/17 12:09 96 12/21/17 11:59 100 12/21/17 11:13 101 H 24 12/21/17 08:00 96.8 F L 101 H 24 188/81 98 12/21/17 07:51 94 12/21/17 07:29 82 12/21/17 04:00 70 20 137/62 97 12/21/17 03:00 55 L 17 162/68 96 12/21/17 02:46 82 97 12/21/17 02:00 56 L 15 142/92 96 12/21/17 01:28 30 H 12/21/17 01:06 80 22 12/21/17 01:04 69 29 H 95 12/21/17 00:56 79 28 H 12/21/17 00:49 73 30 H 168/86 98 Intake and Output 12/20/17 12/21/17 12/21/17 22:59 06:59 14:59 Intake Total 50 130 Output Total 200 Balance -150 130 Intake: Amount of Fluid Infused ( 50 ml) Oral 130 Output: Urine 200 Other: Voiding Method Incontinent Bedpan Diaper Incontinent # Voids 2 Weight 110.3 kg 110.3 kg - Constitutional General appearance: Present: average body habitus, cooperative, no acute distress - EENT Eyes: Present: anicteric sclerae, EOMI, PERRLA, normal appearance ENT: Present: hearing grossly normal, normal oropharynx Ears: bilateral: normal - Neck Neck: Present: normal ROM. Absent: lymphadenopathy, rigidity, thyromegaly Carotids: negative: bruit present Thyroid: bilateral: normal size, negative: enlarged, nodule - Respiratory Respiratory: Tachypneic, expiratory wheezing in all lung [place], crackles at the bases - Cardiovascular Rhythm: regular Heart sounds: normal: S1, S2 Abnormal Heart Sounds: Absent: systolic murmur, diastolic murmur - Gastrointestinal General gastrointestinal: Present: normal bowel sounds, soft. Absent: distended , organomegaly, tenderness - Genitourinary Genitourinary Comment(s): deferred - Integumentary Integumentary: Present: normal turgor. Absent: jaundiced, rash, ulcer - Neurologic Neurologic: Present: CNII-XII intact. Absent: focal deficits - Musculoskeletal Musculoskeletal: Present: gait normal, strength equal bilaterally - Psychiatric Psychiatric: Present: A&O x's 3, appropriate affect, intact judgment & insight Results CBC & Chem 7: 12/21/17 00:55 12/21/17 00:55 Labs: Abnormal Lab Results - Last 24 Hours (Table) 12/21/17 12/21/17 12/21/17 Range/Units 00:55 00:55 00:55 RBC 3.49 L (3.80-5.40) m/uL Hgb 9.3 L (11.4-16.0) gm/dL Hct 31.8 L (34.0-46.0) % MCHC 29.1 L (31.0-37.0) g/dL RDW 16.1 H (11.5-15.5) % VBG HCO3 (24-28) mmol/L Potassium 5.4 H (3.5-5.1) mmol/L Carbon Dioxide 32 H (22-30) mmol/L BUN 43 H (7-17) mg/dL Glucose 167 H (74-99) mg/dL POC Glucose (mg/dL) (75-99) mg/dL CK-MB (CK-2) 2.8 H (0.0-2.4) ng/mL 12/21/17 12/21/17 12/21/17 Range/Units 01:25 08:01 11:47 RBC (3.80-5.40) m/uL Hgb (11.4-16.0) gm/dL Hct (34.0-46.0) % MCHC (31.0-37.0) g/dL RDW (11.5-15.5) % VBG HCO3 30 H (24-28) mmol/L Potassium (3.5-5.1) mmol/L Carbon Dioxide (22-30) mmol/L BUN (7-17) mg/dL Glucose (74-99) mg/dL POC Glucose (mg/dL) 234 H 301 H (75-99) mg/dL CK-MB (CK-2) (0.0-2.4) ng/mL Thrombosis Risk Factor Assmnt - Choose All That Apply Any of the Below Risk Factors Present?: Yes Each Factor Represents 1 point: Abnormal pulmonary function (COPD), Heart failure (<1month), Obesity (BMI >25), Swollen legs (current) Other Risk Factors: Yes Each Risk Factor Represents 3 Points: Age 75 years or older, History of DVT/PE Thrombosis Risk Factor Assessment Total Risk Factor Score: 10 Thrombosis Risk Factor Assessment Level: High Risk Assessment and Plan Assessment: #1 acute hypoxic respiratory failure of multi-factorial related to COPD exacerbation as well as CHF exacerbation #2 acute exacerbation of diastolic congestive heart failure #3 acute exacerbation of chronic obstructive pulmonary disease #4 uncontrolled hypertension #5 sinus tachycardia #6 coronary artery disease Plan #1 continue the Lasix IV and continue monitor the kidney function and electrolytes #2 recent echocardiogram revealed normal LV function with mild aortic stenosis #3 start the patient on Cardizem for the heart rate and blood pressure control #4 acute coronary syndrome was ruled out #5 follow-up with the patient Time with Patient: Greater than 30
[2017-12-21] MEDS: INSULIN ASPART 100 UNIT/ML 1 ML 10 ML VIAL SQ SCH ×3 (12:54→21:25)
[2017-12-21] MEDS: HYDROcodone/APAP 5-325MG 1 EACH TAB PO STA ×2 (13:16→13:48)
[2017-12-21 16:44] LABS: Glucose,Whole Blood 226 mg/dL (75-99)
[2017-12-21] MEDS: BUDESONIDE 0.5 MG/2 ML NEBU INHALATION SCH (19:08)
[2017-12-21 19:21] LABS: Glucose,Whole Blood 201 mg/dL (75-99)
[2017-12-21 20:13] LABS: Glucose,Whole Blood 188 mg/dL (75-99)
[2017-12-22] MEDS: LORazepam 2 MG/ML INJ IV PRN ×2 (05:38→19:44)
[2017-12-22 06:46] LABS: Glucose,Whole Blood 196 mg/dL (75-99)
[2017-12-22] MEDS: INSULIN ASPART 100 UNIT/ML 1 ML 10 ML VIAL SQ SCH ×4 (06:53→22:09)
[2017-12-22 07:04] LABS: Anisocytosis Slight; Basophils % (A) 0 %; Eosinophils # (A) 0.1 k/uL (0-0.7); Eosinophils % (A) 1 %; HCT 33.5 % (34.0-46.0); Hypochromasia Marked; Lymphocytes # (A) 0.7 k/uL (1.0-4.8); Lymphocytes % (A) 6 %; MCHC 29.8 g/dL (31.0-37.0); MCV 90.4 fL (80.0-100.0); Mean Platelet Volume 7.6; Monocytes # (A) 0.4 k/uL (0-1.0); Monocytes % (A) 4 %; Neutrophils # (A) 11.2 k/uL (1.3-7.7); Neutrophils % (A) 90 %; Platelet Count 295 k/uL (150-450); RBC 3.71 m/uL (3.80-5.40); RDW 16.6 % (11.5-15.5); WBC 12.5 k/uL (3.8-10.6)
[2017-12-22 07:16] LABS: Calcium 9.7 mg/dL (8.4-10.2)
[2017-12-22] MEDS: IPRATROPIUM-ALBUTEROL 3 ML NEB INHALATION PRN ×2 (07:50→11:33)
[2017-12-22] MEDS: BUDESONIDE 0.5 MG/2 ML NEBU INHALATION SCH ×2 (07:50→20:39)
--- NOTE | 2017-12-22 10:30 | P.PN ---
Subjective Progress Note Date: 12/22/17 Principal diagnosis: CHF/COPD This is an 82-year-old female patient who sees Dr. LEONARDA Caputo in the office as an outpatient with a past medical history significant for coronary artery disease and prior coronary revascularization, congestive heart failure secondary to diastolic dysfunction, chronic obstructive pulmonary disease, the patient is on oxygen at night, as well as hypertension and dyslipidemia presented to the emergency room complaining of shortness of breath. The patient was in her usual state of health until yesterday when she started experiencing started experiencing a worsening dyspnea. Beside that she did have chest discomfort and very mild over the left side of the chest. The family noticed bilateral lower extremities edema. No dizziness or lightheadedness. And no syncope. The patient was brought to the emergency room where she was diagnosed was congestive heart failure and she was admitted for further evaluation. The patient stated that she was compliant with her diet as well as with her medication and she has been following a low-salt diet. The chest x-ray showed findings consistent with CHF. The BMP was elevated. The EKG showed sinus rhythm with diffuse nonspecific changes. The patient underwent an echocardiogram in September 2017 and that revealed normal LV function with evidence of hypertensive heart disease and mild aortic stenosis. On physical examination , the patient did have severe bilateral lower extremities edema, bilateral expiratory wheezing, and a systolic murmur at the right upper sternal border. Beside that she looks in mild respiratory distress. On follow-up with the patient today, December 222017, she is feeling slightly better in terms of shortness of breath. She continues to be on BiPAP. The blood pressure and heart rate are within normal limits. Yesterday I did start the patient on calcium channel elisabeth with Cardizem. We will continue the IV Lasix for additional 24 hours. Continue following up with the patient. Objective - Vital Signs Vital signs: Vital Signs Temp 97.9 F 12/21/17 20:00 Pulse 74 12/22/17 08:05 Resp 18 12/22/17 04:00 BP 141/74 12/22/17 04:00 Pulse Ox 94 L 12/22/17 07:51 Intake & Output 12/21/17 12/22/17 12/22/17 18:59 06:59 18:59 Intake Total 230 Output Total 500 Balance 230 -500 Weight 110.3 kg 99.5 kg Intake: Oral 230 Output: Urine 500 Other: Voiding Method Bedpan Diaper Diaper Incontinent Incontinent # Voids 1 2 - Constitutional General appearance: Present: no acute distress - Respiratory Respiratory: bilateral: wheezing - Cardiovascular Rhythm: regular Heart sounds: normal: S1, S2 - Labs CBC & Chem 7: 12/22/17 05:55 12/22/17 05:55 Labs: Abnormal Lab Results - Last 24 Hours (Table) 12/21/17 12/21/17 12/21/17 Range/Units 11:47 11:58 16:38 WBC (3.8-10.6) k/uL RBC (3.80-5.40) m/uL Hgb (11.4-16.0) gm/dL Hct (34.0-46.0) % MCHC (31.0-37.0) g/dL RDW (11.5-15.5) % Neutrophils # (1.3-7.7) k/uL Lymphocytes # (1.0-4.8) k/uL Carbon Dioxide (22-30) mmol/L BUN (7-17) mg/dL Creatinine (0.52-1.04) mg/dL Glucose (74-99) mg/dL POC Glucose (mg/dL) 301 H 226 H (75-99) mg/dL Troponin I 0.038 H* (0.000-0.034) ng/mL 12/21/17 12/21/17 12/22/17 Range/Units 19:12 20:12 05:55 WBC 12.5 H (3.8-10.6) k/uL RBC 3.71 L (3.80-5.40) m/uL Hgb 10.0 L (11.4-16.0) gm/dL Hct 33.5 L (34.0-46.0) % MCHC 29.8 L (31.0-37.0) g/dL RDW 16.6 H (11.5-15.5) % Neutrophils # 11.2 H (1.3-7.7) k/uL Lymphocytes # 0.7 L (1.0-4.8) k/uL Carbon Dioxide (22-30) mmol/L BUN (7-17) mg/dL Creatinine (0.52-1.04) mg/dL Glucose (74-99) mg/dL POC Glucose (mg/dL) 201 H 188 H (75-99) mg/dL Troponin I (0.000-0.034) ng/mL 12/22/17 12/22/17 Range/Units 05:55 06:40 WBC (3.8-10.6) k/uL RBC (3.80-5.40) m/uL Hgb (11.4-16.0) gm/dL Hct (34.0-46.0) % MCHC (31.0-37.0) g/dL RDW (11.5-15.5) % Neutrophils # (1.3-7.7) k/uL Lymphocytes # (1.0-4.8) k/uL Carbon Dioxide 35 H (22-30) mmol/L BUN 51 H (7-17) mg/dL Creatinine 1.20 H (0.52-1.04) mg/dL Glucose 185 H (74-99) mg/dL POC Glucose (mg/dL) 196 H (75-99) mg/dL Troponin I (0.000-0.034) ng/mL Microbiology - Last 24 Hours (Table) 12/21/17 00:55 Blood Culture - Preliminary Blood No Growth after 24 hours Assessment and Plan Assessment: Assessment #1 acute hypoxic respiratory failure of multi-factorial related to COPD exacerbation as well as CHF exacerbation #2 acute exacerbation of diastolic congestive heart failure #3 acute exacerbation of chronic obstructive pulmonary disease #4 uncontrolled hypertension #5 sinus tachycardia #6 coronary artery disease Plan #1 continue the Lasix IV and continue monitor the kidney function and electrolytes #2 recent echocardiogram revealed normal LV function with mild aortic stenosis #3 continue the Cardizem by mouth #4 follow-up with the patient. Thank you for allowing us participate in her care
[2017-12-22] MEDS: FUROSEMIDE 10 MG/ML 4 ML VIAL IV SCH ×2 (10:45→18:48)
[2017-12-22] MEDS ORDERED: IPRATROPIUM-ALBUTEROL 3 ML NEB INHALATION PRN (11:48)
[2017-12-22 11:54] LABS: Glucose,Whole Blood 211 mg/dL (75-99)
[2017-12-22] MEDS: DILTIAZEM CD 120 MG CAP.ER.24H PO SCH (14:13)
[2017-12-22] MEDS: hydrALAZINE HCL 50 MG TAB PO SCH ×3 (14:13→22:11)
[2017-12-22] MEDS: ASPIRIN 325 MG TAB PO SCH (14:13)
[2017-12-22] MEDS: methylPREDNISolone SOD SUCCI 40 MG/ML 1 ML VIAL IV SCH ×2 (14:13→22:07)
[2017-12-22] MEDS: amLODIPine 5 MG TAB PO SCH ×2 (14:13→22:12)
[2017-12-22] MEDS: AZITHROMYCIN 500 MG in SODIUM CHLORIDE 0.9% 250 ML IVPB SCH (14:14)
[2017-12-22] MEDS: IPRATROPIUM-ALBUTEROL 3 ML NEB INHALATION SCH ×3 (15:42→20:39)
--- NOTE | 2017-12-22 15:49 | P.PN ---
Subjective Progress Note Date: 12/22/17 December 222017, she is feeling slightly better in terms of shortness of breath. She continues to be on BiPAP. The blood pressure and heart rate are within normal limits. Yesterday I did start the patient on calcium channel elisabeth with Cardizem. We will continue the IV Lasix for additional 24 hours. Continue following up with the patient. Acute respiratory failure; multifactorial - Acute exacerbation COPD; continue patient on bronchodilator nebulizer treatment; and IV Solu-Medrol 40 mg every 8 hours - Acute exacerbation CHF; patient continues to diurese well; cardiology is following; patient is started on calcium channel elisabeth and Cardizem by cardiology service; remains on IV Lasix; cardiology recommending another 24 hours - Right lower lobe pneumonia; we'll start patient on IV Rocephin 1 g daily along with Zithromax 500 mg daily; we'll obtain blood culture and sputum culture ; We will consult pulmonary service for further recommendations Objective - Vital Signs Vital signs: Vital Signs Temp 97.9 F 12/21/17 20:00 Pulse 74 12/22/17 08:05 Resp 18 12/22/17 04:00 BP 141/74 12/22/17 04:00 Pulse Ox 94 L 12/22/17 07:51 Intake & Output 12/21/17 12/22/17 12/22/17 18:59 06:59 18:59 Intake Total 230 Output Total 500 Balance 230 -500 Weight 110.3 kg 99.5 kg Intake: Oral 230 Output: Urine 500 Other: Voiding Method Bedpan Diaper Diaper Incontinent Incontinent # Voids 1 2 - Exam - Constitutional General appearance: Present: average body habitus, cooperative, no acute distress - EENT Eyes: Present: anicteric sclerae, EOMI, PERRLA, normal appearance ENT: Present: hearing grossly normal, normal oropharynx Ears: bilateral: normal - Neck Neck: Present: normal ROM. Absent: lymphadenopathy, rigidity, thyromegaly Carotids: negative: bruit present Thyroid: bilateral: normal size, negative: enlarged, nodule - Respiratory Respiratory: bilateral: CTA, negative: rales, rhonchi, wheezing - Cardiovascular Rhythm: regular Heart sounds: normal: S1, S2 Abnormal Heart Sounds: Absent: systolic murmur, diastolic murmur - Gastrointestinal General gastrointestinal: Present: normal bowel sounds, soft. Absent: distended , organomegaly, tenderness - Genitourinary Genitourinary Comment(s): deferred - Integumentary Integumentary: Present: normal turgor. Absent: jaundiced, rash, ulcer - Neurologic Neurologic: Present: CNII-XII intact. Absent: focal deficits - Musculoskeletal Musculoskeletal: Present: gait normal, strength equal bilaterally - Psychiatric Psychiatric: Present: A&O x's 3, appropriate affect, intact judgment & insight - Labs CBC & Chem 7: 12/22/17 05:55 12/22/17 05:55 Labs: Abnormal Lab Results - Last 24 Hours (Table) 12/21/17 12/21/17 12/21/17 Range/Units 11:47 11:58 16:38 WBC (3.8-10.6) k/uL RBC (3.80-5.40) m/uL Hgb (11.4-16.0) gm/dL Hct (34.0-46.0) % MCHC (31.0-37.0) g/dL RDW (11.5-15.5) % Neutrophils # (1.3-7.7) k/uL Lymphocytes # (1.0-4.8) k/uL Carbon Dioxide (22-30) mmol/L BUN (7-17) mg/dL Creatinine (0.52-1.04) mg/dL Glucose (74-99) mg/dL POC Glucose (mg/dL) 301 H 226 H (75-99) mg/dL Troponin I 0.038 H* (0.000-0.034) ng/mL 12/21/17 12/21/17 12/22/17 Range/Units 19:12 20:12 05:55 WBC 12.5 H (3.8-10.6) k/uL RBC 3.71 L (3.80-5.40) m/uL Hgb 10.0 L (11.4-16.0) gm/dL Hct 33.5 L (34.0-46.0) % MCHC 29.8 L (31.0-37.0) g/dL RDW 16.6 H (11.5-15.5) % Neutrophils # 11.2 H (1.3-7.7) k/uL Lymphocytes # 0.7 L (1.0-4.8) k/uL Carbon Dioxide (22-30) mmol/L BUN (7-17) mg/dL Creatinine (0.52-1.04) mg/dL Glucose (74-99) mg/dL POC Glucose (mg/dL) 201 H 188 H (75-99) mg/dL Troponin I (0.000-0.034) ng/mL 12/22/17 12/22/17 Range/Units 05:55 06:40 WBC (3.8-10.6) k/uL RBC (3.80-5.40) m/uL Hgb (11.4-16.0) gm/dL Hct (34.0-46.0) % MCHC (31.0-37.0) g/dL RDW (11.5-15.5) % Neutrophils # (1.3-7.7) k/uL Lymphocytes # (1.0-4.8) k/uL Carbon Dioxide 35 H (22-30) mmol/L BUN 51 H (7-17) mg/dL Creatinine 1.20 H (0.52-1.04) mg/dL Glucose 185 H (74-99) mg/dL POC Glucose (mg/dL) 196 H (75-99) mg/dL Troponin I (0.000-0.034) ng/mL Microbiology - Last 24 Hours (Table) 12/21/17 00:55 Blood Culture - Preliminary Blood No Growth after 24 hours Assessment and Plan Assessment: #1 acute hypoxic respiratory failure of multi-factorial related to COPD exacerbation as well as CHF exacerbation #2 acute exacerbation of diastolic congestive heart failure #3 acute exacerbation of chronic obstructive pulmonary disease #4 uncontrolled hypertension #5 sinus tachycardia #6 coronary artery disease Plan #1 continue the Lasix IV and continue monitor the kidney function and electrolytes #2 recent echocardiogram revealed normal LV function with mild aortic stenosis #3 start the patient on Cardizem for the heart rate and blood pressure control #4 acute coronary syndrome was ruled out #5 follow-up with the patient
[2017-12-22 16:57] LABS: Glucose,Whole Blood 172 mg/dL (75-99)
[2017-12-22 21:14] LABS: Glucose,Whole Blood 222 mg/dL (75-99)
[2017-12-22] MEDS ORDERED: HEPARIN SODIUM,PORCINE 5,000 UNIT/ML 1 ML VIAL IV PRN (21:59)
[2017-12-22] MEDS ORDERED: HEPARIN SOD,PORK IN 0.45% NACL 25,000 UNIT in 0.45% NACL 1 500ML.BAG IV SCH (22:00)
[2017-12-22 22:29] LABS: Anisocytosis Slight; Basophils % (A) 0 %; Eosinophils # (A) 0.1 k/uL (0-0.7); Eosinophils % (A) 1 %; HCT 35.6 % (34.0-46.0); HGB 10.8 gm/dL (11.4-16.0); Hypochromasia Marked; Lymphocytes # (A) 0.4 k/uL (1.0-4.8); Lymphocytes % (A) 4 %; MCHC 30.3 g/dL (31.0-37.0); MCV 92.3 fL (80.0-100.0); Mean Platelet Volume 7.7; Monocytes # (A) 0.2 k/uL (0-1.0); Monocytes % (A) 2 %; Neutrophils # (A) 10.4 k/uL (1.3-7.7); Neutrophils % (A) 94 %; Platelet Count 286 k/uL (150-450); RBC 3.86 m/uL (3.80-5.40); RDW 16.3 % (11.5-15.5)
[2017-12-22 22:41] LABS: INR 1.1 (<1.2); Partial Thromboplastin Time 22.1 sec (22.0-30.0)
[2017-12-23] MEDS ORDERED: HEPARIN SODIUM,PORCINE 5,000 UNIT/ML 1 ML VIAL SQ SCH
[2017-12-23] MEDS: FUROSEMIDE 10 MG/ML 4 ML VIAL IV SCH ×3 (00:14→17:39)
--- NOTE | 2017-12-23 00:32 | NM ---
EXAMINATION TYPE: NM pul vent and perfuse DATE OF EXAM: 12/23/2017 COMPARISON: None HISTORY: Elevated d-dimer. Chest pain TECHNIQUE: Utilizing inhalation of 41.1 mCi Tc 99m DTPA aerosol and intravenous injection of 5.4 mCi of Tc 99m MAA, ventilation and perfusion images are acquired post injection in multiple projections. FINDINGS: Ventilation images are very patchy consistent with some clumping of the tracer. These images are nond iagnostic. The perfusion images show fairly uniform activity in both lungs. I see no segmental or subsegmental d efect. There is no mismatch. IMPRESSION: Ventilation images are nondiagnostic. There is fairly normal pulmonary perfusion on the perfusion images and there is a very low probabilit y of pulmonary embolism.
[2017-12-23] MEDS: HEPARIN SODIUM,PORCINE 5,000 UNIT/ML 1 ML VIAL SQ SCH ×4 (01:08→23:27)
[2017-12-23 04:11] LABS: Anisocytosis Slight; Basophils % (A) 0 %; Eosinophils # (A) 0.1 k/uL (0-0.7); Eosinophils % (A) 1 %; HCT 34.3 % (34.0-46.0); HGB 10.4 gm/dL (11.4-16.0); Hypochromasia Marked; Lymphocytes # (A) 0.4 k/uL (1.0-4.8); Lymphocytes % (A) 5 %; MCH 27.3 pg (25.0-35.0); MCHC 30.4 g/dL (31.0-37.0); MCV 89.7 fL (80.0-100.0); Mean Platelet Volume 7.7; Monocytes # (A) 0.1 k/uL (0-1.0); Monocytes % (A) 1 %; Neutrophils # (A) 8.7 k/uL (1.3-7.7); Neutrophils % (A) 93 %; Platelet Count 282 k/uL (150-450); RBC 3.83 m/uL (3.80-5.40); RDW 16.8 % (11.5-15.5); WBC 9.3 k/uL (3.8-10.6)
[2017-12-23 04:25] LABS: Potassium 4.9 mmol/L (3.5-5.1)
[2017-12-23 06:20] LABS: Glucose,Whole Blood 294 mg/dL (75-99)
[2017-12-23] MEDS: INSULIN ASPART 100 UNIT/ML 1 ML 10 ML VIAL SQ SCH ×4 (06:33→19:34)
[2017-12-23] MEDS: AZITHROMYCIN 500 MG in SODIUM CHLORIDE 0.9% 250 ML IVPB SCH ×2 (08:08→10:30)
[2017-12-23] MEDS: hydrALAZINE HCL 50 MG TAB PO SCH ×3 (08:09→21:53)
[2017-12-23] MEDS: ASPIRIN 325 MG TAB PO SCH (08:09)
[2017-12-23] MEDS: amLODIPine 5 MG TAB PO SCH ×2 (08:09→19:57)
[2017-12-23] MEDS: DILTIAZEM CD 120 MG CAP.ER.24H PO SCH (08:09)
[2017-12-23] MEDS: methylPREDNISolone SOD SUCCI 40 MG/ML 1 ML VIAL IV SCH ×2 (08:10→19:57)
[2017-12-23] MEDS: BUDESONIDE 0.5 MG/2 ML NEBU INHALATION SCH ×2 (08:31→19:28)
[2017-12-23] MEDS: IPRATROPIUM-ALBUTEROL 3 ML NEB INHALATION SCH ×4 (08:31→19:28)
--- NOTE | 2017-12-23 10:04 | US ---
EXAMINATION TYPE: US venous doppler duplex LE DATE OF EXAM: 12/23/2017 9:46 AM COMPARISON: NONE CLINICAL HISTORY: r/o dvt. Patient states no symptoms, no leg pain, no swelling, exam done portable. SIDE PERFORMED: Bilateral TECHNIQUE: The lower extremity deep venous system is examined utilizing real time linear array sonog cristiane with graded compression, doppler sonography and color-flow sonography. VESSELS IMAGED: External Iliac Vein (EIV) Common Femoral Vein Deep Femoral Vein Greater Saphenous Vein * Femoral Vein Popliteal Vein Small Saphenous Vein * Proximal Calf Veins (* superficial vessels) Technically difficult study due to patient body habitus, unable to obtain compression images at luca ateral distal femoral vein due to patient unable to tolerate probe pressure. Right Leg: Appears negative for DVT Left Leg: Appears negative for DVT IMPRESSION: 1. No diagnostic evidence of DVT as visualized.
[2017-12-23] MEDS: LORazepam 2 MG/ML INJ IV PRN (10:32)
--- NOTE | 2017-12-23 10:49 | P.PN ---
Subjective Progress Note Date: 12/23/17 Principal diagnosis: CHF/COPD This is an 82-year-old female patient who sees Dr. LEONARDA Caputo in the office as an outpatient with a past medical history significant for coronary artery disease and prior coronary revascularization, congestive heart failure secondary to diastolic dysfunction, chronic obstructive pulmonary disease, the patient is on oxygen at night, as well as hypertension and dyslipidemia presented to the emergency room complaining of shortness of breath. The patient was in her usual state of health until yesterday when she started experiencing started experiencing a worsening dyspnea. Beside that she did have chest discomfort and very mild over the left side of the chest. The family noticed bilateral lower extremities edema. No dizziness or lightheadedness. And no syncope. The patient was brought to the emergency room where she was diagnosed was congestive heart failure and she was admitted for further evaluation. The patient stated that she was compliant with her diet as well as with her medication and she has been following a low-salt diet. The chest x-ray showed findings consistent with CHF. The BMP was elevated. The EKG showed sinus rhythm with diffuse nonspecific changes. The patient underwent an echocardiogram in September 2017 and that revealed normal LV function with evidence of hypertensive heart disease and mild aortic stenosis. On physical examination , the patient did have severe bilateral lower extremities edema, bilateral expiratory wheezing, and a systolic murmur at the right upper sternal border. Beside that she looks in mild respiratory distress. On follow-up with the patient today, December [id number], she seems comfortable. She is not in any respiratory distress any more. The blood pressure continues to be alleviated. The heart rate has been in the 90s. I would increase the dose of Cardizem to 180 mg by mouth daily. Beside that she is on Lasix IV which I will decrease the dose to 40 mg IV twice a day. She was having some change in mental status earlier today but that is better. Objective - Vital Signs Vital signs: Vital Signs Temp 98 F 12/23/17 08:00 Pulse 80 12/23/17 08:48 Resp 18 12/23/17 08:00 BP 176/68 12/23/17 08:00 Pulse Ox 93 L 12/23/17 08:00 Intake & Output 12/22/17 12/23/17 12/23/17 18:59 06:59 18:59 Intake Total 20 Output Total 1750 Balance -1730 Weight 99 kg Intake: IV 20 0.9 20 Output: Urine 1750 Other: Voiding Method Diaper Indwelling Catheter Indwelling Catheter Incontinent # Voids 1 2 - Constitutional General appearance: Present: no acute distress - Respiratory Respiratory: bilateral: diminished - Cardiovascular Heart sounds: normal: S1, S2 Abnormal Heart Sounds: Present: systolic murmur - Labs CBC & Chem 7: 12/23/17 03:52 12/23/17 03:52 Labs: Abnormal Lab Results - Last 24 Hours (Table) 12/22/17 12/22/17 12/22/17 Range/Units 11:51 16:55 20:42 WBC (3.8-10.6) k/uL Hgb (11.4-16.0) gm/dL MCHC (31.0-37.0) g/dL RDW (11.5-15.5) % Neutrophils # (1.3-7.7) k/uL Lymphocytes # (1.0-4.8) k/uL D-Dimer 7.03 H (<0.60) mg/L FEU Chloride (98-107) mmol/L Carbon Dioxide (22-30) mmol/L BUN (7-17) mg/dL Creatinine (0.52-1.04) mg/dL Glucose (74-99) mg/dL POC Glucose (mg/dL) 211 H 172 H (75-99) mg/dL 12/22/17 12/22/17 12/23/17 Range/Units 21:08 22:13 03:52 WBC 11.0 H (3.8-10.6) k/uL Hgb 10.8 L 10.4 L (11.4-16.0) gm/dL MCHC 30.3 L 30.4 L (31.0-37.0) g/dL RDW 16.3 H 16.8 H (11.5-15.5) % Neutrophils # 10.4 H 8.7 H (1.3-7.7) k/uL Lymphocytes # 0.4 L 0.4 L (1.0-4.8) k/uL D-Dimer (<0.60) mg/L FEU Chloride (98-107) mmol/L Carbon Dioxide (22-30) mmol/L BUN (7-17) mg/dL Creatinine (0.52-1.04) mg/dL Glucose (74-99) mg/dL POC Glucose (mg/dL) 222 H (75-99) mg/dL 12/23/17 12/23/17 Range/Units 03:52 06:05 WBC (3.8-10.6) k/uL Hgb (11.4-16.0) gm/dL MCHC (31.0-37.0) g/dL RDW (11.5-15.5) % Neutrophils # (1.3-7.7) k/uL Lymphocytes # (1.0-4.8) k/uL D-Dimer (<0.60) mg/L FEU Chloride 95 L (98-107) mmol/L Carbon Dioxide 38 H (22-30) mmol/L BUN 63 H (7-17) mg/dL Creatinine 1.23 H (0.52-1.04) mg/dL Glucose 299 H (74-99) mg/dL POC Glucose (mg/dL) 294 H (75-99) mg/dL Microbiology - Last 24 Hours (Table) 12/21/17 00:55 Blood Culture - Preliminary Blood No Growth after 48 hours Assessment and Plan Assessment: Assessment #1 acute hypoxic respiratory failure of multi-factorial related to COPD exacerbation as well as CHF exacerbation #2 acute exacerbation of diastolic congestive heart failure #3 acute exacerbation of chronic obstructive pulmonary disease #4 uncontrolled hypertension #5 sinus tachycardia #6 coronary artery disease Plan #1 continue Lasix IV was decreasing the dose to 40 mg twice a day #2 recent echocardiogram revealed normal LV function with mild aortic stenosis #3 increase the dose of Cardizem 20 mg by mouth daily #4 follow-up with the patient. Thank you for allowing us participate in her care
[2017-12-23 11:10] LABS: Glucose,Whole Blood 335 mg/dL (75-99)
--- NOTE | 2017-12-23 13:29 | P.PN ---
Subjective Progress Note Date: 12/23/17 Principal diagnosis: Acute respiratory failure secondary to acute exacerbation COPD/ acute exacerbation of CHF December 222017, she is feeling slightly better in terms of shortness of breath. She continues to be on BiPAP. The blood pressure and heart rate are within normal limits. Yesterday I did start the patient on calcium channel elisabeth with Cardizem. We will continue the IV Lasix for additional 24 hours. Continue following up with the patient. Acute respiratory failure; multifactorial - Acute exacerbation COPD; continue patient on bronchodilator nebulizer treatment; and IV Solu-Medrol 40 mg every 8 hours - Acute exacerbation CHF; patient continues to diurese well; cardiology is following; patient is started on calcium channel elisabeth and Cardizem by cardiology service; remains on IV Lasix; cardiology recommending another 24 hours - Right lower lobe pneumonia; we'll start patient on IV Rocephin 1 g daily along with Zithromax 500 mg daily; we'll obtain blood culture and sputum culture ; We will consult pulmonary service for further recommendations 12/23/2017; patient is seen and evaluated in follow-up; she is sitting propped up in the bed ; respiratory status seems to be improved; patient is not in any respiratory distress at this time; however heart rate remains slightly elevated; cardiology has seen people and have increased Cardizem to 120 mg by mouth and Lasix was decreased to 40 mg IV twice a day Pulmonary service is consulted. Their recommendations are pending Objective - Vital Signs Vital signs: Vital Signs Temp 98 F 12/23/17 08:00 Pulse 80 12/23/17 08:48 Resp 18 12/23/17 08:00 BP 176/68 12/23/17 08:00 Pulse Ox 93 L 12/23/17 08:00 Intake & Output 12/22/17 12/23/17 12/23/17 18:59 06:59 18:59 Intake Total 20 180 Output Total 1750 Balance -1730 180 Weight 99 kg Intake: IV 20 0.9 20 Oral 180 Output: Urine 1750 Other: Voiding Method Diaper Indwelling Catheter Indwelling Catheter Incontinent # Voids 1 2 - Exam - Constitutional General appearance: Present: average body habitus, cooperative, no acute distress - EENT Eyes: Present: anicteric sclerae, EOMI, PERRLA, normal appearance ENT: Present: hearing grossly normal, normal oropharynx Ears: bilateral: normal - Neck Neck: Present: normal ROM. Absent: lymphadenopathy, rigidity, thyromegaly Carotids: negative: bruit present Thyroid: bilateral: normal size, negative: enlarged, nodule - Respiratory Respiratory: bilateral: CTA, negative: rales, rhonchi, wheezing - Cardiovascular Rhythm: regular Heart sounds: normal: S1, S2 Abnormal Heart Sounds: Absent: systolic murmur, diastolic murmur - Gastrointestinal General gastrointestinal: Present: normal bowel sounds, soft. Absent: distended , organomegaly, tenderness - Genitourinary Genitourinary Comment(s): deferred - Integumentary Integumentary: Present: normal turgor. Absent: jaundiced, rash, ulcer - Neurologic Neurologic: Present: CNII-XII intact. Absent: focal deficits - Musculoskeletal Musculoskeletal: Present: gait normal, strength equal bilaterally - Psychiatric Psychiatric: Present: A&O x's 3, appropriate affect, intact judgment & insight - Labs CBC & Chem 7: 12/23/17 03:52 12/23/17 03:52 Labs: Abnormal Lab Results - Last 24 Hours (Table) 12/22/17 12/22/17 12/22/17 Range/Units 11:51 16:55 20:42 WBC (3.8-10.6) k/uL Hgb (11.4-16.0) gm/dL MCHC (31.0-37.0) g/dL RDW (11.5-15.5) % Neutrophils # (1.3-7.7) k/uL Lymphocytes # (1.0-4.8) k/uL D-Dimer 7.03 H (<0.60) mg/L FEU Chloride (98-107) mmol/L Carbon Dioxide (22-30) mmol/L BUN (7-17) mg/dL Creatinine (0.52-1.04) mg/dL Glucose (74-99) mg/dL POC Glucose (mg/dL) 211 H 172 H (75-99) mg/dL 12/22/17 12/22/17 12/23/17 Range/Units 21:08 22:13 03:52 WBC 11.0 H (3.8-10.6) k/uL Hgb 10.8 L 10.4 L (11.4-16.0) gm/dL MCHC 30.3 L 30.4 L (31.0-37.0) g/dL RDW 16.3 H 16.8 H (11.5-15.5) % Neutrophils # 10.4 H 8.7 H (1.3-7.7) k/uL Lymphocytes # 0.4 L 0.4 L (1.0-4.8) k/uL D-Dimer (<0.60) mg/L FEU Chloride (98-107) mmol/L Carbon Dioxide (22-30) mmol/L BUN (7-17) mg/dL Creatinine (0.52-1.04) mg/dL Glucose (74-99) mg/dL POC Glucose (mg/dL) 222 H (75-99) mg/dL 12/23/17 12/23/17 12/23/17 Range/Units 03:52 06:05 11:05 WBC (3.8-10.6) k/uL Hgb (11.4-16.0) gm/dL MCHC (31.0-37.0) g/dL RDW (11.5-15.5) % Neutrophils # (1.3-7.7) k/uL Lymphocytes # (1.0-4.8) k/uL D-Dimer (<0.60) mg/L FEU Chloride 95 L (98-107) mmol/L Carbon Dioxide 38 H (22-30) mmol/L BUN 63 H (7-17) mg/dL Creatinine 1.23 H (0.52-1.04) mg/dL Glucose 299 H (74-99) mg/dL POC Glucose (mg/dL) 294 H 335 H (75-99) mg/dL Microbiology - Last 24 Hours (Table) 12/21/17 00:55 Blood Culture - Preliminary Blood No Growth after 48 hours Assessment and Plan Assessment: #1 acute hypoxic respiratory failure of multi-factorial related to COPD exacerbation as well as CHF exacerbation #2 acute exacerbation of diastolic congestive heart failure #3 acute exacerbation of chronic obstructive pulmonary disease #4 uncontrolled hypertension #5 sinus tachycardia #6 coronary artery disease Plan #1 continue the Lasix IV and continue monitor the kidney function and electrolytes #2 recent echocardiogram revealed normal LV function with mild aortic stenosis #3 start the patient on Cardizem for the heart rate and blood pressure control #4 acute coronary syndrome was ruled out #5 follow-up with the patient
[2017-12-23 15:00] LABS: Calcium 8.6 mg/dL (8.4-10.2)
[2017-12-23 17:16] LABS: Glucose,Whole Blood 468 mg/dL (75-99)
[2017-12-23] MEDS ORDERED: NITROGLYCERIN SL TABS 0.4 MG TAB SUBLINGUAL ONE (17:35)
[2017-12-23] MEDS: INSULIN REGULAR 100 UNIT in SODIUM CHLORIDE 0.9% 100 ML IV SCH ×2 (19:16→22:09)
[2017-12-23 19:24] LABS: Glucose,Whole Blood 474 mg/dL (75-99)
[2017-12-23 19:44] LABS: Glucose,Whole Blood 448 mg/dL (75-99)
--- NOTE | 2017-12-23 19:51 | P.CNPUL ---
History of Present Illness Consult date: 12/22/17 (Late entry note) Reason for consult: dyspnea, cough, chest pain, COPD, hypoxemia, pneumonia Chief complaint: Shortness of breath of one to 2 day duration History of present illness: Morbidly obese 82-year-old female who is well-known to me patient has history of the chronic persistent asthma chronic hypoxemia severe COPD patient has been tested for sleep disorder breathing and sleep apnea no significant sleep apnea was seen in the past patient does have a history of chronic hypoxic respiratory failure has been on home oxygen during sleep to progressive problems with severe shortness of breath came into the hospital was seen evaluated examined in the emergency department and subsequently admitted him I was notified about this patient with acute onset of worsening or shortness of breath with chest tightness which was transient FiO2 went up from 2 L to 4 L eventually 100% nonrebreather mask patient has significant component of anxiety i-STAT VQ scan was performed which was negative for pulmonary embolism that showed low probability however 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 heparin was subsequently was discontinued, currently patient is being treated with bronchodilator broad-spectrum antibiotics Ammann IV steroids and diuresis Ammann she's been continued on her antihypertensive agents as well Ammann admit x-ray was positive for right lower lobe pneumonia along with some evidence of congestive heart failure and pulmonary edema cannot be excluded repeat chest x- ray revealed worsening off for interstitial edema subsequently patient was placed on diuretics Review of Systems All systems: negative Past Medical History Past Medical History: COPD, Diabetes Mellitus, GERD/Reflux, Hyperlipidemia, Hypertension, Myocardial Infarction (MS), Pneumonia Additional Past Medical History / Comment(s): aneurysm splenic artery, nontoxic multinodular goiter per medical history from Dr. Aguilar office, psoriasis, polyneuropathy Last Myocardial Infarction Date:: 2005 History of Any Multi-Drug Resistant Organisms: None Reported Past Surgical History: Cholecystectomy, Heart Catheterization With Stent Past Anesthesia/Blood Transfusion Reactions: No Reported Reaction Date of Last Stent Placement:: 2005? Past Psychological History: No Psychological Hx Reported Smoking Status: Former smoker Past Alcohol Use History: None Reported Additional Past Alcohol Use History / Comment(s): STARTED SMOKING AT AGE 15 SMOKED LESS THAN 1 PPD QUIT IN 2005, HAS AN RARE DRINK NO DRUG HX. patient has been living alone with family members nearby and assist as needed. Past Drug Use History: None Reported - Past Family History Father Family Medical History: COPD Additional Family Medical History / Comment(s): DAD IN HIS 60'S Mother Family Medical History: Cancer Additional Family Medical History / Comment(s): MOM IN HER EARLY 70'S Medications and Allergies Home Medications Medication Instructions Recorded Confirmed Type Carvedilol 25 mg PO BID 12/01/13 12/21/17 History Ibandronate Sodium [Boniva] 150 mg PO QMONTH 12/01/13 12/21/17 History Insuln Asp Prt/Insulin Aspart 28 unit SQ AC-BRKFST 12/01/13 12/21/17 History [NovoLOG MIX 70-30 VIAL] Isosorbide Mononitrate [Imdur] 30 mg PO DAILY 12/01/13 12/21/17 History Lansoprazole [Prevacid] 30 mg PO DAILY 12/01/13 12/21/17 History Nitroglycerin Sl Tabs [Nitrostat] 0.4 mg SUBLINGUAL Q5M PRN 12/01/13 12/21/17 History Pravastatin Sodium [Pravachol] 80 mg PO HS 12/01/13 12/21/17 History amLODIPine [Norvasc] 5 mg PO BID 12/01/13 12/21/17 History hydrALAZINE HCL [Apresoline] 50 mg PO TID 12/01/13 12/21/17 History Betamethasone Dipropionate 1 applic TOPICAL BID 12/21/17 12/21/17 History [Betamethasone Dipropionate 0.05%] Enalapril [Vasotec] 10 mg PO BID 12/21/17 12/21/17 History Furosemide [Lasix] 20 mg PO DAILY 12/21/17 12/21/17 History Hydrochlorothiazide [Hydrodiuril] 25 mg PO DAILY 12/21/17 12/21/17 History Insuln Asp Prt/Insulin Aspart 20 unit SQ AC-SUPPER 12/21/17 12/21/17 History [NovoLOG MIX 70-30 VIAL] Ipratropium [place] [Atrovent Hfa] 2 puff INHALATION RT-QID PRN 12/21/17 History Mupirocin Calcium 2% Cream 1 applic TOPICAL BID 12/21/17 12/21/17 History [Bactroban 2% Cream] buPROPion HCL [Wellbutrin SR] 150 mg PO BID 12/21/17 12/21/17 History rOPINIRole HCL [Requip] 0.5 mg PO DAILY 12/21/17 12/21/17 History Allergies Allergy/AdvReac Type Severity Reaction Status Date / Time No Known Allergies Allergy Verified 09/29/17 17:25 Physical Exam Vitals: Vital Signs Temp Pulse Pulse Resp BP Pulse Ox 12/23/17 19:28 80 12/23/17 16:18 94 L 12/23/17 16:00 98.1 F 93 18 159/66 93 L 12/23/17 12:13 78 12/23/17 12:03 76 12/23/17 12:00 87 17 154/65 93 L 12/23/17 08:48 80 12/23/17 08:34 84 12/23/17 08:00 98 F 110 H 18 176/68 93 L 12/23/17 03:58 98.7 F 105 H 20 177/73 95 12/23/17 00:00 98.7 F 89 18 157/78 96 12/22/17 20:57 83 12/22/17 20:39 83 12/22/17 20:00 98.5 F 114 H 22 108/62 94 L Intake and Output 12/23/17 12/23/17 12/23/17 06:59 14:59 22:59 Intake Total 10 540 Output Total 500 1300 Balance -490 -760 Intake: IV 10 0.9 10 Oral 540 Output: Urine 500 1300 Other: Voiding Method Indwelling Catheter Indwelling Catheter Weight 99 kg - Constitutional General appearance: average body habitus, cooperative, disheveled, morbidly obese, severe distress - EENT Eyes: EOMI, PERRLA, normal appearance ENT: normal oropharynx Ears: bilateral: normal - Neck Neck: normal ROM Carotids: bilateral: upstroke normal, bruit absent Thyroid: bilateral: normal size - Respiratory Respiratory: bilateral: rhonchi, wheezing, prolonged expiration - Cardiovascular Rhythm: regular Heart sounds: normal: S1, S2 - Gastrointestinal General gastrointestinal: distended, soft - Neurologic Neurologic: CNII-XII intact - Musculoskeletal Musculoskeletal: gait normal, generalized weakness, strength equal bilaterally - Psychiatric Psychiatric: A&O x's 3, appropriate affect, intact judgment & insight Results - Laboratory Findings CBC and BMP: 12/23/17 03:52 12/23/17 13:58 PT/INR, D-dimer PT 11.0 sec (9.0-12.0) 12/22/17 22:13 INR 1.1 (<1.2) 12/22/17 22:13 D-Dimer 7.03 mg/L FEU (<0.60) H 12/22/17 20:42 Abnormal lab findings: Abnormal Labs 12/21/17 12/21/17 12/21/17 00:55 00:55 00:55 WBC RBC 3.49 L Hgb 9.3 L Hct 31.8 L MCHC 29.1 L RDW 16.1 H Neutrophils # Lymphocytes # D-Dimer VBG HCO3 Potassium 5.4 H Chloride Carbon Dioxide 32 H BUN 43 H Creatinine Glucose 167 H POC Glucose (mg/dL) CK-MB (CK-2) 2.8 H Troponin I 12/21/17 12/21/17 12/21/17 01:25 08:01 11:47 WBC RBC Hgb Hct MCHC RDW Neutrophils # Lymphocytes # D-Dimer VBG HCO3 30 H Potassium Chloride Carbon Dioxide BUN Creatinine Glucose POC Glucose (mg/dL) 234 H 301 H CK-MB (CK-2) Troponin I 12/21/17 12/21/17 12/21/17 11:58 16:38 19:12 WBC RBC Hgb Hct MCHC RDW Neutrophils # Lymphocytes # D-Dimer VBG HCO3 Potassium Chloride Carbon Dioxide BUN Creatinine Glucose POC Glucose (mg/dL) 226 H 201 H CK-MB (CK-2) Troponin I 0.038 H* 12/21/17 12/22/17 12/22/17 20:12 05:55 05:55 WBC 12.5 H RBC 3.71 L Hgb 10.0 L Hct 33.5 L MCHC 29.8 L RDW 16.6 H Neutrophils # 11.2 H Lymphocytes # 0.7 L D-Dimer VBG HCO3 Potassium Chloride Carbon Dioxide 35 H BUN 51 H Creatinine 1.20 H Glucose 185 H POC Glucose (mg/dL) 188 H CK-MB (CK-2) Troponin I 12/22/17 12/22/17 12/22/17 06:40 11:51 16:55 WBC RBC Hgb Hct MCHC RDW Neutrophils # Lymphocytes # D-Dimer VBG HCO3 Potassium Chloride Carbon Dioxide BUN Creatinine Glucose POC Glucose (mg/dL) 196 H 211 H 172 H CK-MB (CK-2) Troponin I 12/22/17 12/22/17 12/22/17 20:42 21:08 22:13 WBC 11.0 H RBC Hgb 10.8 L Hct MCHC 30.3 L RDW 16.3 H Neutrophils # 10.4 H Lymphocytes # 0.4 L D-Dimer 7.03 H VBG HCO3 Potassium Chloride Carbon Dioxide BUN Creatinine Glucose POC Glucose (mg/dL) 222 H CK-MB (CK-2) Troponin I 12/23/17 12/23/17 12/23/17 03:52 03:52 06:05 WBC RBC Hgb 10.4 L Hct MCHC 30.4 L RDW 16.8 H Neutrophils # 8.7 H Lymphocytes # 0.4 L D-Dimer VBG HCO3 Potassium Chloride 95 L Carbon Dioxide 38 H BUN 63 H Creatinine 1.23 H Glucose 299 H POC Glucose (mg/dL) 294 H CK-MB (CK-2) Troponin I 12/23/17 12/23/17 12/23/17 11:05 13:58 16:56 WBC RBC Hgb Hct MCHC RDW Neutrophils # Lymphocytes # D-Dimer VBG HCO3 Potassium Chloride 93 L Carbon Dioxide 36 H BUN 66 H Creatinine 1.29 H Glucose 437 H POC Glucose (mg/dL) 335 H 468 H CK-MB (CK-2) Troponin I 12/23/17 19:11 WBC RBC Hgb Hct MCHC RDW Neutrophils # Lymphocytes # D-Dimer VBG HCO3 Potassium Chloride Carbon Dioxide BUN Creatinine Glucose POC Glucose (mg/dL) 474 H CK-MB (CK-2) Troponin I - Diagnostic Findings Chest x-ray: report reviewed, image reviewed (Finding as noted above) Assessment and Plan Assessment: Right lower lobe pneumonia Acute COPD exacerbation Acute on chronic hypoxic respiratory failure Acute exacerbation of congestive heart failure related to acute on chronic diastolic heart failure Small bilateral pleural effusion Severe morbid obesity Plan: Broad-spectrum antibiotics Breathing treatments IV steroids BiPAP as needed Blood pressure control and gentle diuresis Findings on the VQ scan reviewed heparin has been switched to subcu Further recommendations pending plan of care as per clinical response of the patient Time with Patient: Greater than 30
--- NOTE | 2017-12-23 19:56 | P.PN ---
Subjective Progress Note Date: 12/23/17 Principal diagnosis: Right lower lobe pneumonia community-acquired, acute hypoxic respiratory failure , acute COPD exacerbation, acute on chronic hypoxic respiratory failure, acute exacerbation of CHF related to acute diastolic heart failure 12/23/2017, patient seen eval examined during the rounds she is more awake now breathing lifting more comfortably, wheezing has improved significantly her labs irrigations reviewed currently she is on 3 L oxygen saturations 94%, her VQ scan is very low probability, duplex ultrasound of lower extremity negative for DVT and is thrombosis radiographic studies reviewed medications reviewed, labs reviewed significant finding is summarized in BUN/creatinine likely related to aggressive diuresis, leukocytosis is slightly improved, hyperglycemia related to high-dose IV steroids Morbidly obese 82-year-old female who is well-known to me patient has history of the chronic persistent asthma chronic hypoxemia severe COPD patient has been tested for sleep disorder breathing and sleep apnea no significant sleep apnea was seen in the past patient does have a history of chronic hypoxic respiratory failure has been on home oxygen during sleep to progressive problems with severe shortness of breath came into the hospital was seen evaluated examined in the emergency department and subsequently admitted him I was notified about this patient with acute onset of worsening or shortness of breath with chest tightness which was transient FiO2 went up from 2 L to 4 L eventually 100% nonrebreather mask patient has significant component of anxiety i-STAT VQ scan was performed which was negative for pulmonary embolism that showed low probability however 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 heparin was subsequently was discontinued, currently patient is being treated with bronchodilator broad-spectrum antibiotics Ammann IV steroids and diuresis Ammann she's been continued on her antihypertensive agents as well Ammann admit x-ray was positive for right lower lobe pneumonia along with some evidence of congestive heart failure and pulmonary edema cannot be excluded repeat chest x- ray revealed worsening off for interstitial edema subsequently patient was placed on diuretics Objective - Vital Signs Vital signs: Vital Signs Temp 98.1 F 12/23/17 16:00 Pulse 84 12/23/17 19:45 Resp 18 12/23/17 16:00 BP 159/66 12/23/17 16:00 Pulse Ox 94 L 12/23/17 16:18 Intake & Output 12/23/17 12/23/17 12/24/17 06:59 18:59 06:59 Intake Total 20 540 14.5 Output Total 1750 1300 Balance -1730 -760 14.5 Weight 99 kg Intake: IV 20 0.9 20 Intake, IV Titration 14.5 Amount Insulin Regular 100 unit 14.5 In Sodium Chloride 0.9% 100 ml @ Titrate IV .Q0M [facility] Rx#:[id number] Oral 540 Output: Urine 1750 1300 Other: Voiding Method Indwelling Catheter Indwelling Catheter # Voids 2 - Exam - Constitutional General appearance: average body habitus, cooperative, disheveled, morbidly obese, severe distress - EENT Eyes: EOMI, PERRLA, normal appearance ENT: normal oropharynx Ears: bilateral: normal - Neck Neck: normal ROM Carotids: bilateral: upstroke normal, bruit absent Thyroid: bilateral: normal size - Respiratory Respiratory: bilateral: rhonchi, wheezing, prolonged expiration - Cardiovascular Rhythm: regular Heart sounds: normal: S1, S2 - Gastrointestinal General gastrointestinal: distended, soft - Neurologic Neurologic: CNII-XII intact - Musculoskeletal Musculoskeletal: gait normal, generalized weakness, strength equal bilaterally - Psychiatric Psychiatric: A&O x's 3, appropriate affect, intact judgment & insight - Labs CBC & Chem 7: 12/23/17 03:52 12/23/17 13:58 Labs: Abnormal Lab Results - Last 24 Hours (Table) 12/22/17 12/22/17 12/22/17 Range/Units 20:42 21:08 22:13 WBC 11.0 H (3.8-10.6) k/uL Hgb 10.8 L (11.4-16.0) gm/dL MCHC 30.3 L (31.0-37.0) g/dL RDW 16.3 H (11.5-15.5) % Neutrophils # 10.4 H (1.3-7.7) k/uL Lymphocytes # 0.4 L (1.0-4.8) k/uL D-Dimer 7.03 H (<0.60) mg/L FEU Chloride (98-107) mmol/L Carbon Dioxide (22-30) mmol/L BUN (7-17) mg/dL Creatinine (0.52-1.04) mg/dL Glucose (74-99) mg/dL POC Glucose (mg/dL) 222 H (75-99) mg/dL 12/23/17 12/23/17 12/23/17 Range/Units 03:52 03:52 06:05 WBC (3.8-10.6) k/uL Hgb 10.4 L (11.4-16.0) gm/dL MCHC 30.4 L (31.0-37.0) g/dL RDW 16.8 H (11.5-15.5) % Neutrophils # 8.7 H (1.3-7.7) k/uL Lymphocytes # 0.4 L (1.0-4.8) k/uL D-Dimer (<0.60) mg/L FEU Chloride 95 L (98-107) mmol/L Carbon Dioxide 38 H (22-30) mmol/L BUN 63 H (7-17) mg/dL Creatinine 1.23 H (0.52-1.04) mg/dL Glucose 299 H (74-99) mg/dL POC Glucose (mg/dL) 294 H (75-99) mg/dL 12/23/17 12/23/17 12/23/17 Range/Units 11:05 13:58 16:56 WBC (3.8-10.6) k/uL Hgb (11.4-16.0) gm/dL MCHC (31.0-37.0) g/dL RDW (11.5-15.5) % Neutrophils # (1.3-7.7) k/uL Lymphocytes # (1.0-4.8) k/uL D-Dimer (<0.60) mg/L FEU Chloride 93 L (98-107) mmol/L Carbon Dioxide 36 H (22-30) mmol/L BUN 66 H (7-17) mg/dL Creatinine 1.29 H (0.52-1.04) mg/dL Glucose 437 H (74-99) mg/dL POC Glucose (mg/dL) 335 H 468 H (75-99) mg/dL 12/23/17 12/23/17 Range/Units 19:11 19:42 WBC (3.8-10.6) k/uL Hgb (11.4-16.0) gm/dL MCHC (31.0-37.0) g/dL RDW (11.5-15.5) % Neutrophils # (1.3-7.7) k/uL Lymphocytes # (1.0-4.8) k/uL D-Dimer (<0.60) mg/L FEU Chloride (98-107) mmol/L Carbon Dioxide (22-30) mmol/L BUN (7-17) mg/dL Creatinine (0.52-1.04) mg/dL Glucose (74-99) mg/dL POC Glucose (mg/dL) 474 H 448 H (75-99) mg/dL Microbiology - Last 24 Hours (Table) 12/21/17 00:55 Blood Culture - Preliminary Blood No Growth after 48 hours Assessment and Plan Assessment: Right lower lobe pneumonia, community-acquired Acute COPD exacerbation Acute on chronic hypoxic respiratory failure Acute exacerbation of congestive heart failure related to acute on chronic diastolic heart failure Small bilateral pleural effusion Severe morbid obesity Plan: Broad-spectrum antibiotics Continue gentle diuresis B chest x-ray tomorrow Breathing treatments IV steroids BiPAP as needed Blood pressure control and gentle diuresis Findings on the VQ scan reviewed heparin has been switched to subcu Further recommendations pending plan of care as per clinical response of the patient Time with Patient: Greater than 30
[2017-12-23 20:24] LABS: Glucose,Whole Blood 406 mg/dL (75-99)
[2017-12-23 20:47] LABS: Glucose,Whole Blood 324 mg/dL (75-99)
[2017-12-23 21:18] LABS: Glucose,Whole Blood 274 mg/dL (75-99)
[2017-12-23 21:57] LABS: Glucose,Whole Blood 214 mg/dL (75-99)
[2017-12-23 23:49] LABS: Glucose,Whole Blood 110 mg/dL (75-99)
[2017-12-24] MEDS ORDERED: ONDANSETRON 4 MG/2 ML VIAL IVP PRN (00:43)
[2017-12-24 00:59] LABS: Glucose,Whole Blood 247 mg/dL (75-99)
[2017-12-24] MEDS: LORazepam 2 MG/ML INJ IV PRN ×2 (00:59→12:28)
[2017-12-24 03:04] LABS: Glucose,Whole Blood 332 mg/dL (75-99)
[2017-12-24 05:04] LABS: Glucose,Whole Blood 182 mg/dL (75-99)
[2017-12-24 06:28] LABS: Anisocytosis Slight; Basophils % (A) 0 %; Eosinophils # (A) 0.1 k/uL (0-0.7); Eosinophils % (A) 1 %; HCT 32.5 % (34.0-46.0); HGB 9.6 gm/dL (11.4-16.0); Hypochromasia Moderate; Lymphocytes # (A) 0.5 k/uL (1.0-4.8); Lymphocytes % (A) 6 %; MCH 26.2 pg (25.0-35.0); MCHC 29.6 g/dL (31.0-37.0); MCV 88.6 fL (80.0-100.0); Mean Platelet Volume 8.2; Monocytes # (A) 0.4 k/uL (0-1.0); Monocytes % (A) 4 %; Neutrophils # (A) 8.6 k/uL (1.3-7.7); Neutrophils % (A) 89 %; Platelet Count 246 k/uL (150-450); RBC 3.67 m/uL (3.80-5.40); RDW 16.4 % (11.5-15.5); WBC 9.7 k/uL (3.8-10.6)
[2017-12-24] MEDS: FUROSEMIDE 10 MG/ML 4 ML VIAL IV SCH ×2 (06:28→17:42)
[2017-12-24 06:46] LABS: Calcium 9.3 mg/dL (8.4-10.2); Potassium 4.5 mmol/L (3.5-5.1)
[2017-12-24 06:48] LABS: Glucose,Whole Blood 153 mg/dL (75-99)
[2017-12-24] MEDS: IPRATROPIUM-ALBUTEROL 3 ML NEB INHALATION SCH ×5 (07:28→20:27)
[2017-12-24] MEDS: BUDESONIDE 0.5 MG/2 ML NEBU INHALATION SCH ×2 (07:28→20:27)
[2017-12-24] MEDS: INSULIN ASPART 100 UNIT/ML 1 ML 10 ML VIAL SQ SCH ×4 (07:32→21:57)
[2017-12-24] MEDS ORDERED: DILTIAZEM CD 180 MG CAP.ER.24H PO SCH (09:00)
[2017-12-24 09:08] LABS: Glucose,Whole Blood 164 mg/dL (75-99)
--- NOTE | 2017-12-24 09:16 | P.PN ---
Subjective Progress Note Date: 12/24/17 Principal diagnosis: CHF/COPD This is an 82-year-old female patient who sees Dr. LEONARDA Caputo in the office as an outpatient with a past medical history significant for coronary artery disease and prior coronary revascularization, congestive heart failure secondary to diastolic dysfunction, chronic obstructive pulmonary disease, the patient is on oxygen at night, as well as hypertension and dyslipidemia presented to the emergency room complaining of shortness of breath. The patient was in her usual state of health until yesterday when she started experiencing started experiencing a worsening dyspnea. Beside that she did have chest discomfort and very mild over the left side of the chest. The family noticed bilateral lower extremities edema. No dizziness or lightheadedness. And no syncope. The patient was brought to the emergency room where she was diagnosed was congestive heart failure and she was admitted for further evaluation. The patient stated that she was compliant with her diet as well as with her medication and she has been following a low-salt diet. The chest x-ray showed findings consistent with CHF. The BMP was elevated. The EKG showed sinus rhythm with diffuse nonspecific changes. The patient underwent an echocardiogram in September 2017 and that revealed normal LV function with evidence of hypertensive heart disease and mild aortic stenosis. On physical examination , the patient did have severe bilateral lower extremities edema, bilateral expiratory wheezing, and a systolic murmur at the right upper sternal border. Beside that she looks in mild respiratory distress. On follow-up with the patient today, December 242017, she is feeling better in terms of shortness of breath. Denies having any chest pain or chest discomfort. She still tachycardic and hypertensive in spite of increasing the dose of Cardizem yesterday to 180 mg by mouth daily. I am going to increase the dose to 240 mg daily. She continues to be on Lasix IV at 40 mg twice a day. The chest x-ray from today revealed bilateral pleural effusion. Continue monitor the blood pressure and heart rate. Continue following up with her. Objective - Vital Signs Vital signs: Vital Signs Temp 97.7 F 12/24/17 04:00 Pulse 110 H 12/24/17 07:44 Resp 17 12/24/17 04:00 BP 170/71 12/24/17 04:00 Pulse Ox 93 L 12/24/17 04:00 Intake & Output 12/23/17 12/24/17 12/24/17 18:59 06:59 18:59 Intake Total 840 619.766 128.2 Output Total 1950 1500 1000 Balance -1110 -880.234 -871.8 Weight 97.5 kg Intake: IV 160 0.9 160 Intake, IV Titration 300 109.766 10.2 Amount Azithromycin 500 mg In 250 Sodium Chloride 0.9% 250 ml @ 250 mls/hr IVPB DAILY [facility] Rx#:[id number] Insulin Regular 100 unit 109.766 10.2 In Sodium Chloride 0.9% 100 ml @ Titrate IV .Q0M [facility] Rx#:[id number] cefTRIAXone 1,000 mg In 50 Sodium Chloride 0.9% 50 ml @ 100 mls/hr IVPB Q24HR [facility] Rx#:[id number] Oral 540 350 118 Output: Urine 1950 1500 1000 Other: Voiding Method Indwelling Catheter Indwelling Catheter - Constitutional General appearance: Present: mild distress - Respiratory Respiratory: bilateral: wheezing - Cardiovascular Rhythm: regular Heart sounds: normal: S1, S2 - Labs CBC & Chem 7: 12/24/17 05:40 12/24/17 05:40 Labs: Abnormal Lab Results - Last 24 Hours (Table) 12/23/17 12/23/17 12/23/17 Range/Units 11:05 13:58 16:56 RBC (3.80-5.40) m/uL Hgb (11.4-16.0) gm/dL Hct (34.0-46.0) % MCHC (31.0-37.0) g/dL RDW (11.5-15.5) % Neutrophils # (1.3-7.7) k/uL Lymphocytes # (1.0-4.8) k/uL Chloride 93 L (98-107) mmol/L Carbon Dioxide 36 H (22-30) mmol/L BUN 66 H (7-17) mg/dL Creatinine 1.29 H (0.52-1.04) mg/dL Glucose 437 H (74-99) mg/dL POC Glucose (mg/dL) 335 H 468 H (75-99) mg/dL 12/23/17 12/23/17 12/23/17 Range/Units 19:11 19:42 20:14 RBC (3.80-5.40) m/uL Hgb (11.4-16.0) gm/dL Hct (34.0-46.0) % MCHC (31.0-37.0) g/dL RDW (11.5-15.5) % Neutrophils # (1.3-7.7) k/uL Lymphocytes # (1.0-4.8) k/uL Chloride (98-107) mmol/L Carbon Dioxide (22-30) mmol/L BUN (7-17) mg/dL Creatinine (0.52-1.04) mg/dL Glucose (74-99) mg/dL POC Glucose (mg/dL) 474 H 448 H 406 H (75-99) mg/dL 12/23/17 12/23/17 12/23/17 Range/Units 20:45 21:17 21:46 RBC (3.80-5.40) m/uL Hgb (11.4-16.0) gm/dL Hct (34.0-46.0) % MCHC (31.0-37.0) g/dL RDW (11.5-15.5) % Neutrophils # (1.3-7.7) k/uL Lymphocytes # (1.0-4.8) k/uL Chloride (98-107) mmol/L Carbon Dioxide (22-30) mmol/L BUN (7-17) mg/dL Creatinine (0.52-1.04) mg/dL Glucose (74-99) mg/dL POC Glucose (mg/dL) 324 H 274 H 214 H (75-99) mg/dL 12/23/17 12/24/17 12/24/17 Range/Units 23:48 00:49 02:52 RBC (3.80-5.40) m/uL Hgb (11.4-16.0) gm/dL Hct (34.0-46.0) % MCHC (31.0-37.0) g/dL RDW (11.5-15.5) % Neutrophils # (1.3-7.7) k/uL Lymphocytes # (1.0-4.8) k/uL Chloride (98-107) mmol/L Carbon Dioxide (22-30) mmol/L BUN (7-17) mg/dL Creatinine (0.52-1.04) mg/dL Glucose (74-99) mg/dL POC Glucose (mg/dL) 110 H 247 H 332 H (75-99) mg/dL 12/24/17 12/24/17 12/24/17 Range/Units 04:43 05:40 05:40 RBC 3.67 L (3.80-5.40) m/uL Hgb 9.6 L (11.4-16.0) gm/dL Hct 32.5 L (34.0-46.0) % MCHC 29.6 L (31.0-37.0) g/dL RDW 16.4 H (11.5-15.5) % Neutrophils # 8.6 H (1.3-7.7) k/uL Lymphocytes # 0.5 L (1.0-4.8) k/uL Chloride 93 L (98-107) mmol/L Carbon Dioxide 39 H (22-30) mmol/L BUN 69 H (7-17) mg/dL Creatinine 1.18 H (0.52-1.04) mg/dL Glucose 144 H (74-99) mg/dL POC Glucose (mg/dL) 182 H (75-99) mg/dL 12/24/17 12/24/17 Range/Units 06:46 08:47 RBC (3.80-5.40) m/uL Hgb (11.4-16.0) gm/dL Hct (34.0-46.0) % MCHC (31.0-37.0) g/dL RDW (11.5-15.5) % Neutrophils # (1.3-7.7) k/uL Lymphocytes # (1.0-4.8) k/uL Chloride (98-107) mmol/L Carbon Dioxide (22-30) mmol/L BUN (7-17) mg/dL Creatinine (0.52-1.04) mg/dL Glucose (74-99) mg/dL POC Glucose (mg/dL) 153 H 164 H (75-99) mg/dL Microbiology - Last 24 Hours (Table) 12/21/17 00:55 Blood Culture - Preliminary Blood No Growth after 72 hours Assessment and Plan Assessment: Assessment #1 acute hypoxic respiratory failure of multi-factorial related to COPD exacerbation as well as CHF exacerbation #2 acute exacerbation of diastolic congestive heart failure #3 acute exacerbation of chronic obstructive pulmonary disease #4 uncontrolled hypertension #5 sinus tachycardia #6 coronary artery disease Plan #1 continue Lasix IV #2 recent echocardiogram revealed normal LV function with mild aortic stenosis #3 increase the dose of Cardizem 240 mg by mouth daily #4 follow-up with the patient. Thank you for allowing us participate in her care
--- NOTE | 2017-12-24 10:01 | XR ---
EXAMINATION TYPE: XR chest 1V portable DATE OF EXAM: 12/24/2017 COMPARISON: Prior chest x-ray 12/21/2017 HISTORY: Pneumonia TECHNIQUE: Single frontal view of the chest is obtained. FINDINGS: Heart size is stable. Suspect there is improvement in the interstitium. No evident pneumot horax. Bibasilar increased density persists, patient is rotated. There are overlying cardiac leads. IMPRESSION: Suspect improvement in patient's volume status, additional follow-up recommended.
[2017-12-24] MEDS: ASPIRIN 325 MG TAB PO SCH (10:06)
[2017-12-24] MEDS: HEPARIN SODIUM,PORCINE 5,000 UNIT/ML 1 ML VIAL SQ SCH ×3 (10:06→23:39)
[2017-12-24] MEDS: amLODIPine 5 MG TAB PO SCH ×2 (10:06→21:20)
[2017-12-24] MEDS: hydrALAZINE HCL 50 MG TAB PO SCH ×3 (10:06→21:56)
[2017-12-24] MEDS: methylPREDNISolone SOD SUCCI 40 MG/ML 1 ML VIAL IV SCH ×2 (10:06→21:56)
[2017-12-24 11:06] LABS: Glucose,Whole Blood 149 mg/dL (75-99)
--- NOTE | 2017-12-24 16:06 | CDI ---
Last Revision, February 2017 Documentation Clarification Form Date: 12/24/2017 3:28:15 PM From: Chikis Mijares RN, CCDS Admit Date: 12/21/2017 2:27:00 AM Patient Name: Keysha Thomas Visit Number: [id number] Discharge Date: ATTENTION: The Clinical Documentation Specialists (CDI) and [facility] Coding Staff appreciate your assistance in clarifying documentation. Please respond to the clarification below the line at the bottom and electronically sign. The CDI & [facility] Coding staff will review the response and follow-up if needed. Please note: Queries are made part of the Legal Health Record. If you have any questions, please contact the author of this message via ITS. Olvin Kincaid Uncontrolled Hypertension is document in the ongoing progress notes starting on 12/21/17. Patient history/risk factors: COPD CHF, Hypertension, Coronary artery disease Clinical Indicators: Present with acute respiratory distress, increased work of breathing, tachypneic and in moderate respiratory distress. Patient oxygen saturation was in the mid 90s on 8/L NC. Patient echocardiogram in September 2017 revealed normal LV function with evidence of hypertensive heart disease and mild aortic stenosis. Lab findings: BUN 69, CR 1.18, GFR 43, Chest x-ray: pulmonary edema, consistent with acute heart failure. Right lower lobe pneumonia possible. Vital Signs: 168/86 73 30, 98 % BIPAP, 142/92 56 15, 162/68 55 17 Treatment: Lasix IV Monitor kidney function and electrolytes Cardizem PO Apresoline PO Norvasc PO Please further specify the type of uncontrolled hypertension such as: Urgency With heart disease With renal disease Other (please specify in the medical record) Clinically unable to further specify Unknown Please continue to document in your progress notes and discharge summary in order to capture severity of illness and risk of mortality. Include clinical findings that support your diagnosis. Uncontrolled Essential HTN MTDD
--- NOTE | 2017-12-24 17:04 | P.PN ---
Subjective Progress Note Date: 12/24/17 Principal diagnosis: Right lower lobe pneumonia community-acquired, acute hypoxic respiratory failure , acute COPD exacerbation, acute on chronic hypoxic respiratory failure, acute exacerbation of CHF related to acute diastolic heart failure 12/24/2017, patient seen eval examined during the rounds she is doing slightly better breathing more comfortably denies any chest pain still of intermittent cough is present Ammann her hemodynamic status stable FiO2 is down to 3 L her saturations 96% blood pressure slightly elevated but has been coming down is 150 /62, she remains afebrile, her blood cultures have been negative, chest x-ray performed today reviewed and compared with the prior x-ray some improvement in interstitial edema as noted with improved atelectasis and infiltrate 12/23/2017, patient seen evarun examined during the rounds she is more awake now breathing lifting more comfortably, wheezing has improved significantly her labs irrigations reviewed currently she is on 3 L oxygen saturations 94%, her VQ scan is very low probability, duplex ultrasound of lower extremity negative for DVT and is thrombosis radiographic studies reviewed medications reviewed, labs reviewed significant finding is summarized in BUN/creatinine likely related to aggressive diuresis, leukocytosis is slightly improved, hyperglycemia related to high-dose IV steroids Morbidly obese 82-year-old female who is well-known to me patient has history of the chronic persistent asthma chronic hypoxemia severe COPD patient has been tested for sleep disorder breathing and sleep apnea no significant sleep apnea was seen in the past patient does have a history of chronic hypoxic respiratory failure has been on home oxygen during sleep to progressive problems with severe shortness of breath came into the hospital was seen evaluated examined in the emergency department and subsequently admitted him I was notified about this patient with acute onset of worsening or shortness of breath with chest tightness which was transient FiO2 went up from 2 L to 4 L eventually 100% nonrebreather mask patient has significant component of anxiety i-STAT VQ scan was performed which was negative for pulmonary embolism that showed low probability however 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 heparin was subsequently was discontinued, currently patient is being treated with bronchodilator broad-spectrum antibiotics Ammann IV steroids and diuresis Ammann she's been continued on her antihypertensive agents as well Ammann admit x-ray was positive for right lower lobe pneumonia along with some evidence of congestive heart failure and pulmonary edema cannot be excluded repeat chest x- ray revealed worsening off for interstitial edema subsequently patient was placed on diuretics Objective - Vital Signs Vital signs: Vital Signs Temp 98.1 F 12/24/17 12:00 Pulse 91 12/24/17 12:00 Resp 18 12/24/17 12:00 BP 152/62 12/24/17 12:00 Pulse Ox 96 12/24/17 12:00 Intake & Output 12/23/17 12/24/17 12/24/17 18:59 06:59 18:59 Intake Total 840 619.766 140.20 Output Total 1950 1500 1000 Balance -1110 -880.234 -859.80 Weight 97.5 kg Intake: IV 160 0.9 160 Intake, IV Titration 300 109.766 22.20 Amount Azithromycin 500 mg In 250 Sodium Chloride 0.9% 250 ml @ 250 mls/hr IVPB DAILY [facility] Rx#:[id number] Insulin Regular 100 unit 109.766 22.20 In Sodium Chloride 0.9% 100 ml @ Titrate IV .Q0M [facility] Rx#:[id number] cefTRIAXone 1,000 mg In 50 Sodium Chloride 0.9% 50 ml @ 100 mls/hr IVPB Q24HR [facility] Rx#:[id number] Oral 540 350 118 Output: Urine 1950 1500 1000 Other: Voiding Method Indwelling Catheter Indwelling Catheter Indwelling Catheter - Exam - Constitutional General appearance: average body habitus, cooperative, disheveled, morbidly obese, severe distress - EENT Eyes: EOMI, PERRLA, normal appearance ENT: normal oropharynx Ears: bilateral: normal - Neck Neck: normal ROM Carotids: bilateral: upstroke normal, bruit absent Thyroid: bilateral: normal size - Respiratory Respiratory: bilateral: rhonchi, wheezing, prolonged expiration - Cardiovascular Rhythm: regular Heart sounds: normal: S1, S2 - Gastrointestinal General gastrointestinal: distended, soft - Neurologic Neurologic: CNII-XII intact - Musculoskeletal Musculoskeletal: gait normal, generalized weakness, strength equal bilaterally - Psychiatric Psychiatric: A&O x's 3, appropriate affect, intact judgment & insight - Labs CBC & Chem 7: 12/24/17 05:40 12/24/17 05:40 Labs: Abnormal Lab Results - Last 24 Hours (Table) 12/23/17 12/23/17 12/23/17 Range/Units 16:56 19:11 19:42 RBC (3.80-5.40) m/uL Hgb (11.4-16.0) gm/dL Hct (34.0-46.0) % MCHC (31.0-37.0) g/dL RDW (11.5-15.5) % Neutrophils # (1.3-7.7) k/uL Lymphocytes # (1.0-4.8) k/uL Chloride (98-107) mmol/L Carbon Dioxide (22-30) mmol/L BUN (7-17) mg/dL Creatinine (0.52-1.04) mg/dL Glucose (74-99) mg/dL POC Glucose (mg/dL) 468 H 474 H 448 H (75-99) mg/dL 12/23/17 12/23/17 12/23/17 Range/Units 20:14 20:45 21:17 RBC (3.80-5.40) m/uL Hgb (11.4-16.0) gm/dL Hct (34.0-46.0) % MCHC (31.0-37.0) g/dL RDW (11.5-15.5) % Neutrophils # (1.3-7.7) k/uL Lymphocytes # (1.0-4.8) k/uL Chloride (98-107) mmol/L Carbon Dioxide (22-30) mmol/L BUN (7-17) mg/dL Creatinine (0.52-1.04) mg/dL Glucose (74-99) mg/dL POC Glucose (mg/dL) 406 H 324 H 274 H (75-99) mg/dL 12/23/17 12/23/17 12/24/17 Range/Units 21:46 23:48 00:49 RBC (3.80-5.40) m/uL Hgb (11.4-16.0) gm/dL Hct (34.0-46.0) % MCHC (31.0-37.0) g/dL RDW (11.5-15.5) % Neutrophils # (1.3-7.7) k/uL Lymphocytes # (1.0-4.8) k/uL Chloride (98-107) mmol/L Carbon Dioxide (22-30) mmol/L BUN (7-17) mg/dL Creatinine (0.52-1.04) mg/dL Glucose (74-99) mg/dL POC Glucose (mg/dL) 214 H 110 H 247 H (75-99) mg/dL 12/24/17 12/24/17 12/24/17 Range/Units 02:52 04:43 05:40 RBC 3.67 L (3.80-5.40) m/uL Hgb 9.6 L (11.4-16.0) gm/dL Hct 32.5 L (34.0-46.0) % MCHC 29.6 L (31.0-37.0) g/dL RDW 16.4 H (11.5-15.5) % Neutrophils # 8.6 H (1.3-7.7) k/uL Lymphocytes # 0.5 L (1.0-4.8) k/uL Chloride (98-107) mmol/L Carbon Dioxide (22-30) mmol/L BUN (7-17) mg/dL Creatinine (0.52-1.04) mg/dL Glucose (74-99) mg/dL POC Glucose (mg/dL) 332 H 182 H (75-99) mg/dL 12/24/17 12/24/17 12/24/17 Range/Units 05:40 06:46 08:47 RBC (3.80-5.40) m/uL Hgb (11.4-16.0) gm/dL Hct (34.0-46.0) % MCHC (31.0-37.0) g/dL RDW (11.5-15.5) % Neutrophils # (1.3-7.7) k/uL Lymphocytes # (1.0-4.8) k/uL Chloride 93 L (98-107) mmol/L Carbon Dioxide 39 H (22-30) mmol/L BUN 69 H (7-17) mg/dL Creatinine 1.18 H (0.52-1.04) mg/dL Glucose 144 H (74-99) mg/dL POC Glucose (mg/dL) 153 H 164 H (75-99) mg/dL 12/24/17 Range/Units 10:41 RBC (3.80-5.40) m/uL Hgb (11.4-16.0) gm/dL Hct (34.0-46.0) % MCHC (31.0-37.0) g/dL RDW (11.5-15.5) % Neutrophils # (1.3-7.7) k/uL Lymphocytes # (1.0-4.8) k/uL Chloride (98-107) mmol/L Carbon Dioxide (22-30) mmol/L BUN (7-17) mg/dL Creatinine (0.52-1.04) mg/dL Glucose (74-99) mg/dL POC Glucose (mg/dL) 149 H (75-99) mg/dL Microbiology - Last 24 Hours (Table) 12/21/17 00:55 Blood Culture - Preliminary Blood No Growth after 72 hours Assessment and Plan Assessment: Right lower lobe pneumonia, community-acquired Acute COPD exacerbation Acute on chronic hypoxic respiratory failure Acute exacerbation of congestive heart failure related to acute on chronic diastolic heart failure Small bilateral pleural effusion By basilar atelectasis Severe morbid obesity Plan: Broad-spectrum antibiotics Continue gentle diuresis Reviewed chest x-ray performed earlier today Breathing treatments to be continued IV steroids BiPAP as needed Blood pressure control and gentle diuresis Findings on the VQ scan reviewed heparin has been switched to subcu Further recommendations pending plan of care as per clinical response of the patient Time with Patient: Greater than 30
[2017-12-24 17:13] LABS: Glucose,Whole Blood 280 mg/dL (75-99)
[2017-12-24] MEDS ORDERED: INSULN ASP PRT/INSULIN ASPART 100 UNIT/ML 10 ML VIAL SQ SCH (17:30)
[2017-12-24 20:48] LABS: Glucose,Whole Blood 351 mg/dL (75-99)
[2017-12-24 21:02] LABS: Magnesium 1.9 mg/dL (1.6-2.3); Potassium 4.9 mmol/L (3.5-5.1)
[2017-12-24] MEDS ORDERED: INSULIN ASPART 100 UNIT/ML 1 ML 10 ML VIAL SQ ONE (21:16)
[2017-12-24] MEDS: INSULIN DETEMIR 100 UNIT/ML 10 ML VIAL SQ SCH (21:59)
[2017-12-25 03:30] LABS: Hemoglobin A1C 6.2 % (4.0-6.0)
[2017-12-25] MEDS: LORazepam 2 MG/ML INJ IV PRN (05:47)
[2017-12-25] MEDS: FUROSEMIDE 10 MG/ML 4 ML VIAL IV SCH ×2 (05:59→18:13)
[2017-12-25 06:15] LABS: Basophils % (A) 0 %; Eosinophils # (A) 0.1 k/uL (0-0.7); Eosinophils % (A) 1 %; HCT 32.4 % (34.0-46.0); HGB 9.5 gm/dL (11.4-16.0); Hypochromasia Marked; Lymphocytes # (A) 0.4 k/uL (1.0-4.8); Lymphocytes % (A) 5 %; MCH 26.9 pg (25.0-35.0); MCHC 29.4 g/dL (31.0-37.0); MCV 91.5 fL (80.0-100.0); Mean Platelet Volume 7.6; Monocytes # (A) 0.3 k/uL (0-1.0); Monocytes % (A) 3 %; Neutrophils # (A) 7.1 k/uL (1.3-7.7); Neutrophils % (A) 91 %; Platelet Count 270 k/uL (150-450); RBC 3.54 m/uL (3.80-5.40); WBC 7.8 k/uL (3.8-10.6)
[2017-12-25 06:27] LABS: Calcium 8.6 mg/dL (8.4-10.2); Potassium 5.4 mmol/L (3.5-5.1)
[2017-12-25] MEDS ORDERED: INSULIN ASPART 100 UNIT/ML 1 ML 10 ML VIAL SQ ONE ×2 (06:27→10:43)
[2017-12-25] MEDS ORDERED: INSULIN DETEMIR 100 UNIT/ML 10 ML VIAL SQ STA (06:28)
[2017-12-25] MEDS: INSULIN ASPART 100 UNIT/ML 1 ML 10 ML VIAL SQ SCH ×5 (06:30→22:55)
[2017-12-25 06:52] LABS: Glucose,Whole Blood 423 mg/dL (75-99)
[2017-12-25] MEDS: BUDESONIDE 0.5 MG/2 ML NEBU INHALATION SCH ×2 (07:04→20:26)
[2017-12-25] MEDS: IPRATROPIUM-ALBUTEROL 3 ML NEB INHALATION SCH ×4 (07:05→20:26)
[2017-12-25] MEDS ORDERED: INSULN ASP PRT/INSULIN ASPART 100 UNIT/ML 10 ML VIAL SQ SCH (07:30)
[2017-12-25] MEDS: methylPREDNISolone SOD SUCCI 40 MG/ML 1 ML VIAL IV SCH ×2 (08:54→20:55)
[2017-12-25] MEDS: HEPARIN SODIUM,PORCINE 5,000 UNIT/ML 1 ML VIAL SQ SCH ×3 (08:54→22:59)
[2017-12-25] MEDS: ASPIRIN 325 MG TAB PO SCH (08:55)
[2017-12-25] MEDS: AZITHROMYCIN 500 MG TAB PO SCH (08:55)
[2017-12-25] MEDS: hydrALAZINE HCL 50 MG TAB PO SCH ×3 (08:55→20:55)
[2017-12-25] MEDS: amLODIPine 5 MG TAB PO SCH ×2 (08:55→20:55)
[2017-12-25] MEDS: DILTIAZEM CD 240 MG CAP.ER.24H PO SCH (08:55)
[2017-12-25 09:42] LABS: Glucose,Whole Blood 475 mg/dL (75-99)
[2017-12-25 10:30] LABS: Glucose,Whole Blood 442 mg/dL (75-99)
[2017-12-25 11:23] LABS: Glucose,Whole Blood 436 mg/dL (75-99)
[2017-12-25 12:27] LABS: Glucose,Whole Blood 393 mg/dL (75-99)
--- NOTE | 2017-12-25 14:07 | P.PN ---
Subjective Progress Note Date: 12/25/17 Principal diagnosis: Right lower lobe pneumonia community-acquired, acute hypoxic respiratory failure , acute COPD exacerbation, acute on chronic hypoxic respiratory failure, acute exacerbation of CHF related to acute diastolic heart failure 12/25/2017, patient seen [place] examined during the rounds clinically patient is doing slightly better in terms of breathing left less cough and congestion is present, care plan discussed with patient and daughter present at bedside patient has Placement into extended care facility or rehabilitation patient prefers to go home, labs reviewed BUN/creatinine continue to go up however may need to lower it down we'll defer to cardiovascular services, continue Solu-Medrol to every 12 for now 12/24/2017, patient seen [place] examined during the rounds she is doing slightly better breathing more comfortably denies any chest pain still of intermittent cough is present Ammann her hemodynamic status stable FiO2 is down to 3 L her saturations 96% blood pressure slightly elevated but has been coming down is 150 /62, she remains afebrile, her blood cultures have been negative, chest x-ray performed today reviewed and compared with the prior x-ray some improvement in interstitial edema as noted with improved atelectasis and infiltrate 12/23/2017, patient seen evarun examined during the rounds she is more awake now breathing lifting more comfortably, wheezing has improved significantly her labs irrigations reviewed currently she is on 3 L oxygen saturations 94%, her VQ scan is very low probability, duplex ultrasound of lower extremity negative for DVT and is thrombosis radiographic studies reviewed medications reviewed, labs reviewed significant finding is summarized in BUN/creatinine likely related to aggressive diuresis, leukocytosis is slightly improved, hyperglycemia related to high-dose IV steroids Morbidly obese 82-year-old female who is well-known to me patient has history of the chronic persistent asthma chronic hypoxemia severe COPD patient has been tested for sleep disorder breathing and sleep apnea no significant sleep apnea was seen in the past patient does have a history of chronic hypoxic respiratory failure has been on home oxygen during sleep to progressive problems with severe shortness of breath came into the hospital was seen evaluated examined in the emergency department and subsequently admitted him I was notified about this patient with acute onset of worsening or shortness of breath with chest tightness which was transient FiO2 went up from 2 L to 4 L eventually 100% nonrebreather mask patient has significant component of anxiety i-STAT VQ scan was performed which was negative for pulmonary embolism that showed low probability however 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 heparin was subsequently was discontinued, currently patient is being treated with bronchodilator broad-spectrum antibiotics Ammann IV steroids and diuresis Ammann she's been continued on her antihypertensive agents as well Ammann admit x-ray was positive for right lower lobe pneumonia along with some evidence of congestive heart failure and pulmonary edema cannot be excluded repeat chest x- ray revealed worsening off for interstitial edema subsequently patient was placed on diuretics Objective - Vital Signs Vital signs: Vital Signs Temp 98.1 F 12/25/17 08:00 Pulse 80 12/25/17 10:49 Resp 18 12/25/17 08:00 BP 144/78 12/25/17 08:00 Pulse Ox 93 L 12/25/17 08:00 Intake & Output 12/24/17 12/25/17 12/25/17 18:59 06:59 18:59 Intake Total 380.20 650 480 Output Total 1650 700 Balance -1269.80 -50 480 Weight 100.2 kg Intake: Intake, IV Titration 22.20 Amount Insulin Regular 100 unit 22.20 In Sodium Chloride 0.9% 100 ml @ Titrate IV .Q0M [facility] Rx#:[id number] Oral 358 650 480 Output: Urine 1650 700 Other: Voiding Method Indwelling Catheter Indwelling Catheter Indwelling Catheter - Exam - Constitutional General appearance: average body habitus, cooperative, disheveled, morbidly obese, severe distress - EENT Eyes: EOMI, PERRLA, normal appearance ENT: normal oropharynx Ears: bilateral: normal - Neck Neck: normal ROM Carotids: bilateral: upstroke normal, bruit absent Thyroid: bilateral: normal size - Respiratory Respiratory: bilateral: rhonchi, wheezing, prolonged expiration - Cardiovascular Rhythm: regular Heart sounds: normal: S1, S2 - Gastrointestinal General gastrointestinal: distended, soft - Neurologic Neurologic: CNII-XII intact - Musculoskeletal Musculoskeletal: gait normal, generalized weakness, strength equal bilaterally - Psychiatric Psychiatric: A&O x's 3, appropriate affect, intact judgment & insight - Labs CBC & Chem 7: 12/25/17 06:02 12/25/17 06:02 Labs: Abnormal Lab Results - Last 24 Hours (Table) 12/22/17 12/24/17 12/24/17 Range/Units 22:13 16:58 20:45 RBC (3.80-5.40) m/uL Hgb (11.4-16.0) gm/dL Hct (34.0-46.0) % MCHC (31.0-37.0) g/dL RDW (11.5-15.5) % Lymphocytes # (1.0-4.8) k/uL Potassium (3.5-5.1) mmol/L Chloride (98-107) mmol/L Carbon Dioxide (22-30) mmol/L BUN (7-17) mg/dL Creatinine (0.52-1.04) mg/dL Glucose (74-99) mg/dL POC Glucose (mg/dL) 280 H 351 H (75-99) mg/dL Hemoglobin A1c 6.2 H (4.0-6.0) % 12/25/17 12/25/17 12/25/17 Range/Units 06:02 06:02 06:06 RBC 3.54 L (3.80-5.40) m/uL Hgb 9.5 L (11.4-16.0) gm/dL Hct 32.4 L (34.0-46.0) % MCHC 29.4 L (31.0-37.0) g/dL RDW 16.0 H (11.5-15.5) % Lymphocytes # 0.4 L (1.0-4.8) k/uL Potassium 5.4 H (3.5-5.1) mmol/L Chloride 93 L (98-107) mmol/L Carbon Dioxide 39 H (22-30) mmol/L BUN 84 H (7-17) mg/dL Creatinine 1.19 H (0.52-1.04) mg/dL Glucose 395 H (74-99) mg/dL POC Glucose (mg/dL) 423 H (75-99) mg/dL Hemoglobin A1c (4.0-6.0) % 12/25/17 12/25/17 12/25/17 Range/Units 09:22 10:29 11:15 RBC (3.80-5.40) m/uL Hgb (11.4-16.0) gm/dL Hct (34.0-46.0) % MCHC (31.0-37.0) g/dL RDW (11.5-15.5) % Lymphocytes # (1.0-4.8) k/uL Potassium (3.5-5.1) mmol/L Chloride (98-107) mmol/L Carbon Dioxide (22-30) mmol/L BUN (7-17) mg/dL Creatinine (0.52-1.04) mg/dL Glucose (74-99) mg/dL POC Glucose (mg/dL) 475 H 442 H 436 H (75-99) mg/dL Hemoglobin A1c (4.0-6.0) % 12/25/17 Range/Units 12:18 RBC (3.80-5.40) m/uL Hgb (11.4-16.0) gm/dL Hct (34.0-46.0) % MCHC (31.0-37.0) g/dL RDW (11.5-15.5) % Lymphocytes # (1.0-4.8) k/uL Potassium (3.5-5.1) mmol/L Chloride (98-107) mmol/L Carbon Dioxide (22-30) mmol/L BUN (7-17) mg/dL Creatinine (0.52-1.04) mg/dL Glucose (74-99) mg/dL POC Glucose (mg/dL) 393 H (75-99) mg/dL Hemoglobin A1c (4.0-6.0) % Microbiology - Last 24 Hours (Table) 12/21/17 00:55 Blood Culture - Preliminary Blood No Growth after 96 hours Assessment and Plan Assessment: Right lower lobe pneumonia, community-acquired Acute COPD exacerbation Acute on chronic renal failure with some component of prerenal azotemia Acute on chronic hypoxic respiratory failure Acute exacerbation of congestive heart failure related to acute on chronic diastolic heart failure Small bilateral pleural effusion By basilar atelectasis Severe morbid obesity Plan: Broad-spectrum antibiotics Continue gentle diuresis Reviewed chest x-ray Would recommend to lower down the furosemide Breathing treatments to be continued IV steroids BiPAP as needed Blood pressure control and gentle diuresis Findings on the VQ scan reviewed heparin has been switched to subcu Further recommendations pending plan of care as per clinical response of the patient Time with Patient: Greater than 30
--- NOTE | 2017-12-25 15:39 | P.PN ---
Subjective Progress Note Date: 12/25/17 This is an 82-year-old female with known history of coronary artery disease with prior coronary revascularization, diastolic heart failure chronic, COPD, hypertension, hyperlipidemia who presented to the hospital with symptoms of shortness of breath. She was diagnosed with congestive cardiac failure and was initiated on IV Lasix. Patient did have an echo performed in September 2017 which revealed a normal left ventricular systolic function with evidence of hypertensive heart disease and mild aortic stenosis. Patient was seen and examined today, overall stated that she feels mildly diaphoretic today and the week. She has been diuresing, however her weight is not reflective of this. At pressure 136/80 with a heart rate in the 60s. White blood cell count 7.8, hemoglobin 9.5, platelet count 270. Sodium 137, potassium 5.4, BUN 84, creatinine 1.1. Patient continues to be on IV Lasix. We will decrease her aspirin 81 mg daily and continue IV Lasix for 24 hours. Objective - Vital Signs Vital signs: Vital Signs Temp 97.8 F 12/25/17 12:00 Pulse 64 12/25/17 12:00 Resp 18 12/25/17 12:00 BP 136/82 12/25/17 12:00 Pulse Ox 96 12/25/17 12:00 Intake & Output 12/24/17 12/25/17 12/25/17 18:59 06:59 18:59 Intake Total 380.20 650 480 Output Total 1650 700 Balance -1269.80 -50 480 Weight 100.2 kg Intake: Intake, IV Titration 22.20 Amount Insulin Regular 100 unit 22.20 In Sodium Chloride 0.9% 100 ml @ Titrate IV .Q0M [facility] Rx#:[id number] Oral 358 650 480 Output: Urine 1650 700 Other: Voiding Method Indwelling Catheter Indwelling Catheter Indwelling Catheter - Exam PHYSICAL EXAMINATION: GENERAL: 82-year-old female in no acute distress at the time of HEENT: Head is atraumatic, normocephalic. Pupils equal, round. Sclera anicteric. Conjunctiva are clear. Mucous membranes of the mouth are moist. Neck is supple. There is no elevated jugular venous pressure. No carotid bruit is heard. HEART EXAMINATION: Heart S1 and S2 systolic murmur is heard. CHEST EXAMINATION: Lungs revealed decreased air exchange with bilateral wheeze. ABDOMEN: Soft, nontender. Bowel sounds are heard. No organomegaly noted. EXTREMITIES: 2+ peripheral pulses with evidence of peripheral edema and no calf tenderness noted. NEUROLOGIC patient is awake, alert and oriented X3. . - Labs CBC & Chem 7: 12/25/17 06:02 12/25/17 06:02 Labs: Abnormal Lab Results - Last 24 Hours (Table) 12/22/17 12/24/17 12/24/17 Range/Units 22:13 16:58 20:45 RBC (3.80-5.40) m/uL Hgb (11.4-16.0) gm/dL Hct (34.0-46.0) % MCHC (31.0-37.0) g/dL RDW (11.5-15.5) % Lymphocytes # (1.0-4.8) k/uL Potassium (3.5-5.1) mmol/L Chloride (98-107) mmol/L Carbon Dioxide (22-30) mmol/L BUN (7-17) mg/dL Creatinine (0.52-1.04) mg/dL Glucose (74-99) mg/dL POC Glucose (mg/dL) 280 H 351 H (75-99) mg/dL Hemoglobin A1c 6.2 H (4.0-6.0) % 12/25/17 12/25/17 12/25/17 Range/Units 06:02 06:02 06:06 RBC 3.54 L (3.80-5.40) m/uL Hgb 9.5 L (11.4-16.0) gm/dL Hct 32.4 L (34.0-46.0) % MCHC 29.4 L (31.0-37.0) g/dL RDW 16.0 H (11.5-15.5) % Lymphocytes # 0.4 L (1.0-4.8) k/uL Potassium 5.4 H (3.5-5.1) mmol/L Chloride 93 L (98-107) mmol/L Carbon Dioxide 39 H (22-30) mmol/L BUN 84 H (7-17) mg/dL Creatinine 1.19 H (0.52-1.04) mg/dL Glucose 395 H (74-99) mg/dL POC Glucose (mg/dL) 423 H (75-99) mg/dL Hemoglobin A1c (4.0-6.0) % 12/25/17 12/25/17 12/25/17 Range/Units 09:22 10:29 11:15 RBC (3.80-5.40) m/uL Hgb (11.4-16.0) gm/dL Hct (34.0-46.0) % MCHC (31.0-37.0) g/dL RDW (11.5-15.5) % Lymphocytes # (1.0-4.8) k/uL Potassium (3.5-5.1) mmol/L Chloride (98-107) mmol/L Carbon Dioxide (22-30) mmol/L BUN (7-17) mg/dL Creatinine (0.52-1.04) mg/dL Glucose (74-99) mg/dL POC Glucose (mg/dL) 475 H 442 H 436 H (75-99) mg/dL Hemoglobin A1c (4.0-6.0) % 12/25/17 Range/Units 12:18 RBC (3.80-5.40) m/uL Hgb (11.4-16.0) gm/dL Hct (34.0-46.0) % MCHC (31.0-37.0) g/dL RDW (11.5-15.5) % Lymphocytes # (1.0-4.8) k/uL Potassium (3.5-5.1) mmol/L Chloride (98-107) mmol/L Carbon Dioxide (22-30) mmol/L BUN (7-17) mg/dL Creatinine (0.52-1.04) mg/dL Glucose (74-99) mg/dL POC Glucose (mg/dL) 393 H (75-99) mg/dL Hemoglobin A1c (4.0-6.0) % Microbiology - Last 24 Hours (Table) 12/21/17 00:55 Blood Culture - Preliminary Blood No Growth after 96 hours Assessment and Plan Plan: Assessment and plan #1 acute hypoxic respiratory failure of multi-factorial related to COPD exacerbation as well as CHF exacerbation #2 acute exacerbation of diastolic congestive heart failure #3 acute exacerbation of chronic obstructive pulmonary disease #4 uncontrolled hypertension #5 sinus tachycardia #6 coronary artery disease Plan From cardiology's perspective, we will recommend the patient continue on IV Lasix for another 24 hours, heart rate and blood pressure stable today. We will continue to monitor daily intake and output along with daily weights and daily lytes BUN and creatinine. DNP note has been reviewed, I agree with a documented findings and plan of care. Patient was seen and examined.
[2017-12-25 16:17] LABS: Glucose,Whole Blood 311 mg/dL (75-99)
[2017-12-25 21:43] LABS: Glucose,Whole Blood 240 mg/dL (75-99)
[2017-12-25] MEDS ORDERED: INSULIN NPH/REG INSULIN 70/30 300 UNIT/3 ML VIAL SQ ONE (22:40)
--- NOTE | 2017-12-25 22:44 | P.PN ---
Subjective Progress Note Date: 12/24/17 Principal diagnosis: Acute respiratory failure secondary to acute exacerbation COPD/ acute exacerbation of CHF December 222017, she is feeling slightly better in terms of shortness of breath. She continues to be on BiPAP. The blood pressure and heart rate are within normal limits. Yesterday I did start the patient on calcium channel elisabeth with Cardizem. We will continue the IV Lasix for additional 24 hours. Continue following up with the patient. Acute respiratory failure; multifactorial - Acute exacerbation COPD; continue patient on bronchodilator nebulizer treatment; and IV Solu-Medrol 40 mg every 8 hours - Acute exacerbation CHF; patient continues to diurese well; cardiology is following; patient is started on calcium channel elisabeth and Cardizem by cardiology service; remains on IV Lasix; cardiology recommending another 24 hours - Right lower lobe pneumonia; we'll start patient on IV Rocephin 1 g daily along with Zithromax 500 mg daily; we'll obtain blood culture and sputum culture ; We will consult pulmonary service for further recommendations 12/23/2017; patient is seen and evaluated in follow-up; she is sitting propped up in the bed ; respiratory status seems to be improved; patient is not in any respiratory distress at this time; however heart rate remains slightly elevated; cardiology has seen people and have increased Cardizem to 120 mg by mouth and Lasix was decreased to 40 mg IV twice a day Pulmonary service is consulted. On 12/24/2017 Patient denied any complaints of chest pain. Otherwise patient still short of breath. Continued on IV Lasix and IV methylprednisolone. Continued on breathing treatments. Patient is still tachycardic and Cardizem dose has been increased to 240 mg daily. Chest x-ray showed bilateral pleural effusion. Blood pressure is also elevated. No fever no chills. No other acute overnight issues. Patient is being continued on antibiotics in the form of ceftriaxone. Pulmonary and cardiology is following. BUN and 69 and creatinine 1.18 Current medications reviewed. Objective - Vital Signs Vital signs: Vital Signs Temp 97.7 F 12/24/17 08:00 Pulse 98 12/24/17 11:47 Resp 18 12/24/17 08:00 BP 157/70 12/24/17 08:00 Pulse Ox 97 12/24/17 08:00 Intake & Output 12/23/17 12/24/17 12/24/17 18:59 06:59 18:59 Intake Total 840 619.766 140.20 Output Total 1950 1500 1000 Balance -1110 -880.234 -859.80 Weight 97.5 kg Intake: IV 160 0.9 160 Intake, IV Titration 300 109.766 22.20 Amount Azithromycin 500 mg In 250 Sodium Chloride 0.9% 250 ml @ 250 mls/hr IVPB DAILY [facility] Rx#:[id number] Insulin Regular 100 unit 109.766 22.20 In Sodium Chloride 0.9% 100 ml @ Titrate IV .Q0M [facility] Rx#:[id number] cefTRIAXone 1,000 mg In 50 Sodium Chloride 0.9% 50 ml @ 100 mls/hr IVPB Q24HR [facility] Rx#:[id number] Oral 540 350 118 Output: Urine 1950 1500 1000 Other: Voiding Method Indwelling Catheter Indwelling Catheter Indwelling Catheter - Exam - Exam - Constitutional General appearance: Present: average body habitus, cooperative, no acute distress - EENT Eyes: Present: anicteric sclerae, EOMI, PERRLA, normal appearance ENT: Present: hearing grossly normal, normal oropharynx Ears: bilateral: normal - Neck Neck: Present: normal ROM. Absent: lymphadenopathy, rigidity, thyromegaly Carotids: negative: bruit present Thyroid: bilateral: normal size, negative: enlarged, nodule - Respiratory Respiratory: bilateral: CTA, negative: rales, rhonchi, wheezing - Cardiovascular Rhythm: regular Heart sounds: normal: S1, S2 Abnormal Heart Sounds: Absent: systolic murmur, diastolic murmur - Gastrointestinal General gastrointestinal: Present: normal bowel sounds, soft. Absent: distended , organomegaly, tenderness - Genitourinary Genitourinary Comment(s): deferred - Integumentary Integumentary: Present: normal turgor. Absent: jaundiced, rash, ulcer - Neurologic Neurologic: Present: CNII-XII intact. Absent: focal deficits - Musculoskeletal Musculoskeletal: Present: gait normal, strength equal bilaterally - Psychiatric Psychiatric: Present: A&O x's 3, appropriate affect, intact judgment & insight - Labs CBC & Chem 7: 12/25/17 06:02 12/25/17 06:02 Labs: Abnormal Lab Results - Last 24 Hours (Table) 12/23/17 12/23/17 12/23/17 Range/Units 16:56 19:11 19:42 RBC (3.80-5.40) m/uL Hgb (11.4-16.0) gm/dL Hct (34.0-46.0) % MCHC (31.0-37.0) g/dL RDW (11.5-15.5) % Neutrophils # (1.3-7.7) k/uL Lymphocytes # (1.0-4.8) k/uL Chloride (98-107) mmol/L Carbon Dioxide (22-30) mmol/L BUN (7-17) mg/dL Creatinine (0.52-1.04) mg/dL Glucose (74-99) mg/dL POC Glucose (mg/dL) 468 H 474 H 448 H (75-99) mg/dL 12/23/17 12/23/17 12/23/17 Range/Units 20:14 20:45 21:17 RBC (3.80-5.40) m/uL Hgb (11.4-16.0) gm/dL Hct (34.0-46.0) % MCHC (31.0-37.0) g/dL RDW (11.5-15.5) % Neutrophils # (1.3-7.7) k/uL Lymphocytes # (1.0-4.8) k/uL Chloride (98-107) mmol/L Carbon Dioxide (22-30) mmol/L BUN (7-17) mg/dL Creatinine (0.52-1.04) mg/dL Glucose (74-99) mg/dL POC Glucose (mg/dL) 406 H 324 H 274 H (75-99) mg/dL 12/23/17 12/23/17 12/24/17 Range/Units 21:46 23:48 00:49 RBC (3.80-5.40) m/uL Hgb (11.4-16.0) gm/dL Hct (34.0-46.0) % MCHC (31.0-37.0) g/dL RDW (11.5-15.5) % Neutrophils # (1.3-7.7) k/uL Lymphocytes # (1.0-4.8) k/uL Chloride (98-107) mmol/L Carbon Dioxide (22-30) mmol/L BUN (7-17) mg/dL Creatinine (0.52-1.04) mg/dL Glucose (74-99) mg/dL POC Glucose (mg/dL) 214 H 110 H 247 H (75-99) mg/dL 12/24/17 12/24/17 12/24/17 Range/Units 02:52 04:43 05:40 RBC 3.67 L (3.80-5.40) m/uL Hgb 9.6 L (11.4-16.0) gm/dL Hct 32.5 L (34.0-46.0) % MCHC 29.6 L (31.0-37.0) g/dL RDW 16.4 H (11.5-15.5) % Neutrophils # 8.6 H (1.3-7.7) k/uL Lymphocytes # 0.5 L (1.0-4.8) k/uL Chloride (98-107) mmol/L Carbon Dioxide (22-30) mmol/L BUN (7-17) mg/dL Creatinine (0.52-1.04) mg/dL Glucose (74-99) mg/dL POC Glucose (mg/dL) 332 H 182 H (75-99) mg/dL 12/24/17 12/24/17 12/24/17 Range/Units 05:40 06:46 08:47 RBC (3.80-5.40) m/uL Hgb (11.4-16.0) gm/dL Hct (34.0-46.0) % MCHC (31.0-37.0) g/dL RDW (11.5-15.5) % Neutrophils # (1.3-7.7) k/uL Lymphocytes # (1.0-4.8) k/uL Chloride 93 L (98-107) mmol/L Carbon Dioxide 39 H (22-30) mmol/L BUN 69 H (7-17) mg/dL Creatinine 1.18 H (0.52-1.04) mg/dL Glucose 144 H (74-99) mg/dL POC Glucose (mg/dL) 153 H 164 H (75-99) mg/dL 12/24/17 Range/Units 10:41 RBC (3.80-5.40) m/uL Hgb (11.4-16.0) gm/dL Hct (34.0-46.0) % MCHC (31.0-37.0) g/dL RDW (11.5-15.5) % Neutrophils # (1.3-7.7) k/uL Lymphocytes # (1.0-4.8) k/uL Chloride (98-107) mmol/L Carbon Dioxide (22-30) mmol/L BUN (7-17) mg/dL Creatinine (0.52-1.04) mg/dL Glucose (74-99) mg/dL POC Glucose (mg/dL) 149 H (75-99) mg/dL Microbiology - Last 24 Hours (Table) 12/21/17 00:55 Blood Culture - Preliminary Blood No Growth after 72 hours Assessment and Plan Assessment: Assessment: #1 acute hypoxic respiratory failure of multi-factorial related to COPD exacerbation as well as CHF exacerbation #2 acute exacerbation of diastolic congestive heart failure. With small bilateral pleural effusion and atelectasis. #3 acute exacerbation of chronic obstructive pulmonary disease #4 uncontrolled hypertension #5 sinus tachycardia #6 history of coronary artery disease with history of stent placement #7 prerenal azotemia likely due to steroids. 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 Community-acquired #10 morbid obesity with BMI 39.1 Plan #1 continue the Lasix IV and continue monitor the kidney function and electrolytes #2 recent echocardiogram revealed normal LV function with mild aortic stenosis #3 started the patient on Cardizem for the heart rate and blood pressure control. Dose increased to 240 mg daily. #4 acute coronary syndrome was ruled out. Cardiology and pulmonary is following. Time with Patient: Greater than 30
--- NOTE | 2017-12-25 22:48 | P.PN ---
Subjective Progress Note Date: 12/25/17 Principal diagnosis: Acute respiratory failure secondary to acute exacerbation COPD/ acute exacerbation of CHF December 222017, she is feeling slightly better in terms of shortness of breath. She continues to be on BiPAP. The blood pressure and heart rate are within normal limits. Yesterday I did start the patient on calcium channel elisabeth with Cardizem. We will continue the IV Lasix for additional 24 hours. Continue following up with the patient. Acute respiratory failure; multifactorial - Acute exacerbation COPD; continue patient on bronchodilator nebulizer treatment; and IV Solu-Medrol 40 mg every 8 hours - Acute exacerbation CHF; patient continues to diurese well; cardiology is following; patient is started on calcium channel elisabeth and Cardizem by cardiology service; remains on IV Lasix; cardiology recommending another 24 hours - Right lower lobe pneumonia; we'll start patient on IV Rocephin 1 g daily along with Zithromax 500 mg daily; we'll obtain blood culture and sputum culture ; We will consult pulmonary service for further recommendations 12/23/2017; patient is seen and evaluated in follow-up; she is sitting propped up in the bed ; respiratory status seems to be improved; patient is not in any respiratory distress at this time; however heart rate remains slightly elevated; cardiology has seen people and have increased Cardizem to 120 mg by mouth and Lasix was decreased to 40 mg IV twice a day Pulmonary service is consulted. On 12/24/2017 Patient denied any complaints of chest pain. Otherwise patient still short of breath. Continued on IV Lasix and IV methylprednisolone. Continued on breathing treatments. Patient is still tachycardic and Cardizem dose has been increased to 240 mg daily. Chest x-ray showed bilateral pleural effusion. Blood pressure is also elevated. No fever no chills. No other acute overnight issues. Patient is being continued on antibiotics in the form of ceftriaxone. Pulmonary and cardiology is following. BUN and 69 and creatinine 1.18 12/25/2017 Patient denied any complaints of chest pain. Shortness of breath is improving. Continued on IV Lasix and methylprednisolone 40 mg every 8. Patient is still tachycardic today. Continued on IV Lasix for another 24 hours as per cardiology. Continue with antibiotics for pneumonia. Creatinine level is 1.19 today. Significantly elevated BUN level could be due to steroids. Pulmonary and cardiology is on board. Current medications reviewed. Objective - Vital Signs Vital signs: Vital Signs Temp 97.8 F 12/25/17 12:00 Pulse 64 12/25/17 12:00 Resp 18 12/25/17 12:00 BP 136/82 12/25/17 12:00 Pulse Ox 96 12/25/17 12:00 Intake & Output 12/24/17 12/25/17 12/25/17 18:59 06:59 18:59 Intake Total 380.20 650 480 Output Total 4326 726 9955 Balance -1269.80 -50 -520 Weight 100.2 kg Intake: Intake, IV Titration 22.20 Amount Insulin Regular 100 unit 22.20 In Sodium Chloride 0.9% 100 ml @ Titrate IV .Q0M [facility] Rx#:[id number] Oral 358 650 480 Output: Urine 6193 [id number] 5574 Other: Voiding Method Indwelling Catheter Indwelling Catheter Indwelling Catheter - Exam - Exam - Constitutional General appearance: Present: average body habitus, cooperative, no acute distress - EENT Eyes: Present: anicteric sclerae, EOMI, PERRLA, normal appearance ENT: Present: hearing grossly normal, normal oropharynx Ears: bilateral: normal - Neck Neck: Present: normal ROM. Absent: lymphadenopathy, rigidity, thyromegaly Carotids: negative: bruit present Thyroid: bilateral: normal size, negative: enlarged, nodule - Respiratory Respiratory: bilateral: CTA, negative: rales, rhonchi, wheezing - Cardiovascular Rhythm: regular Heart sounds: normal: S1, S2 Abnormal Heart Sounds: Absent: systolic murmur, diastolic murmur - Gastrointestinal General gastrointestinal: Present: normal bowel sounds, soft. Absent: distended , organomegaly, tenderness - Genitourinary Genitourinary Comment(s): deferred - Integumentary Integumentary: Present: normal turgor. Absent: jaundiced, rash, ulcer - Neurologic Neurologic: Present: CNII-XII intact. Absent: focal deficits - Musculoskeletal Musculoskeletal: Present: gait normal, strength equal bilaterally - Psychiatric Psychiatric: Present: A&O x's 3, appropriate affect, intact judgment & insight - Labs CBC & Chem 7: 12/25/17 06:02 12/25/17 06:02 Labs: Abnormal Lab Results - Last 24 Hours (Table) 12/22/17 12/24/17 12/24/17 Range/Units 22:13 16:58 20:45 RBC (3.80-5.40) m/uL Hgb (11.4-16.0) gm/dL Hct (34.0-46.0) % MCHC (31.0-37.0) g/dL RDW (11.5-15.5) % Lymphocytes # (1.0-4.8) k/uL Potassium (3.5-5.1) mmol/L Chloride (98-107) mmol/L Carbon Dioxide (22-30) mmol/L BUN (7-17) mg/dL Creatinine (0.52-1.04) mg/dL Glucose (74-99) mg/dL POC Glucose (mg/dL) 280 H 351 H (75-99) mg/dL Hemoglobin A1c 6.2 H (4.0-6.0) % 12/25/17 12/25/17 12/25/17 Range/Units 06:02 06:02 06:06 RBC 3.54 L (3.80-5.40) m/uL Hgb 9.5 L (11.4-16.0) gm/dL Hct 32.4 L (34.0-46.0) % MCHC 29.4 L (31.0-37.0) g/dL RDW 16.0 H (11.5-15.5) % Lymphocytes # 0.4 L (1.0-4.8) k/uL Potassium 5.4 H (3.5-5.1) mmol/L Chloride 93 L (98-107) mmol/L Carbon Dioxide 39 H (22-30) mmol/L BUN 84 H (7-17) mg/dL Creatinine 1.19 H (0.52-1.04) mg/dL Glucose 395 H (74-99) mg/dL POC Glucose (mg/dL) 423 H (75-99) mg/dL Hemoglobin A1c (4.0-6.0) % 12/25/17 12/25/17 12/25/17 Range/Units 09:22 10:29 11:15 RBC (3.80-5.40) m/uL Hgb (11.4-16.0) gm/dL Hct (34.0-46.0) % MCHC (31.0-37.0) g/dL RDW (11.5-15.5) % Lymphocytes # (1.0-4.8) k/uL Potassium (3.5-5.1) mmol/L Chloride (98-107) mmol/L Carbon Dioxide (22-30) mmol/L BUN (7-17) mg/dL Creatinine (0.52-1.04) mg/dL Glucose (74-99) mg/dL POC Glucose (mg/dL) 475 H 442 H 436 H (75-99) mg/dL Hemoglobin A1c (4.0-6.0) % 12/25/17 12/25/17 Range/Units 12:18 16:13 RBC (3.80-5.40) m/uL Hgb (11.4-16.0) gm/dL Hct (34.0-46.0) % MCHC (31.0-37.0) g/dL RDW (11.5-15.5) % Lymphocytes # (1.0-4.8) k/uL Potassium (3.5-5.1) mmol/L Chloride (98-107) mmol/L Carbon Dioxide (22-30) mmol/L BUN (7-17) mg/dL Creatinine (0.52-1.04) mg/dL Glucose (74-99) mg/dL POC Glucose (mg/dL) 393 H 311 H (75-99) mg/dL Hemoglobin A1c (4.0-6.0) % Microbiology - Last 24 Hours (Table) 12/21/17 00:55 Blood Culture - Preliminary Blood No Growth after 96 hours Assessment and Plan Assessment: Assessment: #1 acute hypoxic respiratory failure of multi-factorial related to COPD exacerbation as well as CHF exacerbation #2 acute exacerbation of diastolic congestive heart failure. With small bilateral pleural effusion and atelectasis. #3 acute exacerbation of chronic obstructive pulmonary disease #4 uncontrolled hypertension #5 sinus tachycardia #6 history of coronary artery disease with history of stent placement #7 prerenal azotemia likely due to steroids. 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 Community-acquired #10 morbid obesity with BMI 39.1 Plan #1 continue the Lasix IV and continue monitor the kidney function and electrolytes #2 recent echocardiogram revealed normal LV function with mild aortic stenosis #3 started the patient on Cardizem for the heart rate and blood pressure control. Dose increased to 240 mg daily. #4 acute coronary syndrome was ruled out. Cardiology and pulmonary is following. Time with Patient: Greater than 30
[2017-12-25] MEDS: INSULIN DETEMIR 100 UNIT/ML 10 ML VIAL SQ SCH (22:54)
[2017-12-26 05:57] LABS: Glucose,Whole Blood 246 mg/dL (75-99)
[2017-12-26 06:02] LABS: Basophils % (A) 0 %; Eosinophils % (A) 1 %; HCT 31.6 % (34.0-46.0); HGB 9.8 gm/dL (11.4-16.0); Hypochromasia Marked; Lymphocytes # (A) 0.8 k/uL (1.0-4.8); Lymphocytes % (A) 10 %; MCH 27.7 pg (25.0-35.0); MCHC 30.9 g/dL (31.0-37.0); MCV 89.4 fL (80.0-100.0); Mean Platelet Volume 7.7; Monocytes # (A) 0.5 k/uL (0-1.0); Monocytes % (A) 6 %; Neutrophils # (A) 6.7 k/uL (1.3-7.7); Neutrophils % (A) 83 %; Platelet Count 284 k/uL (150-450); RBC 3.53 m/uL (3.80-5.40); RDW 15.4 % (11.5-15.5); WBC 8.1 k/uL (3.8-10.6)
[2017-12-26 06:19] LABS: Calcium 8.6 mg/dL (8.4-10.2); Potassium 5.1 mmol/L (3.5-5.1)
[2017-12-26] MEDS: FUROSEMIDE 10 MG/ML 4 ML VIAL IV SCH (06:29)
[2017-12-26] MEDS: PANTOPRAZOLE 40 MG TABLET PO SCH (06:30)
[2017-12-26] MEDS: IPRATROPIUM-ALBUTEROL 3 ML NEB INHALATION SCH ×4 (07:15→19:45)
[2017-12-26] MEDS: BUDESONIDE 0.5 MG/2 ML NEBU INHALATION SCH ×2 (07:15→19:42)
[2017-12-26] MEDS: INSULIN ASPART 100 UNIT/ML 1 ML 10 ML VIAL SQ SCH ×7 (08:09→21:20)
--- NOTE | 2017-12-26 08:46 | P.PN ---
Subjective Progress Note Date: 12/26/17 Principal diagnosis: CHF/COPD This is an 82-year-old female patient who sees Dr. LEONARDA Caputo in the office as an outpatient with a past medical history significant for coronary artery disease and prior coronary revascularization, congestive heart failure secondary to diastolic dysfunction, chronic obstructive pulmonary disease, the patient is on oxygen at night, as well as hypertension and dyslipidemia presented to the emergency room complaining of shortness of breath. The patient was in her usual state of health until yesterday when she started experiencing started experiencing a worsening dyspnea. Beside that she did have chest discomfort and very mild over the left side of the chest. The family noticed bilateral lower extremities edema. No dizziness or lightheadedness. And no syncope. The patient was brought to the emergency room where she was diagnosed was congestive heart failure and she was admitted for further evaluation. The patient stated that she was compliant with her diet as well as with her medication and she has been following a low-salt diet. The chest x-ray showed findings consistent with CHF. The BMP was elevated. The EKG showed sinus rhythm with diffuse nonspecific changes. The patient underwent an echocardiogram in September 2017 and that revealed normal LV function with evidence of hypertensive heart disease and mild aortic stenosis. On physical examination , the patient did have severe bilateral lower extremities edema, bilateral expiratory wheezing, and a systolic murmur at the right upper sternal border. Beside that she looks in mild respiratory distress. I'll follow-up with the patient today, December 262017, the patient is feeling better in terms of shortness of breath. No chest pain or discomfort. I am going to DC the Lasix IV and start the patient on Lasix by mouth at 40 mg twice a day. Continue monitor the kidney function and electrolytes for additional 24 hours and continue following up with the patient. Objective - Vital Signs Vital signs: Vital Signs Temp 98.5 F 12/25/17 23:19 Pulse 92 12/26/17 07:31 Resp 18 12/26/17 04:52 BP 145/74 12/26/17 04:52 Pulse Ox 96 12/26/17 04:52 Intake & Output 12/25/17 12/26/17 12/26/17 18:59 06:59 18:59 Intake Total 480 0 Output Total 1000 1100 Balance -520 -1100 0 Weight 99.8 kg Intake: Oral 480 0 Output: Urine 1000 1100 Other: Voiding Method Indwelling Catheter Indwelling Catheter - Constitutional General appearance: Present: no acute distress - Respiratory Respiratory: bilateral: wheezing - Cardiovascular Rhythm: regular - Labs CBC & Chem 7: 12/26/17 05:27 12/26/17 05:27 Labs: Abnormal Lab Results - Last 24 Hours (Table) 12/25/17 12/25/17 12/25/17 Range/Units 09:22 10:29 11:15 RBC (3.80-5.40) m/uL Hgb (11.4-16.0) gm/dL Hct (34.0-46.0) % MCHC (31.0-37.0) g/dL Lymphocytes # (1.0-4.8) k/uL Chloride (98-107) mmol/L Carbon Dioxide (22-30) mmol/L BUN (7-17) mg/dL Creatinine (0.52-1.04) mg/dL Glucose (74-99) mg/dL POC Glucose (mg/dL) 475 H 442 H 436 H (75-99) mg/dL 12/25/17 12/25/17 12/25/17 Range/Units 12:18 16:13 21:42 RBC (3.80-5.40) m/uL Hgb (11.4-16.0) gm/dL Hct (34.0-46.0) % MCHC (31.0-37.0) g/dL Lymphocytes # (1.0-4.8) k/uL Chloride (98-107) mmol/L Carbon Dioxide (22-30) mmol/L BUN (7-17) mg/dL Creatinine (0.52-1.04) mg/dL Glucose (74-99) mg/dL POC Glucose (mg/dL) 393 H 311 H 240 H (75-99) mg/dL 12/26/17 12/26/17 12/26/17 Range/Units 05:27 05:27 05:56 RBC 3.53 L (3.80-5.40) m/uL Hgb 9.8 L (11.4-16.0) gm/dL Hct 31.6 L (34.0-46.0) % MCHC 30.9 L (31.0-37.0) g/dL Lymphocytes # 0.8 L (1.0-4.8) k/uL Chloride 91 L (98-107) mmol/L Carbon Dioxide 42 H* (22-30) mmol/L BUN 83 H (7-17) mg/dL Creatinine 1.17 H (0.52-1.04) mg/dL Glucose 242 H (74-99) mg/dL POC Glucose (mg/dL) 246 H (75-99) mg/dL Microbiology - Last 24 Hours (Table) 12/21/17 00:55 Blood Culture - Preliminary Blood No Growth after 120 hours Assessment and Plan Assessment: Assessment #1 acute hypoxic respiratory failure of multi-factorial related to COPD exacerbation as well as CHF exacerbation #2 acute exacerbation of diastolic congestive heart failure #3 acute exacerbation of chronic obstructive pulmonary disease #4 uncontrolled hypertension #5 sinus tachycardia #6 coronary artery disease Plan #1 DC the Lasix IV and start the patient on Lasix by mouth #2 recent echocardiogram revealed normal LV function with mild aortic stenosis #3 continue the current dose of Cardizem #4 follow-up with the patient. Thank you for allowing us participate in her care
[2017-12-26] MEDS: AZITHROMYCIN 500 MG TAB PO SCH (09:29)
[2017-12-26] MEDS: buPROPion SR 150 MG TABLET.ER PO SCH ×2 (09:29→21:39)
[2017-12-26] MEDS: DILTIAZEM CD 240 MG CAP.ER.24H PO SCH (09:29)
[2017-12-26] MEDS: methylPREDNISolone SOD SUCCI 40 MG/ML 1 ML VIAL IV SCH ×2 (09:30→20:21)
[2017-12-26] MEDS: ASPIRIN 81 MG PO SCH (09:30)
[2017-12-26] MEDS: FUROSEMIDE 40 MG TAB PO SCH ×2 (09:30→17:13)
[2017-12-26] MEDS: HEPARIN SODIUM,PORCINE 5,000 UNIT/ML 1 ML VIAL SQ SCH ×2 (09:31→17:13)
[2017-12-26 11:39] LABS: Glucose,Whole Blood 168 mg/dL (75-99)
[2017-12-26 13:59] VITALS: BMI 38.9
[2017-12-26 16:41] LABS: Glucose,Whole Blood 271 mg/dL (75-99)
[2017-12-26] MEDS: INSULIN DETEMIR 100 UNIT/ML 10 ML VIAL SQ SCH (20:25)
[2017-12-26] MEDS ORDERED: PRAVASTATIN SODIUM 80 MG TAB PO SCH (21:00)
[2017-12-26 21:08] LABS: Glucose,Whole Blood 440 mg/dL (75-99)
[2017-12-26 21:28] LABS: Glucose,Whole Blood 468 mg/dL (75-99)
[2017-12-26 21:48] LABS: Glucose,Whole Blood 430 mg/dL (75-99)
[2017-12-26 22:12] LABS: Glucose,Whole Blood 419 mg/dL (75-99)
[2017-12-26 22:41] LABS: Glucose,Whole Blood 397 mg/dL (75-99)
[2017-12-26] MEDS ORDERED: INSULIN NPH/REG INSULIN 70/30 300 UNIT/3 ML VIAL SQ ONE (23:38)
--- NOTE | 2017-12-26 23:45 | P.PN ---
Subjective Progress Note Date: 12/26/17 Principal diagnosis: Acute respiratory failure secondary to acute exacerbation COPD/ acute exacerbation of CHF December 222017, she is feeling slightly better in terms of shortness of breath. She continues to be on BiPAP. The blood pressure and heart rate are within normal limits. Yesterday I did start the patient on calcium channel elisabeth with Cardizem. We will continue the IV Lasix for additional 24 hours. Continue following up with the patient. Acute respiratory failure; multifactorial - Acute exacerbation COPD; continue patient on bronchodilator nebulizer treatment; and IV Solu-Medrol 40 mg every 8 hours - Acute exacerbation CHF; patient continues to diurese well; cardiology is following; patient is started on calcium channel elisabeth and Cardizem by cardiology service; remains on IV Lasix; cardiology recommending another 24 hours - Right lower lobe pneumonia; we'll start patient on IV Rocephin 1 g daily along with Zithromax 500 mg daily; we'll obtain blood culture and sputum culture ; We will consult pulmonary service for further recommendations 12/23/2017; patient is seen and evaluated in follow-up; she is sitting propped up in the bed ; respiratory status seems to be improved; patient is not in any respiratory distress at this time; however heart rate remains slightly elevated; cardiology has seen people and have increased Cardizem to 120 mg by mouth and Lasix was decreased to 40 mg IV twice a day Pulmonary service is consulted. On 12/24/2017 Patient denied any complaints of chest pain. Otherwise patient still short of breath. Continued on IV Lasix and IV methylprednisolone. Continued on breathing treatments. Patient is still tachycardic and Cardizem dose has been increased to 240 mg daily. Chest x-ray showed bilateral pleural effusion. Blood pressure is also elevated. No fever no chills. No other acute overnight issues. Patient is being continued on antibiotics in the form of ceftriaxone. Pulmonary and cardiology is following. BUN and 69 and creatinine 1.18 12/25/2017 Patient denied any complaints of chest pain. Shortness of breath is improving. Continued on IV Lasix and methylprednisolone 40 mg every 8. Patient is still tachycardic today. Continued on IV Lasix for another 24 hours as per cardiology. Continue with antibiotics for pneumonia. Creatinine level is 1.19 today. Significantly elevated BUN level could be due to steroids. Pulmonary and cardiology is on board. 12/26/2017 Patient's breathing status is much improved now. Able to sit in the chair with or shortness of breath. Leg swelling is improved as well. Blood pressure is fairly controlled. IV Lasix has been changed to 40 mg twice a day by mouth. Changed to prednisone by mouth as well. Continued on breathing treatments and follow up closely. Denied any complains of chest pain. No nausea vomiting or abdominal pain. Tolerating oral diet slowly. No other acute overnight issues. Current medications reviewed. Objective - Vital Signs Vital signs: Vital Signs Temp 97.9 F 12/26/17 15:20 Pulse 76 12/26/17 15:40 Resp 16 12/26/17 15:20 BP 166/69 12/26/17 15:20 Pulse Ox 92 L 12/26/17 15:20 Intake & Output 12/25/17 12/26/17 12/26/17 18:59 06:59 18:59 Intake Total 480 290 Output Total 1000 1100 900 Balance -520 -1100 -610 Weight 99.8 kg 99.8 kg Intake: Intake, IV Titration 50 Amount cefTRIAXone 1,000 mg In 50 Sodium Chloride 0.9% 50 ml @ 100 mls/hr IVPB Q24HR [facility] Rx#:[id number] Oral 480 240 Output: Urine 1000 1100 900 Other: Voiding Method Indwelling Catheter Indwelling Catheter Indwelling Catheter - Exam PHYSICAL EXAMINATION: Patient is lying in the bed comfortably, no acute distress, awake alert and oriented. Morbidly obese. HEENT: Normocephalic. Neck is supple. Pupils reactive. Nostrils clear. Oral cavity is moist. Ears reveal no drainage. Neck reveals no JVD, carotid bruits, or thyromegaly. CHEST EXAMINATION: Trachea is central. Symmetrical expansion. Bibasilar diminished air entry and prolonged expiration. Otherwise Lung [place] clear to auscultation and percussion. CARDIAC: Normal S1, S2 with no gallops. No murmurs ABDOMEN: Soft. Bowel sounds normal. No organomegaly. No abdominal bruits. Extremities: 2+ edema. No clubbing or cyanosis Neurologically awake, alert, oriented x2-3 with well-coordinated movements. No focal deficits noted Skin: No rash or skin lesions. Psychiatric: Coperative. Nonsuicidal Musculoskeletal: No joint swelling or deformity. Normal range of motion. - Labs CBC & Chem 7: 12/26/17 05:27 12/26/17 05:27 Labs: Abnormal Lab Results - Last 24 Hours (Table) 12/25/17 12/26/17 12/26/17 Range/Units 21:42 05:27 05:27 RBC 3.53 L (3.80-5.40) m/uL Hgb 9.8 L (11.4-16.0) gm/dL Hct 31.6 L (34.0-46.0) % MCHC 30.9 L (31.0-37.0) g/dL Lymphocytes # 0.8 L (1.0-4.8) k/uL Chloride 91 L (98-107) mmol/L Carbon Dioxide 42 H* (22-30) mmol/L BUN 83 H (7-17) mg/dL Creatinine 1.17 H (0.52-1.04) mg/dL Glucose 242 H (74-99) mg/dL POC Glucose (mg/dL) 240 H (75-99) mg/dL 12/26/17 12/26/17 12/26/17 Range/Units 05:56 11:36 16:28 RBC (3.80-5.40) m/uL Hgb (11.4-16.0) gm/dL Hct (34.0-46.0) % MCHC (31.0-37.0) g/dL Lymphocytes # (1.0-4.8) k/uL Chloride (98-107) mmol/L Carbon Dioxide (22-30) mmol/L BUN (7-17) mg/dL Creatinine (0.52-1.04) mg/dL Glucose (74-99) mg/dL POC Glucose (mg/dL) 246 H 168 H 271 H (75-99) mg/dL Microbiology - Last 24 Hours (Table) 12/21/17 00:55 Blood Culture - Preliminary Blood No Growth after 120 hours Assessment and Plan Assessment: Assessment: #1 acute hypoxic respiratory failure of multi-factorial related to COPD exacerbation as well as CHF exacerbation #2 acute exacerbation of diastolic congestive heart failure. With small bilateral pleural effusion and atelectasis. #3 acute exacerbation of chronic obstructive pulmonary disease #4 uncontrolled hypertension #5 sinus tachycardia #6 history of coronary artery disease with history of stent placement #7 prerenal azotemia likely due to steroids. 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 Community-acquired #10 morbid obesity with BMI 39.1 Plan Patient be continued on Lasix changed to by mouth. Continue with prednisone. Continue with insulin dosing for better blood sugar control. Recent echocardiogram showed normal LV function and mild aortic stenosis. Monitor renal function. Continue with Cardizem and Lasix. Cardiology and pulmonary is following. Further recommendations based on the clinical course. Prognosis is guarded with multiple medical problems and comorbid conditions. Time with Patient: Greater than 30
[2017-12-27] MEDS: HEPARIN SODIUM,PORCINE 5,000 UNIT/ML 1 ML VIAL SQ SCH ×3 (00:13→16:15)
[2017-12-27 00:28] LABS: Glucose,Whole Blood 344 mg/dL (75-99)
[2017-12-27 06:19] LABS: Glucose,Whole Blood 274 mg/dL (75-99)
[2017-12-27] MEDS: INSULIN ASPART 100 UNIT/ML 1 ML 10 ML VIAL SQ SCH ×4 (06:42→12:49)
[2017-12-27 07:12] LABS: Basophils % (A) 0 %; Eosinophils % (A) 0 %; HGB 9.2 gm/dL (11.4-16.0); Hypochromasia Moderate; Lymphocytes # (A) 0.5 k/uL (1.0-4.8); Lymphocytes % (A) 7 %; MCH 26.9 pg (25.0-35.0); MCHC 30.7 g/dL (31.0-37.0); MCV 87.6 fL (80.0-100.0); Mean Platelet Volume 8.6; Monocytes # (A) 0.2 k/uL (0-1.0); Monocytes % (A) 3 %; Neutrophils # (A) 6.6 k/uL (1.3-7.7); Neutrophils % (A) 89 %; Platelet Count 229 k/uL (150-450); RBC 3.42 m/uL (3.80-5.40); RDW 15.9 % (11.5-15.5); WBC 7.4 k/uL (3.8-10.6)
[2017-12-27] MEDS: AZITHROMYCIN 500 MG TAB PO SCH (08:49)
[2017-12-27] MEDS: DILTIAZEM CD 240 MG CAP.ER.24H PO SCH (08:49)
[2017-12-27] MEDS: ASPIRIN 81 MG PO SCH (08:49)
[2017-12-27] MEDS: buPROPion SR 150 MG TABLET.ER PO SCH (08:49)
[2017-12-27] MEDS: FUROSEMIDE 40 MG TAB PO SCH ×2 (08:52→16:15)
[2017-12-27] MEDS ORDERED: predniSONE 10 MG TAB PO SCH (09:00)
[2017-12-27] MEDS: BUDESONIDE 0.5 MG/2 ML NEBU INHALATION SCH (09:01)
[2017-12-27] MEDS: IPRATROPIUM-ALBUTEROL 3 ML NEB INHALATION SCH ×3 (09:01→16:07)
--- NOTE | 2017-12-27 11:58 | P.PN ---
Subjective Progress Note Date: 12/27/17 Principal diagnosis: CHF/COPD This is an 82-year-old female patient who sees Dr. LEONARDA Caputo in the office as an outpatient with a past medical history significant for coronary artery disease and prior coronary revascularization, congestive heart failure secondary to diastolic dysfunction, chronic obstructive pulmonary disease, the patient is on oxygen at night, as well as hypertension and dyslipidemia presented to the emergency room complaining of shortness of breath. The patient was in her usual state of health until yesterday when she started experiencing started experiencing a worsening dyspnea. Beside that she did have chest discomfort and very mild over the left side of the chest. The family noticed bilateral lower extremities edema. No dizziness or lightheadedness. And no syncope. The patient was brought to the emergency room where she was diagnosed was congestive heart failure and she was admitted for further evaluation. The patient stated that she was compliant with her diet as well as with her medication and she has been following a low-salt diet. The chest x-ray showed findings consistent with CHF. The BMP was elevated. The EKG showed sinus rhythm with diffuse nonspecific changes. The patient underwent an echocardiogram in September 2017 and that revealed normal LV function with evidence of hypertensive heart disease and mild aortic stenosis. On physical examination , the patient did have severe bilateral lower extremities edema, bilateral expiratory wheezing, and a systolic murmur at the right upper sternal border. Beside that she looks in mild respiratory distress. On follow-up with the patient today, 12/27/2017, she is doing better in terms of shortness of breath. Yesterday I did stop the Lasix IV and start the patient on Lasix by mouth. From the cardiovascular standpoint of view, no need for any further cardiac workup and will follow-up with the patient on when necessary case. Objective - Vital Signs Vital signs: Vital Signs Temp 98.1 F 12/27/17 08:00 Pulse 72 12/27/17 09:15 Resp 18 12/27/17 08:00 BP 154/68 12/27/17 08:00 Pulse Ox 96 12/27/17 08:00 Intake & Output 12/26/17 12/27/17 12/27/17 18:59 06:59 18:59 Intake Total 408 290 Output Total 1400 600 Balance -992 -600 290 Weight 99.8 kg Intake: Intake, IV Titration 50 50 Amount cefTRIAXone 1,000 mg In 50 50 Sodium Chloride 0.9% 50 ml @ 100 mls/hr IVPB Q24HR [facility] Rx#:[id number] Oral 358 240 Output: Urine 1400 600 Other: Voiding Method Indwelling Catheter Indwelling Catheter Indwelling Catheter - Constitutional General appearance: Present: no acute distress - Respiratory Respiratory: bilateral: wheezing - Cardiovascular Rhythm: regular Heart sounds: normal: S1, S2 - Labs CBC & Chem 7: 12/27/17 06:51 12/26/17 05:27 Labs: Abnormal Lab Results - Last 24 Hours (Table) 12/26/17 12/26/17 12/26/17 Range/Units 16:28 21:06 21:16 RBC (3.80-5.40) m/uL Hgb (11.4-16.0) gm/dL Hct (34.0-46.0) % MCHC (31.0-37.0) g/dL RDW (11.5-15.5) % Lymphocytes # (1.0-4.8) k/uL POC Glucose (mg/dL) 271 H 440 H 468 H (75-99) mg/dL 12/26/17 12/26/17 12/26/17 Range/Units 21:36 22:10 22:29 RBC (3.80-5.40) m/uL Hgb (11.4-16.0) gm/dL Hct (34.0-46.0) % MCHC (31.0-37.0) g/dL RDW (11.5-15.5) % Lymphocytes # (1.0-4.8) k/uL POC Glucose (mg/dL) 430 H 419 H 397 H (75-99) mg/dL 12/27/17 12/27/17 12/27/17 Range/Units 00:17 06:01 06:51 RBC 3.42 L (3.80-5.40) m/uL Hgb 9.2 L (11.4-16.0) gm/dL Hct 30.0 L (34.0-46.0) % MCHC 30.7 L (31.0-37.0) g/dL RDW 15.9 H (11.5-15.5) % Lymphocytes # 0.5 L (1.0-4.8) k/uL POC Glucose (mg/dL) 344 H 274 H (75-99) mg/dL Microbiology - Last 24 Hours (Table) 12/21/17 00:55 Blood Culture - Final Blood No Growth after 144 hours Assessment and Plan Assessment: Assessment #1 acute hypoxic respiratory failure of multi-factorial related to COPD exacerbation as well as CHF exacerbation #2 acute exacerbation of diastolic congestive heart failure #3 acute exacerbation of chronic obstructive pulmonary disease #4 uncontrolled hypertension #5 sinus tachycardia #6 coronary artery disease Plan #1 continue the current dose of Lasix by mouth #2 recent echocardiogram revealed normal LV function with mild aortic stenosis #3 continue the current dose of Cardizem #4 follow-up with the patient on when necessary case. Thank you for allowing us participate in her care
[2017-12-27 12:01] LABS: Glucose,Whole Blood 325 mg/dL (75-99)
[2017-12-27] MEDS ORDERED: INSULIN NPH/REG INSULIN 70/30 300 UNIT/3 ML VIAL SQ ONE (12:50)
[2017-12-27 15:52] VITALS: BP 142/72; TEMP 98.1
[2017-12-27 16:10] VITALS: RESP 22
[2017-12-27 16:19] VITALS: PULSE 76
--- NOTE | 2017-12-27 16:27 | P.DS ---
Providers Date of admission: 12/21/17 02:27 Expected date of discharge: 12/27/17 Attending physician: Alexsander Murrieta Consults: 12/21/17 09:02 Consult Physician Routine Consulting Provider: Pablo Pepe Consult Reason/Comments: CHF, COPD, CP Do you want consulting provider notified?: Yes 12/21/17 11:41 Consult Physician Routine Consulting Provider: Angel Grijalva Consult Reason/Comments: Dyspnea Do you want consulting provider notified?: Yes Primary care physician: Dewayne Aguilar Hospital Course: Discharge diagnosis #1 acute hypoxic respiratory failure of multi-factorial related to COPD exacerbation as well as CHF exacerbation #2 acute exacerbation of diastolic congestive heart failure. With small bilateral pleural effusion and atelectasis. #3 acute exacerbation of chronic obstructive pulmonary disease #4 uncontrolled hypertension #5 sinus tachycardia. Improved with Cardizem. #6 history of coronary artery disease with history of stent placement #7 prerenal azotemia likely due to steroids. 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 Community-acquired #10 morbid obesity with BMI 39.1 Plan Patient be continued on Lasix changed to by mouth. Continue with prednisone. Continue with insulin dosing for better blood sugar control. Recent echocardiogram showed normal LV function and mild aortic stenosis. Hospital course Acute respiratory failure; multifactorial - Acute exacerbation COPD; continue patient on bronchodilator nebulizer treatment; and IV Solu-Medrol 40 mg every 8 hours - Acute exacerbation CHF; patient continues to diurese well; cardiology is following; patient is started on calcium channel elisabeth and Cardizem by cardiology service; remains on IV Lasix; cardiology recommending another 24 hours - Right lower lobe pneumonia; we'll start patient on IV Rocephin 1 g daily along with Zithromax 500 mg daily; we'll obtain blood culture and sputum culture ; We will consult pulmonary service for further recommendations 12/23/2017; patient is seen and evaluated in follow-up; she is sitting propped up in the bed ; respiratory status seems to be improved; patient is not in any respiratory distress at this time; however heart rate remains slightly elevated; cardiology has seen people and have increased Cardizem to 120 mg by mouth and Lasix was decreased to 40 mg IV twice a day Pulmonary service is consulted. On 12/24/2017 Patient denied any complaints of chest pain. Otherwise patient still short of breath. Continued on IV Lasix and IV methylprednisolone. Continued on breathing treatments. Patient is still tachycardic and Cardizem dose has been increased to 240 mg daily. Chest x-ray showed bilateral pleural effusion. Blood pressure is also elevated. No fever no chills. No other acute overnight issues. Patient is being continued on antibiotics in the form of ceftriaxone. Pulmonary and cardiology is following. BUN and 69 and creatinine 1.18 12/25/2017 Patient denied any complaints of chest pain. Shortness of breath is improving. Continued on IV Lasix and methylprednisolone 40 mg every 8. Patient is still tachycardic today. Continued on IV Lasix for another 24 hours as per cardiology. Continue with antibiotics for pneumonia. Creatinine level is 1.19 today. Significantly elevated BUN level could be due to steroids. Pulmonary and cardiology is on board. 12/26/2017 Patient's breathing status is much improved now. Able to sit in the chair with or shortness of breath. Leg swelling is improved as well. Blood pressure is fairly controlled. IV Lasix has been changed to 40 mg twice a day by mouth. Changed to prednisone by mouth as well. Continued on breathing treatments and follow up closely. Denied any complains of chest pain. No nausea vomiting or abdominal pain. Tolerating oral diet slowly. No other acute overnight issues. 12/27/2017 Patients breathing status is much improved today. No complaints of chest pain or shortness of breath. Saturating well on 2 L nausea cannula as per home regimen. Continued on oral Lasix and oral prednisone. Continue the antibiotics as an outpatient complete the course. Patient is cleared from cardiology and pulmonary standpoint. Patient is stable to be discharged to rehab. No other acute overnight issues. Renal function is stable. Able to ambulate with support. Walked around 17 steps today. Blood sugar is elevated due to steroids. Currently on oral prednisone tapering down. Continue with home dose of insulin. Patient takes insulin 70/30 at home. / PHYSICAL EXAMINATION: Patient is lying in the bed comfortably, no acute distress, awake alert and oriented.. HEENT: Normocephalic. Neck is supple. Pupils reactive. Nostrils clear. Oral cavity is moist. Ears reveal no drainage. Neck reveals no JVD, carotid bruits, or thyromegaly. CHEST EXAMINATION: Trachea is central. Symmetrical expansion. Bibasilar air entry improved. Lung beckford clear to auscultation and percussion. CARDIAC: Normal S1, S2 with no gallops. No murmurs ABDOMEN: Soft. Bowel sounds normal. No organomegaly. No abdominal bruits. Extremities: 2+ edema. No clubbing or cyanosis Neurologically awake, alert, oriented x3 with well-coordinated movements. No focal deficits noted Skin: No rash or skin lesions. Psychiatric: Coperative. Nonsuicidal Musculoskeletal: No joint swelling or deformity. Normal range of motion. Vital Signs 12/27/17 12/27/17 12/27/17 09:01 09:15 12:00 Temperature 98.7 F Pulse Rate 72 72 Pulse Rate [ 74 Pulse Oximetery ] Respiratory 18 Rate Blood Pressure 144/70 [Left Arm] Blood Pressure [Right Arm] O2 Sat by Pulse 95 Oximetry 12/27/17 12/27/17 12/27/17 13:01 13:11 15:51 Temperature 98.1 F Pulse Rate 76 76 Pulse Rate [ 72 Pulse Oximetery ] Respiratory 18 Rate Blood Pressure [Left Arm] Blood Pressure 142/72 [Right Arm] O2 Sat by Pulse 95 Oximetry 12/27/17 12/27/17 12/27/17 15:54 16:00 16:07 Temperature Pulse Rate 74 Pulse Rate [ 72 72 Pulse Oximetery ] Respiratory 18 20 22 Rate Blood Pressure [Left Arm] Blood Pressure [Right Arm] O2 Sat by Pulse 97 Oximetry 12/27/17 16:18 Temperature Pulse Rate 76 Pulse Rate [ Pulse Oximetery ] Respiratory Rate Blood Pressure [Left Arm] Blood Pressure [Right Arm] O2 Sat by Pulse Oximetry Total time taken greater than 35 minutes including 18 minutes for counseling and coordination of care. Patient Condition at Discharge: Serious Plan - Discharge Summary New Discharge Prescriptions: New Aspirin 81 mg PO DAILY #30 chew Budesonide [Pulmicort] 0.5 mg INHALATION RT-BID nebu Cefuroxime Axetil [Ceftin] 500 mg PO BID 3 Days #6 tab Diltiazem Cd [Cardizem CD] 240 mg PO DAILY #30 cap.er.24h Furosemide [Lasix] 40 mg PO BID@0900,1600 #60 tab Ipratropium-Albuterol Nebulize [Duoneb 0.5 mg-3 mg/3 ml Soln] 3 ml INHALATION RT-QID #120 ampul.neb predniSONE See Taper PO DIRECTED #18 tab Continue Insuln Asp Prt/Insulin Aspart [NovoLOG MIX 70-30 VIAL] 28 unit SQ AC-BRKFST Pravastatin Sodium [Pravachol] 80 mg PO HS Nitroglycerin Sl Tabs [Nitrostat] 0.4 mg SUBLINGUAL Q5M PRN PRN Reason: Chest Pain Lansoprazole [Prevacid] 30 mg PO DAILY Ibandronate Sodium [Boniva] 150 mg PO QMONTH Insuln Asp Prt/Insulin Aspart [NovoLOG MIX 70-30 VIAL] 20 unit SQ AC-SUPPER rOPINIRole HCL [Requip] 0.5 mg PO DAILY Mupirocin Calcium 2% Cream [Bactroban 2% Cream] 1 applic TOPICAL BID buPROPion HCL [Wellbutrin SR] 150 mg PO BID Discontinued Isosorbide Mononitrate [Imdur] 30 mg PO DAILY hydrALAZINE HCL [Apresoline] 50 mg PO TID Carvedilol 25 mg PO BID amLODIPine [Norvasc] 5 mg PO BID Enalapril [Vasotec] 10 mg PO BID Hydrochlorothiazide [Hydrodiuril] 25 mg PO DAILY Betamethasone Dipropionate [Betamethasone Dipropionate 0.05%] 1 applic TOPICAL BID Ipratropium [place] [Atrovent Hfa] 2 puff INHALATION RT-QID PRN PRN Reason: Shortness Of Breath Furosemide [Lasix] 20 mg PO DAILY Discharge Medication List Ibandronate Sodium [Boniva] 150 mg PO QMONTH 12/01/13 [History] Insuln Asp Prt/Insulin Aspart [NovoLOG MIX 70-30 VIAL] 28 unit SQ AC-BRKFST [History] Lansoprazole [Prevacid] 30 mg PO DAILY 12/01/13 [History] Nitroglycerin Sl Tabs [Nitrostat] 0.4 mg SUBLINGUAL Q5M PRN 12/01/13 [History] Pravastatin Sodium [Pravachol] 80 mg PO HS 12/01/13 [History] Insuln Asp Prt/Insulin Aspart [NovoLOG MIX 70-30 VIAL] 20 unit SQ AC-SUPPER [History] Mupirocin Calcium 2% Cream [Bactroban 2% Cream] 1 applic TOPICAL BID 12/21/17 [ History] buPROPion HCL [Wellbutrin SR] 150 mg PO BID 12/21/17 [History] rOPINIRole HCL [Requip] 0.5 mg PO DAILY 12/21/17 [History] Aspirin 81 mg PO DAILY #30 chew 12/27/17 [Rx] Budesonide [Pulmicort] 0.5 mg INHALATION RT-BID nebu 12/27/17 [Rx] Cefuroxime Axetil [Ceftin] 500 mg PO BID 3 Days #6 tab 12/27/17 [Rx] Diltiazem Cd [Cardizem CD] 240 mg PO DAILY #30 cap.er.24h 12/27/17 [Rx] Furosemide [Lasix] 40 mg PO BID@0900,1600 #60 tab 12/27/17 [Rx] Ipratropium-Albuterol Nebulize [Duoneb 0.5 mg-3 mg/3 ml Soln] 3 ml INHALATION RT -QID #120 ampul.neb 12/27/17 [Rx] predniSONE See Taper PO DIRECTED #18 tab 12/27/17 [Rx] Follow up Appointment(s)/Referral(s): Pablo Pepe MD [STAFF PHYSICIAN] - 1 Week Angel Grijalva MD [STAFF PHYSICIAN] - 1 Week Dewayne Aguilar DO [Primary Care Provider] - 1-2 days Patient Instructions/Handouts: Heart Failure (DC), Heart Healthy Diet (DC), Chronic Lung Disease and Infection Prevention (DC) Activity/Diet/Wound Care/Special Instructions: ECF Discharge Disposition: TRANSFER TO SNF/ECF
--- NOTE | 2017-12-27 16:32 | P.PN ---
Subjective Progress Note Date: 12/27/17 Principal diagnosis: Right lower lobe pneumonia community-acquired, acute hypoxic respiratory failure , acute COPD exacerbation, acute on chronic hypoxic respiratory failure, acute exacerbation of CHF related to acute diastolic heart failure 12/27/2017, patient seen eval examined during the rounds clinically patient has been doing well awake and alert breathing more comfortably currently patient is a off of BiPAP but has been using each night and when necessary during the day patient is now active man with placement extended care facility for rehabilitation purposes care plan discussed with the primary service with plans to change the IV steroids and antibiotics to oral 12/26/2017, patient seen eval examined during the rounds clinically patient is doing slightly better improved breathing care plan discussed with the patient family at length patient family scan of leaning towards a extended care facility for rehabilitation purposes, patient remains on BiPAP as needed any snide, CO2 noted slightly elevated, continue breathing treatments steroids and antibiotics increase activity as tolerated 12/25/2017, patient seen eval examined during the rounds clinically patient is doing slightly better in terms of breathing left less cough and congestion is present, care plan discussed with patient and daughter present at bedside patient has Placement into extended care facility or rehabilitation patient prefers to go home, labs reviewed BUN/creatinine continue to go up however may need to lower it down we'll defer to cardiovascular services, continue Solu-Medrol to every 12 for now 12/24/2017, patient seen eval examined during the rounds she is doing slightly better breathing more comfortably denies any chest pain still of intermittent cough is present Ammann her hemodynamic status stable FiO2 is down to 3 L her saturations 96% blood pressure slightly elevated but has been coming down is 150 /62, she remains afebrile, her blood cultures have been negative, chest x-ray performed today reviewed and compared with the prior x-ray some improvement in interstitial edema as noted with improved atelectasis and infiltrate 12/23/2017, patient seen eval examined during the rounds she is more awake now breathing lifting more comfortably, wheezing has improved significantly her labs irrigations reviewed currently she is on 3 L oxygen saturations 94%, her VQ scan is very low probability, duplex ultrasound of lower extremity negative for DVT and is thrombosis radiographic studies reviewed medications reviewed, labs reviewed significant finding is summarized in BUN/creatinine likely related to aggressive diuresis, leukocytosis is slightly improved, hyperglycemia related to high-dose IV steroids Morbidly obese 82-year-old female who is well-known to me patient has history of the chronic persistent asthma chronic hypoxemia severe COPD patient has been tested for sleep disorder breathing and sleep apnea no significant sleep apnea was seen in the past patient does have a history of chronic hypoxic respiratory failure has been on home oxygen during sleep to progressive problems with severe shortness of breath came into the hospital was seen evaluated examined in the emergency department and subsequently admitted him I was notified about this patient with acute onset of worsening or shortness of breath with chest tightness which was transient FiO2 went up from 2 L to 4 L eventually 100% nonrebreather mask patient has significant component of anxiety i-STAT VQ scan was performed which was negative for pulmonary embolism that showed low probability however 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 heparin was subsequently was discontinued, currently patient is being treated with bronchodilator broad-spectrum antibiotics Ammann IV steroids and diuresis Ammann she's been continued on her antihypertensive agents as well Ammann admit x-ray was positive for right lower lobe pneumonia along with some evidence of congestive heart failure and pulmonary edema cannot be excluded repeat chest x- ray revealed worsening off for interstitial edema subsequently patient was placed on diuretics Objective - Vital Signs Vital signs: Vital Signs Temp 98.1 F 12/27/17 15:51 Pulse 76 12/27/17 16:18 Resp 22 12/27/17 16:07 BP 142/72 12/27/17 15:51 Pulse Ox 97 12/27/17 16:07 Intake & Output 12/26/17 12/27/17 12/27/17 18:59 06:59 18:59 Intake Total 408 650 Output Total 1400 600 900 Balance -992 -600 -250 Weight 99.8 kg Intake: Intake, IV Titration 50 50 Amount cefTRIAXone 1,000 mg In 50 50 Sodium Chloride 0.9% 50 ml @ 100 mls/hr IVPB Q24HR [facility] Rx#:[id number] Oral 358 600 Output: Urine 1400 600 900 Other: Voiding Method Indwelling Catheter Indwelling Catheter Indwelling Catheter # Voids 900 # Bowel Movements 0 - Exam - Constitutional General appearance: average body habitus, cooperative, disheveled, morbidly obese, severe distress - EENT Eyes: EOMI, PERRLA, normal appearance ENT: normal oropharynx Ears: bilateral: normal - Neck Neck: normal ROM Carotids: bilateral: upstroke normal, bruit absent Thyroid: bilateral: normal size - Respiratory Respiratory: bilateral: rhonchi, wheezing, prolonged expiration - Cardiovascular Rhythm: regular Heart sounds: normal: S1, S2 - Gastrointestinal General gastrointestinal: distended, soft - Neurologic Neurologic: CNII-XII intact - Musculoskeletal Musculoskeletal: gait normal, generalized weakness, strength equal bilaterally - Psychiatric Psychiatric: A&O x's 3, appropriate affect, intact judgment & insight - Labs CBC & Chem 7: 12/27/17 06:51 12/26/17 05:27 Labs: Abnormal Lab Results - Last 24 Hours (Table) 12/26/17 12/26/17 12/26/17 Range/Units 16:28 21:06 21:16 RBC (3.80-5.40) m/uL Hgb (11.4-16.0) gm/dL Hct (34.0-46.0) % MCHC (31.0-37.0) g/dL RDW (11.5-15.5) % Lymphocytes # (1.0-4.8) k/uL POC Glucose (mg/dL) 271 H 440 H 468 H (75-99) mg/dL 12/26/17 12/26/17 12/26/17 Range/Units 21:36 22:10 22:29 RBC (3.80-5.40) m/uL Hgb (11.4-16.0) gm/dL Hct (34.0-46.0) % MCHC (31.0-37.0) g/dL RDW (11.5-15.5) % Lymphocytes # (1.0-4.8) k/uL POC Glucose (mg/dL) 430 H 419 H 397 H (75-99) mg/dL 12/27/17 12/27/17 12/27/17 Range/Units 00:17 06:01 06:51 RBC 3.42 L (3.80-5.40) m/uL Hgb 9.2 L (11.4-16.0) gm/dL Hct 30.0 L (34.0-46.0) % MCHC 30.7 L (31.0-37.0) g/dL RDW 15.9 H (11.5-15.5) % Lymphocytes # 0.5 L (1.0-4.8) k/uL POC Glucose (mg/dL) 344 H 274 H (75-99) mg/dL 12/27/17 Range/Units 11:57 RBC (3.80-5.40) m/uL Hgb (11.4-16.0) gm/dL Hct (34.0-46.0) % MCHC (31.0-37.0) g/dL RDW (11.5-15.5) % Lymphocytes # (1.0-4.8) k/uL POC Glucose (mg/dL) 325 H (75-99) mg/dL Microbiology - Last 24 Hours (Table) 12/21/17 00:55 Blood Culture - Final Blood No Growth after 144 hours Assessment and Plan Assessment: Generalized weakness and medical debility Right lower lobe pneumonia, community-acquired Acute COPD exacerbation Acute on chronic renal failure with some component of prerenal azotemia Acute on chronic hypoxic and hypercapnic respiratory failure Acute exacerbation of congestive heart failure related to acute on chronic diastolic heart failure Small bilateral pleural effusion By basilar atelectasis Severe morbid obesity Plan: Broad-spectrum antibiotics Continue gentle diuresis Reviewed chest x-ray Would recommend to observe on lower dose of furosemide Breathing treatments to be continued Oral prednisone BiPAP as needed Blood pressure control and gentle diuresis Findings on the VQ scan reviewed heparin has been switched to subcu Further recommendations pending plan of care as per clinical response of the patient Time with Patient: Greater than 30
[2017-12-27 16:45] LABS: Glucose,Whole Blood 299 mg/dL (75-99)
[2017-12-27] MEDS ORDERED: INSULIN ASPART 100 UNIT/ML 1 ML 10 ML VIAL SQ SCH (17:30)
[2017-12-27] MEDS ORDERED: INSULIN DETEMIR 100 UNIT/ML 10 ML VIAL SQ SCH (21:00)
== END 2017-12-27 18:16 | DRG 291 ==
LOC: EC 00:37 → 3SCARD 02:27
PROVIDERS: ADMIT Hospitalist; ATTEND Hospitalist
PROC: 5A09357 Assistance with Respiratory Ventilation, Less than 24 Consecutive Hours, Continuous Positive Airway Pressure (ICD-10-PCS; principal; 2017-12-21)
DX: I13.0 Hypertensive heart and chronic kidney disease with heart failure and stage 1 through stage 4 chronic kidney disease, or unspecified chronic kidney disease (principal); I50.33 Acute on chronic diastolic (congestive) heart failure; J18.9 Pneumonia, unspecified organism; J96.21 Acute and chronic respiratory failure with hypoxia; J96.22 Acute and chronic respiratory failure with hypercapnia; J44.0 Chronic obstructive pulmonary disease with (acute) lower respiratory infection; J44.1 Chronic obstructive pulmonary disease with (acute) exacerbation; J98.11 Atelectasis; N17.9 Acute kidney failure, unspecified; E11.22 Type 2 diabetes mellitus with diabetic chronic kidney disease; E11.65 Type 2 diabetes mellitus with hyperglycemia; E66.01 Morbid (severe) obesity due to excess calories; E78.5 Hyperlipidemia, unspecified; F41.9 Anxiety disorder, unspecified; I25.10 Atherosclerotic heart disease of native coronary artery without angina pectoris; I25.2 Old myocardial infarction; I35.0 Nonrheumatic aortic (valve) stenosis; K21.9 Gastro-esophageal reflux disease without esophagitis; N18.9 Chronic kidney disease, unspecified; T38.0X5A Adverse effect of glucocorticoids and synthetic analogues, initial encounter; Z68.39 Body mass index [BMI] 39.0-39.9, adult; Z79.4 Long term (current) use of insulin; Z79.82 Long term (current) use of aspirin; Z82.5 Family history of asthma and other chronic lower respiratory diseases; Z87.891 Personal history of nicotine dependence; Z95.5 Presence of coronary angioplasty implant and graft; J45.30 Mild persistent asthma, uncomplicated; R00.0 Tachycardia, unspecified; Z87.01 Personal history of pneumonia (recurrent); L40.9 Psoriasis, unspecified; Z60.2 Problems related to living alone; Z99.81 Dependence on supplemental oxygen
CPT/HCPCS: 36415; 71045; 78582; 80048; 80053; 82550; 82553; 82803; 83036; 83735; 83880; 84132; 84484; 85025; 85379; 85610; 85730; 87040; 93005; 93970; 94640; 94660; 94760; 96374; 99291

== ENCOUNTER 2018-01-13 06:54 | Inpatient (IN) | payer MEDICARE, BC ==
--- NOTE | 2018-01-13 07:16 | ED ---
Fall HPI - General Chief Complaint: Fall Stated Complaint: Fall Time Seen by Provider: 01/13/18 07:00 Source: patient, EMS, RN notes reviewed, old records reviewed Mode of arrival: EMS - History of Present Illness Initial Comments: This 82-year-old female with a history of multiple medical issues including CHF COPD hypothyroidism pneumonia in the past also history of right hip replacement who apparently fell yesterday trying to ambulate she states she's recover her walking abilities who complains of right hip pain and right groin pain. She denies any head neck or back pain chest pain palpitations or other symptoms. No other modifying factors MD Complaint: fall - Related Data Home Medications Medication Instructions Recorded Confirmed Insuln Asp Prt/Insulin Aspart 28 unit SQ AC-BRKFST 12/01/13 01/13/18 [NovoLOG MIX 70-30 VIAL] Lansoprazole [Prevacid] 30 mg PO DAILY 12/01/13 01/13/18 Nitroglycerin Sl Tabs [Nitrostat] 0.4 mg SUBLINGUAL Q5M PRN 12/01/13 01/13/18 Pravastatin Sodium [Pravachol] 80 mg PO HS 12/01/13 01/13/18 Insuln Asp Prt/Insulin Aspart 20 unit SQ AC-SUPPER 12/21/17 01/13/18 [NovoLOG MIX 70-30 VIAL] buPROPion HCL [Wellbutrin SR] 150 mg PO BID 12/21/17 01/13/18 rOPINIRole HCL [Requip] 0.5 mg PO DAILY 12/21/17 01/13/18 Acetaminophen Tab [Tylenol Tab] 650 mg PO Q6H PRN 01/13/18 01/13/18 Alendronate Sodium [Fosamax] 70 mg PO Q30D 01/13/18 01/13/18 INSULIN LISPRO (HumaLOG) [HumaLOG] See Protocol SQ ACHS 01/13/18 01/13/18 Melatonin 3 mg PO HS 01/13/18 01/13/18 guaiFENesin [Diabetic Tussin Ex] 200 mg PO Q4H PRN 01/13/18 01/13/18 Previous Rx's Medication Instructions Recorded Aspirin 81 mg PO DAILY #30 chew 12/27/17 Budesonide [Pulmicort] 0.5 mg INHALATION RT-BID nebu 12/27/17 Diltiazem Cd [Cardizem CD] 240 mg PO DAILY #30 cap.er.24h 12/27/17 Furosemide [Lasix] 40 mg PO BID@0900,1600 #60 tab 12/27/17 Ipratropium-Albuterol Nebulize 3 ml INHALATION RT-QID #120 12/27/17 [Duoneb 0.5 mg-3 mg/3 ml Soln] ampul.neb Allergies Allergy/AdvReac Type Severity Reaction Status Date / Time No Known Allergies Allergy Verified 01/13/18 08:26 Review of Systems ROS Statement: Those systems with pertinent positive or pertinent negative responses have been documented in the HPI. ROS Other: All systems not noted in ROS Statement are negative. Past Medical History Past Medical History: COPD, Diabetes Mellitus, GERD/Reflux, Hyperlipidemia, Hypertension, Myocardial Infarction ([place]), Pneumonia Additional Past Medical History / Comment(s): aneurysm splenic artery, nontoxic multinodular goiter per medical history from Dr. Aguilar office, psoriasis, polyneuropathy Last Myocardial Infarction Date:: 2005 History of Any Multi-Drug Resistant Organisms: None Reported Past Surgical History: Cholecystectomy, Heart Catheterization With Stent Past Anesthesia/Blood Transfusion Reactions: No Reported Reaction Date of Last Stent Placement:: 2005? Past Psychological History: No Psychological Hx Reported Smoking Status: Former smoker Past Alcohol Use History: None Reported Past Drug Use History: None Reported - Past Family History Father Family Medical History: COPD Additional Family Medical History / Comment(s): DAD IN HIS 60'S Mother Family Medical History: Cancer Additional Family Medical History / Comment(s): MOM IN HER EARLY 70'S General Exam - General Exam Comments Initial Comments: This is a well-developed well-nourished awake alert oriented 3 female Limitations: physical limitation General appearance: alert, in no apparent distress Head exam: Present: atraumatic, normocephalic, normal inspection Eye exam: Present: normal appearance, PERRL, EOMI. Absent: scleral icterus, conjunctival injection, periorbital swelling ENT exam: Present: mucous membranes dry Neck exam: Present: normal inspection. Absent: tenderness, meningismus, lymphadenopathy Respiratory exam: Present: normal lung sounds bilaterally. Absent: respiratory distress, wheezes, rales, rhonchi, stridor Cardiovascular Exam: Present: regular rate, normal rhythm, normal heart sounds. Absent: systolic murmur, diastolic murmur, rubs, gallop, clicks GI/Abdominal exam: Present: soft, normal bowel sounds. Absent: distended, tenderness, guarding, rebound, rigid Rectal exam: Present: deferred Extremities exam: Present: normal inspection, tenderness, normal capillary refill. Absent: full ROM (Tenderness palpation of the right hip and groin area. No definite step-off or crepitation no definite shortening or rotation.) , pedal edema, joint swelling, calf tenderness Back exam: Present: normal inspection Neurological exam: Present: alert, oriented X3, CN II-XII intact Psychiatric exam: Present: normal affect, normal mood Skin exam: Present: warm, dry, intact, normal color. Absent: rash Course Vital Signs 01/13/18 01/13/18 01/13/18 06:58 07:16 07:30 Temperature 97.7 F Pulse Rate 98 Respiratory 19 Rate Blood Pressure 198/97 174/77 O2 Sat by Pulse 98 100 98 Oximetry 01/13/18 01/13/18 01/13/18 08:00 09:28 10:00 Temperature Pulse Rate 84 98 92 Respiratory 22 22 22 Rate Blood Pressure 184/83 168/67 168/70 O2 Sat by Pulse 97 97 98 Oximetry 01/13/18 11:00 Temperature Pulse Rate 91 Respiratory 22 Rate Blood Pressure 162/57 O2 Sat by Pulse 97 Oximetry Medical Decision Making - Medical Decision Making I did discuss the findings with the patient family members patient will be admitted due to the elevated troponin patient be admitted to medicine with cardiology consultation I did discuss the case with orthopedics Dr. South will be consulted. - Lab Data Result diagrams: 01/13/18 07:24 01/13/18 07:24 Lab Results 01/13/18 01/13/18 01/13/18 Range/Units 07:24 07:24 07:24 WBC 5.5 (3.8-10.6) k/uL RBC 3.53 L (3.80-5.40) m/uL Hgb 9.7 L (11.4-16.0) gm/dL Hct 30.7 L (34.0-46.0) % MCV 87.0 (80.0-100.0) fL MCH 27.4 (25.0-35.0) pg MCHC 31.5 (31.0-37.0) g/dL RDW 16.9 H (11.5-15.5) % Plt Count 186 (150-450) k/uL Neutrophils % 80 % Lymphocytes % 10 % Monocytes % 6 % Eosinophils % 2 % Basophils % 0 % Neutrophils # 4.4 (1.3-7.7) k/uL Lymphocytes # 0.6 L (1.0-4.8) k/uL Monocytes # 0.3 (0-1.0) k/uL Eosinophils # 0.1 (0-0.7) k/uL Basophils # 0.0 (0-0.2) k/uL Hypochromasia Slight Anisocytosis Slight Sodium 139 (137-145) mmol/L Potassium 4.4 (3.5-5.1) mmol/L Chloride 101 (98-107) mmol/L Carbon Dioxide 31 H (22-30) mmol/L Anion Gap 7 mmol/L BUN 33 H (7-17) mg/dL Creatinine 1.13 H (0.52-1.04) mg/dL Est GFR (CKD-EPI)AfAm 52 (>60 ml/min/1.73 sqM) Est GFR (CKD-EPI)NonAf 46 (>60 ml/min/1.73 sqM) Glucose 130 H (74-99) mg/dL Calcium 9.1 (8.4-10.2) mg/dL Magnesium 1.8 (1.6-2.3) mg/dL Total Bilirubin 0.4 (0.2-1.3) mg/dL AST 26 (14-36) U/L ALT 35 (9-52) U/L Alkaline Phosphatase 54 (38-126) U/L Total Creatine Kinase 24 L (30-135) U/L CK-MB (CK-2) 1.5 (0.0-2.4) ng/mL CK-MB (CK-2) Rel Index 6.3 Troponin I 0.053 H* (0.000-0.034) ng/mL Total Protein 5.9 L (6.3-8.2) g/dL Albumin 3.2 L (3.5-5.0) g/dL Urine Color Urine Appearance (Clear) Urine pH (5.0-8.0) Ur Specific [place] (1.001-1.035) Urine Protein (Negative) Urine Glucose (UA) (Negative) Urine Ketones (Negative) Urine Blood (Negative) Urine Nitrite (Negative) Urine Bilirubin (Negative) Urine Urobilinogen (<2.0) mg/dL Ur Leukocyte Esterase (Negative) Urine RBC (0-5) /hpf Urine WBC (0-5) /hpf Urine Bacteria (None) /hpf Urine Mucus (None) /hpf 01/13/18 Range/Units 08:46 WBC (3.8-10.6) k/uL RBC (3.80-5.40) m/uL Hgb (11.4-16.0) gm/dL Hct (34.0-46.0) % MCV (80.0-100.0) fL MCH (25.0-35.0) pg MCHC (31.0-37.0) g/dL RDW (11.5-15.5) % Plt Count (150-450) k/uL Neutrophils % % Lymphocytes % % Monocytes % % Eosinophils % % Basophils % % Neutrophils # (1.3-7.7) k/uL Lymphocytes # (1.0-4.8) k/uL Monocytes # (0-1.0) k/uL Eosinophils # (0-0.7) k/uL Basophils # (0-0.2) k/uL Hypochromasia Anisocytosis Sodium (137-145) mmol/L Potassium (3.5-5.1) mmol/L Chloride (98-107) mmol/L Carbon Dioxide (22-30) mmol/L Anion Gap mmol/L BUN (7-17) mg/dL Creatinine (0.52-1.04) mg/dL Est GFR (CKD-EPI)AfAm (>60 ml/min/1.73 sqM) Est GFR (CKD-EPI)NonAf (>60 ml/min/1.73 sqM) Glucose (74-99) mg/dL Calcium (8.4-10.2) mg/dL Magnesium (1.6-2.3) mg/dL Total Bilirubin (0.2-1.3) mg/dL AST (14-36) U/L ALT (9-52) U/L Alkaline Phosphatase (38-126) U/L Total Creatine Kinase (30-135) U/L CK-MB (CK-2) (0.0-2.4) ng/mL CK-MB (CK-2) Rel Index Troponin I (0.000-0.034) ng/mL Total Protein (6.3-8.2) g/dL Albumin (3.5-5.0) g/dL Urine Color Yellow Urine Appearance Clear (Clear) Urine pH 5.5 (5.0-8.0) Ur Specific [place] 1.020 (1.001-1.035) Urine Protein Trace H (Negative) Urine Glucose (UA) Negative (Negative) Urine Ketones Negative (Negative) Urine Blood Negative (Negative) Urine Nitrite Negative (Negative) Urine Bilirubin Negative (Negative) Urine Urobilinogen <2.0 (<2.0) mg/dL Ur Leukocyte Esterase Moderate H (Negative) Urine RBC 1 (0-5) /hpf Urine WBC 10 H (0-5) /hpf Urine Bacteria Few H (None) /hpf Urine Mucus Rare H (None) /hpf - EKG Data -: EKG Interpreted by Dc EKG shows normal: sinus rhythm (Sinus rhythm with PACs rate was 95. Interval 168 QRS duration 92 QT since QTC 350/439 no acute changes this is compared with EKG dated 12/21/17) - Radiology Data Radiology results: report reviewed (I did review the imaging and reports x-rays are not definitive there was some question of irregularity of the right femur. CAT scan does show evidence of a fracture of the proximal femur at the area of the distal prosthesis.), image reviewed Disposition Clinical Impression: Fall, Elevated troponin, Femur fracture, right, History of total right hip replacement Disposition: ADMITTED IP TO THIS HOSP Condition: Stable Referrals: Misha Wynn MD [REFERRING] - 1-2 days
[2018-01-13 07:45] LABS: Anisocytosis Slight; Basophils % (A) 0 %; Eosinophils # (A) 0.1 k/uL (0-0.7); Eosinophils % (A) 2 %; HCT 30.7 % (34.0-46.0); HGB 9.7 gm/dL (11.4-16.0); Hypochromasia Slight; Lymphocytes # (A) 0.6 k/uL (1.0-4.8); Lymphocytes % (A) 10 %; MCH 27.4 pg (25.0-35.0); MCHC 31.5 g/dL (31.0-37.0); Mean Platelet Volume 7.2; Monocytes # (A) 0.3 k/uL (0-1.0); Monocytes % (A) 6 %; Neutrophils # (A) 4.4 k/uL (1.3-7.7); Neutrophils % (A) 80 %; Platelet Count 186 k/uL (150-450); RBC 3.53 m/uL (3.80-5.40); RDW 16.9 % (11.5-15.5); WBC 5.5 k/uL (3.8-10.6)
[2018-01-13 07:54] LABS: Albumin 3.2 g/dL (3.5-5.0); Calcium 9.1 mg/dL (8.4-10.2); Magnesium 1.8 mg/dL (1.6-2.3); Potassium 4.4 mmol/L (3.5-5.1); Total Bilirubin 0.4 mg/dL (0.2-1.3); Total Protein 5.9 g/dL (6.3-8.2)
--- NOTE | 2018-01-13 08:16 | XR ---
AP pelvis and left hip HISTORY: Trauma and pain frontal view of the pelvis submitted on 2 images, 2 views of the left hip Correlation to right hip dated 10/01/2017 Patient is status post right hip arthroplasty. Heterotopic new bone formation is present at the level of the arthroplasty. Bone mineralization is reduced which may limit sensitivity. There are vascular calcifications noted incidentally. Degenerative disc change in the visualized spine. Alignment is sol ntained. Mild joint space loss in the left hip. No fracture is evident. IMPRESSION: No acute abnormality evident within the limitations of the exam, consider additional imag ing for increased sensitivity as indicated.
[2018-01-13 08:25] LABS: Creatine Kinase MB 1.5 ng/mL (0.0-2.4)
[2018-01-13 08:47] LABS: Troponin I 0.053 ng/mL (0.000-0.034)
[2018-01-13] MEDS ORDERED: fentaNYL (PF) 50 MCG/ML 2 ML AMP IV STA (08:47)
[2018-01-13 09:08] LABS: Appearance,Urine Clear (Clear); Bacteria,Urine Few /hpf; Bilirubin,Urine Negative (Negative); Blood,Urine Negative (Negative); Color,Urine Yellow; Glucose,Urine (UA) Negative (Negative); Ketones,Urine Negative (Negative); Leukocyte Esterase,Urine Moderate (Negative); Mucus,Urine Rare /hpf; Nitrite,Urine Negative (Negative); PH, Urine 5.5 (5.0-8.0); Protein,Urine Trace (Negative); RBC,Urine 1 /hpf (0-5); Urobilinogen,Urine <2.0 mg/dL (<2.0); WBC,Urine 10 /hpf (0-5)
--- NOTE | 2018-01-13 09:56 | CT ---
EXAMINATION TYPE: CT pelvis wo con DATE OF EXAM: 01/13/2018 COMPARISON: 09/29/2017 HISTORY: Right hip pain after fall CT DLP: 806.3 mGycm Automated exposure control for dose reduction was used. TECHNIQUE: Axial images 3 mm thick sections. Reconstructed images in the coronal and sagittal plane. FINDINGS: Degenerative disc changes are in the lower lumbar spine. Sacroiliac joints appear unremarkable. There is a right hip prosthesis causing beam hardening artifact which will cause some limitation portions of the evaluation. Facet degenerative changes are within the lumbar spine. Fecal debris is at the rectum. Phleboliths within the pelvis. Urinary bladder appears unremarkable. U terus and adnexal regions appear within normal limits. Loops of bowel within the [id number] are no rmal. Attention is paid to the right hip. At the lower extent of the prosthesis there is a long oblique fra cture through the diaphysis of the right femur. There is mild displacement of the distal fracture fra gment. Prosthesis appears intact. Left Femoral head articulates with the acetabulum. No acute fractures evident at the left hip. Symphy sis pubis appears normal. IMPRESSION: 1. OBLIQUE FRACTURE AT THE LEVEL OF THE DISTAL RIGHT FEMORAL PROSTHESIS THROUGH THE RIGHT FEMORAL TEVIN PHYSIS.
--- NOTE | 2018-01-13 09:57 | XR ---
EXAMINATION TYPE: XR chest 1V DATE OF EXAM: 01/13/2018 COMPARISON: 12/24/2017 HISTORY: Cough TECHNIQUE: Single frontal view of the chest is obtained. FINDINGS: Heart is prominent there subsegmental consolidation left lung base. Atherosclerotic change aorta. Arthropathy of the shoulders. No pneumothorax. Interstitium stable. Improved aeration at the right lung base. Diffuse osteopenia noted. IMPRESSION: 1. Improving aeration at the right lung base with persistent left lower lobe consolidation and small effusion. Underlying interstitial pneumonitis or venous congestion in the differential diagnosis. Cor relate clinically.
[2018-01-13] MEDS ORDERED: NALOXONE 0.4 MG/ML 1 ML VIAL IV PRN (11:10)
[2018-01-13] MEDS ORDERED: guaiFENesin SYRUP 100MG/5ML 200 MG/10 ML CUP PO PRN (11:14)
[2018-01-13] MEDS ORDERED: NITROGLYCERIN SL TABS 0.4 MG TAB SUBLINGUAL PRN (11:14)
[2018-01-13] MEDS: HYDROmorphone 1 MG/ML 1 ML SYRINGE IVP PRN ×2 (12:00→21:28)
[2018-01-13] MEDS: IPRATROPIUM-ALBUTEROL 3 ML NEB INHALATION SCH ×3 (12:33→21:38)
--- NOTE | 2018-01-13 14:03 | XR ---
EXAMINATION TYPE: XR femur RT DATE OF EXAM: 01/13/2018 COMPARISON: CT pelvis same date HISTORY: Fractured right femur TECHNIQUE: Two-view femur FINDINGS: There is an oblique fracture through the proximal diaphysis which overlies the distal porti on of the femoral prosthesis within the right femur. Findings are compatible with an oblique fracture which is been identified on CT examination. The distal femur appears intact. Degenerative changes are noted at the knee joint space. No additiona l fractures are evident. IMPRESSION: 1. Oblique fracture proximal diaphysis right femur
[2018-01-13] MEDS: SODIUM CHLORIDE 0.9% 1,000 ML IV SCH (14:46)
[2018-01-13] MEDS: INSULIN ASPART 100 UNIT/ML 1 ML 10 ML VIAL SQ SCH ×3 (14:46→20:39)
[2018-01-13 14:56] LABS: Creatine Kinase MB 1.7 ng/mL (0.0-2.4)
[2018-01-13 14:59] LABS: Troponin I 0.043 ng/mL (0.000-0.034)
[2018-01-13] MEDS: ONDANSETRON 4 MG/2 ML VIAL IVP PRN (15:02)
--- NOTE | 2018-01-13 15:14 | P.HPIM ---
History of Present Illness This is a pleasant 82 years old female with past medical history of heart failure, COPD, diabetes mellitus, GERD, GI bleed, hyperlipidemia, hypertension, coronary artery disease, chronic kidney disease stage III, who presents because of fall. Found to have right femoral fracture. Patient has recently fell last October and broke her right hip fracture, she was at rehab for a while and her cause was completed by pneumonia. She was sent home about weeks ago and today she was trying to get out of her chair without help but she fell and broke her hip again. On admission her troponin is slightly elevated. However she denies any chest pain. No dyspnea. No change in bowel habits. No fever. On admission patient has elevated troponin at 0.05, which is similar to previous troponin on 09/2017. Oxygen saturation any 8% on 2 L and respiratory rate 18. Blood pressure is 168/68. Urinalysis showing moderate leukocyte esterase with 10 wbc and few bacteria. Chest x-ray shows persistent left left lower lobe consolidation with small pleural effusion. However patient is afebrile with no leukocytosis. Review of Systems CONSTITUTIONAL: No fever, no malaise, no fatigue. HEENT: No recent visual problems or hearing problems. Denied any sore throat. CARDIOVASCULAR: No orthopnea, PND, no palpitations, no syncope. PULMONARY: No shortness of breath, no cough, no hemoptysis. GASTROINTESTINAL: No diarrhea, no nausea, no vomiting, no abdominal pain. Normoactive bowel sounds. NEUROLOGICAL: No headaches, no weakness, no numbness. HEMATOLOGICAL: Denies any bleeding or petechiae. GENITOURINARY: Denies any burning micturition, frequency, or urgency. MUSCULOSKELETAL/RHEUMATOLOGICAL: Denies any joint pain, swelling, or any muscle pain. ENDOCRINE: Denies any polyuria or polydipsia. Past Medical History Past Medical History: Coronary Artery Disease (CAD), Heart Failure, COPD, Diabetes Mellitus, GERD/Reflux, GI Bleed, Hyperlipidemia, Hypertension, Myocardial Infarction ([place]), Pneumonia, Renal Disease Additional Past Medical History / Comment(s): Pt recently admitted to [facility] on with acute hypoxic respiratory failure-multifactoral, acute on chronic CHF , small bilateral pleural effusions,acute on chronic COPD, uncontrolled HTN, sinus tachycardia and R lower lobe pneumonia. IDDM type II, diabetic neuropathy bilateral hands, pulmonary edema with ET/vent, past pneumonias, CKD stage II, osteoporosis, tremors past couple weeks thought r/t breathing treatments, lower leg edema, lower GI bleed. Last Myocardial Infarction Date:: 2005 History of Any Multi-Drug Resistant Organisms: None Reported Past Surgical History: Cholecystectomy, Heart Catheterization, Heart Catheterization With Stent, Orthopedic Surgery Additional Past Surgical History / Comment(s): R hip hemiarthroplasty Past Anesthesia/Blood Transfusion Reactions: No Reported Reaction Date of Last Stent Placement:: 2005 Past Psychological History: No Psychological Hx Reported Additional Psychological History / Comment(s): Pt resides at [facility] in [place]. She is wheelchair bound. Smoking Status: Former smoker Past Alcohol Use History: None Reported Additional Past Alcohol Use History / Comment(s): STARTED SMOKING AT AGE 15 SMOKED LESS THAN 1 PPD QUIT IN 2005, HAS AN RARE DRINK NO DRUG HX. Past Drug Use History: None Reported - Past Family History Father Family Medical History: COPD Additional Family Medical History / Comment(s): DAD IN HIS 60'S Mother Family Medical History: Cancer Additional Family Medical History / Comment(s): MOM IN HER EARLY 70'S. Mother had breast cancer. Medications and Allergies Home Medications Medication Instructions Recorded Confirmed Type Insuln Asp Prt/Insulin Aspart 28 unit SQ AC-BRKFST 12/01/13 01/13/18 History [NovoLOG MIX 70-30 VIAL] Lansoprazole [Prevacid] 30 mg PO DAILY 12/01/13 01/13/18 History Nitroglycerin Sl Tabs [Nitrostat] 0.4 mg SUBLINGUAL Q5M PRN 12/01/13 01/13/18 History Pravastatin Sodium [Pravachol] 80 mg PO HS 12/01/13 01/13/18 History Insuln Asp Prt/Insulin Aspart 20 unit SQ AC-SUPPER 12/21/17 01/13/18 History [NovoLOG MIX 70-30 VIAL] buPROPion HCL [Wellbutrin SR] 150 mg PO BID 12/21/17 01/13/18 History rOPINIRole HCL [Requip] 0.5 mg PO DAILY 12/21/17 01/13/18 History Aspirin 81 mg PO DAILY #30 chew 12/27/17 01/13/18 Rx Budesonide [Pulmicort] 0.5 mg INHALATION RT-BID nebu 12/27/17 01/13/18 Rx Diltiazem Cd [Cardizem CD] 240 mg PO DAILY #30 cap.er.24h 12/27/17 01/13/18 Rx Furosemide [Lasix] 40 mg PO BID@0900,1600 #60 tab 12/27/17 01/13/18 Rx Ipratropium-Albuterol Nebulize 3 ml INHALATION RT-QID #120 12/27/17 01/13/18 Rx [Duoneb 0.5 mg-3 mg/3 ml Soln] ampul.neb Acetaminophen Tab [Tylenol Tab] 650 mg PO Q6H PRN 01/13/18 01/13/18 History Alendronate Sodium [Fosamax] 70 mg PO Q30D 01/13/18 01/13/18 History INSULIN LISPRO (HumaLOG) [HumaLOG] See Protocol SQ ACHS 01/13/18 01/13/18 History Melatonin 3 mg PO HS 01/13/18 01/13/18 History guaiFENesin [Diabetic Tussin Ex] 200 mg PO Q4H PRN 01/13/18 01/13/18 History Allergies Allergy/AdvReac Type Severity Reaction Status Date / Time No Known Allergies Allergy Verified 01/13/18 08:26 Physical Exam Vitals: Vital Signs Temp Pulse Resp BP Pulse Ox 01/13/18 14:00 98 F 89 18 168/68 98 01/13/18 13:55 20 01/13/18 13:00 88 0 L 174/86 96 01/13/18 12:00 89 22 181/83 96 01/13/18 11:00 91 22 162/57 97 01/13/18 10:00 92 22 168/70 98 01/13/18 09:28 98 22 168/67 97 01/13/18 08:00 84 22 184/83 97 01/13/18 07:30 174/77 98 01/13/18 07:16 100 01/13/18 06:58 97.7 F 98 19 198/97 98 Intake and Output 01/12/18 01/13/18 01/13/18 22:59 06:59 14:59 Output Total 200 Balance -200 Output: Urine 200 Uretheral (Wing) 200 Other: Weight 125.191 kg GENERAL: The patient is alert and oriented x3, not in any acute distress. Obese HEENT: Pupils are round and equally reacting to light. EOMI. No scleral icterus. No conjunctival pallor. Normocephalic, atraumatic. No pharyngeal erythema. No thyromegaly. CARDIOVASCULAR: S1 and S2 present. No murmurs, rubs, or gallops. PULMONARY: Chest is clear to auscultation, no wheezing or crackles. ABDOMEN: Soft, nontender, nondistended, normoactive bowel sounds. No palpable organomegaly. MUSCULOSKELETAL: No joint swelling or deformity. -EXTREMITIES: No cyanosis, clubbing, or pedal edema. Right lower extremity is shortened and externally rotated NEUROLOGICAL: Gross neurological examination did not reveal any focal deficits. SKIN: No rashes. Results CBC & Chem 7: 01/13/18 07:24 01/13/18 07:24 Labs: Abnormal Lab Results - Last 24 Hours (Table) 01/13/18 01/13/18 01/13/18 Range/Units 07:24 07:24 07:24 RBC 3.53 L (3.80-5.40) m/uL Hgb 9.7 L (11.4-16.0) gm/dL Hct 30.7 L (34.0-46.0) % RDW 16.9 H (11.5-15.5) % Lymphocytes # 0.6 L (1.0-4.8) k/uL Carbon Dioxide 31 H (22-30) mmol/L BUN 33 H (7-17) mg/dL Creatinine 1.13 H (0.52-1.04) mg/dL Glucose 130 H (74-99) mg/dL Total Creatine Kinase 24 L (30-135) U/L Troponin I 0.053 H* (0.000-0.034) ng/mL Total Protein 5.9 L (6.3-8.2) g/dL Albumin 3.2 L (3.5-5.0) g/dL Urine Protein (Negative) Ur Leukocyte Esterase (Negative) Urine WBC (0-5) /hpf Urine Bacteria (None) /hpf Urine Mucus (None) /hpf 01/13/18 01/13/18 Range/Units 08:46 13:56 RBC (3.80-5.40) m/uL Hgb (11.4-16.0) gm/dL Hct (34.0-46.0) % RDW (11.5-15.5) % Lymphocytes # (1.0-4.8) k/uL Carbon Dioxide (22-30) mmol/L BUN (7-17) mg/dL Creatinine (0.52-1.04) mg/dL Glucose (74-99) mg/dL Total Creatine Kinase 23 L (30-135) U/L Troponin I (0.000-0.034) ng/mL Total Protein (6.3-8.2) g/dL Albumin (3.5-5.0) g/dL Urine Protein Trace H (Negative) Ur Leukocyte Esterase Moderate H (Negative) Urine WBC 10 H (0-5) /hpf Urine Bacteria Few H (None) /hpf Urine Mucus Rare H (None) /hpf Thrombosis Risk Factor Assmnt - Choose All That Apply Any of the Below Risk Factors Present?: Yes Each Factor Represents 1 point: Abnormal pulmonary function (COPD), Heart failure (<1month), Obesity (BMI >25), Swollen legs (current) Each Risk Factor Represents 3 Points: Age 75 years or older Other congenital or acquired thrombophilia - If yes, enter type in comment: No Each Risk Factor Represents 5 Points: Hip, pelvis, or leg fracture (< 1 month) Thrombosis Risk Factor Assessment Total Risk Factor Score: 12 Thrombosis Risk Factor Assessment Level: High Risk Assessment and Plan Assessment: Right femoral fracture Status post fall positive troponin, rule out cardiac cause. CKD stage III History of coronary artery disease History of Congestive heart failure History of COPD not in acute exacerbation Diabetes mellitus Good History of GI bleed Hyperlipidemia Essential hypertension Plan: Labs an this is a pleasant 82 years old male who presents because of fall and right humeral fracture. Patient also has elevated troponins. Call cardiology and orthopedic consults. Labs and medication were reviewed. Continue same treatment. Continue with symptomatic treatment. Resume home medication. Monitor lytes and vitals. DVT and GI prophylaxis. Further recommendations of the clinical course of the patient DVT prophylaxis: Subcutaneous heparin GI Prophylaxis: Protonix PT/OT: Pending Prognosis is guarded
[2018-01-13 16:28] LABS: Glucose,Whole Blood 170 mg/dL (75-99)
[2018-01-13] MEDS: METOPROLOL TARTRATE 25 MG TAB PO SCH ×2 (17:24→22:04)
[2018-01-13] MEDS: FUROSEMIDE 40 MG TAB PO SCH (17:24)
[2018-01-13] MEDS: INSULN ASP PRT/INSULIN ASPART 100 UNIT/ML 10 ML VIAL SQ SCH (17:25)
--- NOTE | 2018-01-13 19:14 | CONS ---
CONSULTATION Mrs. Thomas is an 82-year-old female who is seen for cardiac evaluation. The patient's emergency room records as well as old records reviewed. The patient sustained a fall yesterday and she continued to have pain in the right hip and she came to the emergency room. The CT scan is suggestive of a right femur fracture. This patient has a history of COPD, congestive heart failure, and the diabetes. The patient just recently was in the hospital with an acute on chronic diastolic heart failure and was treated with diuretics and subsequently was sent home. The patient had surgery for right femoral hip replacement in the October. There is a prior history of a stent placement in 2005. However, since then, patient has not being having any anginal pain or had not had any recurrent myocardial infarction. HOME MEDICATIONS: Include insulin, nitroglycerin, Pravachol 80 mg daily, Wellbutrin, Requip, Fosamax 75 mg every 30 days, Pulmicort, Cardizem CD 240 mg daily, Lasix 40 mg b.i.d. and DuoNeb q.6 hours hourly. PAST MEDICAL HISTORY: Includes history of aneurysm of splenic artery, history of multinodular goiter, history of polyneuropathy, cholecystectomy, prior cardiac catheterization and stent placement. Smoking history: Patient is a prior smoker. PHYSICAL EXAMINATION: At present, reveals an 82-year-old obesely built female, who is not in any acute respiratory distress. Patient's heart rate is 90 to 100 per minute, blood pressure is 168/68 mmHg, oxygen saturation is 98%. HEENT examination is negative. Neck is supple. There is no increase in jugular venous pressure. Both the carotid pulses are felt. There is no bruit. Chest is symmetrical. Heart the PMI is not felt. First and second heart sounds are normal. There is a grade 2/6 ejection systolic murmur noted. Lungs are clinically clear to auscultation and percussion. Abdomen is negative. Extremities: There is no evidence of any significant leg edema. LABORATORY DATA: The patient's electrolytes are normal. Creatinine is 1.13. First troponin was 0.053. Second troponin was 0.043. FINAL IMPRESSION: This patient is admitted with a fall and fractured hip. The patient has a known history of moderate to severe COPD which is oxygen dependent and history of chronic diastolic heart failure. The patient does not have any evidence of chest pain. The patient has a minimally elevated troponin which she has been noticed to pass during the previous admission. There is no clear-cut history suggestive of acute coronary syndrome. There is elevation in the troponin could be due to supply and demand mismatch. The patient at present is tachycardic as well as a hypertensive. PLAN: We will start the patient on Lopressor 25 mg q.8 hourly. Echo and Doppler study would be done and we will continue on her diuretic. The patient is considered acceptable but increased risk for surgery. MMODL / RAKANN: [id number] /
[2018-01-13] MEDS: MELATONIN 3 MG TABLET PO SCH (20:38)
[2018-01-13] MEDS: PRAVASTATIN SODIUM 80 MG TAB PO SCH (20:38)
[2018-01-13] MEDS: HEPARIN SODIUM,PORCINE 5,000 UNIT/ML 1 ML VIAL SQ SCH (20:39)
[2018-01-13] MEDS: buPROPion SR 150 MG TABLET.ER PO SCH (20:39)
[2018-01-13 20:49] LABS: Glucose,Whole Blood 184 mg/dL (75-99)
[2018-01-13 21:13] LABS: Creatine Kinase MB 1.6 ng/mL (0.0-2.4)
[2018-01-13 21:15] LABS: Troponin I 0.054 ng/mL (0.000-0.034)
[2018-01-13] MEDS: BUDESONIDE 0.5 MG/2 ML NEBU INHALATION SCH (21:39)
[2018-01-14 00:57] LABS: Glucose,Whole Blood 125 mg/dL (75-99)
[2018-01-14 06:20] LABS: Anisocytosis Slight; Basophils % (A) 0 %; Eosinophils # (A) 0.1 k/uL (0-0.7); Eosinophils % (A) 3 %; HCT 29.5 % (34.0-46.0); HGB 9.2 gm/dL (11.4-16.0); Hypochromasia Marked; Lymphocytes # (A) 0.6 k/uL (1.0-4.8); Lymphocytes % (A) 13 %; MCH 27.7 pg (25.0-35.0); MCHC 31.3 g/dL (31.0-37.0); MCV 88.6 fL (80.0-100.0); Mean Platelet Volume 6.9; Monocytes # (A) 0.3 k/uL (0-1.0); Monocytes % (A) 6 %; Neutrophils # (A) 3.6 k/uL (1.3-7.7); Neutrophils % (A) 75 %; Platelet Count 177 k/uL (150-450); RBC 3.32 m/uL (3.80-5.40); RDW 16.5 % (11.5-15.5); WBC 4.8 k/uL (3.8-10.6)
[2018-01-14 06:29] LABS: Glucose,Whole Blood 114 mg/dL (75-99)
[2018-01-14] MEDS: INSULIN ASPART 100 UNIT/ML 1 ML 10 ML VIAL SQ SCH ×4 (06:29→22:44)
[2018-01-14 06:39] LABS: Calcium 8.8 mg/dL (8.4-10.2); Potassium 4.4 mmol/L (3.5-5.1)
[2018-01-14] MEDS: SODIUM CHLORIDE 0.9% 1,000 ML IV SCH ×2 (07:12→08:40)
[2018-01-14] MEDS: IPRATROPIUM-ALBUTEROL 3 ML NEB INHALATION SCH ×4 (08:08→19:52)
[2018-01-14] MEDS: BUDESONIDE 0.5 MG/2 ML NEBU INHALATION SCH ×2 (08:08→19:52)
[2018-01-14] MEDS: buPROPion SR 150 MG TABLET.ER PO SCH (08:41)
[2018-01-14] MEDS: HEPARIN SODIUM,PORCINE 5,000 UNIT/ML 1 ML VIAL SQ SCH ×2 (08:41→22:43)
[2018-01-14] MEDS: METOPROLOL TARTRATE 25 MG TAB PO SCH ×3 (08:41→22:43)
[2018-01-14] MEDS: PANTOPRAZOLE 40 MG/10 ML VIAL IV SCH (08:41)
[2018-01-14] MEDS: DILTIAZEM CD 240 MG CAP.ER.24H PO SCH (08:41)
[2018-01-14] MEDS: FUROSEMIDE 40 MG TAB PO SCH ×2 (08:41→16:30)
[2018-01-14] MEDS: ASPIRIN 81 MG PO SCH (08:41)
[2018-01-14] MEDS ORDERED: NON-FORMULARY DRUG (Lansoprazole [Prevacid] 30 MG) PO SCH (09:00)
[2018-01-14] MEDS: HYDROmorphone 1 MG/ML 1 ML SYRINGE IVP PRN (09:10)
--- NOTE | 2018-01-14 09:13 | P.CNOR ---
History of Present Illness - [facility] Consult date: 01/14/18 Requesting physician: Marc South Consult reason: fracture History of present illness: Patient is a 82-year-old female seen at bedside this morning. She has a a history of multiple medical issues including CHF, COPD, hypothyroidism, pneumonia and who is status post right hip hemiarthroplasty per Dr. Crawford in October 2017. She was at an extended care facility when she fell Saturday, 2017 on her right side. She immediately developed right hip and thigh pain and had difficulty ambulating. She was admitted through the emergency department here on 01/13/2018 to internal medicine after X-rays showed a periprosthetic right femur fracture. She also had elevated troponins. She has been admitted to internal medicine. She currently denies any numbness, tingling , chest pain, shortness of breath, fever, chills, nausea, vomiting, dizziness, headaches, slurred speech or other. Review of Systems All systems: negative Constitutional: Denies chills, Denies fever Eyes: denies blurred vision, denies pain Ears, nose, mouth and throat: Denies headache, Denies sore throat Cardiovascular: Denies chest pain, Denies shortness of breath Respiratory: Denies cough Gastrointestinal: Denies abdominal pain, Denies diarrhea, Denies nausea, Denies vomiting Genitourinary: Denies dysuria, Denies hematuria Musculoskeletal: Denies myalgias Integumentary: Denies pruritus, Denies rash Neurological: Denies numbness, Denies weakness Psychiatric: Denies anxiety, Denies depression Endocrine: Denies fatigue, Denies weight change Past Medical History Past Medical History: Coronary Artery Disease (CAD), Heart Failure, COPD, Diabetes Mellitus, GERD/Reflux, GI Bleed, Hyperlipidemia, Hypertension, Myocardial Infarction ([place]), Pneumonia, Renal Disease Additional Past Medical History / Comment(s): Pt recently admitted to [facility] on with acute hypoxic respiratory failure-multifactoral, acute on chronic CHF , small bilateral pleural effusions,acute on chronic COPD, uncontrolled HTN, sinus tachycardia and R lower lobe pneumonia. IDDM type II, diabetic neuropathy bilateral hands, pulmonary edema with ET/vent, past pneumonias, CKD stage II, osteoporosis, tremors past couple weeks thought r/t breathing treatments, lower leg edema, lower GI bleed. Last Myocardial Infarction Date:: 2005 History of Any Multi-Drug Resistant Organisms: None Reported Past Surgical History: Cholecystectomy, Heart Catheterization, Heart Catheterization With Stent, Orthopedic Surgery Additional Past Surgical History / Comment(s): R hip hemiarthroplasty Past Anesthesia/Blood Transfusion Reactions: No Reported Reaction Date of Last Stent Placement:: 2005 Past Psychological History: No Psychological Hx Reported Additional Psychological History / Comment(s): Pt resides at [facility] in [place]. She is wheelchair bound. Smoking Status: Former smoker Past Alcohol Use History: None Reported Additional Past Alcohol Use History / Comment(s): STARTED SMOKING AT AGE 15 SMOKED LESS THAN 1 PPD QUIT IN 2005, HAS AN RARE DRINK NO DRUG HX. Past Drug Use History: None Reported - Past Family History Father Family Medical History: COPD Additional Family Medical History / Comment(s): DAD IN HIS 60'S Mother Family Medical History: Cancer Additional Family Medical History / Comment(s): MOM IN HER EARLY 70'S. Mother had breast cancer. Medications and Allergies Home Medications Medication Instructions Recorded Confirmed Type Insuln Asp Prt/Insulin Aspart 28 unit SQ AC-BRKFST 12/01/13 01/13/18 History [NovoLOG MIX 70-30 VIAL] Lansoprazole [Prevacid] 30 mg PO DAILY 12/01/13 01/13/18 History Nitroglycerin Sl Tabs [Nitrostat] 0.4 mg SUBLINGUAL Q5M PRN 12/01/13 01/13/18 History Pravastatin Sodium [Pravachol] 80 mg PO HS 12/01/13 01/13/18 History Insuln Asp Prt/Insulin Aspart 20 unit SQ AC-SUPPER 12/21/17 01/13/18 History [NovoLOG MIX 70-30 VIAL] buPROPion HCL [Wellbutrin SR] 150 mg PO BID 12/21/17 01/13/18 History rOPINIRole HCL [Requip] 0.5 mg PO DAILY 12/21/17 01/13/18 History Aspirin 81 mg PO DAILY #30 chew 12/27/17 01/13/18 Rx Budesonide [Pulmicort] 0.5 mg INHALATION RT-BID nebu 12/27/17 01/13/18 Rx Diltiazem Cd [Cardizem CD] 240 mg PO DAILY #30 cap.er.24h 12/27/17 01/13/18 Rx Furosemide [Lasix] 40 mg PO BID@0900,1600 #60 tab 12/27/17 01/13/18 Rx Ipratropium-Albuterol Nebulize 3 ml INHALATION RT-QID #120 12/27/17 01/13/18 Rx [Duoneb 0.5 mg-3 mg/3 ml Soln] ampul.neb Acetaminophen Tab [Tylenol Tab] 650 mg PO Q6H PRN 01/13/18 01/13/18 History Alendronate Sodium [Fosamax] 70 mg PO Q30D 01/13/18 01/13/18 History INSULIN LISPRO (HumaLOG) [HumaLOG] See Protocol SQ ACHS 01/13/18 01/13/18 History Melatonin 3 mg PO HS 01/13/18 01/13/18 History guaiFENesin [Diabetic Tussin Ex] 200 mg PO Q4H PRN 01/13/18 01/13/18 History Allergies Allergy/AdvReac Type Severity Reaction Status Date / Time No Known Allergies Allergy Verified 01/13/18 08:26 Physical Examination Inspection of the right lower extremity show no wounds or lacerations. There is no erythema. The leg is externally rotated. She has significant pain with any range of motion of the right hip and thigh. Neurovascular status appears be grossly intact with motor and sensation throughout the right lower extremity. The calf is soft nontender. 2+ dorsalis pedis pulse present and less than 27 capillary refill is present distally. Results X-rays of the right hip and femur show a hemiarthroplasty prosthetic device in place. There appears to be a fracture at the lateral and medial cortex - Labs Labs: Abnormal Lab Results - Last 24 Hours (Table) 01/13/18 01/13/18 01/13/18 Range/Units 08:46 13:56 16:20 RBC (3.80-5.40) m/uL Hgb (11.4-16.0) gm/dL Hct (34.0-46.0) % RDW (11.5-15.5) % Lymphocytes # (1.0-4.8) k/uL Carbon Dioxide (22-30) mmol/L BUN (7-17) mg/dL Creatinine (0.52-1.04) mg/dL Glucose (74-99) mg/dL POC Glucose (mg/dL) 170 H (75-99) mg/dL Total Creatine Kinase 23 L (30-135) U/L Troponin I 0.043 H* (0.000-0.034) ng/mL Urine Protein Trace H (Negative) Ur Leukocyte Esterase Moderate H (Negative) Urine WBC 10 H (0-5) /hpf Urine Bacteria Few H (None) /hpf Urine Mucus Rare H (None) /hpf 01/13/18 01/13/18 01/14/18 Range/Units 20:12 20:34 00:56 RBC (3.80-5.40) m/uL Hgb (11.4-16.0) gm/dL Hct (34.0-46.0) % RDW (11.5-15.5) % Lymphocytes # (1.0-4.8) k/uL Carbon Dioxide (22-30) mmol/L BUN (7-17) mg/dL Creatinine (0.52-1.04) mg/dL Glucose (74-99) mg/dL POC Glucose (mg/dL) 184 H 125 H (75-99) mg/dL Total Creatine Kinase (30-135) U/L Troponin I 0.054 H* (0.000-0.034) ng/mL Urine Protein (Negative) Ur Leukocyte Esterase (Negative) Urine WBC (0-5) /hpf Urine Bacteria (None) /hpf Urine Mucus (None) /hpf 01/14/18 01/14/18 01/14/18 Range/Units 05:35 05:35 06:21 RBC 3.32 L (3.80-5.40) m/uL Hgb 9.2 L (11.4-16.0) gm/dL Hct 29.5 L (34.0-46.0) % RDW 16.5 H (11.5-15.5) % Lymphocytes # 0.6 L (1.0-4.8) k/uL Carbon Dioxide 32 H (22-30) mmol/L BUN 25 H (7-17) mg/dL Creatinine 1.08 H (0.52-1.04) mg/dL Glucose 105 H (74-99) mg/dL POC Glucose (mg/dL) 114 H (75-99) mg/dL Total Creatine Kinase (30-135) U/L Troponin I (0.000-0.034) ng/mL Urine Protein (Negative) Ur Leukocyte Esterase (Negative) Urine WBC (0-5) /hpf Urine Bacteria (None) /hpf Urine Mucus (None) /hpf H & H 01/13/18 01/14/18 Range/Units 07:24 05:35 Hgb 9.7 L 9.2 L (11.4-16.0) gm/dL Hct 30.7 L 29.5 L (34.0-46.0) % Result Diagrams: 01/14/18 05:35 01/14/18 05:35 Assessment and Plan (1) Femur fracture, right Narrative/Plan: Patient will be initially managed with conservative management including nonweightbearing and pain management. We will defer DVT prophylaxis and anticoagulation to internal medicine and/or cardiology. I'll review her case further with Dr. South we'll make further recommendations as appropriate. Current Visit: Yes Status: Acute Priority: Medium Code(s): S72.91XA - UNSP FRACTURE OF RIGHT FEMUR, INIT FOR CLOS FX SNOMED Code(s): 84804331 Time with Patient: Less than 30
[2018-01-14] MEDS: INSULN ASP PRT/INSULIN ASPART 100 UNIT/ML 10 ML VIAL SQ SCH ×2 (09:19→17:57)
[2018-01-14] MEDS: HYDROcodone/APAP 5-325MG 1 EACH TAB PO PRN ×2 (10:23→17:54)
[2018-01-14 10:42] LABS: Glucose,Whole Blood 148 mg/dL (75-99)
--- NOTE | 2018-01-14 11:11 | ECHOF ---
Referral Reason:HF MEASUREMENTS -------- HEIGHT: 154.9 cm WEIGHT: 125.2 kg BP: 168/68 IVSd: 1.2 cm (0.6 - 1.1) LVIDd: 4.5 cm (3.9 - 5.3) LVPWd: 1.2 cm (0.6 - 1.1) IVSs: 1.6 cm LVIDs: 3.0 cm LVPWs: 1.6 cm LAESV Index (A-L): 22.33 ml/m Ao Diam: 2.8 cm (2.0 - 3.7) AV Cusp: 1.3 cm (1.5 - 2.6) LA Diam: 3.2 cm (2.7 - 3.8) MV E Pérez: 0.72 m/s MV DecT: 511 ms MV A Pérez: 1.27 m/s MV E/A Ratio: 0.57 AV maxP.05 mmHg AV meanP.18 mmHg RAP: 5.00 mmHg RVSP: 14.60 mmHg FINDINGS -------- Resting tachycardia (HR>100bpm). This was a technically adequate study. The left ventricular size is normal. There is mild concentric left ventricular hypertrophy. Overa ll left ventricular systolic function is normal with, an EF between 55 - 60 %. The right ventricle is normal in size and function. Normal LA size by volume 22+/-6 ml/m2. RA appears enlarged. There is mild to moderate aortic valve sclerosis. There is no evidence of aortic regurgitation. T here is mild aortic stenosis present. Peak/mean gradient across the Aortic Valve is 16.05mmHg / 10. 18mmHg. Mild mitral annular calcification present. There is trace to mild mitral regurgitation. Trace tricuspid regurgitation present. Right ventricular systolic pressure is normal at < 35 mmHg. There is no evidence of pulmonary hypertension. The pulmonic valve was not well visualized. The aortic root size is normal. Normal inferior vena cava with normal inspiratory collapse consistent with estimated right atrial pre ssure of 5 mmHg. There is no pericardial effusion. CONCLUSIONS -------- 1. Resting tachycardia (HR>100bpm). 2. This was a technically adequate study. 3. The left ventricular size is normal. 4. There is mild concentric left ventricular hypertrophy. 5. Overall left ventricular systolic function is normal with, an EF between 55 - 60 %. 6. Normal LA size by volume 22+/-6 ml/m2. 7. RA appears enlarged. 8. There is mild to moderate aortic valve sclerosis. 9. There is no evidence of aortic regurgitation. 10. There is mild aortic stenosis present. 11. Peak/mean gradient across the Aortic Valve is 16.05mmHg / 10.18mmHg. 12. Mild mitral annular calcification present. 13. There is trace to mild mitral regurgitation. 14. Trace tricuspid regurgitation present. 15. Right ventricular systolic pressure is normal at < 35 mmHg. 16. There is no evidence of pulmonary hypertension. 17. The pulmonic valve was not well visualized. 18. The aortic root size is normal. 19. There is no pericardial effusion. DUDE RANCH MANAGER: Elton Dominguez RDCS
--- NOTE | 2018-01-14 12:26 | CDI ---
Last Revision, February 2017 Documentation Clarification Form Date: 01/14/2018 12:14:12 PM From: Dora Shah RN, CCDS Admit Date: 01/13/2018 11:10:00 AM Patient Name: Keysha Thomas Visit Number: [id number] ATTENTION: The Clinical Documentation Specialists (CDI) and [facility] Coding Staff appreciate your assistance in clarifying documentation. Please respond to the clarification below the line at the bottom and electronically sign. The CDI & [facility] Coding staff will review the response and follow-up if needed. Please note: Queries are made part of the Legal Health Record. If you have any questions, please contact the author of this message via ITS. Kenney Betts MD The patient presented with a history of oxygen dependence. Please provide clinical significance. History/Risk Factors: COPD, CHF, DM, RF Tobacco use: former smoker Home oxygen dependence Clinical Indicators: Vital signs: temp 97.7, HR 98, RR 19, B/P 198/97, Spo2 98% 2l NC Pulse oximetry: per unit protocol H&P Lung/Breathing assessment: "PULMONARY: Chest is clear to auscultation, no wheezing or crackles." Treatment: Breathing TX: Duoneb QID Continuous Pulse ox: per unit protocol O2: 2l NC In your professional opinion, can you please clarify if these findings signify one of the following conditions? Acuity & Specificity: Chronic Respiratory Failure, further specify (if known): With hypercapnia? With hypoxia? Respiratory Distress Other Diagnosis, please specify Unable to determine Please continue to document in your progress notes and discharge summary in order to capture severity of illness and risk of mortality. Include clinical findings that support your diagnosis. unable to determine MTDD
--- NOTE | 2018-01-14 12:32 | P.PN ---
Subjective Patient is admitted after a mechanical fall and right femoral fracture. Patient has mildly elevated troponin which appeared to be nonischemic and secondary to her Chronic kidney disease and chronic diastolic dysfunction cardiology evaluated the patient please refer to documentation for clearance for surgery patient is moderate risk for surgery but the the surgery does improve her functionality. Patient has asymptomatic bacteriuria do not believe patient has UTI antibiotics were discontinued. The patient regarding surgery for her right femoral fracture as per orthopedic surgery. Patient is on heparin for DVT prophylaxis patient does have history of congestive heart failure chronic gastric dysfunction with mild pulmonary edema on the chest x- ray IV fluids will be discontinued patient will be continued on oral Lasix need to monitor for heart failure exacerbation post surgery Dilaudid will be discontinued Objective - Vital Signs Vital signs: Vital Signs Temp 98.0 F 01/14/18 03:50 Pulse 92 01/14/18 08:24 Resp 17 01/14/18 03:52 BP 164/78 01/14/18 03:50 Pulse Ox 96 01/14/18 03:50 Intake & Output 01/13/18 01/14/18 01/14/18 18:59 06:59 18:59 Intake Total 360 700 240 Output Total 200 1300 Balance 160 -600 240 Weight 97 kg Intake: Oral 360 700 240 Output: Urine 200 1300 Uretheral (Wing) 200 Other: Voiding Method Indwelling Catheter Indwelling Catheter - Exam GENERAL: The patient is alert and oriented x3, not in any acute distress. Obese HEENT: Pupils are round and equally reacting to light. EOMI. No scleral icterus. No conjunctival pallor. Normocephalic, atraumatic. No pharyngeal erythema. No thyromegaly. CARDIOVASCULAR: S1 and S2 present. No murmurs, rubs, or gallops. PULMONARY: Chest is clear to auscultation, no wheezing or crackles. ABDOMEN: Soft, nontender, nondistended, normoactive bowel sounds. No palpable organomegaly. MUSCULOSKELETAL: No joint swelling or deformity. -EXTREMITIES: No cyanosis, clubbing, or pedal edema. Right lower extremity is shortened and externally rotated NEUROLOGICAL: Gross neurological examination did not reveal any focal deficits. SKIN: No rashes. - Labs CBC & Chem 7: 01/14/18 05:35 01/14/18 05:35 Labs: Abnormal Lab Results - Last 24 Hours (Table) 01/13/18 01/13/18 01/13/18 Range/Units 13:56 16:20 20:12 RBC (3.80-5.40) m/uL Hgb (11.4-16.0) gm/dL Hct (34.0-46.0) % RDW (11.5-15.5) % Lymphocytes # (1.0-4.8) k/uL Carbon Dioxide (22-30) mmol/L BUN (7-17) mg/dL Creatinine (0.52-1.04) mg/dL Glucose (74-99) mg/dL POC Glucose (mg/dL) 170 H (75-99) mg/dL Total Creatine Kinase 23 L (30-135) U/L Troponin I 0.043 H* 0.054 H* (0.000-0.034) ng/mL 01/13/18 01/14/18 01/14/18 Range/Units 20:34 00:56 05:35 RBC 3.32 L (3.80-5.40) m/uL Hgb 9.2 L (11.4-16.0) gm/dL Hct 29.5 L (34.0-46.0) % RDW 16.5 H (11.5-15.5) % Lymphocytes # 0.6 L (1.0-4.8) k/uL Carbon Dioxide (22-30) mmol/L BUN (7-17) mg/dL Creatinine (0.52-1.04) mg/dL Glucose (74-99) mg/dL POC Glucose (mg/dL) 184 H 125 H (75-99) mg/dL Total Creatine Kinase (30-135) U/L Troponin I (0.000-0.034) ng/mL 01/14/18 01/14/18 01/14/18 Range/Units 05:35 06:21 10:40 RBC (3.80-5.40) m/uL Hgb (11.4-16.0) gm/dL Hct (34.0-46.0) % RDW (11.5-15.5) % Lymphocytes # (1.0-4.8) k/uL Carbon Dioxide 32 H (22-30) mmol/L BUN 25 H (7-17) mg/dL Creatinine 1.08 H (0.52-1.04) mg/dL Glucose 105 H (74-99) mg/dL POC Glucose (mg/dL) 114 H 148 H (75-99) mg/dL Total Creatine Kinase (30-135) U/L Troponin I (0.000-0.034) ng/mL Assessment and Plan Plan: Right femoral fracture: Patient is moderate risk for surgery as mentioned above. Surgical risk was explained to the patient. Status post fall positive troponin, rule out cardiac cause. Secondary to chronic kidney disease. -Congestive heart failure chronic diastolic dysfunction with mild acute exacerbation, discontinue IV fluids continue with oral Lasix. CKD stage III History of coronary artery disease History of COPD not in acute exacerbation Diabetes mellitus Good History of GI bleed Hyperlipidemia Essential hypertension DVT prophylaxis with subcutaneous heparin Patient will be continued on present medications antibiotics will be discontinued patient doesn't have any UTI has asymptomatic bacteriuria
--- NOTE | 2018-01-14 12:49 | P.PN ---
Subjective Progress Note Date: 01/14/18 This is an 82-year-old female seen in consultation yesterday by Dr. VC Watts. Patient presented to the hospital after sustaining a fall. Computed tomography scan was suggestive of a right femur fracture. Patient has a known history of COPD, congestive heart failure, and diabetes. She was recently in the hospital with acute on chronic diastolic heart failure and discharged home. She also has history of coronary artery disease with prior stent placement. Echocardiogram with Doppler study was performed which revealed an ejection fraction of 55-60%. Hemodynamically the patient is stable. From cardiology's perspective, patient may proceed with surgery. Objective - Vital Signs Vital signs: Vital Signs Temp 98.0 F 01/14/18 03:50 Pulse 70 01/14/18 12:40 Resp 17 01/14/18 03:52 BP 164/78 01/14/18 03:50 Pulse Ox 96 01/14/18 03:50 Intake & Output 01/13/18 01/14/18 01/14/18 18:59 06:59 18:59 Intake Total 360 700 240 Output Total 200 1300 Balance 160 -600 240 Weight 97 kg Intake: Oral 360 700 240 Output: Urine 200 1300 Uretheral (Wing) 200 Other: Voiding Method Indwelling Catheter Indwelling Catheter - Exam PHYSICAL EXAMINATION: GENERAL: 82-year-old female in no acute distress at the time of my examination HEENT: Head is atraumatic, normocephalic. Pupils equal, round. Sclera anicteric. Conjunctiva are clear. Mucous membranes of the mouth are moist. Neck is supple. There is no elevated jugular venous pressure.] bruit is heard. HEART EXAMINATION: Heart S1 and S2 systolic ejection murmur is heard. CHEST EXAMINATION: Lungs are clear to auscultation and precussion. No chest wall tenderness is noted on palpation or with deep breathing. ABDOMEN: Soft, nontender. Bowel sounds are heard. No organomegaly noted. EXTREMITIES: 2+ peripheral pulses with no evidence of peripheral edema and no calf tenderness noted. NEUROLOGIC patient is awake, alert and oriented ?-3. . - Labs CBC & Chem 7: 01/14/18 05:35 01/14/18 05:35 Labs: Abnormal Lab Results - Last 24 Hours (Table) 01/13/18 01/13/18 01/13/18 Range/Units 13:56 16:20 20:12 RBC (3.80-5.40) m/uL Hgb (11.4-16.0) gm/dL Hct (34.0-46.0) % RDW (11.5-15.5) % Lymphocytes # (1.0-4.8) k/uL Carbon Dioxide (22-30) mmol/L BUN (7-17) mg/dL Creatinine (0.52-1.04) mg/dL Glucose (74-99) mg/dL POC Glucose (mg/dL) 170 H (75-99) mg/dL Total Creatine Kinase 23 L (30-135) U/L Troponin I 0.043 H* 0.054 H* (0.000-0.034) ng/mL 01/13/18 01/14/18 01/14/18 Range/Units 20:34 00:56 05:35 RBC 3.32 L (3.80-5.40) m/uL Hgb 9.2 L (11.4-16.0) gm/dL Hct 29.5 L (34.0-46.0) % RDW 16.5 H (11.5-15.5) % Lymphocytes # 0.6 L (1.0-4.8) k/uL Carbon Dioxide (22-30) mmol/L BUN (7-17) mg/dL Creatinine (0.52-1.04) mg/dL Glucose (74-99) mg/dL POC Glucose (mg/dL) 184 H 125 H (75-99) mg/dL Total Creatine Kinase (30-135) U/L Troponin I (0.000-0.034) ng/mL 01/14/18 01/14/18 01/14/18 Range/Units 05:35 06:21 10:40 RBC (3.80-5.40) m/uL Hgb (11.4-16.0) gm/dL Hct (34.0-46.0) % RDW (11.5-15.5) % Lymphocytes # (1.0-4.8) k/uL Carbon Dioxide 32 H (22-30) mmol/L BUN 25 H (7-17) mg/dL Creatinine 1.08 H (0.52-1.04) mg/dL Glucose 105 H (74-99) mg/dL POC Glucose (mg/dL) 114 H 148 H (75-99) mg/dL Total Creatine Kinase (30-135) U/L Troponin I (0.000-0.034) ng/mL Assessment and Plan Plan: Assessment and plan #1 fall with evidence of fractured hip #2 moderate to severe COPD with oxygen dependence #3 chronic diastolic heart failure #4 mild troponin abnormality, likely secondary to supply and demand mismatch #5 hypertension #6 known history of coronary artery disease with prior stent placement Plan Echocardiogram with Doppler study was performed which revealed normal left ventricular systolic function. Patient is currently on Lopressor which we will continue. Patient is considered acceptable at increased risk for surgery. We will continue to follow. DNP note has been reviewed, I agree with a documented findings and plan of care. Patient was seen and examined.
[2018-01-14 16:39] LABS: Glucose,Whole Blood 162 mg/dL (75-99)
[2018-01-14] MEDS: MELATONIN 3 MG TABLET PO SCH (22:43)
[2018-01-14] MEDS: PRAVASTATIN SODIUM 80 MG TAB PO SCH (22:43)
[2018-01-14 22:56] LABS: Glucose,Whole Blood 149 mg/dL (75-99)
[2018-01-15] MEDS: buPROPion SR 150 MG TABLET.ER PO SCH ×2 (00:25→09:12)
[2018-01-15] MEDS: HYDROcodone/APAP 5-325MG 1 EACH TAB PO PRN ×4 (06:36→21:04)
[2018-01-15 06:59] LABS: Glucose,Whole Blood 99 mg/dL (75-99)
[2018-01-15] MEDS: IPRATROPIUM-ALBUTEROL 3 ML NEB INHALATION SCH ×4 (07:53→20:19)
[2018-01-15] MEDS: BUDESONIDE 0.5 MG/2 ML NEBU INHALATION SCH ×2 (07:53→20:19)
[2018-01-15 08:09] LABS: Anisocytosis Slight; HCT 29.9 % (34.0-46.0); HGB 9.4 gm/dL (11.4-16.0); Hypochromasia Moderate; MCH 27.7 pg (25.0-35.0); MCHC 31.3 g/dL (31.0-37.0); MCV 88.4 fL (80.0-100.0); Mean Platelet Volume 7.5; Platelet Count 178 k/uL (150-450); RBC 3.38 m/uL (3.80-5.40); RDW 16.8 % (11.5-15.5); WBC 5.6 k/uL (3.8-10.6)
[2018-01-15] MEDS: INSULIN ASPART 100 UNIT/ML 1 ML 10 ML VIAL SQ SCH ×4 (08:14→19:25)
[2018-01-15 08:34] LABS: Calcium 8.3 mg/dL (8.4-10.2)
[2018-01-15] MEDS: HEPARIN SODIUM,PORCINE 5,000 UNIT/ML 1 ML VIAL SQ SCH ×2 (09:11→21:03)
[2018-01-15] MEDS: PANTOPRAZOLE 40 MG/10 ML VIAL IV SCH (09:11)
[2018-01-15] MEDS: DILTIAZEM CD 240 MG CAP.ER.24H PO SCH (09:12)
[2018-01-15] MEDS: FUROSEMIDE 40 MG TAB PO SCH ×2 (09:12→16:17)
[2018-01-15] MEDS: METOPROLOL TARTRATE 25 MG TAB PO SCH ×3 (09:12→21:04)
[2018-01-15] MEDS: INSULN ASP PRT/INSULIN ASPART 100 UNIT/ML 10 ML VIAL SQ SCH ×2 (09:12→17:28)
[2018-01-15] MEDS: ASPIRIN 81 MG PO SCH (09:12)
[2018-01-15 11:51] LABS: Glucose,Whole Blood 253 mg/dL (75-99)
--- NOTE | 2018-01-15 12:30 | P.PN ---
Subjective Patient is admitted after a mechanical fall and right femoral fracture. Patient has mildly elevated troponin which appeared to be nonischemic and secondary to her Chronic kidney disease and chronic diastolic dysfunction cardiology evaluated the patient please refer to documentation for clearance for surgery patient is moderate risk for surgery but the the surgery does improve her functionality. Patient has asymptomatic bacteriuria do not believe patient has UTI antibiotics were discontinued. The patient regarding surgery for her right femoral fracture as per orthopedic surgery. Patient is on heparin for DVT prophylaxis patient does have history of congestive heart failure chronic gastric dysfunction with mild pulmonary edema on the chest x- ray IV fluids will be discontinued patient will be continued on oral Lasix need to monitor for heart failure exacerbation post surgery Dilaudid will be discontinued 01/15/2018 No overnight events patient's pain is better controlled and patient will undergo surgical intervention on Saturday discussed with the cardiology and orthopedic surgery. Patient's creatinine is bit worse. Repeat sick metabolic profile tomorrow if it can use to go up will hold off on Lasix and/or lisinopril Constitutional: Denied any fatigue denied any fever. Cardio vascular: denied any chest pain, palpitations Gastrointestinal denied any nausea vomiting Pulmonary: Denied any shortness of breath cough Neurologic denied any new focal deficits All inpatient medications were reviewed and appropriate changes in these medications as dictated in the interval history and assessment and plan. Objective - Vital Signs Vital signs: Vital Signs Temp 97.9 F 01/15/18 07:27 Pulse 76 01/15/18 11:28 Resp 16 01/15/18 07:27 BP 128/81 01/15/18 07:27 Pulse Ox 97 01/15/18 07:53 Intake & Output 01/14/18 01/15/18 01/15/18 18:59 06:59 18:59 Intake Total 720 Output Total 800 1300 Balance -80 -1300 Weight 98.5 kg Intake: Oral 720 Output: Urine 800 1300 Other: Voiding Method Indwelling Catheter Indwelling Catheter Indwelling Catheter - Exam GENERAL: The patient is alert and oriented x3, not in any acute distress. Obese HEENT: Pupils are round and equally reacting to light. EOMI. No scleral icterus. No conjunctival pallor. Normocephalic, atraumatic. No pharyngeal erythema. No thyromegaly. CARDIOVASCULAR: S1 and S2 present. No murmurs, rubs, or gallops. PULMONARY: Chest is clear to auscultation, no wheezing or crackles. ABDOMEN: Soft, nontender, nondistended, normoactive bowel sounds. No palpable organomegaly. MUSCULOSKELETAL: No joint swelling or deformity. -EXTREMITIES: No cyanosis, clubbing, or pedal edema. Right lower extremity is shortened and externally rotated NEUROLOGICAL: Gross neurological examination did not reveal any focal deficits. SKIN: No rashes. - Labs CBC & Chem 7: 01/15/18 06:52 01/15/18 06:52 Labs: Abnormal Lab Results - Last 24 Hours (Table) 01/14/18 01/14/18 01/15/18 Range/Units 16:38 22:35 06:52 RBC 3.38 L (3.80-5.40) m/uL Hgb 9.4 L (11.4-16.0) gm/dL Hct 29.9 L (34.0-46.0) % RDW 16.8 H (11.5-15.5) % Carbon Dioxide (22-30) mmol/L BUN (7-17) mg/dL Creatinine (0.52-1.04) mg/dL POC Glucose (mg/dL) 162 H 149 H (75-99) mg/dL Calcium (8.4-10.2) mg/dL 01/15/18 01/15/18 Range/Units 06:52 11:39 RBC (3.80-5.40) m/uL Hgb (11.4-16.0) gm/dL Hct (34.0-46.0) % RDW (11.5-15.5) % Carbon Dioxide 34 H (22-30) mmol/L BUN 30 H (7-17) mg/dL Creatinine 1.28 H (0.52-1.04) mg/dL POC Glucose (mg/dL) 253 H (75-99) mg/dL Calcium 8.3 L (8.4-10.2) mg/dL Assessment and Plan Plan: Right femoral fracture: Patient is moderate risk for surgery as mentioned above. Surgical risk was explained to the patient. Status post fall positive troponin, rule out cardiac cause. Secondary to chronic kidney disease. -Congestive heart failure chronic diastolic dysfunction with mild acute exacerbation, discontinued IV fluids continue with oral Lasix. CKD stage III History of coronary artery disease History of COPD not in acute exacerbation Diabetes mellitus Good History of GI bleed Hyperlipidemia Essential hypertension -Mild acute renal failure secondary to diuretic therapy will and further management as mentioned in the interval history DVT prophylaxis with subcutaneous heparin Patient will be continued on present medications antibiotics will be discontinued patient doesn't have any UTI has asymptomatic bacteriuria
[2018-01-15 17:09] LABS: Glucose,Whole Blood 164 mg/dL (75-99)
[2018-01-15 19:34] LABS: Glucose,Whole Blood 125 mg/dL (75-99)
--- NOTE | 2018-01-15 19:53 | CONS ---
CONSULTATION CONSULT DATE: 01/15/2018. HISTORY OF PRESENT ILLNESS: Keysha is a very pleasant 82-year-old female. I visited her at the bedside this morning. Her son was present as well. She most recently underwent a right hip hemiarthroplasty done by Dr. Crawford in October of 2017. She was recovering at an extended care facility when she went to get out of the wheelchair and fell. She was not using a walker at the time. She had immediate pain in the right lower extremity and was unable to get up. She was brought by ambulance to the emergency department here at [facility] on Saturday. Workup including x-rays have revealed a right fracture of her femur which was a spiral type fracture which extends through the distal 3rd of the stem of her hemiarthroplasty. She was admitted to the medical service secondary to her multiple medical comorbidities which include congestive heart failure, COPD, hypothyroidism, pneumonia. She also had elevated troponins in the emergency department as well. MEDICAL HISTORY: Coronary artery disease, heart failure, COPD, diabetes mellitus, GERD/reflux, GI bleed, hyperlipidemia, hypertension, myocardial infarction, pneumonia, and renal disease. She was most recently admitted to [facility] in December of 2017 with an acute hypoxic respiratory failure, multifactorial. SURGICAL HISTORY: She has had a cholecystectomy, heart catheterization with stent and she had right hip hemiarthroplasty in October of 2017. SOCIAL HISTORY: Smoking status: She is a former smoker. Past alcohol use: None reported. Drug use history: None reported. MEDICATIONS: Please see the medical record for current medications. PHYSICAL EXAM: On examination, she is resting comfortably in no acute distress. She has pain in the right thigh. There is some swelling, mild amount of swelling in the right thigh as well. She has no pain with palpation of all other long bones and joints with the exception of the right thigh. She has no swelling in the knee. She has intact flexion- extension. Inversion and eversion of the right foot. She has grossly intact sensation in the right foot and she has brisk capillary refill distally in the toes. LABORATORY VALUES: From yesterday 01/14 show hemoglobin of 9.2 and white count of 4.8, platelets are 177. X-RAYS: X-rays of the right hip and pelvis as well as the right femur were reviewed. She has a periprosthetic fracture of the midshaft of her femur. It is a spiral fracture which is minimally displaced at this point involving the distal 3rd of the hip stem and extending distally in the shaft. The hip stem does not appear to be loose. There is no apparent loosening proximally of the hip stem. IMPRESSION: Right periprosthetic femur fracture. RECOMMENDATIONS: I had a long discussion with Keysha and her son with regards to treatment moving forward. This fracture is very serious. Recommendation is for open reduction, internal fixation of this fracture. The hip stem appears to be stable and I do not feel that needs to be revised. The fracture will require open reduction, internal fixation with a long plate and screws in conjunction with cable lying around the femur as well. The surgery will require quite a large incision to be performed. The risks of the procedure were discussed with Keysha and her son in detail. These risks include, but are not limited to risk of infection, nerve damage, bleeding, pain, failure of the fracture to heal, hardware breakage and/or loosening. She may have continued pain in the thigh as well. Given her diabetes and the nature of the fracture, certainly infection is a risk as well as blood loss. We will type and screen her preoperatively. The plan postoperatively would be a minimum to protect her weightbearing for a minimum of 2-3 months postoperatively. This was discussed with her and her son as well. To treat this fracture nonoperatively would likely require complete bedrest for an unacceptably prolonged period of time with the possibility of her never being able to ambulate again on that right lower extremity. They have decided to proceed with operative intervention. I did explain to them that we would need some time to get the equipment necessary to perform the operation. All of their questions were answered to their satisfaction and appropriate informed consent was obtained. Prior to surgery, she should remain on bed rest and strict nonweightbearing on the right lower extremity. MMODL / IJN: [id number] /
[2018-01-15] MEDS: PRAVASTATIN SODIUM 80 MG TAB PO SCH (21:03)
[2018-01-15] MEDS: MELATONIN 3 MG TABLET PO SCH (21:03)
[2018-01-16] MEDS: buPROPion SR 150 MG TABLET.ER PO SCH ×3 (01:20→20:28)
[2018-01-16] MEDS: HYDROcodone/APAP 5-325MG 1 EACH TAB PO PRN ×4 (06:01→23:17)
[2018-01-16 06:22] LABS: Glucose,Whole Blood 133 mg/dL (75-99)
[2018-01-16] MEDS: IPRATROPIUM-ALBUTEROL 3 ML NEB INHALATION SCH ×4 (07:31→19:33)
[2018-01-16] MEDS: BUDESONIDE 0.5 MG/2 ML NEBU INHALATION SCH ×2 (07:31→19:33)
[2018-01-16] MEDS: INSULIN ASPART 100 UNIT/ML 1 ML 10 ML VIAL SQ SCH ×4 (08:10→20:29)
[2018-01-16] MEDS: INSULN ASP PRT/INSULIN ASPART 100 UNIT/ML 10 ML VIAL SQ SCH (08:10)
[2018-01-16] MEDS: METOPROLOL TARTRATE 25 MG TAB PO SCH ×3 (08:11→20:28)
[2018-01-16] MEDS: ASPIRIN 81 MG PO SCH (08:12)
[2018-01-16] MEDS: DILTIAZEM CD 240 MG CAP.ER.24H PO SCH (08:12)
[2018-01-16] MEDS: PANTOPRAZOLE 40 MG/10 ML VIAL IV SCH (08:12)
[2018-01-16] MEDS: HEPARIN SODIUM,PORCINE 5,000 UNIT/ML 1 ML VIAL SQ SCH ×2 (08:15→20:28)
[2018-01-16] MEDS: FUROSEMIDE 40 MG TAB PO SCH (08:15)
--- NOTE | 2018-01-16 09:13 | P.PN ---
Subjective Progress Note Date: 01/16/18 Principal diagnosis: right periprosthetic femur fracture patient is a 82-year-old female seen at bedside this morning. She is pending undergoing surgical intervention for her right periprosthetic femur fracture. Surgery is planned for tomorrow morning. She has no new complaints today. She denies numbness, tingling, calf pain, fever, chills, chest pain or shortness of breath. Objective - Vital Signs Vital signs: Vital Signs Temp 98.2 F 01/16/18 07:26 Pulse 71 01/16/18 07:26 Resp 16 01/16/18 07:26 BP 125/70 01/16/18 07:26 Pulse Ox 98 01/16/18 07:26 Intake & Output 01/15/18 01/16/18 01/16/18 18:59 06:59 18:59 Intake Total 400 Output Total 850 Balance 400 -850 Intake: Oral 400 Output: Urine 850 Other: Voiding Method Indwelling Catheter - Exam Inspection of the right lower extremity is benign. There is no wounds or erythema. Range of motion of the hip was not tested due to the fracture. Calf is soft nontender. Neurovascular status is grossly intact with motor and sensation throughout the right lower extremity. There is 2+ dorsalis pedis pulse and less than 2 second capillary refill. - Constitutional General appearance: Present: no acute distress - Labs CBC & Chem 7: 01/15/18 06:52 01/15/18 06:52 Labs: Abnormal Lab Results - Last 24 Hours (Table) 01/15/18 01/15/18 01/15/18 Range/Units 11:39 16:56 19:22 POC Glucose (mg/dL) 253 H 164 H 125 H (75-99) mg/dL 01/16/18 Range/Units 06:10 POC Glucose (mg/dL) 133 H (75-99) mg/dL Assessment and Plan (1) Femur fracture, right Narrative/Plan: Plan is for patient to undergo surgical intervention tomorrow morning involving ORIF of right periprosthetic femur fracture. She is nothing by mouth after midnight. Continue medical management, pain management and DVT prophylaxis in the interim. She will need placement postoperatively Current Visit: Yes Status: Acute Priority: Medium Code(s): S72.91XA - UNSP FRACTURE OF RIGHT FEMUR, INIT FOR CLOS FX SNOMED Code(s): 28600836 Time with Patient: Less than 30
[2018-01-16 09:28] LABS: Calcium 8.2 mg/dL (8.4-10.2)
--- NOTE | 2018-01-16 11:17 | P.PN ---
Subjective Patient is admitted after a mechanical fall and right femoral fracture. Patient has mildly elevated troponin which appeared to be nonischemic and secondary to her Chronic kidney disease and chronic diastolic dysfunction cardiology evaluated the patient please refer to documentation for clearance for surgery patient is moderate risk for surgery but the the surgery does improve her functionality. Patient has asymptomatic bacteriuria do not believe patient has UTI antibiotics were discontinued. The patient regarding surgery for her right femoral fracture as per orthopedic surgery. Patient is on heparin for DVT prophylaxis patient does have history of congestive heart failure chronic gastric dysfunction with mild pulmonary edema on the chest x- ray IV fluids will be discontinued patient will be continued on oral Lasix need to monitor for heart failure exacerbation post surgery Dilaudid will be discontinued 01/15/2018 No overnight events patient's pain is better controlled and patient will undergo surgical intervention on Saturday discussed with the cardiology and orthopedic surgery. Patient's creatinine is bit worse. Repeat sick metabolic profile tomorrow if it can use to go up will hold off on Lasix and/or lisinopril 01/16/2018 Patient's creatinine continued to get worse, holding off on diuretic therapy today evening and tomorrow morning. Patient will be switched to sliding scale insulin 70/30 will be discontinued to avoid hypoglycemia as patient will be nothing by mouth today Constitutional: Denied any fatigue denied any fever. Cardio vascular: denied any chest pain, palpitations Gastrointestinal denied any nausea vomiting Pulmonary: Denied any shortness of breath cough Neurologic denied any new focal deficits All inpatient medications were reviewed and appropriate changes in these medications as dictated in the interval history and assessment and plan. Objective - Vital Signs Vital signs: Vital Signs Temp 98.2 F 01/16/18 07:26 Pulse 62 01/16/18 11:07 Resp 16 01/16/18 07:26 BP 125/70 01/16/18 07:26 Pulse Ox 98 01/16/18 07:26 Intake & Output 01/15/18 01/16/18 01/16/18 18:59 06:59 18:59 Intake Total 400 Output Total 850 Balance 400 -850 Intake: Oral 400 Output: Urine 850 Other: Voiding Method Indwelling Catheter Indwelling Catheter - Exam GENERAL: The patient is alert and oriented x3, not in any acute distress. Obese HEENT: Pupils are round and equally reacting to light. EOMI. No scleral icterus. No conjunctival pallor. Normocephalic, atraumatic. No pharyngeal erythema. No thyromegaly. CARDIOVASCULAR: S1 and S2 present. No murmurs, rubs, or gallops. PULMONARY: Chest is clear to auscultation, no wheezing or crackles. ABDOMEN: Soft, nontender, nondistended, normoactive bowel sounds. No palpable organomegaly. MUSCULOSKELETAL: No joint swelling or deformity. -EXTREMITIES: No cyanosis, clubbing, or pedal edema. Right lower extremity is shortened and externally rotated NEUROLOGICAL: Gross neurological examination did not reveal any focal deficits. SKIN: No rashes. - Labs CBC & Chem 7: 01/15/18 06:52 01/16/18 08:27 Labs: Abnormal Lab Results - Last 24 Hours (Table) 01/15/18 01/15/18 01/15/18 Range/Units 11:39 16:56 19:22 Carbon Dioxide (22-30) mmol/L BUN (7-17) mg/dL Creatinine (0.52-1.04) mg/dL Glucose (74-99) mg/dL POC Glucose (mg/dL) 253 H 164 H 125 H (75-99) mg/dL Calcium (8.4-10.2) mg/dL 01/16/18 01/16/18 Range/Units 06:10 08:27 Carbon Dioxide 33 H (22-30) mmol/L BUN 34 H (7-17) mg/dL Creatinine 1.35 H (0.52-1.04) mg/dL Glucose 182 H (74-99) mg/dL POC Glucose (mg/dL) 133 H (75-99) mg/dL Calcium 8.2 L (8.4-10.2) mg/dL Assessment and Plan Plan: Right femoral fracture: Patient is moderate risk for surgery as mentioned above. Surgical risk was explained to the patient. Patient will go to or tomorrow Status post fall positive troponin, rule out cardiac cause. Secondary to chronic kidney disease. -Congestive heart failure chronic diastolic dysfunction with mild acute exacerbation, because of acute renal failure holding off on diuretic therapy couple doses recheck creatinine tomorrow. CKD stage III History of coronary artery disease History of COPD not in acute exacerbation Diabetes mellitus: Management as mentioned above hold off on 70/30 patient will be on sliding scale insulin as patient will be nothing by mouth. Patient the will benefit from Lantus and pre-meal insulin regimen rather than 70/30 Hyperlipidemia Essential hypertension -Mild acute renal failure secondary to diuretic therapy will and further management as mentioned in the interval history DVT prophylaxis with subcutaneous heparin Patient will be continued on present medications antibiotics will be discontinued patient doesn't have any UTI has asymptomatic bacteriuria
[2018-01-16 11:42] LABS: Glucose,Whole Blood 180 mg/dL (75-99)
[2018-01-16 17:23] LABS: Glucose,Whole Blood 187 mg/dL (75-99)
[2018-01-16] MEDS ORDERED: INSULN ASP PRT/INSULIN ASPART 100 UNIT/ML 10 ML VIAL SQ SCH (17:30)
[2018-01-16] MEDS: MELATONIN 3 MG TABLET PO SCH (20:28)
[2018-01-16] MEDS: PRAVASTATIN SODIUM 80 MG TAB PO SCH (20:28)
[2018-01-16 20:30] LABS: Glucose,Whole Blood 248 mg/dL (75-99)
[2018-01-17] MEDS: HYDROcodone/APAP 5-325MG 1 EACH TAB PO PRN ×3 (04:12→21:26)
[2018-01-17] MEDS ORDERED: ONDANSETRON 4 MG/2 ML VIAL IVP ONE (06:01)
[2018-01-17] MEDS ORDERED: HYDROmorphone 1 MG/ML 1 ML SYRINGE IVP PRN (06:01)
[2018-01-17] MEDS: HEPARIN SODIUM,PORCINE 5,000 UNIT/ML 1 ML VIAL SQ SCH ×2 (07:11→21:27)
[2018-01-17 07:30] LABS: Glucose,Whole Blood 135 mg/dL (75-99)
[2018-01-17] MEDS ORDERED: INSULN ASP PRT/INSULIN ASPART 100 UNIT/ML 10 ML VIAL SQ SCH (07:30)
[2018-01-17] MEDS: buPROPion SR 150 MG TABLET.ER PO SCH ×2 (07:37→21:27)
[2018-01-17] MEDS: DILTIAZEM CD 240 MG CAP.ER.24H PO SCH (07:37)
[2018-01-17] MEDS: METOPROLOL TARTRATE 25 MG TAB PO SCH ×3 (07:37→21:27)
[2018-01-17] MEDS ORDERED: LACTATED RINGERS 1,000 ML IV ONE ×2 (07:57→10:00)
[2018-01-17] MEDS ORDERED: DEXAMETHASONE SOD PHOS (MDV) 100 MG/10 ML VIAL IVP ONE (08:07)
[2018-01-17] MEDS: BUDESONIDE 0.5 MG/2 ML NEBU INHALATION SCH ×2 (08:48→19:39)
[2018-01-17] MEDS: IPRATROPIUM-ALBUTEROL 3 ML NEB INHALATION SCH ×4 (08:48→19:39)
[2018-01-17] MEDS: PANTOPRAZOLE 40 MG/10 ML VIAL IV SCH (08:53)
[2018-01-17] MEDS: INSULIN ASPART 100 UNIT/ML 1 ML 10 ML VIAL SQ SCH ×4 (08:53→21:27)
[2018-01-17] MEDS: ASPIRIN 81 MG PO SCH (08:53)
[2018-01-17] MEDS ORDERED: HEPARIN SODIUM,PORCINE 10,000 UNIT/ML 1 ML VIAL ONE (09:41)
[2018-01-17] MEDS ORDERED: LIDOCAINE 1% INJ 10MG/ML (20 ML MDV) ONE (09:41)
[2018-01-17] MEDS ORDERED: PROPOFOL 10 MG/ML 20 ML VIAL IV ONE (09:41)
[2018-01-17] MEDS ORDERED: GLYCOPYRROLATE 0.2 MG/ML 2 ML VIAL ONE (09:41)
[2018-01-17] MEDS ORDERED: MIDAZOLAM 2 MG/2 ML VIAL ONE (09:41)
[2018-01-17] MEDS ORDERED: SUCCINYLCHOLINE CHLORIDE 100 MG/5 ML SYR IV ONE (09:41)
[2018-01-17] MEDS ORDERED: ROCURONIUM BROMIDE 10 MG/ML 10 ML VIAL IV ONE (09:41)
[2018-01-17] MEDS ORDERED: SODIUM CHLORIDE 0.9% IRRIG 1,000 ML BTL IRRIGATION ONE (09:41)
[2018-01-17] MEDS ORDERED: ePHEDrine SULFATE/0.9% NACL/PF 50 MG/5 ML SYRINGE IV ONE (09:41)
[2018-01-17] MEDS ORDERED: fentaNYL (PF) 50 MCG/ML 2 ML AMP ONE (09:41)
[2018-01-17] MEDS ORDERED: NEOSTIGMINE 1 MG/ML 10 ML VIAL ONE (09:41)
[2018-01-17] MEDS ORDERED: ceFAZolin 1,000 MG/50 ML BAG (PMX) IVPB ONE (10:08)
[2018-01-17] MEDS ORDERED: ceFAZolin 3,000 MG in SODIUM CHLORIDE 0.9% IRRIGATIO 3,000 ML IRRIGATION ONE (10:37)
[2018-01-17] MEDS ORDERED: VANCOMYCIN 1,000 MG VIAL MISCELLANE ONE (11:48)
[2018-01-17 12:04] LABS: Anisocytosis Slight; Basophils % (A) 0 %; Eosinophils # (A) 0.1 k/uL (0-0.7); Eosinophils % (A) 2 %; HCT 26.4 % (34.0-46.0); HGB 8.3 gm/dL (11.4-16.0); Hypochromasia Moderate; Lymphocytes # (A) 0.4 k/uL (1.0-4.8); Lymphocytes % (A) 7 %; MCH 27.4 pg (25.0-35.0); MCHC 31.5 g/dL (31.0-37.0); Monocytes # (A) 0.1 k/uL (0-1.0); Monocytes % (A) 2 %; Neutrophils # (A) 5.2 k/uL (1.3-7.7); Neutrophils % (A) 88 %; Platelet Count 226 k/uL (150-450); RBC 3.03 m/uL (3.80-5.40); RDW 16.4 % (11.5-15.5); WBC 5.8 k/uL (3.8-10.6)
--- NOTE | 2018-01-17 12:16 | XR ---
EXAMINATION TYPE: XR femur RT DATE OF EXAM: 01/17/2018 COMPARISON: 01/13/2018 HISTORY: Postop TECHNIQUE: 4 views submitted FINDINGS: Postsurgical change appears in near-anatomic alignment IMPRESSION: Intraoperative image
--- NOTE | 2018-01-17 12:17 | FL ---
EXAMINATION TYPE: FL guidance operating room DATE OF EXAM: 01/17/2018 HISTORY: Flouroscopy time 24 seconds of fluoroscopy provided. IMPRESSION: 1. Fluoroscopy time.
[2018-01-17 12:30] LABS: Albumin 2.5 g/dL (3.5-5.0); Calcium 7.7 mg/dL (8.4-10.2); Potassium 4.9 mmol/L (3.5-5.1); Total Bilirubin 0.3 mg/dL (0.2-1.3)
[2018-01-17] MEDS: LACTATED RINGERS 1,000 ML IV SCH (12:45)
[2018-01-17 13:15] LABS: Glucose,Whole Blood 248 mg/dL (75-99)
[2018-01-17] MEDS ORDERED: INSULIN ASPART 100 UNIT/ML 1 ML 10 ML VIAL SQ ONE ×2 (13:20)
[2018-01-17] MEDS: FUROSEMIDE 40 MG TAB PO SCH (16:43)
[2018-01-17 17:21] LABS: Glucose,Whole Blood 247 mg/dL (75-99)
--- NOTE | 2018-01-17 17:48 | P.PN ---
Subjective Progress Note Date: 01/17/18 Patient is admitted after a mechanical fall and right femoral fracture. Patient has mildly elevated troponin which appeared to be nonischemic and secondary to her Chronic kidney disease and chronic diastolic dysfunction cardiology evaluated the patient please refer to documentation for clearance for surgery patient is moderate risk for surgery but the the surgery does improve her functionality. Patient has asymptomatic bacteriuria do not believe patient has UTI antibiotics were discontinued. The patient regarding surgery for her right femoral fracture as per orthopedic surgery. Patient is on heparin for DVT prophylaxis patient does have history of congestive heart failure chronic gastric dysfunction with mild pulmonary edema on the chest x- ray IV fluids will be discontinued patient will be continued on oral Lasix need to monitor for heart failure exacerbation post surgery Dilaudid will be discontinued 01/15/2018 No overnight events patient's pain is better controlled and patient will undergo surgical intervention on Saturday discussed with the cardiology and orthopedic surgery. Patient's creatinine is bit worse. Repeat sick metabolic profile tomorrow if it can use to go up will hold off on Lasix and/or lisinopril 01/16/2018 Patient's creatinine continued to get worse, holding off on diuretic therapy today evening and tomorrow morning. Patient will be switched to sliding scale insulin 70/30 will be discontinued to avoid hypoglycemia as patient will be nothing by mouth today 01/17/2018 Patient is seen and evaluated in the room with family members at bedside; patient is postoperative from right femoral fracture repair and is mostly sleepy and groggy; labs reviewed from this morning are mainly stable within normal white blood count hemoglobin of 8.3; renal function is slightly elevated with a B UN of 31 creatinine 1.06; patient is not on any fluids postoperatively ; we will start patient on normal saline and run at 75 mL an hour; we will monitor renal function, electrolytes, strict BALBIR's and daily weights; avoid nephrotoxins and hypotension Patient's blood sugars ranging from 135-248; we will continue to monitor blood sugars closely and continue sliding scale as needed Constitutional: Denied any fatigue denied any fever. Cardio vascular: denied any chest pain, palpitations Gastrointestinal denied any nausea vomiting Pulmonary: Denied any shortness of breath cough Neurologic denied any new focal deficits All inpatient medications were reviewed and appropriate changes in these medications as dictated in the interval history and assessment and plan. Objective - Vital Signs Vital signs: Vital Signs Temp 97.9 F 01/17/18 07:58 Pulse 69 01/17/18 07:58 Resp 20 01/17/18 07:58 BP 130/73 01/17/18 07:58 Pulse Ox 98 01/17/18 07:58 Intake & Output 01/16/18 01/17/18 01/17/18 18:59 06:59 18:59 Intake Total 560 401 Output Total 750 500 Balance -190 -500 401 Weight 98.5 kg Intake: IV 401 Oral 560 Output: Urine 750 500 Other: Voiding Method Indwelling Catheter Indwelling Catheter - Exam GENERAL: The patient is alert and oriented x3, not in any acute distress. Obese HEENT: Pupils are round and equally reacting to light. EOMI. No scleral icterus. No conjunctival pallor. Normocephalic, atraumatic. No pharyngeal erythema. No thyromegaly. CARDIOVASCULAR: S1 and S2 present. No murmurs, rubs, or gallops. PULMONARY: Chest is clear to auscultation, no wheezing or crackles. ABDOMEN: Soft, nontender, nondistended, normoactive bowel sounds. No palpable organomegaly. MUSCULOSKELETAL: No joint swelling or deformity. -EXTREMITIES: No cyanosis, clubbing, or pedal edema. Right lower extremity is shortened and externally rotated NEUROLOGICAL: Gross neurological examination did not reveal any focal deficits. SKIN: No rashes. - Labs CBC & Chem 7: 01/17/18 11:48 01/17/18 11:48 Labs: Abnormal Lab Results - Last 24 Hours (Table) 01/16/18 01/16/18 01/16/18 Range/Units 11:31 17:11 20:18 POC Glucose (mg/dL) 180 H 187 H 248 H (75-99) mg/dL 01/17/18 Range/Units 07:18 POC Glucose (mg/dL) 135 H (75-99) mg/dL Assessment and Plan Assessment: Right femoral fracture/Status post fall: - Patient is status post surgery as mentioned above. - We will monitor H&H closely and stress incentive spirometry every hour while awake - Recommend starting the DVT prophylaxis soon as cleared by surgical service Positive troponin, rule out cardiac cause. Secondary to chronic kidney disease. Congestive heart failure chronic diastolic dysfunction with mild acute exacerbation, because of acute renal failure holding off on diuretic therapy couple doses recheck creatinine tomorrow. CKD stage III History of COPD not in acute exacerbation Diabetes mellitus: Management as mentioned above hold off on 70/30 patient will be on sliding scale insulin as patient will be nothing by mouth. Patient the will benefit from Lantus and pre-meal insulin regimen rather than 70/30 Hyperlipidemia Essential hypertension Mild acute renal failure secondary to diuretic therapy/ CKD stage III will and further management as mentioned in the interval history DVT prophylaxis with subcutaneous heparin CODE STATUS; full code Patient will be continued on present medications antibiotics will be discontinued patient doesn't have any UTI has asymptomatic bacteriuria Time with Patient: Greater than 30
--- NOTE | 2018-01-17 18:01 | OP ---
OPERATIVE REPORT DATE OF PROCEDURE: January 17, 2018. PREOPERATIVE DIAGNOSIS: Right periprosthetic femur fracture. POSTOPERATIVE DIAGNOSIS: Right periprosthetic femur fracture. PROCEDURE PERFORMED: Open reduction, internal fixation of a right periprosthetic femur fracture, with a stable hip hemiarthroplasty. SURGEON: Marc South MD. GEOGRAPHY TEACHER: Tino LUGO. ANESTHESIA: General endotracheal. ESTIMATED BLOOD LOSS: Was 500 mL. COMPLICATIONS: None apparent. DRAINS: None. DISPOSITION: Postanesthesia care unit. INDICATIONS: Keysha is a very pleasant 82-year-old female who underwent a right hip hemiarthroplasty by another surgeon in the late summer. She was recovering. She, this past Saturday, she was attempting to ambulate without her walker when she fell. She had immediate right leg pain. She was brought to [facility]. X-rays revealed a right spiral periprosthetic femur fracture. The hip hemiarthroplasty appeared stable with no evidence of loosening. She was admitted to the medical service secondary to her multiple medical comorbidities as well as an elevated troponin. Recommendation was for open reduction, internal fixation of her periprosthetic femur fracture. Again, the hip arthroplasty appeared stable. Nonoperative management was discussed with Keysha and her family as well. The nonoperative management, however, would certainly necessitate continued pain in the leg as well as the complete inability to ambulate again. Keysha and her family made the decision to proceed with operative intervention. The risks of procedure were extensively discussed with Keysha and her family. She has been cleared, seen by Cardiology as well as Internal Medicine service. She has been cleared for surgery. However, both noted that she is of high risk for medical complication. The orthopedic risks of procedure include, but are not limited to risk of infection, nerve damage, bleeding, pain, failure of the fracture to heal, failure of the plate, screws and cables. Continued pain in the in the right leg and deep infection. There is also risk of deep vein thrombosis which could lead to fatal pulmonary embolism. All of Keysha and her son's questions were answered to their satisfaction. Appropriate informed consent was obtained. DESCRIPTION OF PROCEDURE: The patient identified in preoperative holding area. Surgical site was marked by both the patient and myself. She was given 2 g of Ancef IV for prophylactic purposes. She was then transported to the operative suite. She was placed supine on operating room table. General anesthetic was then administered and dosed per the anesthesia without apparent complication. She was then placed into a partial lateral position. We utilized a velasco bag for positioning. This was a sloppy lateral type positioning. Her legs were appropriately padded. The patient's right lower extremity was then prepped and draped in usual sterile fashion. Standard surgical pause undertaken to ensure that we were operating on the correct site and that appropriate preoperative antibiotics were given. All staff in the room in agreement. We proceeded. The previous incision for her hip hemiarthroplasty was identified. We utilized the bottom half of that incision and then extended it distally over the iliotibial band close to the metaphyseal flare. Dissection was then carried down sharply through the subcutaneous tissue to the ITB band. Hemostasis was achieved with electrocautery. The IT band was then split in line with the femoral shaft. The vastus lateralis was then split in the midline of the muscle. This gave me direct access to the lateral cortex of the femur. The fracture was readily identified. It was a long spiral fracture. This was then reduced with large reduction clamps. Fluoroscopy was then brought in. At this point I then utilized a single cable placed around the femur to hold the provisional reduction. I was able to visualize that the reduction was anatomic. The cable was then carefully passed around the femur and then tightened. This provided good provisional fixation. I then chose a [employer] long contoured 4.5 LCD CP proximal femoral plate. This was placed on the lateral cortex of the femur. Fluoroscopy was then brought in to ensure the length of the plate was appropriate and it was. We then proceeded with placement of the plate. I did have to contour the plate slightly with just a small amount of bending to get it to fit her femur appropriately. I then proceeded with fixation. I utilized 3 cables which were attached to the plate through a locking mechanism on the plate proximal to the fracture. These were all 3 were carefully passed around the medial and posterior aspect of the femur to provide as to minimize any risk of iatrogenic neurovascular injury. The 3 cables were then tightened securely. This provided good provisional fixation proximally on the plate. I then also placed 2 unicortical locking screws in the most proximal 2 holes of the plate as well. These were 4.5 mm unicortical locking screws. I then proceeded with fixation of the plate distally. The most distal hole I utilized a 4.5 mm bicortical nonlocking screw in the most distal hole. This brought the plate very securely and compressed the plate to the lateral femoral cortex. I then given her poor bone quality, placed 3 bicortical 4.5 mm locking screws distal to the fracture as well. At this point, I brought fluoroscopy back into check. The plate was appropriately placed on the lateral cortex of the femur. All of the screws were in bone. The fracture had been reduced very nicely. All of the screws were of appropriate length and placed through the plate. At this point time, no further work was deemed necessary. The final fluoroscopic images were taken. The wound was thoroughly irrigated with sterile saline solution with antibiotic added. Approximately 500 mg of vancomycin powder was placed deep in the wound. The vastus lateralis fascia was then closed with 2-0 Vicryl interrupted suture. The iliotibial band was repaired with 0- Vicryl interrupted suture and then with a running #2 Quill suture. The wound was again thoroughly irrigated with sterile saline solution with antibiotic added. The remaining 500 mg of vancomycin powder was then placed subcutaneously in the wound. She did have a significant amount of subcutaneous fat tissue. This was repaired. This was closed and reapproximated with multiple 2-0 Vicryl sutures. Subcutaneous tissue was continued to close with 2-0 Vicryl suture and the skin was closed with stainless steel mckayla. Sterile compressive dressing was then applied. All sponge and needle counts were deemed correct prior to closure. The patient tolerated the procedure without apparent complication. She was transferred recovery room in stable condition. Keysha will be strict nonweightbearing on the right lower extremity. Her estimated blood loss was 500 mL. We did use the Cell Saver and any blood collected in the Cell Saver was given back to Keysha intravenously. MMODL / IJN: [id number] /
[2018-01-17 20:37] LABS: Glucose,Whole Blood 245 mg/dL (75-99)
[2018-01-17] MEDS: PRAVASTATIN SODIUM 80 MG TAB PO SCH (21:27)
[2018-01-17] MEDS: MELATONIN 3 MG TABLET PO SCH (21:27)
[2018-01-18] MEDS: ONDANSETRON 4 MG/2 ML VIAL IVP PRN (04:15)
[2018-01-18] MEDS: HYDROcodone/APAP 5-325MG 1 EACH TAB PO PRN ×2 (04:37→17:52)
[2018-01-18] MEDS: LACTATED RINGERS 1,000 ML IV SCH (06:27)
[2018-01-18 07:32] LABS: Glucose,Whole Blood 194 mg/dL (75-99)
[2018-01-18] MEDS: METOPROLOL TARTRATE 25 MG TAB PO SCH ×3 (08:27→22:14)
[2018-01-18] MEDS: INSULIN ASPART 100 UNIT/ML 1 ML 10 ML VIAL SQ SCH ×4 (08:27→22:13)
[2018-01-18] MEDS: buPROPion SR 150 MG TABLET.ER PO SCH ×2 (08:27→22:14)
[2018-01-18] MEDS: PANTOPRAZOLE 40 MG/10 ML VIAL IV SCH (08:27)
[2018-01-18] MEDS: DILTIAZEM CD 240 MG CAP.ER.24H PO SCH (08:27)
[2018-01-18] MEDS: FUROSEMIDE 40 MG TAB PO SCH ×2 (08:28→15:17)
[2018-01-18] MEDS: HEPARIN SODIUM,PORCINE 5,000 UNIT/ML 1 ML VIAL SQ SCH ×2 (08:28→22:14)
[2018-01-18] MEDS: ASPIRIN 81 MG PO SCH (08:28)
[2018-01-18 08:30] LABS: Anisocytosis Slight; Basophils % (A) 0 %; Eosinophils % (A) 1 %; HCT 23.6 % (34.0-46.0); HGB 7.4 gm/dL (11.4-16.0); Hypochromasia Slight; Lymphocytes # (A) 0.7 k/uL (1.0-4.8); Lymphocytes % (A) 15 %; MCH 27.3 pg (25.0-35.0); MCHC 31.6 g/dL (31.0-37.0); MCV 86.6 fL (80.0-100.0); Mean Platelet Volume 7.3; Monocytes # (A) 0.3 k/uL (0-1.0); Monocytes % (A) 6 %; Neutrophils # (A) 3.6 k/uL (1.3-7.7); Neutrophils % (A) 75 %; Platelet Count 249 k/uL (150-450); RBC 2.72 m/uL (3.80-5.40); RDW 17.2 % (11.5-15.5); WBC 4.8 k/uL (3.8-10.6)
[2018-01-18] MEDS: IPRATROPIUM-ALBUTEROL 3 ML NEB INHALATION SCH ×4 (08:37→20:13)
[2018-01-18] MEDS: BUDESONIDE 0.5 MG/2 ML NEBU INHALATION SCH ×2 (08:38→20:13)
[2018-01-18] MEDS ORDERED: POLYETHYLENE GLYCOL 3350 17 GM POWD.PACK PO PRN (08:39)
[2018-01-18 08:44] LABS: Calcium 8.1 mg/dL (8.4-10.2); Potassium 4.6 mmol/L (3.5-5.1)
--- NOTE | 2018-01-18 09:01 | PN ---
PROGRESS NOTE DATE OF VISIT: 01/18/2018. Keysha is resting very comfortably at the bedside today. Her pain is well controlled. She is resting rather comfortably and eating her breakfast. T-max 98.7, blood pressure 144/56, pulse rate was 80 and she is saturating 100% on 2 L of oxygen via nasal cannula. Her incision is dry with essentially no drainage on the dressing this morning. Her right foot she has intact flexion-extension inversion-eversion of her ankle. She has intact flexion-extension of her toes and she has a palpable posterior tibial pulse with brisk capillary refill in all of her toes. IMPRESSION: Postop day #1 status post open reduction internal fixation of a right periprosthetic proximal femur fracture. RECOMMENDATIONS: Keysha is doing very well postop day #1. She is seemingly doing fairly well from a pulmonary standpoint in particular today. Her pain is well controlled. We will start her on some stool softeners. She is to be strict nonweightbearing on the right lower extremity. I did talk to the nurse in consideration to moving her to a room with a Miguel lift would be appropriate. All of Keysha's questions with regards to yesterday's procedure were answered to her satisfaction. We will continue to follow while she is in the hospital. MMODL / IJN: [id number] /
[2018-01-18] MEDS ORDERED: ONDANSETRON 4 MG/2 ML VIAL IVP PRN (11:14)
[2018-01-18 11:52] LABS: Glucose,Whole Blood 227 mg/dL (75-99)
--- NOTE | 2018-01-18 12:55 | P.PN ---
Subjective Progress Note Date: 01/18/18 This is a 82-year-old female with history of diastolic CHF and ischemic heart disease was admitted with a fall and fracture of the hip. Patient underwent hip replacement. Patient seemed to feeling well. Denies any chest pain or undue shortness of breath. Heart is regular. Lungs appeared to be clear without any significant rhonchi or wheezing or rales. Vital signs are stable. Patient will stay in the current medical therapy. Increase physical activity as tolerated. We'll follow her Objective - Vital Signs Vital signs: Vital Signs Temp 98.7 F 01/18/18 07:00 Pulse 80 01/18/18 12:42 Resp 20 01/18/18 12:42 BP 144/56 01/18/18 07:00 Pulse Ox 100 01/18/18 07:00 Intake & Output 01/17/18 01/18/18 01/18/18 18:59 06:59 18:59 Intake Total 2051 500 Output Total 1025 500 Balance 1026 0 Intake: IV 2050 Oral 500 Output: Urine 525 500 Estimated Blood Loss 500 Other: Voiding Method Indwelling Catheter Indwelling Catheter - Exam GENERAL EXAM: Patient is alert and oriented and doesn't appear to be in any acute distress HEENT: Normocephalic. Normal reaction of pupils, equal size, normal range of extraocular motion. No erythema or exudates in the throat. NECK: No masses, no nuchal rigidity. CHEST: No chest wall deformity. LUNGS: Equal air entry with no crackles or wheeze. HEART: S1 and S2 normal with no audible mumurs or gallops. Regular rhythm, femorals equal on both sides.. ABDOMEN: No hepatosplenomegaly, normal bowel sounds, no guarding or rigidity. SKIN: No rashes CENTRAL NERVOUS SYSTEM: No focal deficits. EXTREMITIES: No cyanosis, clubbing or edema. Postsurgical - Labs CBC & Chem 7: 01/18/18 07:23 01/18/18 07:23 Labs: Abnormal Lab Results - Last 24 Hours (Table) 01/17/18 01/17/18 01/17/18 Range/Units 13:13 17:20 20:36 RBC (3.80-5.40) m/uL Hgb (11.4-16.0) gm/dL Hct (34.0-46.0) % RDW (11.5-15.5) % Lymphocytes # (1.0-4.8) k/uL Sodium (137-145) mmol/L BUN (7-17) mg/dL Creatinine (0.52-1.04) mg/dL Glucose (74-99) mg/dL POC Glucose (mg/dL) 248 H 247 H 245 H (75-99) mg/dL Calcium (8.4-10.2) mg/dL 01/18/18 01/18/18 01/18/18 Range/Units 07:20 07:23 07:23 RBC 2.72 L (3.80-5.40) m/uL Hgb 7.4 L (11.4-16.0) gm/dL Hct 23.6 L (34.0-46.0) % RDW 17.2 H (11.5-15.5) % Lymphocytes # 0.7 L (1.0-4.8) k/uL Sodium 135 L (137-145) mmol/L BUN 38 H (7-17) mg/dL Creatinine 1.36 H (0.52-1.04) mg/dL Glucose 169 H (74-99) mg/dL POC Glucose (mg/dL) 194 H (75-99) mg/dL Calcium 8.1 L (8.4-10.2) mg/dL 01/18/18 Range/Units 11:38 RBC (3.80-5.40) m/uL Hgb (11.4-16.0) gm/dL Hct (34.0-46.0) % RDW (11.5-15.5) % Lymphocytes # (1.0-4.8) k/uL Sodium (137-145) mmol/L BUN (7-17) mg/dL Creatinine (0.52-1.04) mg/dL Glucose (74-99) mg/dL POC Glucose (mg/dL) 227 H (75-99) mg/dL Calcium (8.4-10.2) mg/dL Assessment and Plan (1) Diastolic CHF Current Visit: Yes Status: Acute Code(s): I50.30 - UNSPECIFIED DIASTOLIC ( CONGESTIVE) HEART FAILURE SNOMED Code(s): 943374249 (2) Femur fracture, right Current Visit: Yes Status: Acute Priority: Medium Code(s): S72.91XA - UNSP FRACTURE OF RIGHT FEMUR, INIT FOR CLOS FX SNOMED Code(s): 25371232 (3) Status post hip hemiarthroplasty Current Visit: No Status: Acute Code(s): Z96.649 - PRESENCE OF UNSPECIFIED ARTIFICIAL HIP JOINT SNOMED Code(s): 319095779 (4) CAD (coronary artery disease) Current Visit: Yes Status: Acute Code(s): I25.10 - ATHSCL HEART DISEASE OF [place] CORONARY ARTERY W/O ANG PCTRS SNOMED Code(s): 82711057 Plan: Continue current medical therapy. We'll follow her as needed
[2018-01-18] MEDS: SENNOSIDES-DOCUSATE SODIUM 1 EACH TAB PO SCH ×2 (13:16→22:34)
[2018-01-18 17:27] LABS: Glucose,Whole Blood 296 mg/dL (75-99)
[2018-01-18 19:35] LABS: Anisocytosis Slight; Basophils % (A) 0 %; Eosinophils # (A) 0.1 k/uL (0-0.7); Eosinophils % (A) 1 %; HCT 22.5 % (34.0-46.0); Hypochromasia Slight; Lymphocytes # (A) 0.7 k/uL (1.0-4.8); Lymphocytes % (A) 13 %; MCH 26.5 pg (25.0-35.0); MCV 85.6 fL (80.0-100.0); Mean Platelet Volume 7.4; Monocytes # (A) 0.3 k/uL (0-1.0); Monocytes % (A) 6 %; Neutrophils # (A) 4.2 k/uL (1.3-7.7); Neutrophils % (A) 77 %; Platelet Count 266 k/uL (150-450); RBC 2.63 m/uL (3.80-5.40); WBC 5.4 k/uL (3.8-10.6)
[2018-01-18 20:19] LABS: Glucose,Whole Blood 273 mg/dL (75-99)
[2018-01-18] MEDS: MELATONIN 3 MG TABLET PO SCH (22:13)
[2018-01-18] MEDS: PRAVASTATIN SODIUM 80 MG TAB PO SCH (22:14)
[2018-01-18] MEDS: INSULIN DETEMIR 100 UNIT/ML 10 ML VIAL SQ SCH (22:29)
[2018-01-19] MEDS: LACTATED RINGERS 1,000 ML IV SCH (07:11)
[2018-01-19 07:14] LABS: Glucose,Whole Blood 165 mg/dL (75-99)
[2018-01-19] MEDS: INSULIN ASPART 100 UNIT/ML 1 ML 10 ML VIAL SQ SCH ×4 (07:55→20:59)
[2018-01-19 08:07] LABS: Calcium 8.2 mg/dL (8.4-10.2); Potassium 4.6 mmol/L (3.5-5.1)
[2018-01-19] MEDS: IPRATROPIUM-ALBUTEROL 3 ML NEB INHALATION SCH ×4 (08:43→20:14)
[2018-01-19] MEDS: BUDESONIDE 0.5 MG/2 ML NEBU INHALATION SCH ×2 (08:43→20:14)
[2018-01-19] MEDS: METOPROLOL TARTRATE 25 MG TAB PO SCH ×3 (09:02→23:12)
[2018-01-19] MEDS: ASPIRIN 81 MG PO SCH (09:08)
[2018-01-19] MEDS: FUROSEMIDE 40 MG TAB PO SCH ×2 (09:08→15:22)
[2018-01-19] MEDS: buPROPion SR 150 MG TABLET.ER PO SCH ×2 (09:08→20:58)
[2018-01-19] MEDS: HEPARIN SODIUM,PORCINE 5,000 UNIT/ML 1 ML VIAL SQ SCH ×2 (09:09→20:58)
[2018-01-19] MEDS: PANTOPRAZOLE 40 MG/10 ML VIAL IV SCH (09:09)
--- NOTE | 2018-01-19 10:23 | P.PN ---
Subjective Progress Note Date: 01/19/18 Principal diagnosis: Status post ORIF right periprosthetic femur fracture This is an 82 year-old female post ORIF right periprosthetic femur fracture. This is post-op day 2. The patient was evaluated at the bedside today. The patient denies nausea, vomiting, abdominal pain, shortness of breath, and chest pain this morning. She states her pain is controlled at this time. No new complaints today. Objective - Vital Signs Vital signs: Vital Signs Temp 97.8 F 01/19/18 07:55 Pulse 64 01/19/18 08:58 Resp 18 01/19/18 07:55 BP 113/43 01/19/18 07:55 Pulse Ox 98 01/19/18 07:55 Intake & Output 01/18/18 01/19/18 01/19/18 18:59 06:59 18:59 Intake Total 360 400 Output Total 800 Balance 360 -400 Intake: Intake, IV Titration 200 Amount Lactated Ringers 1,000 ml 200 @ 20 mls/hr IV .Q24H [facility] Rx#:[id number] Oral 360 200 Output: Urine 800 Other: Voiding Method Indwelling Catheter Indwelling Catheter - Exam The patient does not appear in acute distress. Alert and orientated x3. Dressing is clean dry and intact. Incision appears fine with no erythema or active drainage. Calf is soft and nontender. Good foot and ankle motion without difficulty. Sensation and circulatory status is intact. - Labs CBC & Chem 7: 01/18/18 19:15 01/19/18 07:12 Labs: Abnormal Lab Results - Last 24 Hours (Table) 01/18/18 01/18/18 01/18/18 Range/Units 11:38 17:14 19:15 RBC 2.63 L (3.80-5.40) m/uL Hgb 7.0 L (11.4-16.0) gm/dL Hct 22.5 L (34.0-46.0) % RDW 17.0 H (11.5-15.5) % Lymphocytes # 0.7 L (1.0-4.8) k/uL Carbon Dioxide (22-30) mmol/L BUN (7-17) mg/dL Creatinine (0.52-1.04) mg/dL Glucose (74-99) mg/dL POC Glucose (mg/dL) 227 H 296 H (75-99) mg/dL Calcium (8.4-10.2) mg/dL 01/18/18 01/19/18 01/19/18 Range/Units 20:08 06:57 07:12 RBC (3.80-5.40) m/uL Hgb (11.4-16.0) gm/dL Hct (34.0-46.0) % RDW (11.5-15.5) % Lymphocytes # (1.0-4.8) k/uL Carbon Dioxide 31 H (22-30) mmol/L BUN 38 H (7-17) mg/dL Creatinine 1.44 H (0.52-1.04) mg/dL Glucose 137 H (74-99) mg/dL POC Glucose (mg/dL) 273 H 165 H (75-99) mg/dL Calcium 8.2 L (8.4-10.2) mg/dL Assessment and Plan (1) CAD (coronary artery disease) Current Visit: Yes Status: Acute Code(s): I25.10 - ATHSCL HEART DISEASE OF [place] CORONARY ARTERY W/O ANG PCTRS SNOMED Code(s): 21338527 (2) Fall Current Visit: Yes Status: Acute Code(s): W19.XXXA - UNSPECIFIED FALL, INITIAL ENCOUNTER SNOMED Code(s): 2409461 (3) Femur fracture, right Current Visit: Yes Status: Acute Priority: Medium Code(s): S72.91XA - UNSP FRACTURE OF RIGHT FEMUR, INIT FOR CLOS FX SNOMED Code(s): 72741019 (4) Status post hip hemiarthroplasty Current Visit: No Status: Acute Code(s): Z96.649 - PRESENCE OF UNSPECIFIED ARTIFICIAL HIP JOINT SNOMED Code(s): 663054078 Plan: 1. Continue pain control 2. Anticoagulation with Heparin per internal medicine 3. Strict non-weightbearing to the right lower extremity. May edge to side of bed today. 4. Anticipate discharge to [facility] when cleared by internal medicine
--- NOTE | 2018-01-19 10:35 | P.PN ---
Subjective Progress Note Date: 01/18/18 Patient is admitted after a mechanical fall and right femoral fracture. Patient has mildly elevated troponin which appeared to be nonischemic and secondary to her Chronic kidney disease and chronic diastolic dysfunction cardiology evaluated the patient please refer to documentation for clearance for surgery patient is moderate risk for surgery but the the surgery does improve her functionality. Patient has asymptomatic bacteriuria do not believe patient has UTI antibiotics were discontinued. The patient regarding surgery for her right femoral fracture as per orthopedic surgery. Patient is on heparin for DVT prophylaxis patient does have history of congestive heart failure chronic gastric dysfunction with mild pulmonary edema on the chest x- ray IV fluids will be discontinued patient will be continued on oral Lasix need to monitor for heart failure exacerbation post surgery Dilaudid will be discontinued 01/15/2018 No overnight events patient's pain is better controlled and patient will undergo surgical intervention on Saturday discussed with the cardiology and orthopedic surgery. Patient's creatinine is bit worse. Repeat sick metabolic profile tomorrow if it can use to go up will hold off on Lasix and/or lisinopril 01/16/2018 Patient's creatinine continued to get worse, holding off on diuretic therapy today evening and tomorrow morning. Patient will be switched to sliding scale insulin 70/30 will be discontinued to avoid hypoglycemia as patient will be nothing by mouth today 01/17/2018 Patient is seen and evaluated in the room with family members at bedside; patient is postoperative from right femoral fracture repair and is mostly sleepy and groggy; labs reviewed from this morning are mainly stable within normal white blood count hemoglobin of 8.3; renal function is slightly elevated with a B UN of 31 creatinine 1.06; patient is not on any fluids postoperatively ; we will start patient on normal saline and run at 75 mL an hour; we will monitor renal function, electrolytes, strict BALBIR's and daily weights; avoid nephrotoxins and hypotension Patient's blood sugars ranging from 135-248; we will continue to monitor blood sugars closely and continue sliding scale as needed 01/18/2018 Patient is more awake and alert; she is status post ORIF postop day #1;denies any new complaints; tolerating diet okay; Patient's hemoglobin is down to 7.4 from 8.3 yesterday; we will continue to monitor H&H closely and transfuse if hemoglobin is less than 7.0 Patient's blood sugar continued to remain elevated ; we will add Lantus 10 units subcu daily at bedtime and continue to monitor Accu-Cheks every before meals and at bedtime with insulin sliding scale protocol we will continue with incentive spirometry every hour while awake and increase activity as recommended by orthopedic; PT OT evaluation as recommended Constitutional: Denied any fatigue denied any fever. Cardio vascular: denied any chest pain, palpitations Gastrointestinal denied any nausea vomiting Pulmonary: Denied any shortness of breath cough Neurologic denied any new focal deficits All inpatient medications were reviewed and appropriate changes in these medications as dictated in the interval history and assessment and plan. Objective - Vital Signs Vital signs: Vital Signs Temp 98.7 F 01/18/18 07:00 Pulse 76 01/18/18 08:57 Resp 17 01/18/18 07:00 BP 144/56 01/18/18 07:00 Pulse Ox 100 01/18/18 07:00 Intake & Output 01/17/18 01/18/18 01/18/18 18:59 06:59 18:59 Intake Total 2051 500 Output Total 1025 500 Balance 1026 0 Intake: IV 2050 Oral 500 Output: Urine 525 500 Estimated Blood Loss 500 Other: Voiding Method Indwelling Catheter Indwelling Catheter - Exam GENERAL: The patient is alert and oriented x3, not in any acute distress. Obese HEENT: Pupils are round and equally reacting to light. EOMI. No scleral icterus. No conjunctival pallor. Normocephalic, atraumatic. No pharyngeal erythema. No thyromegaly. CARDIOVASCULAR: S1 and S2 present. No murmurs, rubs, or gallops. PULMONARY: Chest is clear to auscultation, no wheezing or crackles. ABDOMEN: Soft, nontender, nondistended, normoactive bowel sounds. No palpable organomegaly. MUSCULOSKELETAL: No joint swelling or deformity. -EXTREMITIES: No cyanosis, clubbing, or pedal edema. Right lower extremity is shortened and externally rotated NEUROLOGICAL: Gross neurological examination did not reveal any focal deficits. SKIN: No rashes. - Labs CBC & Chem 7: 01/18/18 19:15 01/19/18 07:12 Labs: Abnormal Lab Results - Last 24 Hours (Table) 01/17/18 01/17/18 01/17/18 Range/Units 11:48 13:13 17:20 RBC (3.80-5.40) m/uL Hgb (11.4-16.0) gm/dL Hct (34.0-46.0) % RDW (11.5-15.5) % Lymphocytes # (1.0-4.8) k/uL Sodium 135 L (137-145) mmol/L BUN 31 H (7-17) mg/dL Creatinine 1.06 H (0.52-1.04) mg/dL Glucose 190 H (74-99) mg/dL POC Glucose (mg/dL) 248 H 247 H (75-99) mg/dL Calcium 7.7 L (8.4-10.2) mg/dL Total Protein 5.0 L (6.3-8.2) g/dL Albumin 2.5 L (3.5-5.0) g/dL 01/17/18 01/18/18 01/18/18 Range/Units 20:36 07:20 07:23 RBC (3.80-5.40) m/uL Hgb (11.4-16.0) gm/dL Hct (34.0-46.0) % RDW (11.5-15.5) % Lymphocytes # (1.0-4.8) k/uL Sodium 135 L (137-145) mmol/L BUN 38 H (7-17) mg/dL Creatinine 1.36 H (0.52-1.04) mg/dL Glucose 169 H (74-99) mg/dL POC Glucose (mg/dL) 245 H 194 H (75-99) mg/dL Calcium 8.1 L (8.4-10.2) mg/dL Total Protein (6.3-8.2) g/dL Albumin (3.5-5.0) g/dL 01/18/18 01/18/18 Range/Units 07:23 11:38 RBC 2.72 L (3.80-5.40) m/uL Hgb 7.4 L (11.4-16.0) gm/dL Hct 23.6 L (34.0-46.0) % RDW 17.2 H (11.5-15.5) % Lymphocytes # 0.7 L (1.0-4.8) k/uL Sodium (137-145) mmol/L BUN (7-17) mg/dL Creatinine (0.52-1.04) mg/dL Glucose (74-99) mg/dL POC Glucose (mg/dL) 227 H (75-99) mg/dL Calcium (8.4-10.2) mg/dL Total Protein (6.3-8.2) g/dL Albumin (3.5-5.0) g/dL Assessment and Plan Assessment: Right femoral fracture/Status post fall: - Patient is status post surgery as mentioned above. - We will monitor H&H closely and stress incentive spirometry every hour while awake - Recommend starting the DVT prophylaxis soon as cleared by surgical service Positive troponin, rule out cardiac cause. Secondary to chronic kidney disease. Congestive heart failure chronic diastolic dysfunction with mild acute exacerbation, because of acute renal failure holding off on diuretic therapy couple doses recheck creatinine tomorrow. CKD stage III History of COPD not in acute exacerbation Diabetes mellitus: Management as mentioned above hold off on 70/30 patient will be on sliding scale insulin as patient will be nothing by mouth. Patient the will benefit from Lantus and pre-meal insulin regimen rather than 70/30 Hyperlipidemia Essential hypertension Mild acute renal failure secondary to diuretic therapy/ CKD stage III will and further management as mentioned in the interval history DVT prophylaxis with subcutaneous heparin CODE STATUS; full code Patient will be continued on present medications antibiotics will be discontinued patient doesn't have any UTI has asymptomatic bacteriuria
[2018-01-19] MEDS ORDERED: SODIUM CHLORIDE 0.9% 1,000 ML IV SCH (10:45)
[2018-01-19 11:34] LABS: Anisocytosis Slight; HCT 21.7 % (34.0-46.0); Hypochromasia Moderate; MCH 27.1 pg (25.0-35.0); MCHC 30.9 g/dL (31.0-37.0); MCV 87.7 fL (80.0-100.0); Mean Platelet Volume 8.2; Platelet Count 273 k/uL (150-450); RBC 2.48 m/uL (3.80-5.40); WBC 5.4 k/uL (3.8-10.6)
[2018-01-19 11:39] LABS: HGB 6.7 gm/dL (11.4-16.0)
[2018-01-19 12:12] LABS: Glucose,Whole Blood 206 mg/dL (75-99)
[2018-01-19] MEDS: DILTIAZEM CD 240 MG CAP.ER.24H PO SCH (13:01)
[2018-01-19 14:14] LABS: Band Neutrophils % 3 %; Eosinophils # (M) 0.16 k/uL (0-0.7); Lymphocytes # (M) 0.38 k/uL (1.0-4.8); Monocytes # (M) 0.22 k/uL (0-1.0); Neutrophils % (M) 83 %; Nucleated Red Blood Cells 0 /100 WBC (0-0); Total Cells Counted 100
[2018-01-19] MEDS: HYDROcodone/APAP 5-325MG 1 EACH TAB PO PRN (15:22)
[2018-01-19 17:41] LABS: Glucose,Whole Blood 231 mg/dL (75-99)
[2018-01-19] MEDS: SODIUM CHLORIDE 0.9% 1,000 ML IV SCH (17:50)
[2018-01-19] MEDS ORDERED: FUROSEMIDE 10 MG/ML 2 ML VIAL IV ONE ×2 (18:00→20:00)
[2018-01-19 20:13] LABS: Glucose,Whole Blood 192 mg/dL (75-99)
[2018-01-19] MEDS: PRAVASTATIN SODIUM 80 MG TAB PO SCH (20:58)
[2018-01-19] MEDS: SENNOSIDES-DOCUSATE SODIUM 1 EACH TAB PO SCH (20:58)
[2018-01-19] MEDS: MELATONIN 3 MG TABLET PO SCH (20:58)
[2018-01-19] MEDS: INSULIN DETEMIR 100 UNIT/ML 10 ML VIAL SQ SCH (20:59)
[2018-01-20] MEDS: LACTATED RINGERS 1,000 ML IV SCH (04:53)
[2018-01-20 07:12] LABS: Glucose,Whole Blood 173 mg/dL (75-99)
[2018-01-20] MEDS: IPRATROPIUM-ALBUTEROL 3 ML NEB INHALATION SCH ×4 (07:23→20:07)
[2018-01-20] MEDS: BUDESONIDE 0.5 MG/2 ML NEBU INHALATION SCH ×2 (07:23→20:07)
[2018-01-20] MEDS: FUROSEMIDE 40 MG TAB PO SCH (07:44)
[2018-01-20] MEDS: INSULIN ASPART 100 UNIT/ML 1 ML 10 ML VIAL SQ SCH ×4 (07:44→22:02)
[2018-01-20] MEDS: METOPROLOL TARTRATE 25 MG TAB PO SCH ×3 (07:45→22:01)
[2018-01-20] MEDS: HEPARIN SODIUM,PORCINE 5,000 UNIT/ML 1 ML VIAL SQ SCH ×2 (07:45→22:01)
[2018-01-20] MEDS: PANTOPRAZOLE 40 MG/10 ML VIAL IV SCH (07:45)
[2018-01-20] MEDS: buPROPion SR 150 MG TABLET.ER PO SCH ×2 (07:52→23:47)
[2018-01-20] MEDS: ASPIRIN 81 MG PO SCH (07:52)
[2018-01-20] MEDS: DILTIAZEM CD 240 MG CAP.ER.24H PO SCH (07:52)
[2018-01-20 08:40] LABS: Anisocytosis Slight; Basophils % (A) 0 %; Eosinophils # (A) 0.2 k/uL (0-0.7); Eosinophils % (A) 4 %; HGB 7.8 gm/dL (11.4-16.0); Hypochromasia Marked; Lymphocytes # (A) 0.7 k/uL (1.0-4.8); Lymphocytes % (A) 12 %; MCH 26.9 pg (25.0-35.0); MCHC 31.2 g/dL (31.0-37.0); MCV 86.3 fL (80.0-100.0); Mean Platelet Volume 7.3; Monocytes # (A) 0.3 k/uL (0-1.0); Monocytes % (A) 5 %; Neutrophils # (A) 4.4 k/uL (1.3-7.7); Neutrophils % (A) 76 %; Platelet Count 313 k/uL (150-450); RBC 2.89 m/uL (3.80-5.40); RDW 16.9 % (11.5-15.5); WBC 5.8 k/uL (3.8-10.6)
[2018-01-20 08:48] LABS: Calcium 8.2 mg/dL (8.4-10.2)
--- NOTE | 2018-01-20 10:10 | P.PN ---
Subjective Progress Note Date: 01/19/18 Principal diagnosis: Fall with right femoral fracture Patient is admitted after a mechanical fall and right femoral fracture. Patient has mildly elevated troponin which appeared to be nonischemic and secondary to her Chronic kidney disease and chronic diastolic dysfunction cardiology evaluated the patient please refer to documentation for clearance for surgery patient is moderate risk for surgery but the the surgery does improve her functionality. Patient has asymptomatic bacteriuria do not believe patient has UTI antibiotics were discontinued. The patient regarding surgery for her right femoral fracture as per orthopedic surgery. Patient is on heparin for DVT prophylaxis patient does have history of congestive heart failure chronic gastric dysfunction with mild pulmonary edema on the chest x- ray IV fluids will be discontinued patient will be continued on oral Lasix need to monitor for heart failure exacerbation post surgery Dilaudid will be discontinued 01/15/2018 No overnight events patient's pain is better controlled and patient will undergo surgical intervention on Saturday discussed with the cardiology and orthopedic surgery. Patient's creatinine is bit worse. Repeat sick metabolic profile tomorrow if it can use to go up will hold off on Lasix and/or lisinopril 01/16/2018 Patient's creatinine continued to get worse, holding off on diuretic therapy today evening and tomorrow morning. Patient will be switched to sliding scale insulin 70/30 will be discontinued to avoid hypoglycemia as patient will be nothing by mouth today 01/17/2018 Patient is seen and evaluated in the room with family members at bedside; patient is postoperative from right femoral fracture repair and is mostly sleepy and groggy; labs reviewed from this morning are mainly stable within normal white blood count hemoglobin of 8.3; renal function is slightly elevated with a B UN of 31 creatinine 1.06; patient is not on any fluids postoperatively ; we will start patient on normal saline and run at 75 mL an hour; we will monitor renal function, electrolytes, strict BALBIR's and daily weights; avoid nephrotoxins and hypotension Patient's blood sugars ranging from 135-248; we will continue to monitor blood sugars closely and continue sliding scale as needed 01/18/2018 Patient is more awake and alert; she is status post ORIF postop day #1;denies any new complaints; tolerating diet okay; Patient's hemoglobin is down to 7.4 from 8.3 yesterday; we will continue to monitor H&H closely and transfuse if hemoglobin is less than 7.0 Patient's blood sugar continued to remain elevated ; we will add Lantus 10 units subcu daily at bedtime and continue to monitor Accu-Cheks every before meals and at bedtime with insulin sliding scale protocol we will continue with incentive spirometry every hour while awake and increase activity as recommended by orthopedic; PT OT evaluation as recommended 01/19/2018 Patient is resting comfortably in bed; status post ORIF right. Prostatic femoral fracture, POD #2; patient denies any nausea vomiting or abdominal pain; tolerating diet okay; Orthopedic recommending to continue with the pain control and anticoagulation with heparin per hour discretion; we will start patient on subcu heparin Patient is to be strictly nonweightbearing to the right lower extremity; she can average to site of bed; orthopedic recommending discharge to skilled rehab We will consult case management for placement Patient was started on Lantus 10 units subcu daily at bedtime; blood sugar this morning is 165; we will continue to monitor for further adjustments Labs are reviewed showing a hemoglobin of 7.0 yesterday; we will repeat CBC today and transfuse if needed Patient's creatinine is trending up to 1.44 from 1.36 yesterday; we will review medications and avoid any nephrotoxins and increase IV fluids; order CPK Constitutional: Denied any fatigue denied any fever. Cardio vascular: denied any chest pain, palpitations Gastrointestinal denied any nausea vomiting Pulmonary: Denied any shortness of breath cough Neurologic denied any new focal deficits All inpatient medications were reviewed and appropriate changes in these medications as dictated in the interval history and assessment and plan. Objective - Vital Signs Vital signs: Vital Signs Temp 97.8 F 01/19/18 07:55 Pulse 64 01/19/18 08:58 Resp 18 01/19/18 07:55 BP 113/43 01/19/18 07:55 Pulse Ox 98 01/19/18 07:55 Intake & Output 01/18/18 01/19/18 01/19/18 18:59 06:59 18:59 Intake Total 360 400 Output Total 800 Balance 360 -400 Intake: Intake, IV Titration 200 Amount Lactated Ringers 1,000 ml 200 @ 20 mls/hr IV .Q24H [facility] Rx#:[id number] Oral 360 200 Output: Urine 800 Other: Voiding Method Indwelling Catheter Indwelling Catheter - Exam GENERAL: The patient is alert and oriented x3, not in any acute distress. Obese HEENT: Pupils are round and equally reacting to light. EOMI. No scleral icterus. No conjunctival pallor. Normocephalic, atraumatic. No pharyngeal erythema. No thyromegaly. CARDIOVASCULAR: S1 and S2 present. No murmurs, rubs, or gallops. PULMONARY: Chest is clear to auscultation, no wheezing or crackles. ABDOMEN: Soft, nontender, nondistended, normoactive bowel sounds. No palpable organomegaly. MUSCULOSKELETAL: No joint swelling or deformity. -EXTREMITIES: No cyanosis, clubbing, or pedal edema. Right lower extremity is shortened and externally rotated NEUROLOGICAL: Gross neurological examination did not reveal any focal deficits. SKIN: No rashes. - Labs CBC & Chem 7: 01/20/18 07:39 01/20/18 07:39 Labs: Abnormal Lab Results - Last 24 Hours (Table) 01/18/18 01/18/18 01/18/18 Range/Units 11:38 17:14 19:15 RBC 2.63 L (3.80-5.40) m/uL Hgb 7.0 L (11.4-16.0) gm/dL Hct 22.5 L (34.0-46.0) % RDW 17.0 H (11.5-15.5) % Lymphocytes # 0.7 L (1.0-4.8) k/uL Carbon Dioxide (22-30) mmol/L BUN (7-17) mg/dL Creatinine (0.52-1.04) mg/dL Glucose (74-99) mg/dL POC Glucose (mg/dL) 227 H 296 H (75-99) mg/dL Calcium (8.4-10.2) mg/dL 01/18/18 01/19/18 01/19/18 Range/Units 20:08 06:57 07:12 RBC (3.80-5.40) m/uL Hgb (11.4-16.0) gm/dL Hct (34.0-46.0) % RDW (11.5-15.5) % Lymphocytes # (1.0-4.8) k/uL Carbon Dioxide 31 H (22-30) mmol/L BUN 38 H (7-17) mg/dL Creatinine 1.44 H (0.52-1.04) mg/dL Glucose 137 H (74-99) mg/dL POC Glucose (mg/dL) 273 H 165 H (75-99) mg/dL Calcium 8.2 L (8.4-10.2) mg/dL Assessment and Plan Assessment: Right femoral fracture/Status post fall: - Patient is status post surgery as mentioned above. - We will monitor H&H closely and stress incentive spirometry every hour while awake - Recommend starting the DVT prophylaxis soon as cleared by surgical service Positive troponin, rule out cardiac cause. Secondary to chronic kidney disease. Congestive heart failure chronic diastolic dysfunction with mild acute exacerbation, because of acute renal failure holding off on diuretic therapy couple doses recheck creatinine tomorrow. CKD stage III History of COPD not in acute exacerbation Diabetes mellitus: Management as mentioned above hold off on 70/30 patient will be on sliding scale insulin as patient will be nothing by mouth. Patient the will benefit from Lantus and pre-meal insulin regimen rather than 70/30 Hyperlipidemia Essential hypertension Mild acute renal failure secondary to diuretic therapy/ CKD stage III will and further management as mentioned in the interval history DVT prophylaxis with subcutaneous heparin CODE STATUS; full code Patient will be continued on present medications antibiotics will be discontinued patient doesn't have any UTI has asymptomatic bacteriuria
[2018-01-20 12:12] LABS: Glucose,Whole Blood 250 mg/dL (75-99)
--- NOTE | 2018-01-20 12:20 | P.PN ---
Subjective Progress Note Date: 01/20/18 Principal diagnosis: right periprosthetic femur fracture Patient is a 82-year-old female seen at bedside this morning. She is POD #3 from ORIF of right perisprosthetic femur fracture. She has no new complaints today. She denies numbness, tingling, calf pain, fever, chills, chest pain or shortness of breath. Objective - Vital Signs Vital signs: Vital Signs Temp 97.3 F L 01/20/18 07:00 Pulse 68 01/20/18 11:51 Resp 16 01/20/18 08:00 BP 123/59 01/20/18 07:00 Pulse Ox 98 01/20/18 07:24 Intake & Output 01/19/18 01/20/18 01/20/18 18:59 06:59 18:59 Intake Total 50 460 Output Total 1000 1175 Balance -950 -715 Intake: Intake, IV Titration 50 150 Amount Sodium Chloride 0.9% 1, 50 000 ml @ 100 mls/hr IV . Q10H [facility] Rx#:[id number] Sodium Chloride 0.9% 1, 150 000 ml @ 75 mls/hr IV . [id number] [facility] Rx#:[id number] Blood Product 310 Rc Pheresis 2 As3 Unit 310 [id number] Output: Urine 1000 1175 Other: Voiding Method Indwelling Catheter Indwelling Catheter - Exam Inspection of the right lower extremity is benign. Surgical wound is benign. No active bleeding or drainage. Range of motion of the hip was not tested due to the fracture. Calf is soft nontender. Neurovascular status is grossly intact with motor and sensation throughout the right lower extremity. There is 2+ dorsalis pedis pulse and less than 2 second capillary refill. - Constitutional General appearance: Present: no acute distress - Labs CBC & Chem 7: 01/20/18 07:39 01/20/18 07:39 Labs: Abnormal Lab Results - Last 24 Hours (Table) 01/19/18 01/19/18 01/19/18 Range/Units 07:12 11:37 16:28 RBC (3.80-5.40) m/uL Hgb (11.4-16.0) gm/dL Hct (34.0-46.0) % RDW (11.5-15.5) % Lymphocytes # (1.0-4.8) k/uL Lymphocytes # (Manual) 0.38 L (1.0-4.8) k/uL Chloride (98-107) mmol/L Carbon Dioxide (22-30) mmol/L BUN (7-17) mg/dL Creatinine (0.52-1.04) mg/dL Glucose (74-99) mg/dL POC Glucose (mg/dL) 206 H (75-99) mg/dL Calcium (8.4-10.2) mg/dL Crossmatch See Detail 01/19/18 01/19/18 01/20/18 Range/Units 17:27 20:01 07:01 RBC (3.80-5.40) m/uL Hgb (11.4-16.0) gm/dL Hct (34.0-46.0) % RDW (11.5-15.5) % Lymphocytes # (1.0-4.8) k/uL Lymphocytes # (Manual) (1.0-4.8) k/uL Chloride (98-107) mmol/L Carbon Dioxide (22-30) mmol/L BUN (7-17) mg/dL Creatinine (0.52-1.04) mg/dL Glucose (74-99) mg/dL POC Glucose (mg/dL) 231 H 192 H 173 H (75-99) mg/dL Calcium (8.4-10.2) mg/dL Crossmatch 01/20/18 01/20/18 Range/Units 07:39 07:39 RBC 2.89 L (3.80-5.40) m/uL Hgb 7.8 L (11.4-16.0) gm/dL Hct 25.0 L (34.0-46.0) % RDW 16.9 H (11.5-15.5) % Lymphocytes # 0.7 L (1.0-4.8) k/uL Lymphocytes # (Manual) (1.0-4.8) k/uL Chloride 96 L (98-107) mmol/L Carbon Dioxide 32 H (22-30) mmol/L BUN 35 H (7-17) mg/dL Creatinine 1.40 H (0.52-1.04) mg/dL Glucose 149 H (74-99) mg/dL POC Glucose (mg/dL) (75-99) mg/dL Calcium 8.2 L (8.4-10.2) mg/dL Crossmatch Assessment and Plan (1) Femur fracture, right Narrative/Plan: Continue strict non weightbearing. Continue medical management, pain management and DVT prophylaxis per IM. She may transfer to [facility] from orthopedic standpoint when ok with IM. Current Visit: Yes Status: Acute Priority: Medium Code(s): S72.91XA - UNSP FRACTURE OF RIGHT FEMUR, INIT FOR CLOS FX SNOMED Code(s): 84162294 Time with Patient: Less than 30
[2018-01-20] MEDS: HYDROcodone/APAP 5-325MG 1 EACH TAB PO PRN (12:31)
[2018-01-20 13:23] VITALS: BMI 41.0
[2018-01-20] MEDS: SODIUM CHLORIDE 0.9% 1,000 ML IV SCH ×2 (16:39→21:55)
--- NOTE | 2018-01-20 16:55 | P.PN ---
Subjective Progress Note Date: 01/20/18 Principal diagnosis: Fall with right femoral fracture Patient is admitted after a mechanical fall and right femoral fracture. Patient has mildly elevated troponin which appeared to be nonischemic and secondary to her Chronic kidney disease and chronic diastolic dysfunction cardiology evaluated the patient please refer to documentation for clearance for surgery patient is moderate risk for surgery but the the surgery does improve her functionality. Patient has asymptomatic bacteriuria do not believe patient has UTI antibiotics were discontinued. The patient regarding surgery for her right femoral fracture as per orthopedic surgery. Patient is on heparin for DVT prophylaxis patient does have history of congestive heart failure chronic gastric dysfunction with mild pulmonary edema on the chest x- ray IV fluids will be discontinued patient will be continued on oral Lasix need to monitor for heart failure exacerbation post surgery Dilaudid will be discontinued 01/15/2018 No overnight events patient's pain is better controlled and patient will undergo surgical intervention on Saturday discussed with the cardiology and orthopedic surgery. Patient's creatinine is bit worse. Repeat sick metabolic profile tomorrow if it can use to go up will hold off on Lasix and/or lisinopril 01/16/2018 Patient's creatinine continued to get worse, holding off on diuretic therapy today evening and tomorrow morning. Patient will be switched to sliding scale insulin 70/30 will be discontinued to avoid hypoglycemia as patient will be nothing by mouth today 01/17/2018 Patient is seen and evaluated in the room with family members at bedside; patient is postoperative from right femoral fracture repair and is mostly sleepy and groggy; labs reviewed from this morning are mainly stable within normal white blood count hemoglobin of 8.3; renal function is slightly elevated with a B UN of 31 creatinine 1.06; patient is not on any fluids postoperatively ; we will start patient on normal saline and run at 75 mL an hour; we will monitor renal function, electrolytes, strict BALBIR's and daily weights; avoid nephrotoxins and hypotension Patient's blood sugars ranging from 135-248; we will continue to monitor blood sugars closely and continue sliding scale as needed 01/18/2018 Patient is more awake and alert; she is status post ORIF postop day #1;denies any new complaints; tolerating diet okay; Patient's hemoglobin is down to 7.4 from 8.3 yesterday; we will continue to monitor H&H closely and transfuse if hemoglobin is less than 7.0 Patient's blood sugar continued to remain elevated ; we will add Lantus 10 units subcu daily at bedtime and continue to monitor Accu-Cheks every before meals and at bedtime with insulin sliding scale protocol we will continue with incentive spirometry every hour while awake and increase activity as recommended by orthopedic; PT OT evaluation as recommended 01/19/2018 Patient is resting comfortably in bed; status post ORIF right. Prostatic femoral fracture, POD #2; patient denies any nausea vomiting or abdominal pain; tolerating diet okay; Orthopedic recommending to continue with the pain control and anticoagulation with heparin per hour discretion; we will start patient on subcu heparin Patient is to be strictly nonweightbearing to the right lower extremity; she can average to site of bed; orthopedic recommending discharge to skilled rehab We will consult case management for placement Patient was started on Lantus 10 units subcu daily at bedtime; blood sugar this morning is 165; we will continue to monitor for further adjustments Labs are reviewed showing a hemoglobin of 7.0 yesterday; we will repeat CBC today and transfuse if needed Patient's creatinine is trending up to 1.44 from 1.36 yesterday; we will review medications and avoid any nephrotoxins and increase IV fluids; order CPK 03/22/2017 Patient is seen and evaluated for follow-up; patient's hemoglobin dropped down to 6.7 yesterday mandating transfusion 1 unit of packed RBCs; this was discussed with patient's son and consent was obtained over the phone Patient's vital signs are stable with a temperature of 97.7 pulse 73 blood pressure 113/68 Labs are reviewed namely white blood count of 5.8 and hemoglobin improving from 6.7-7.8 this morning after transfusion of 1 unit of packed RBCs; renal function has improved slightly from a creatinine of 1.44-1.40 this morning; blood sugars are improved; we will continue to monitor and adjust insulin as needed Patient is status post ORIF right hip; POD #3; also has seen the patient this morning and is recommending possible discharge to skilled rehab; patient is supposed to be nonweightbearing to further recommendations from orthopedic PT OT consult is in place; social work is consulted for discharge planning; we will continue to monitor hemoglobin for another 24 hours while waiting for discharge plans to be in place; discharge when arrangements are made for skilled rehab Constitutional: Denied any fatigue denied any fever. Cardio vascular: denied any chest pain, palpitations Gastrointestinal denied any nausea vomiting Pulmonary: Denied any shortness of breath cough Neurologic denied any new focal deficits All inpatient medications were reviewed and appropriate changes in these medications as dictated in the interval history and assessment and plan. Objective - Vital Signs Vital signs: Vital Signs Temp 97.3 F L 01/20/18 07:00 Pulse 51 L 01/20/18 08:00 Resp 16 01/20/18 08:00 BP 123/59 01/20/18 07:00 Pulse Ox 98 01/20/18 07:24 Intake & Output 01/19/18 01/20/18 01/20/18 18:59 06:59 18:59 Intake Total 50 460 Output Total 1000 1175 Balance -950 -715 Intake: Intake, IV Titration 50 150 Amount Sodium Chloride 0.9% 1, 50 000 ml @ 100 mls/hr IV . Q10H [facility] Rx#:[id number] Sodium Chloride 0.9% 1, 150 000 ml @ 75 mls/hr IV . [id number] [facility] Rx#:[id number] Blood Product 310 Rc Pheresis 2 As3 Unit 310 [id number] Output: Urine 1000 1175 Other: Voiding Method Indwelling Catheter Indwelling Catheter - Exam GENERAL: The patient is alert and oriented x3, not in any acute distress. Obese HEENT: Pupils are round and equally reacting to light. EOMI. No scleral icterus. No conjunctival pallor. Normocephalic, atraumatic. No pharyngeal erythema. No thyromegaly. CARDIOVASCULAR: S1 and S2 present. No murmurs, rubs, or gallops. PULMONARY: Chest is clear to auscultation, no wheezing or crackles. ABDOMEN: Soft, nontender, nondistended, normoactive bowel sounds. No palpable organomegaly. MUSCULOSKELETAL: No joint swelling or deformity. -EXTREMITIES: No cyanosis, clubbing, or pedal edema. Right lower extremity is shortened and externally rotated NEUROLOGICAL: Gross neurological examination did not reveal any focal deficits. SKIN: No rashes. - Labs CBC & Chem 7: 01/20/18 07:39 01/20/18 07:39 Labs: Abnormal Lab Results - Last 24 Hours (Table) 01/19/18 01/19/18 01/19/18 Range/Units 07:12 11:37 16:28 RBC 2.48 L (3.80-5.40) m/uL Hgb 6.7 L* (11.4-16.0) gm/dL Hct 21.7 L (34.0-46.0) % MCHC 30.9 L (31.0-37.0) g/dL RDW 17.0 H (11.5-15.5) % Lymphocytes # (1.0-4.8) k/uL Lymphocytes # (Manual) 0.38 L (1.0-4.8) k/uL Chloride (98-107) mmol/L Carbon Dioxide (22-30) mmol/L BUN (7-17) mg/dL Creatinine (0.52-1.04) mg/dL Glucose (74-99) mg/dL POC Glucose (mg/dL) 206 H (75-99) mg/dL Calcium (8.4-10.2) mg/dL Crossmatch See Detail 01/19/18 01/19/18 01/20/18 Range/Units 17:27 20:01 07:01 RBC (3.80-5.40) m/uL Hgb (11.4-16.0) gm/dL Hct (34.0-46.0) % MCHC (31.0-37.0) g/dL RDW (11.5-15.5) % Lymphocytes # (1.0-4.8) k/uL Lymphocytes # (Manual) (1.0-4.8) k/uL Chloride (98-107) mmol/L Carbon Dioxide (22-30) mmol/L BUN (7-17) mg/dL Creatinine (0.52-1.04) mg/dL Glucose (74-99) mg/dL POC Glucose (mg/dL) 231 H 192 H 173 H (75-99) mg/dL Calcium (8.4-10.2) mg/dL Crossmatch 01/20/18 01/20/18 Range/Units 07:39 07:39 RBC 2.89 L (3.80-5.40) m/uL Hgb 7.8 L (11.4-16.0) gm/dL Hct 25.0 L (34.0-46.0) % MCHC (31.0-37.0) g/dL RDW 16.9 H (11.5-15.5) % Lymphocytes # 0.7 L (1.0-4.8) k/uL Lymphocytes # (Manual) (1.0-4.8) k/uL Chloride 96 L (98-107) mmol/L Carbon Dioxide 32 H (22-30) mmol/L BUN 35 H (7-17) mg/dL Creatinine 1.40 H (0.52-1.04) mg/dL Glucose 149 H (74-99) mg/dL POC Glucose (mg/dL) (75-99) mg/dL Calcium 8.2 L (8.4-10.2) mg/dL Crossmatch Assessment and Plan Assessment: Right femoral fracture/Status post fall: - Patient is status post surgery as mentioned above. - We will monitor H&H closely and stress incentive spirometry every hour while awake - Recommend starting the DVT prophylaxis soon as cleared by surgical service Positive troponin, rule out cardiac cause. Secondary to chronic kidney disease. Congestive heart failure chronic diastolic dysfunction with mild acute exacerbation, because of acute renal failure holding off on diuretic therapy couple doses recheck creatinine tomorrow. CKD stage III History of COPD not in acute exacerbation Diabetes mellitus: Management as mentioned above hold off on 70/30 patient will be on sliding scale insulin as patient will be nothing by mouth. Patient the will benefit from Lantus and pre-meal insulin regimen rather than 70/30 Hyperlipidemia Essential hypertension Mild acute renal failure secondary to diuretic therapy/ CKD stage III will and further management as mentioned in the interval history DVT prophylaxis with subcutaneous heparin CODE STATUS; full code Patient will be continued on present medications antibiotics will be discontinued patient doesn't have any UTI has asymptomatic bacteriuria Time with Patient: Greater than 30
[2018-01-20 17:35] LABS: Glucose,Whole Blood 254 mg/dL (75-99)
[2018-01-20] MEDS: ACETAMINOPHEN TAB 325 MG TAB PO PRN ×2 (17:39→23:47)
[2018-01-20 21:55] LABS: Glucose,Whole Blood 234 mg/dL (75-99)
[2018-01-20] MEDS: SENNOSIDES-DOCUSATE SODIUM 1 EACH TAB PO SCH (22:01)
[2018-01-20] MEDS: MELATONIN 3 MG TABLET PO SCH (22:01)
[2018-01-20] MEDS: PRAVASTATIN SODIUM 80 MG TAB PO SCH (22:01)
[2018-01-20] MEDS: INSULIN DETEMIR 100 UNIT/ML 10 ML VIAL SQ SCH (22:01)
[2018-01-21] MEDS: LACTATED RINGERS 1,000 ML IV SCH (01:54)
[2018-01-21 07:44] LABS: Glucose,Whole Blood 168 mg/dL (75-99)
[2018-01-21] MEDS: HEPARIN SODIUM,PORCINE 5,000 UNIT/ML 1 ML VIAL SQ SCH (07:52)
[2018-01-21] MEDS: METOPROLOL TARTRATE 25 MG TAB PO SCH ×2 (07:52→16:59)
[2018-01-21] MEDS: INSULIN ASPART 100 UNIT/ML 1 ML 10 ML VIAL SQ SCH ×3 (07:52→16:59)
[2018-01-21] MEDS: ASPIRIN 81 MG PO SCH (07:52)
[2018-01-21] MEDS: DILTIAZEM CD 240 MG CAP.ER.24H PO SCH (07:55)
[2018-01-21] MEDS: buPROPion SR 150 MG TABLET.ER PO SCH (07:55)
[2018-01-21] MEDS: SODIUM CHLORIDE 0.9% 1,000 ML IV SCH (07:56)
[2018-01-21] MEDS: PANTOPRAZOLE 40 MG/10 ML VIAL IV SCH (07:56)
[2018-01-21 08:10] LABS: Calcium 8.4 mg/dL (8.4-10.2); Potassium 4.3 mmol/L (3.5-5.1)
[2018-01-21 08:30] LABS: Anisocytosis Slight; Basophils % (A) 0 %; Eosinophils # (A) 0.4 k/uL (0-0.7); Eosinophils % (A) 6 %; HCT 23.5 % (34.0-46.0); HGB 7.4 gm/dL (11.4-16.0); Hypochromasia Moderate; Lymphocytes # (A) 0.8 k/uL (1.0-4.8); Lymphocytes % (A) 15 %; MCH 27.2 pg (25.0-35.0); MCHC 31.6 g/dL (31.0-37.0); Mean Platelet Volume 7.4; Monocytes # (A) 0.4 k/uL (0-1.0); Monocytes % (A) 7 %; Neutrophils # (A) 4.1 k/uL (1.3-7.7); Neutrophils % (A) 70 %; Platelet Count 367 k/uL (150-450); RBC 2.74 m/uL (3.80-5.40); RDW 17.5 % (11.5-15.5); WBC 5.8 k/uL (3.8-10.6)
--- NOTE | 2018-01-21 08:51 | P.PN ---
Subjective Progress Note Date: 01/21/18 Principal diagnosis: right periprosthetic femur fracture Patient is a 82-year-old female seen at bedside this morning. She is POD #4 from ORIF of right perisprosthetic femur fracture. She has no new complaints today. She denies numbness, tingling, calf pain, fever, chills, chest pain or shortness of breath. Objective - Vital Signs Vital signs: Vital Signs Temp 97.9 F 01/21/18 07:00 Pulse 65 01/21/18 07:00 Resp 16 01/21/18 07:00 BP 153/71 01/21/18 07:00 Pulse Ox 97 01/21/18 07:00 Intake & Output 01/20/18 01/21/18 01/21/18 18:59 06:59 18:59 Intake Total 120 Output Total 650 525 Balance -650 -405 Weight 98.5 kg 98 kg Intake: Oral 120 Output: Urine 650 525 Other: Voiding Method Indwelling Catheter Indwelling Catheter - Exam Inspection of the right lower extremity is benign. Surgical wound is benign. No active bleeding or drainage. Range of motion of the hip was not tested due to the fracture. Calf is soft nontender. Neurovascular status is grossly intact with motor and sensation throughout the right lower extremity. There is 2+ dorsalis pedis pulse and less than 2 second capillary refill. - Constitutional General appearance: Present: no acute distress - Labs CBC & Chem 7: 01/21/18 07:20 01/21/18 07:20 Labs: Abnormal Lab Results - Last 24 Hours (Table) 01/20/18 01/20/18 01/20/18 Range/Units 12:00 17:32 21:54 RBC (3.80-5.40) m/uL Hgb (11.4-16.0) gm/dL Hct (34.0-46.0) % RDW (11.5-15.5) % Lymphocytes # (1.0-4.8) k/uL Carbon Dioxide (22-30) mmol/L BUN (7-17) mg/dL Creatinine (0.52-1.04) mg/dL Glucose (74-99) mg/dL POC Glucose (mg/dL) 250 H 254 H 234 H (75-99) mg/dL 01/21/18 01/21/18 01/21/18 Range/Units 07:09 07:20 07:20 RBC 2.74 L (3.80-5.40) m/uL Hgb 7.4 L (11.4-16.0) gm/dL Hct 23.5 L (34.0-46.0) % RDW 17.5 H (11.5-15.5) % Lymphocytes # 0.8 L (1.0-4.8) k/uL Carbon Dioxide 34 H (22-30) mmol/L BUN 34 H (7-17) mg/dL Creatinine 1.24 H (0.52-1.04) mg/dL Glucose 154 H (74-99) mg/dL POC Glucose (mg/dL) 168 H (75-99) mg/dL Assessment and Plan (1) Femur fracture, right Narrative/Plan: Continue strict non weightbearing on right leg. May be up out of bed. Continue medical management, pain management and DVT prophylaxis per IM. She may transfer to [facility] from orthopedic standpoint when ok with IM. Current Visit: Yes Status: Acute Priority: Medium Code(s): S72.91XA - UNSP FRACTURE OF RIGHT FEMUR, INIT FOR CLOS FX SNOMED Code(s): 21433532 Time with Patient: Less than 30
[2018-01-21] MEDS: IPRATROPIUM-ALBUTEROL 3 ML NEB INHALATION SCH ×3 (09:04→16:47)
[2018-01-21] MEDS: BUDESONIDE 0.5 MG/2 ML NEBU INHALATION SCH (09:04)
--- NOTE | 2018-01-21 11:52 | CDI ---
Last Revision, February 2017 Documentation Clarification Form Date: 01/21/2018 11:39:29 AM From: Dora Shah RN, CCDS Admit Date: 01/13/2018 11:10:00 AM Patient Name: Keysha Thomas Visit Number: [id number] ATTENTION: The Clinical Documentation Specialists (CDI) and [facility] Coding Staff appreciate your assistance in clarifying documentation. Please respond to the clarification below the line at the bottom and electronically sign. The CDI & [facility] Coding staff will review the response and follow-up if needed. Please note: Queries are made part of the Legal Health Record. If you have any questions, please contact the author of this message via ITS. Dr. Venkat Churchill diagnosis of anemia lacks specificity to accurately reflect your patients severity of condition and clarification is needed. History/Risk Factors: Fall with right femur periprosthetic fracture w/ ORIF this admission, HCF, COPD , CKD stage 3 Clinical indicators: Hemoglobin: Pre-op 9.7/9.2/9.48.3 Post-op 7/6.7(1 Unit PC TX)/7.8 Hematocrit: Pre-op 30.7/29.5/29.9/26.4 Post-op 22.5/21.7/25 Treatment: 1 unit PRBC's transfused Labs monitored AM Daily 0.9% NS @ 75 cc/hr In order to capture the severity of condition, please clarify the significance of the low and declining Hgb and Hct and etiology if known: Acute blood loss anemia Acute on chronic blood loss anemia Chronic blood loss anemia Iron deficiency anemia Drug induced anemia Anemia due to malignancy Nutritional anemia Anemia of chronic kidney disease Anemia of chronic disease (please specify) Unable to determine Other, please specify In order to accurately reflect this patients severity of illness, please clarify if the post-operative diagnosis is: An expected post-procedural or post-surgical condition; Integral to the procedure; Inherent to the procedure; An unexpected post-procedural or post-surgical condition related to surgical care; Other, please specify Unable to determine Please continue to document in your progress notes and discharge summary in order to capture severity of illness and risk of mortality. Include clinical findings that support your diagnosis. MTDD
--- NOTE | 2018-01-21 12:08 | CDI ---
Last Revision, February 2017 Documentation Clarification Form Date: 01/21/2018 11:54:25 AM From: Dora Shah RN, CCDS Admit Date: 01/13/2018 11:10:00 AM Patient Name: Keysha Thomas Visit Number: [id number] ATTENTION: The Clinical Documentation Specialists (CDI) and [facility] Coding Staff appreciate your assistance in clarifying documentation. Please respond to the clarification below the line at the bottom and electronically sign. The CDI & [facility] Coding staff will review the response and follow-up if needed. Please note: Queries are made part of the Legal Health Record. If you have any questions, please contact the author of this message via ITS. Denita Max MD History/Risk Factors: CHF, hypothyroidism, COPD, HTN, CKD stage 3 Clinical Indicators: 01/18 Cardiology Progress note: "This is a 82-year-old female with history of diastolic CHF and ischemic heart disease was admitted with a fall and fracture of the hip." VS/Pulse OX: wnl BNP: not checked 01/13 Echocardiogram Results: EF 55-60% 01/13 Chest X Ray:"Improving aeration at the right lung base with persistent left lower lobe consolidation and small effusion. Underlying interstitial pneumonitis or venous congestion in the differential diagnosis." Treatment: Cardizem CD 20 mg PO QD Lopressor 25 mg Po TID Lasix 20 IVP x 2 doses, followed by 40 mg PO BID currently on hold In your professional opinion, can you please clarify the acuity of the diastolic CHF that has been documented, if known? Diastolic Heart Failure: Acute Chronic Acute on Chronic Unable to Determine Other, please specify Please continue to document in your progress notes and discharge summary in order to capture severity of illness and risk of mortality. Include clinical findings that support your diagnosis. MTDD
[2018-01-21] MEDS: ACETAMINOPHEN TAB 325 MG TAB PO PRN (12:16)
[2018-01-21 12:36] LABS: Glucose,Whole Blood 277 mg/dL (75-99)
--- NOTE | 2018-01-21 15:18 | P.DS ---
Providers Date of admission: 01/13/18 11:10 Expected date of discharge: 01/21/18 Attending physician: Tracey Murrieta Consults: 01/13/18 11:12 Consult Physician Routine Consulting Provider: Veronika Wallace Consult Reason/Comments: Elevated troponin Do you want consulting provider notified?: Yes Consult Physician Routine Consulting Provider: Marc South Consult Reason/Comments: Right femur fracture, history of right hip replacement Do you want consulting provider notified?: Yes Primary care physician: [place] [facility] Course: Final Diagnoses: Right femoral fracture/Status post fall: - Patient is status post surgery as mentioned above. - We will monitor H&H closely and stress incentive spirometry every hour while awake Positive troponin, rule out cardiac cause. Secondary to chronic kidney disease. Congestive heart failure chronic diastolic dysfunction with mild acute exacerbation, because of acute renal failure held off lasic couple of doses. CKD stage III History of COPD not in acute exacerbation Diabetes mellitus: Hyperlipidemia Essential hypertension Mild acute renal failure secondary to diuretic therapy/ CKD stage III Hospital course:Patient is admitted after a mechanical fall and right femoral fracture. Patient has mildly elevated troponin which appeared to be nonischemic and secondary to her Chronic kidney disease and chronic diastolic dysfunction cardiology evaluated the patient please refer to documentation for clearance for surgery patient is moderate risk for surgery but the the surgery does improve her functionality. Patient has asymptomatic bacteriuria do not believe patient has UTI antibiotics were discontinued. patient does have history of congestive heart failure chronic gastric dysfunction with mild pulmonary edema on the chest x-ray IV fluids will be discontinued. patient will be continued on oral Lasix need to monitor for heart failure exacerbation. Evaluated by orthopedics, status post ORIF. Tolerated Procedure well. Lasix held for a couple of days given worsening renal function, currently down to 1.2 for today. Resume Lasix tomorrow. Cleared by all consults for discharge. GENERAL: The patient is alert and oriented x3, not in any acute distress. CARDIOVASCULAR: S1 and S2 present. No murmurs, rubs, or gallops. PULMONARY: Chest is clear to auscultation, no wheezing or crackles. ABDOMEN: Soft, nontender, nondistended, normoactive bowel sounds. NEUROLOGICAL: Gross neurological examination did not reveal any focal deficits. The impression and plan of care has been dictated as directed. : I performed a history and examination of this patient, discussed the same with the dictator. I agree with the dictator's note ,documented as a scribe. Any additional findings or plans will be noted. Time taken: 35 minutes Patient Condition at Discharge: Stable Plan - Discharge Summary Discharge Rx Participant: No New Discharge Prescriptions: New Insulin Detemir [Levemir] 10 unit SQ HS syr Metoprolol Tartrate [Lopressor] 25 mg PO TID tab Polyethylene Glycol 3350 [Miralax] 17 gm PO DAILY PRN powd.pack PRN Reason: Constipation Sennosides-Docusate Sodium [Senokot-S] 1 each PO HS tab Acetaminophen Tab [Tylenol] 650 mg PO Q6H PRN tab PRN Reason: Pain Continue Insuln Asp Prt/Insulin Aspart [NovoLOG MIX 70-30 VIAL] 28 unit SQ AC-BRKFST Pravastatin Sodium [Pravachol] 80 mg PO HS Nitroglycerin Sl Tabs [Nitrostat] 0.4 mg SUBLINGUAL Q5M PRN PRN Reason: Chest Pain Lansoprazole [Prevacid] 30 mg PO DAILY Insuln Asp Prt/Insulin Aspart [NovoLOG MIX 70-30 VIAL] 20 unit SQ AC-SUPPER rOPINIRole HCL [Requip] 0.5 mg PO DAILY buPROPion HCL [Wellbutrin SR] 150 mg PO BID Aspirin 81 mg PO DAILY #30 chew Budesonide [Pulmicort] 0.5 mg INHALATION RT-BID nebu Diltiazem Cd [Cardizem CD] 240 mg PO DAILY #30 cap.er.24h Ipratropium-Albuterol Nebulize [Duoneb 0.5 mg-3 mg/3 ml Soln] 3 ml INHALATION RT-QID #120 ampul.neb Acetaminophen Tab [Tylenol] 650 mg PO Q6H PRN PRN Reason: Pain Melatonin 3 mg PO HS Alendronate Sodium [Fosamax] 70 mg PO Q30D guaiFENesin [Diabetic Tussin Ex] 200 mg PO Q4H PRN PRN Reason: Cough Furosemide [Lasix] 40 mg PO BID@0900,1600 #60 tab No Action INSULIN LISPRO (HumaLOG) [HumaLOG] See Protocol SQ ACHS Discharge Medication List Insuln Asp Prt/Insulin Aspart [NovoLOG MIX 70-30 VIAL] 28 unit SQ AC-BRKFST [History] Lansoprazole [Prevacid] 30 mg PO DAILY 12/01/13 [History] Nitroglycerin Sl Tabs [Nitrostat] 0.4 mg SUBLINGUAL Q5M PRN 12/01/13 [History] Pravastatin Sodium [Pravachol] 80 mg PO HS 12/01/13 [History] Insuln Asp Prt/Insulin Aspart [NovoLOG MIX 70-30 VIAL] 20 unit SQ AC-SUPPER [History] buPROPion HCL [Wellbutrin SR] 150 mg PO BID 12/21/17 [History] rOPINIRole HCL [Requip] 0.5 mg PO DAILY 12/21/17 [History] Aspirin 81 mg PO DAILY #30 chew 12/27/17 [Rx] Budesonide [Pulmicort] 0.5 mg INHALATION RT-BID nebu 12/27/17 [Rx] Diltiazem Cd [Cardizem CD] 240 mg PO DAILY #30 cap.er.24h 12/27/17 [Rx] Ipratropium-Albuterol Nebulize [Duoneb 0.5 mg-3 mg/3 ml Soln] 3 ml INHALATION RT -QID #120 ampul.neb 12/27/17 [Rx] Acetaminophen Tab [Tylenol] 650 mg PO Q6H PRN 01/13/18 [History] Alendronate Sodium [Fosamax] 70 mg PO Q30D 01/13/18 [History] INSULIN LISPRO (HumaLOG) [HumaLOG] See Protocol SQ ACHS 01/13/18 [History] Melatonin 3 mg PO HS 01/13/18 [History] guaiFENesin [Diabetic Tussin Ex] 200 mg PO Q4H PRN 01/13/18 [History] Acetaminophen Tab [Tylenol] 650 mg PO Q6H PRN tab 01/21/18 [Rx] Furosemide [Lasix] 40 mg PO BID@0900,1600 #60 tab 01/21/18 [Rx] Insulin Detemir [Levemir] 10 unit SQ HS syr 01/21/18 [Rx] Metoprolol Tartrate [Lopressor] 25 mg PO TID tab 01/21/18 [Rx] Polyethylene Glycol 3350 [Miralax] 17 gm PO DAILY PRN powd.pack 01/21/18 [Rx] Sennosides-Docusate Sodium [Senokot-S] 1 each PO HS tab 01/21/18 [Rx] Follow up Appointment(s)/Referral(s): Marc South MD [STAFF PHYSICIAN] - 2 Weeks Misha Wynn MD [REFERRING] - 1 Week (After DC from subacute rehab) Staff, ECF [Other] - 3 Days Ria Palma MD [STAFF PHYSICIAN] - 1 Week Activity/Diet/Wound Care/Special Instructions: [facility] confirm cardiology follow-up appointment prior to discharge. CBC,BMP in 2 days keep wound clean and dry, may shower if no bleeding mckayla out at post op day #14 Strict Non weightbearing F/U Dr. South in office
[2018-01-21 15:36] VITALS: BP 150/54; RESP 15; TEMP 98.2
[2018-01-21 16:50] VITALS: PULSE 72
[2018-01-21 17:01] LABS: Glucose,Whole Blood 266 mg/dL (75-99)
[2018-02-11] MEDS ORDERED: Alendronate Sodium [Fosamax] 70 MG PO SCH (12:00)
== END 2018-01-21 18:00 | DRG 480 ==
LOC: EC 06:54 → 3SCARD 11:10 → 4SSUR 01-14 20:48
PROVIDERS: ADMIT Internal Medicine; ATTEND Internal Medicine
PROC: 30233N0 Transfusion of Autologous Red Blood Cells into Peripheral Vein, Percutaneous Approach (ICD-10-PCS; 2018-01-17)
PROC: 0QS804Z Reposition Right Femoral Shaft with Internal Fixation Device, Open Approach (ICD-10-PCS; principal; 2018-01-17 09:00)
PROC: 30233N1 Transfusion of Nonautologous Red Blood Cells into Peripheral Vein, Percutaneous Approach (ICD-10-PCS; 2018-01-19)
DX: S72.341A Displaced spiral fracture of shaft of right femur, initial encounter for closed fracture (principal); I50.33 Acute on chronic diastolic (congestive) heart failure; M97.01XA Periprosthetic fracture around internal prosthetic right hip joint, initial encounter; D62 Acute posthemorrhagic anemia; I13.0 Hypertensive heart and chronic kidney disease with heart failure and stage 1 through stage 4 chronic kidney disease, or unspecified chronic kidney disease; I24.8 Other forms of acute ischemic heart disease; N17.9 Acute kidney failure, unspecified; Z68.41 Body mass index [BMI] 40.0-44.9, adult; E66.9 Obesity, unspecified; E11.22 Type 2 diabetes mellitus with diabetic chronic kidney disease; E11.40 Type 2 diabetes mellitus with diabetic neuropathy, unspecified; J44.9 Chronic obstructive pulmonary disease, unspecified; D50.0 Iron deficiency anemia secondary to blood loss (chronic); N18.3 Chronic kidney disease, stage 3 (moderate); R82.71 Bacteriuria; T50.2X5A Adverse effect of carbonic-anhydrase inhibitors, benzothiadiazides and other diuretics, initial encounter; E03.9 Hypothyroidism, unspecified; K21.9 Gastro-esophageal reflux disease without esophagitis; I25.2 Old myocardial infarction; L40.9 Psoriasis, unspecified; I25.10 Atherosclerotic heart disease of native coronary artery without angina pectoris; E78.5 Hyperlipidemia, unspecified; R25.1 Tremor, unspecified; M81.0 Age-related osteoporosis without current pathological fracture; R26.2 Difficulty in walking, not elsewhere classified; Z71.3 Dietary counseling and surveillance; Z99.81 Dependence on supplemental oxygen; Z79.4 Long term (current) use of insulin; Z79.82 Long term (current) use of aspirin; Z79.83 Long term (current) use of bisphosphonates; Z79.899 Other long term (current) drug therapy; Z87.891 Personal history of nicotine dependence; Z87.01 Personal history of pneumonia (recurrent); Z95.5 Presence of coronary angioplasty implant and graft; Z99.3 Dependence on wheelchair; Z90.49 Acquired absence of other specified parts of digestive tract; Z87.19 Personal history of other diseases of the digestive system; Z96.641 Presence of right artificial hip joint; Z86.79 Personal history of other diseases of the circulatory system; W01.0XXA Fall on same level from slipping, tripping and stumbling without subsequent striking against object, initial encounter; Z82.5 Family history of asthma and other chronic lower respiratory diseases; Z80.3 Family history of malignant neoplasm of breast
CPT/HCPCS: 36415; 51702; 71045; 72170; 72192; 73501; 80048; 80053; 81001; 82550; 82553; 83735; 83874; 84484; 85025; 85027; 86850; 86891; 86900; 86901; 86920; 93005; 93306; 94640; 94760; 96374; 96375; 99285